=== PATIENT | female | born 1970 | race Caucasian/White ===

== ENCOUNTER 2019-12-06 14:46 | Emergency (ER) | payer OTHER ==
--- OUTSIDE RECORDS SUMMARY | 2019-12-06 14:49 | XMS REPORT | Continuity of Care Document ---
:1970 Author Organization [employer] [facility] Care Team Providers Name Role Phone [employer] [facility] Unavailable Un available Problems Problem Status Onset Classification Date Comments Sourc e Date Reported Asthma 07/06/19 Problem 10/07/2014 1states Surgical (disorder) 09 allergy Specialty induced [facility] [place] Sleep apnea 07/06/19 Problem 10/07/2014 Surgica l (finding) 09 [facility]ty [facility] [place] Hypertensive 07/06/18 Problem 10/07/2014 3presently Surgi abiel disorder, 95 not taking Specialty systemic any meds [facility] arterial [place] (disorder) Anxiety Problem 10/07/2014 Surgical (finding) [facility] [place] Backache Problem 10/07/2014 2off and on Surgica l (finding) [facility] [place] Depressive Problem 10/07/2014 Surgical disorder Specialty (disorder) [facility] [place] Cannabis sativa Problem 10/07/2014 4states uses Surgical (organism) it for Specialty buddhism [facility] reasons [place] Medications Medication Details Route Status Patient Ordering Order Source Instructions Provider Date Tylenol with See Active 10/05/ Surgical Codeine #3 Instructions, 2015 Special ty oral tablet PRN for pain, 1 Hosp ital tabs Oral [place] q4-6hours as [place] needed for pain, 0 Refill(s)1 tabs Oral q4-6hours as needed for pain Tylenol with 2 tabs, Tab, Inactive [place] 10/05/ Surg ical Codeine #3 Oral, q4hr PRN 2014 Specia lty oral tablet for pain severe Hosp ital (7-10), first of [place] dose 10/05/14 Land 7:39:00 CDTMax 4gm acetaminophen in 24 hours ceFAZolin 2 gm, Soln-IV, No Longer [place] 10/04/ Surg ical IV Piggyback, Active 2015 Specialty q8hr, infuse Hospital over 30 minutes, of [place] order duration: [place] 3 doses, first dose 10/04/14 16:30:00 CDT, stop date 10/05/14 16:29:00 CDT acetaminophen- 10 mL, Soln, No Longer [place] 10/04/ S urgical HYDROcodone Oral, q4hr PRN Active 2014 Speci alty 325 mg-7.5 for Pain Hospital mg/15 mL oral Moderate (4-6), of [place] solution first dose [place] 10/04/14 12:00:00 CDTMax 4gm acetaminophen in 24 hours Saline Lock 10 mL, Soln, IV No Longer [place] 10/04/ S urgical Flush Push, q8hr, Active 2015 Specialty first dose Hospital 10/04/14 of [place] 12:00:00 CDT [place] Benadryl 25 mg = 1 caps, No Longer [place] 10/04/ Surg ical Cap, Oral, q6hr Active 2015 Specialt y PRN for itching, Hospita l first dose of [place] 10/04/14 Land 11:35:00 CDT ondansetron 4 mg = 2 mL, No Longer [place] 10/04/ Surg ical Injection, IV Active 2015 Specialty Push, q4hr PRN Hospital for of [place] nausea/vomiting, [place] first dose 10/04/14 11:35:00 CDT promethazine 25 mg = 1 mL, No Longer [place] 10/04/ Berry rgical Injection, IM, Active 2015 Specialty q4hr PRN for Hospital severe nausea, of [place] first dose [place] 10/04/14 11:35:00 CDT Demerol HCl 50 mg = 1 mL, No Longer [place] 10/04/ Lesley gical Injection, IM, Active 2015 Specialty q4hr PRN for Hospital breakthrough of [place] pain, first dose [place] 10/04/14 11:35:00 CDT acetaminophen 650 mg = 2 tabs, No Longer [place] 10/04/ Surgical Tab, Oral, q4hr Active 2015 Specialt y PRN for Hospital headache, first of [place] dose 10/04/14 Land 11:35:00 CDTMax 4gm acetaminophen in 24 hours Saline Lock 10 mL, Soln, IV No Longer [place] 10/04/ S urgical Flush Push, As Active 2015 Specialty Indicated PRN Hospital for flush, first of [place] dose 10/04/14 Land 11:35:00 CDT D5W - 0.45NaCl 1,000 mL, IV, 80 No Longer [place] 10/04 / Surgical with 20 mEq mL/hr, start Active 2014 Special ty KCl 1,000 mL date 10/04/14 Hospi brianna 11:35:00 CDT of [place] acetaminophen- 15 mL, Soln, No Longer [place] urgical HYDROcodone Oral, q4hr PRN Active 2014 Speci alty 325 mg-7.5 for pain severe Hospi brianna mg/15 mL oral (7-10), first of [place] solution dose 10/04/14 Land 11:35:00 CDTMax 4gm acetaminophen in 24 hours Xopenex 0.63 0.63 mg = 3 mL, [facility] mg/3 mL Soln, NEB, Once 2015 Specialt y inhalation PRN for Hospital solution shortness of of [place] breath or [place] wheezing, first dose 10/04/14 9:53:00 CDT ondansetron 4 mg = 2 mL, Inactive [facility] Lesley gical Injection, IV 2014 Specialty Push, q15min PRN Hospita l for of [place] nausea/vomiting, [place] order duration: 2 doses, first dose 10/04/14 9:53:00 CDT, stop date Limited # of times promethazine 12.5 mg = 0.5 Inactive [facility]/ S urgical mL, Injection, 2015 Specialty IM, Once PRN for Hospita l severe nausea, of [place] first dose [place] 10/04/14 9:53:00 CDT Saline Lock 10 mL, Soln, IV Inactive [facility] Surgical Flush Push, As 2015 Specialty Indicated PRN Hospital for flush, first of [place] dose 10/04/14 Land 9:53:00 CDT morphine 2 mg = 0.2 mL, Inactive [facility] 10/04/ Surg ical Injection, IV 2014 Specialty Push, q5min PRN Hospital for Pain of [place] Moderate (4-6), [place] first dose 10/04/14 9:53:00 CDT Dilaudid 0.5 mg = 0.25 Inactive [facility] 10/04/ Surgi abiel mL, Injection, 2014 Specialty IV Push, q10min Hospital PRN for pain of [place] severe (7-10), [place] first dose 10/04/14 9:53:00 CDT Misc 950 mL, Soln-IV, Inactive Hari 10/04/ Surgic al Medication IV, Once, first 2014 Speci alty dose 10/04/14 Hospital 9:50:00 CDT, of [place] 10/04/14 9:50:00 CDT HYDROmorphone 0.5 mg = 0.[address] [facility] 10/04/ Surgical mL, Injection, 2014 Specialty IV, Once, first Hospital dose 10/04/14 of [place] 9:47:00 CDT, 10/04/14 9:47:00 CDT ondansetron 4 mg = 2 mL, Inactive [facility]/ Lesley gical Injection, IV, 2014 Specialty Once, first dose Hospita l 10/04/14 9:31:00 of [place] CDT, stop 10/04/14 9:31:00 CDT HYDROmorphone 0.5 mg = 0.[address] [facility] 10/04/ Surgical mL, Injection, 2014 Specialty IV, Once, first Hospital dose 10/04/14 of [place] 9:27:00 CDT, 10/04/14 9:27:00 CDT acetaminophen 1,000 mg, Inactive [facility] 10/04/ Surg ical Soln-IV, IV 2015 Specialty Piggyback, Once, Hospita l first dose of [place] 10/04/14 9:14:00 [place] CDT, stop 10/04/14 9:14:00 CDT HYDROmorphone 0.5 mg = 0.[address] [facility] 10/04/ Surgical mL, Injection, 2015 Specialty IV, Once, first Hospital dose 10/04/14 of [place] 9:13:00 CDT, 10/04/14 9:13:00 CDT fentaNYL 100 mcg = 2 mL, Inactive [facility] 10/04/ Lesley gical Injection, IV, 2014 Specialty Once, first dose Hospita l 10/04/14 8:56:00 of [place] CDT, stop 10/04/14 8:56:00 CDT ceFAZolin 2 gm, Soln-IV, Inactive [facility] 10/04/ Lesley gical IV Piggyback, 2015 Specialty Once, first dose Hospita l 10/04/14 8:54:00 of [place] CDT, 10/04/14 8:54:00 CDT ceFAZolin 1 gm, Inactive [facility] 10/04/ Surgical Powder-Inj, IV, 2014 [facility] 10/04/14 8:53:00 of [place] CDT, 10/04/14 8:53:00 CDT dexamethasone 12 mg = 3 mL, Inactive [facility] 10/04/ Surgical Injection, IV, 2014 [facility]ty Once, [facility] 10/04/14 8:53:00 of [place] CDT, 10/04/14 8:53:00 CDT rocuronium 5 mg = 0.5 mL, Inactive [facility] 10/04/ Berry rgical Injection, IV, 2014 [facility]ty Once, [facility] 10/04/14 8:43:00 of [place] CDT, 10/04/14 8:43:00 CDT lidocaine 2 mL, Injection, Inactive [facility] 10/04/ S urgical IV, Once, first 2015 Specialt y dose 10/04/14 Hospital 8:43:00 CDT, of [place] 10/04/14 8:43:00 CDT propofol 140 mg = 14 mL, Inactive [facility] 10/04/ Lesley gical Emulsion, IV, 2014 Specialty Once, first dose [facility] 10/04/14 8:43:00 of [place] CDT, 10/04/14 8:43:00 CDT fentaNYL 50 mcg = 1 mL, Inactive [facility] 10/04/ Surg ical Injection, IV, 2014 Specialty Once, first dose [facility] 10/04/14 8:43:00 of [place] CDT, 10/04/14 8:43:00 CDT fentaNYL 100 mcg = 2 mL, Inactive [facility] 10/04/ Lesley gical Injection, IV, 2014 [facility]ty [facility] 10/04/14 8:40:00 of [place] CDT, 10/04/14 8:40:00 CDT midazolam 2 mg = 2 mL, Inactive [facility] 10/04/ Surgi abiel Injection, IV, 2014 [facility]ty [facility], [facility] 10/04/14 8:26:00 of [place] CDT, stop date [place] 10/04/14 8:26:00 CDT ceFAZolin 2 gm, Soln-IV, Inactive [place] 10/04/ Surgi abiel IV Piggyback, 2015 Specialty Once, [facility] over 30 minutes, of [place] first dose [place] 10/04/14 8:00:00 CDT, stop date 10/04/14 8:00:00 CDT Lidocaine 2% 0.2 mL, Inactive Robert 10/04/ Surgical 0.2 mL IV Injection, 2015 Specialty Start Subcutaneous, Hospital [[facility] Once PRN for of [place] other (see [place] comment), first dose 10/04/14 7:29:00 CDT LR 1,000 mL 1,000 mL, IV, 30 Inactive Robert 10/04/ Berry rgical mL/hr, start 2014 Specialty date 10/04/14 Hospital 7:29:00 CDT of [place] clonazePAM 1 1 mg = 1 tabs, Active 10/03/ Surg ical mg oral tablet Oral, TID, [facility] take morning of of [place] surgery, 0 [place] Refill(s), anxietyinstructe d may take morning of surgery Allergies, Adverse Reactions, Alerts Substance Category Reaction Severity Reaction Status Date Comments S ource type Reported doxycycline drug throat Allergy Surg ical allergy closes [facility] Immunizations No Data Provided for This Section Results No Data Provided for This Section Pathology Reports No Data Provided for This Section Diagnostic Reports No Data Provided for This Section Consultation Notes No Data Provided for This Section Discharge Summaries No Data Provided for This Section History and Physicals No Data Provided for This Section Vital Signs Vital Sign Value Date Comments Source Systolic (mm Hg) 122 [facility]05[facility] 10/05[facility]2014 [facility] Temperature Oral (F) [facility].5 [facility]6 [facility] Diastolic (mm Hg) 56 10/05/2014 Surgical S [facility] [place] Systolic (mm Hg) 130 10/05/2014 Surgical [facility] ar [place] Respitory Rate 16 10/05/2014 Surgical Spec [facility] [place] Heart Rate 59 10/05/2014 Surgical [facility] [place] Temperature Oral (F) 36.6 Joanne [facility] [place] Systolic (mm Hg) 113 10/05/2014 Surgical [facility] [place] Diastolic (mm Hg) 63 10/05/2014 Surgical S [facility] ar [place] Respitory Rate 16 10/05/2014 Surgical Spec [facility] [place] Heart Rate 65 10/05/2014 Surgical [facility] ar [facility] Peripheral Pulse [facility] 98 [facility] (F[facility] 37.2 [facility] Weight 40 10/04/2014 [facility] [place] Weight 121.4 10/04/2014 Surgical [facility] Height 174 cm 10/04/2014 Surgical [facility] Peripheral Pulse Rate 88 [facility]/04[facility] [place] Weight 38.39 09/26/2014 Surgical [facility] Height 175.26 cm 09/26/2014 Surgical [facility] Weight 117.93 09/26/2014 Surgical [facility] Encounters Location Location Encounter Encounter Reason Attending ADM CA Stat us Source Details Type Number For Provider Date Date Visit [facility] OBS [id number] Sravan 10/04 10/05 Discharged Surgic al [place] /2014 [facility] [place] Procedures Procedure Code Date Perfomer Comments Source PALATOPHARYNGOPLASTY 10/05/19 [place] 1auto-populate Surgical 78149 (Other)<sup>1</sup> 15 d from Specialty documented Hospital of surgical case [place] TONSILLECTOMY AND 10/05/19 [place] 2auto-populate Lesley gical ADENOIDECTOMY AGE 12 O 15 d from ecialty (Other, documented [facility])<sup>2</sup> surgical case [place] Colonoscopy [id number] 07/06/19 Surgical 14 [facility] egd 07/06/19 Surgical 14 [facility] breast lump 07/06/19 Surgical removed-benign 12 [facility] breast reduction 07/06/19 Surgical 12 [facility] Hysterectomy [id number] 07/06/19 Surgical 10 [facility] Ectopic 633.90 07/06/19 Surgica l 00 [facility] Assessment and Plan No Data Provided for This Section Plan of Care No Data Provided for This Section Social History No Data Provided for This Section Family History No Data Provided for This Section Advance Directives No Data Provided for This Section Functional Status No Data Provided for This Section
--- OUTSIDE RECORDS SUMMARY | 2019-12-06 14:49 | XMS REPORT | Clinical Summary ---
:1970 Author Organization [facility] Address [address] [place] [address] Care Team Providers Name Role Phone Delgado Pierce MD Primary Care Provider Allergies Active Allergy Reactions Severity Noted Date Comments Clindamycin Other (See Comments) 11/25/2019 Trouble swallowing Doxycycline Anaphylaxis High 04/16/2017 Latex Other (See Comments) High 04/16/2017 Blister s and swelling Medications Medication Sig Dispensed Refills Start Date End Date Status orphenadrine Take 1 tablet 30 tablet 0 07/20/2018 Ac tive (NORFLEX) 100 mg 12 (100 mg hr tablet total) by mouth 2 (two) times a day as needed for muscle spasms for up to 30 doses. metoprolol tartrate Take 1 tablet 60 tablet 11 02/02/201901/27 Active (LOPRESSOR) 25 mg (25 mg total) 20 tablet by mouth 2 (two) times a day for 360 days. atorvastatin Take 20 mg by 0 Act gray (LIPITOR) 20 MG mouth daily. tablet Default OP ins predniSONE TK 2 TS PO 0 06/01/2019 Active (DELTASONE) 10 mg FOR 5 tablet DAYSTHEN TK 1 T PO QD FOR 5 DAYS. atorvastatin TK 1 T PO 2 09/03/2017 02/01/20 Discon tinued (LIPITOR) 20 MG NIGHTLY. 19 (Reo rder) tablet METOPROLOL TARTRATE Daily, 0 0 10/20/2017 02/01/20 Discontinued ORAL Refill(s) 19 (Reorder) nitrofurantoin Take 100 mg 0 04/25/20 Dis continued (MACRODANTIN) 100 by mouth 4 19 ( Med List MG capsule (four) times Cleanu p) a day. metoprolol tartrate Take 1 tablet 60 tablet 1 01/31/201901/31 Discontinued (LOPRESSOR) 25 mg (25 mg total) 19 (Reorder) tablet by mouth 2 (two) times a day. atorvastatin TK 1 T PO 30 tablet 2 01/31/2019 02/03/20 Discon tinued (LIPITOR) 20 MG NIGHTLY. 19 (Reo rder) tablet metoprolol tartrate TAKE 1 180 tablet 1 02/01/2019 02/03/20 Discontinued (LOPRESSOR) 25 mg TABLET(25 MG) 19 (Reorder) tablet BY MOUTH TWICE DAILY flecainide Take 1 tablet 60 tablet 11 02/02/2019 04/25/20 Disc ontinued (TAMBOCOR) 50 MG (50 mg total) 19 (Med List tablet by mouth 2 Cleanup) (two) times a day. atorvastatin TK 1 T PO 30 tablet 11 02/02/2019 04/25/20 Discon tinued (LIPITOR) 20 MG NIGHTLY. 19 (Med List tablet Cleanup) cefdinir (OMNICEF) Take 1 20 capsule 0 11/25/2019 12/05/19 300 MG capsule capsule (300 20 mg total) by mouth 2 (two) times a day for 10 days. traMADoL (ULTRAM) Take 1 tablet 10 tablet 0 11/25/2019 0 50 mg (50 mg total) 20 tabletIndications: by mouth acute pain every 6 (six) hours as needed for moderate pain for up to 3 days .acute pain. ibuprofen (ADVIL) Take 1 tablet 14 tablet 0 11/25/2019 0 600 MG tablet (600 mg 20 total) by mouth every 6 (six) hours as needed for mild pain or moderate pain for up to 5 days. 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 Palpitations 05/20/2017 Last Assessment & Plan: Due to symptomatic PVCs; will icnrease wilfrido mobley and refer to EP Chest pain 05/12/2017 Precordial chest pain 04/16/2017 Last Assessment & Plan: Will proceed with stress testing; she ca nnot ambulate far (on disability) Shortness of breath 04/16/2017 Last Assessment & Plan: Will obtain echo Essential hypertension, benign 04/16/2017 Last Assessment & Plan: BPs good; on therapy Encounters Date Type Specialty Care Team Description 11/25/2019 Emergency Emergency Ellis, Acute cystitis with hematuria (Primary Dx); Kemar lCemons MD Right flank marian n 11/25/2019 Travel 09/13/2019 Telephone Cardiology Waleska Valle, Kristel RN 09/12/2019 Travel 09/07/2019 Office Visit Cardiology Kenneth Choudhary (Primary Dx); MD Jayy Preop cardiova scular exam; Essential hyper tension, benign; Pure hyperchole sterolemia 05/18/2019 [facility] [place], Breast mass Encounter Delgado Roman MD 05/18/2019 [facility] [place], Breast mass Encounter Delgado Roman MD 05/09/2019 [facility] [place], Abnormal mammog stefania Encounter Delgado Roman MD 05/09/2019 [facility] [place], Abnormal mammog stefania Encounter Delgado Roman MD 04/25/2019 Surgery Procedural Florence Hopkins, EP TILT TABLE [[id number] Cardiology Rosa Maria (CPT)] MD Starr 04/25/2019 [facility] Procedural Naman Hopkins, Tachycardia, unspecified Encounter Cardiology Rosa Maria Clements MD 04/18/2019 Transcribe Orders Access [place], Abnormal m ammogram (Primary Dx); Delgado Roman MD Breast mass 03/14/2019 Hospital [facility]iology Marco Locke Mediastinal mas s Encounter Beverly TOM MD 03/14/2019 Hospital Radiology Marco Locke Cervicalgia Encounter Beverly TOM MD 03/14/2019 Orders Only Cardiology ProviderEvelyn MD 03/11/2019 Transcribe Orders Access Marco Locke Cervicalgi a (Primary Dx); Beverly TOM MD Mediastinal mas s 02/02/2019 Office Visit Cardiology Kenrick Right ventricul ar outflow tract premature ventricular contractions (PVCs) (Primary Dx); MD Jayy Palpitations; Pure hyperchole sterolemia; Essential hyper tension, benign 01/31/2019 Refill Cardiology Ben Choudhary Refill MD Jayy 01/31/2019 Refill Cardiology Sunita Albert MA Med Refill after 12/05/2018 Social History Tobacco Use Types Packs/Day Years Used Date Former Smoker Cigarettes Smokeless Tobacco: Never Used Comments: QUIT YEARS AGO AT AGE 16 Alcohol Use Drinks/Week oz/Week Comments Yes occasional Sex Assigned at Date Recorded Not on file Job Start Date Occupation Industry Not on file Not on file Not on file Travel History Travel Start Travel End No recent travel history available. COVID-19 Exposure Response Date Recorded In the last month, have you been in contact with No / Unsure 11/25/2019 6:50 PM CDT someone who was confirmed or suspected to have Coronavirus / COVID-19? Last Filed Vital Signs Vital Sign Reading Time Taken Comments Blood Pressure 122/63 11/25/2019 8:30 PM CDT Pulse 98 11/25/2019 8:30 PM CDT Temperature 36.6 C (97.8 F) 11/25/2019 6:34 PM CDT Respiratory Rate 18 11/25/2019 8:30 PM CDT Oxygen Saturation 96% 11/25/2019 8:30 PM CDT Inhaled Oxygen Concentration - - Weight 131 kg (289 lb) 11/25/2019 6:34 PM CDT Height 170.2 cm (5' 7") 11/25/2019 6:34 PM CDT Body Mass Index 45.26 11/25/2019 6:34 PM CDT Plan of Treatment Date Type Specialty Care Team Description 03/09/2020 Office Visit Cardiology Jayy Choudhary MD [address] [place], [place] [address] Health Maintenance Due Date Last Done Comments CERVICAL CANCER SCREENING 1991 INFLUENZA VACCINE 02/04/2020 Procedures Procedure Name Priority Date/Time Associated Diagnosis Comme nts ECG 12-LEAD STAT 11/25/2019 7:48 Results for this PM CDT procedure are i n the results section. CT RENAL STONE STAT 11/25/2019 7:47 Results f or this PROTOCOL PM CDT procedure are i n the results section. ECG ED PRELIMINARY Routine 11/25/2019 7:31 Resul ts for this INTERPRETATION PM CDT procedure are in the results section. COMPREHENSIVE STAT 11/25/2019 6:51 Results fo r this METABOLIC PANEL PM CDT procedure ar e in the results section. HC COMPLETE BLD COUNT STAT 11/25/2019 6:51 Re sults for this W/AUTO DIFF PM CDT procedure are i n the results section. URINALYSIS STAT 11/25/2019 6:48 Results for this PM CDT procedure are i n the results section. TTE COMPLETE, WO Routine 09/12/2019 2:07 Shortness of breath Results for this CONTRAST, W DOPPLER PM CDT procedur e are in ([id number]) the results section. ECG 12-LEAD Routine 09/07/2019 3:59 Preop cardiovascular Res ults for this PM [employer] exam procedure are i n the results section. SURGICAL PATHOLOGY Routine 05/18/2019 11:19 Resul ts for this REQUEST AM [employer] procedure are i n the results section. MAMMO DIAGNOSTIC W CAD Routine 05/18/2019 11:02 Breast mass R esults for this LEFT AM [employer] procedure are i n the results section. US BREAST BIOPSY LEFT Routine 05/18/2019 10:34 Breast mass Re sults for this AM [employer] procedure are i n the results section. US BREAST COMPLETE Routine 05/09/2019 12:57 Abnormal mammogram Results for this LEFT PM [employer] procedure are i n the results section. MAMMO BREAST Routine 05/09/2019 11:54 Abnormal mammogram Resul ts for this DIAGNOSTIC AM [employer] procedure are i n TOMOSYNTHESIS the results BILATERAL section. EP TILT TABLE Routine 04/25/2019 1:27 Tachycardia, Results fo r this PM CDT unspecified procedure are i n the results section. PARTIAL THROMBOPLASTIN STAT 04/25/2019 11:58 R esults for this TIME (PTT) AM CDT procedure are i n the results section. PROTHROMBIN TIME WITH STAT 04/25/2019 11:58 Re sults for this INR AM CDT procedure are i n the results section. CBC HEMOGRAM STAT 04/25/2019 11:58 Results for this AM CDT procedure are i n the results section. ECG PRE/POST OP Routine 04/25/2019 11:10 Results for this AM CDT procedure are i n the results section. CT CHEST W CONTRAST Routine 03/14/2019 5:48 Mediastinal mass Results for this PM CDT procedure are i n the results section. CT SOFT TISSUE NECK W Routine 03/14/2019 5:40 Cervicalgia Re sults for this CONTRAST PM CDT procedure are i n the results section. ESTIMATED GFR Routine 03/14/2019 5:11 Results fo r this PM CDT procedure are i n the results section. POC CREATININE Routine 03/14/2019 5:11 Results f or this PM CDT procedure are i n the results section. NOTIFY PHYSICIAN Routine 02/24/2019 (SPECIFY) ECG 12-LEAD Routine 02/02/2019 2:03 Palpitations Results for this PM CDT procedure are i n the results section. after 12/05/2018 Results ECG 12 lead (11/25/2019 7:48 PM CDT)Only the most recent of3 resultswithin the time period is included. Pathologist Sig nature Ventricular rate 88 [facility] Atrial rate 88 [facility] LA interval 152 [facility] QRSD interval 132 [facility] QT interval 390 [facility] QTC interval 471 [facility] P axis 1 53 [facility] QRS axis 1 -55 [facility] T wave axis 50 [facility] EKG impression Normal sinus rhythm-Right bu ndle branch block-Left anterior fascicular block-^^^ Bifascicular block ^^^-Abnormal ECG-In automated comparison with ECG of 07-SEP-2019 15:59,-Right bundle branch block has replaced Incomplete right bundle branch [facility] MUSE block-Minimal criteria for I nferior infarct are no longer present- Specimen Narrative Performed At This result has an attachment that is no t available. Performing Organization Address City/State/Zipcode Phone Number [facility] MUSE [address] [place] [address] CT Renal Stone Protocol (11/25/2019 7:47 PM CDT) Specimen Narrative Performed At EXAMINATION: CT RENAL STONE PROTOCOL [facility] CLINICAL HISTORY: rt flank pain TECHNIQUE: Multiple axial images of the abdomen and pe lvis were obtained without intravenous administration of iodinated contra st. Sagittal and coronal computerized reformatted images were also obta ined. The lack of intravenous contrast reduces the sensitivity of detecting solid organ disease.Automatic exposure control or iterative reconstruction techniques u sed to reduce dose. COMPARISON: 07/20/2018 Impression: 1.Without IV contrast evaluation of solid organs of up per abdomen is limited. Fatty infiltration of the liver and cholecyst ectomy again noted. Liver measures 22 cm in length. No nephrolithia sis or hydronephrosis. No evidence for ureteral dilatation and no stones in the bladder. 2.Appendix is unremarkable. Sigmoid diverticulosis, wi thout acute diverticulitis. No small bowel obstructi on noted. 3.Status post hysterectomy. Left ovarian cystic lesion measuring 3.3 cm. No significant free fluid in the pelvis. Osseous structures are intact. Summary: 1.No acute intra-abdominal abnormalities. Fatty liver with enlargement again noted. 2.Left ovarian cystic 3.3 cm lesion, not fully assesse d by CT and could be followed with outpatient pelvic ultra sound. [facility] Procedure Note Interface, Radiology Results Incoming - 11/25/2019 7:55 PM CDT EXAMINATION: CT RENAL STONE PROTOCOL CLINICAL HISTORY: rt flank pain TECHNIQUE: Multiple axial images of the abdomen and pelvis were obtained without intravenous administration of iodinated contrast. Sagittal and coronal computerized reformatted images were also obtained. The lack of intravenous contrast reduces the sensitivity of detecting solid organ dis ease.Automatic exposure control or iterative reconstruction techniques used to reduce dose. COMPARISON: 07/20/2018 Impression: 1.Without IV contrast evaluation of deana d organs of upper abdomen is limited. Fatty infiltration of the liver and cholecystectomy again noted. Liver measures 22 cm in length. No nephrolithiasis or hydronephrosis. No evidence for ureteral dilatation and no stones in the bladder. 2.Appendix is unremarkable. Sigmoid dive rticulosis, without acute diverticulitis. No small bowel obstruction noted. 3.Status post hysterectomy. Left ovarian cystic lesion measuring 3.3 cm. No significant free fluid in the pelvis. Osseous structures are intact. Summary: 1.No acute intra-abdominal abnormalities . Fatty liver with enlargement again noted. 2.Left ovarian cystic 3.3 cm lesion, not fully assessed by CT and could be followed with outpatient pelvic ultrasound. [facility] Performing Organization Address City/State/Zipcode Phone Number [facility] [address] [place] [address] ECG ED Preliminary Interpretation - Not an Order (11/25/2019 7:31 PM CDT) Narrative Performed At Deonte Ellis MD 11/25/2019 8:40 PM ECG ED Preliminary Interpretation - Not an Order Performed by: Deonte Ellis MD Authorized by: Deonte Ellis MD ECG reviewed by ED Physician in the abse nce of a supervisor operations: yes Previous ECG: Previous ECG: Unavailable Interpretation: Interpretation: abnormal Rate: ECG rate: 88 ECG rate assessment: normal Rhythm: Rhythm: sinus rhythm Ectopy: Ectopy: none QRS: QRS axis: Left QRS intervals: Normal Conduction: Conduction: abnormal Abnormal conduction: complete RBBB ST segments: ST segments: Non-specific T waves: T waves: inverted Inverted: V2 Comments: Normal sinus rhythm, left axis deviation, nonspeci fic ST changes T wave inversion lead III CBC with platelet and differential (11/25/2019 6:51 PM CDT) [facility] WBC 7.66 4.50 - 11.00 k/uL [facility] RBC 4.97 4.20 - 5.50 m/uL [facility] HGB 14.5 12.0 - 16.0 g/dL [facility] HCT 44.8 37.0 - 47.0 % [facility] MCV 90.1 82.0 - 100.0 fL [facility] MCH 29.2 27.0 - 34.0 pg [facility] MCHC 32.4 31.0 - 37.0 g/dL [facility] RDW - SD 46.3 37.0 - 55.0 fL [facility] MPV 8.8 8.8 - 13.2 fL [facility] Platelet count 246 150 - 400 k/uL [facility] Neutrophils 67.5 39.0 - 69.0 % [facility] Lymphocytes 25.6 25.0 - 45.0 % [facility] Monocytes 4.6 0.0 - 10.0 % [facility] Eosinophils 2.0 0.0 - 5.0 % [facility] Basophils 0.3 0.0 - 1.0 % [facility] Specimen Blood Performing Organization Address City/State/Zipcode Phone Number DEPARTMENT OF PATHOLOGY AND [address] [place] [address] [facility] [address] Comprehensive metabolic panel (11/25/2019 6:51 PM CDT) Sodium 137 128 - [address] [facility] mEq/L [facility] Potassium 3.9 3.6 - 5.[address] [facility] mEq/L [facility] CO2 30 18 - 33 mEq/L [facility] Chloride 102 98 - 108 mEq/L [facility] Glucose 108 73 - 118 mg/dL [facility] Calcium 9.2 8.0 - 10.[address] [facility] mg/dL [facility] BUN 14 7 - 22 mg/dL [facility] Creatinine 0.8 0.5 - 0.[address] [facility] mg/dL [facility] Alkaline phosphatase 66 42 - 141 U/L [facility] ALT 34 10 - 47 U/L [facility] AST 32 11 - 38 U/L [facility] Total bilirubin 0.7 0.2 - 1.[address] [facility] mg/dL [facility] Albumin 3.8 3.3 - 5.5 g/dL [facility] Protein 7.8 6.4 - 8.1 g/dL [facility] Anion gap 5@ANIO (L) 7 - 15 mEq/L [facility] A/G ratio 1.0 0.7 - 3.8 [facility] Specimen Blood Performing Organization Address City/State/Zipcode Phone Number DEPARTMENT OF PATHOLOGY AND [address] [place] [address] [facility] [address] Urinalysis (11/25/2019 6:48 PM CDT) Glucose, UA Trace (A) Negative [facility] Bilirubin, UA Negative Negative [facility] Ketones, UA Negative Negative [facility] Specific gravity, 1.020 1.001 - 1.[address] [facility] Blood, UA Trace (A) Negative [facility] pH, UA 6.5 5.0 - 8.5 [facility] Protein, UA Negative Negative [facility] Urobilinogen, UA <2.0 <2.0 [facility] Nitrite, UA Positive (A) Negative [facility] Leukocyte esterase, Negative Negative [facility] Color, UA Yellow [facility] Appearance, UA Clear [facility] Specimen Urine Performing Organization Address City/State/Zipcode Phone Number DEPARTMENT OF PATHOLOGY AND [address] [place] [address] GENOMIC MEDICINE, [facility] [address] Transthoracic Echocardiogram Complete, (w Contrast, Strain and 3D if needed) (09/12/2019 2:07 PM CDT) Pathologist Sig nature AoV Area, Vmax 3.49 cm2 [facility] AoV Area, VTI 3.60 cm2 [facility] AoV Mean PG 3.00 mmHg [facility] AoV Peak PG 4.93 mmHg [facility] AoV Vmax 1.11 m/s [facility] AoV VTI 0.23 m [facility] BSA [place] 2.58 m2 [facility] BSA 2.36 m2 [facility] IVS,d 0.94 cm [facility] IVS/LVPW,2D 1.03 HM [facility] Left Atrium Dimension Anterior 4.00 cm [facility] LV,d 4.61 cm HM [facility] LV EF,2D 69.30 % HM [facility] LV,s 3.11 cm HM [facility] LVOT area 3.46 cm2 HM [facility] LVOT Diam,S 2.10 cm HM [facility] LVOT Vmax 1.12 m/s HM [facility] LVOT VTI 0.24 m HM [facility] LVPWD,d 0.91 cm HM [facility] RVSP (TR) 22.82 mmHg HM [facility] TR Vpeak 1.79 mm/s HM [facility] MV E A ratio 0.76 HM [facility] RA pressure 10.00 mmHg HM [facility] TR pk grad 12.82 mmHg HM [facility] AoV area i VTI BSA [place] 1.52 cm2/m2 HM [facility] MR Vmax 2.38 m/s HM [facility] MR peak grad 22.66 mmHg HM [facility] BMI 45.26 kg/m2 [facility] E wave decelartion time 292.00 msec HM [facility] MV Peak A Lazaro 0.74 m/s HM [facility] MV valve area p 1/2 method 2.60 cm2 HM [facility] MV Peak E Lazaro 0.56 m/s [facility] MV stenosis pressure 1/2 time 84.68 ms [facility] AV LVOT peak gradient 5.02 mmHg HM [facility] RVSP 22.82 mmHg [facility] Ao Root,d,2D 3.20 cm [facility] LV SYS VOL 38.21 ml HM [facility] LV PAVON VOL 97.83 ml HM [facility] LV SI Teich 2D 25.21 ml/m2 [facility] LV SV Teich 2D 59.62 ml HM [facility] LV Vol s Teich PSAX 38.21 ml [facility] LVOT SI 34.86 ml/m2 [facility] BSA Haycock 2.56 m2 [facility] AoV Cusp sep 2.10 [facility] Aortic Root 3.50 cm HM [facility] AoV Vmn 0.73 [facility] LV FS Teich 2D 32.54 [facility] MV AE ratio 1.31 [facility] LA Ao Ratio Mmode 1.17 HM [facility] LV FS Cube 2D 32.54 [facility] LVOT Vmn 0.68 [facility] Pt Size 170.18 [facility] Pt Wt 131.09 [facility] Aov area Vmn 3.21 cm2 HM [facility] LVOT mean grad 2.00 mmHg HM [facility] Ao d LA s ratio 0.80 [facility] AoV area I VMN bsa 1.36 cm2/m2 [facility] LV press s 123.93 mmHg HM [facility] LV SI Cube 2D 28.71 ml/m2 HM [facility] LV SV Cube 2D 67.89 ml HM [facility] LV vol d cube 2D 97.97 ml HM [facility] LV vol s cube 2D 30.08 ml HM [facility] LA Vol MOD A4C 47.70 ml HM [facility] Velocity Ratio (V1/V2) 1.01 m/s HM [facility] EF 60.94 % [facility] E/A ratio 0.76 [facility] LA diam s 4.10 cm HM [facility] Specimen Narrative Performed At This result has an attachment that is no t available. HM [facility] Left ventricular systolic function is normal. Left Ventricular ejection fraction is 60 - 65%. Normal left ventricular size with preserved systolic a nd diastolic function and no regionality. Trace mitral regurgitatio n. Normal right sided chambers. Performing Organization Address City/[facility]/Zipcode Phone Number [facility] [address] [place] [address] Surgical pathology request (05/18/2019 11:19 AM [employer]) [facility] DEPARTMENT OF PATHOLOGY AND GENOMIC MEDICINE Surgical pathology See link below [facility] DEPARTMENT OF report for PDF Lab PATHOLOGY AND Report GENOMIC MEDICINE Result status This is Final [facility] DEPARTMENT OF Report for PATHOLOGY AND [id number] GENOMIC MEDICINE Specimen Performing Organization Address City/State/Zipcode Phone Number [facility] DEPARTMENT OF PATHOLOGY [address] [place] [address] AND GENOMIC MEDICINE Mammo Diagnostic w Cad Left (05/18/2019 11:02 AM [employer]) Specimen Addenda Addendum by Kylie Dudley MD on 05/20 3:14 PM ADDENDUM #1 ADDENDUM: The final result of the left breast 12 o 'clock subareolar needle biopsy is usual ductal hyperplasia, dilated ducts with periductal stromal sclerosis and chronic inflammation and stromal fib rosis. No atypia or malignancy. Please see Dr. Lauren Barrios's full pathology report for further details. This benign result is concordant with im aging findings. Recommend 6 month follow-up left breast mammogram and ultrasound to establish a postbiopsy baseline and conf irm stability. The patient was notified of the final re sult and recommendations via telephone by RN Ebony Hubbard on 2018 at 2:15 PM. Narrative Performed At Examination: US BREAST BIOPSY LEFT, MAMMO DIAGNOSTIC W CAD LEFT [facility] 05/18/2019 10:02 AM Procedures: 1. Ultrasound-Guided Breast Biopsy and Breast Clip Fabien cement - left breast 12 o'clock subareolar Primary Proceduralist: Kylie Dudley MD Pre Procedure Diagnosis: Breast mass. Post Procedure Diagnosis: Breast mass. Clinical History: 48 year old female presenting for ul trasound-guided biopsy of a suspicious left breast mass, possibly repr esenting fat necrosis. Comparison: Mammogram and ultrasound adair ed 05/09/2019 Consent: The procedure(s), risks, indications, and alt ernatives were explained. All questions were answered and informed co nsent was obtained. Procedure(s) in Detail: A time-out was performed prior to the start of the procedure and the correct patient, procedure, pres ence of consent, site, and side were confirmed with all m embers of the team. Site 1: The skin was prepped with chlorhexidine and dr aped in sterile fashion. Lidocaine with and without epinephrine was administered for local anesthesia. The lesion of interest in the left b reast 11 o'clock subareolar position was identified by ultrasound. Under direct sonographic guidance, 4 sampl es were obtained with a 14 gauge needle through an introducer. A wing s haped marker clip was deployed in the biopsy bed using ultrasound guidan ce. Hemostasis was achieved. The skin was approximated and bandaged with Steri-Strips. Post-procedure Mammography: Post-procedure mammography was performed and shows the marker clip in expected positi on.. Estimated Blood Loss: Minimal. Specimen(s) Removed: Yes. Immediate Complications: None. Disposition: The patient tolerated the procedure well and was discharged home in good condition. Impression: Technically successful ultrasound guided b iopsy of the left breast(s). Final pathology results will be reported in an addendum. [id number] Procedure Note Interface, Radiology Results Incoming - 05/18/2019 3:06 PM [employer] Examination: US BREAST BIOPSY LEFT, MAMMO DIAGNOSTIC W CAD LEFT 05/18/2019 10:02 AM Procedures: 1. Ultrasound-Guided Breast Biopsy and B reast Clip Placement - left breast 12 o'clock subareolar Primary Proceduralist: Kylie Dudley MD Pre Procedure Diagnosis: Breast mass. Post Procedure Diagnosis: Breast mass. Clinical History: 48 year old female pre senting for ultrasound-guided biopsy of a suspicious left breast mass, possibly representing fat necrosis. Comparison: Mammogram and ultrasound adair ed 05/09/2019 Consent: The procedure(s), risks, indica tions, and alternatives were explained. All questions were answered and informed consent was obtained. Procedure(s) in Detail: A time-out was p erformed prior to the start of the procedure and the correct patient, procedure, presence of consent, site, and side were confirmed with all members of the team. Site 1: The skin was prepped with chlorh exidine and draped in sterile fashion. Lidocaine with and without epinephrine was administered for local anesthesia. The lesion of interest in the left breast 11 o'clock subareolar position was identified by ultrasound. Under direct sonographic rena dance, 4 samples were obtained with a 14 gauge needle through an introducer. A wing shaped marker clip was deployed in the biopsy bed using ultrasound guidance. Hemostasis was achieved. The skin was approximated and bandaged with Steri-Strips. Post-procedure Mammography: Post-procedu re mammography was performed and shows the marker clip in expected position.. Estimated Blood Loss: Minimal. Specimen(s) Removed: Yes. Immediate Complications: None. Disposition: The patient tolerated the p rocedure well and was discharged home in good condition. Impression: Technically successful ultra sound guided biopsy of the left breast(s). Final pathology results will be reported in an addendum. [email or web address] Performing Organization Address City/State/Zipcode Phone Number [facility] [address] [place] [address] Breast Biopsy Left (05/18/2019 10:34 AM ULTRASONIC HAND SOLDERER) Specimen Addenda Addendum by Kylie Dudley MD on 05/20 3:14 PM ADDENDUM #1 ADDENDUM: The final result of the left breast 12 o 'clock subareolar needle biopsy is usual ductal hyperplasia, dilated ducts with periductal stromal sclerosis and chronic inflammation and stromal fib rosis. No atypia or malignancy. Please see Dr. Lauren Barrios's full pathology report for further details. This benign result is concordant with im aging findings. Recommend 6 month follow-up left breast mammogram and ultrasound to establish a postbiopsy baseline and conf irm stability. The patient was notified of the final re sult and recommendations via telephone by RN Ebony Hubbard on 2018 at 2:15 PM. Narrative Performed At Examination: US BREAST BIOPSY LEFT, MAMMO DIAGNOSTIC W CAD LEFT [facility] 05/18/2019 10:02 AM Procedures: 1. Ultrasound-Guided Breast Biopsy and Breast Clip Fabien cement - left breast 12 o'clock subareolar Primary Proceduralist: Kylie Dudley MD Pre Procedure Diagnosis: Breast mass. Post Procedure Diagnosis: Breast mass. Clinical History: 48 year old female presenting for ul trasound-guided biopsy of a suspicious left breast mass, possibly repr esenting fat necrosis. Comparison: Mammogram and ultrasound adair ed 05/09/2019 Consent: The procedure(s), risks, indications, and alt ernatives were explained. All questions were answered and informed co nsent was obtained. Procedure(s) in Detail: A time-out was performed prior to the start of the procedure and the correct patient, procedure, pres ence of consent, site, and side were confirmed with all m embers of the team. Site 1: The skin was prepped with chlorhexidine and dr aped in sterile fashion. Lidocaine with and without epinephrine was administered for local anesthesia. The lesion of interest in the left b reast 11 o'clock subareolar position was identified by ultrasound. Under direct sonographic guidance, 4 sampl es were obtained with a 14 gauge needle through an introducer. A wing s haped marker clip was deployed in the biopsy bed using ultrasound guidan ce. Hemostasis was achieved. The skin was approximated and bandaged with Steri-Strips. Post-procedure Mammography: Post-procedure mammography was performed and shows the marker clip in expected positi on.. Estimated Blood Loss: Minimal. Specimen(s) Removed: Yes. Immediate Complications: None. Disposition: The patient tolerated the procedure well and was discharged home in good condition. Impression: Technically successful ultrasound guided b iopsy of the left breast(s). Final pathology results will be reported in an addendum. [email or web address] Performing Organization Address City/State/Zipcode Phone Number [facility] [address] [place] [address] US Breast Complete Left (05/09/2019 12:57 PM ULTRAS[employer]IC HAND SOLDERER) Specimen Narrative Performed At PROCEDURE: MAMMO BREAST DIAGNOSTIC TOMOSYNTHESIS BILAT ERAL, US BREAST [facility] COMPLETE LEFT Left real-time whole breast sonography included all fo ur quadrants and the retroareolar region under close supe rvision by the radiologist. Computer aided detection with tomosynthesis was utiliz ed for the interpretation. HISTORY: 48-year-old female presenting for short ter m follow-up for the left breast and annual screening of the right breast. COMPARISON: 11/19/2018-03/26/2015. DENSITY: The breast are almost entirely fatty. MAMMOGRAM: Bilateral benign-appearing calcifications a re noted in both breasts. There is a 1.8 x 1.6 x 1.4 cm mass with lobul ar and indistinct margins in the left breast at 12 o'clock 8 cm from the nipple which may represent an area of fat necrosis, however given the indistinct borders on the tomosynthe sis slices, malignancy cannot be entirely excluded. ULTRASOUND: There is a 1.4 x 0.9 x 0.5 cm heterogeneou sly hypoechoic mass/masses at 12 o'clock subareolar region which repr esents a sonographic correlate to the mass seen on mammography. No other significant mammographic finding is iden tified. IMPRESSION: 1. Suspicious 1.4 cm mass in the left subareolar regio n. Ultrasound-guided core biopsy is recomme nded for definitive diagnosis. 2. No mammographic evidence of malignanc y in the right breast. Findings and recommendations were discussed with the p atient and the biopsy will be scheduled by the breast c enter. BI-RADS 4: SUSPICIOUS This facility is accredited by [employer] for Mammography. A negative x-ray report should not delay biopsy if a d ominant or clinically suspicious mass is present. Not all cance rs are identified by x-ray. [email or web address] Performing Organization Address City/State/Zipcode Phone Number [facility] [address] [place] [address] Mammo Breast Diagnostic Tomosynthesis Bilateral (05/09/2019 11:54 AM ULTRASONIC HAND SOLDERER) Specimen Narrative Performed At PROCEDURE: MAMMO BREAST DIAGNOSTIC TOMOSYNTHESIS BILAT ERAL, US BREAST [facility] COMPLETE LEFT Left real-time whole breast sonography included all fo ur quadrants and the retroareolar region under close supe rvision by the radiologist. Computer aided detection with tomosynthesis was utiliz ed for the interpretation. HISTORY: 48-year-old female presenting for short ter m follow-up for the left breast and annual screening of the right breast. COMPARISON: 11/19/2018-03/26/2015. DENSITY: The breast are almost entirely fatty. MAMMOGRAM: Bilateral benign-appearing calcifications a re noted in both breasts. There is a 1.8 x 1.6 x 1.4 cm mass with lobul ar and indistinct margins in the left breast at 12 o'clock 8 cm from the nipple which may represent an area of fat necrosis, however given the indistinct borders on the tomosynthe sis slices, malignancy cannot be entirely excluded. ULTRASOUND: There is a 1.4 x 0.9 x 0.5 cm heterogeneou sly hypoechoic mass/masses at 12 o'clock subareolar region which repr esents a sonographic correlate to the mass seen on mammography. No other significant mammographic finding is iden tified. IMPRESSION: 1. Suspicious 1.4 cm mass in the left subareolar regio n. Ultrasound-guided core biopsy is recomme nded for definitive diagnosis. 2. No mammographic evidence of malignanc y in the right breast. Findings and recommendations were discussed with the p akhil and the biopsy will be scheduled by the breast c enter. BI-RADS 4: SUSPICIOUS This facility is accredited by [employer] for Mammography. A negative x-ray report should not delay biopsy if a d ominant or clinically suspicious mass is present. Not all cance rs are identified by x-ray. [email or web address] Performing Organization Address City/State/Zipcode Phone Number [facility] [address] [place] [address] Electrophysiology procedure (04/25/2019 1:27 PM CDT) Specimen Narrative Performed At This result has an attachment that is no t available. Description [facility] SYNGO The risks, benefits and alternatives were discussed wi th the patient and informed consent was obtained prior to procedure. Yogesh musa was brought to the Electrophysiology laboratory in the fasting state. The blood pressure, heart rate oxygen saturation and surface electrocardio gram were monitored throughout the procedure. Patient was initially monitored in the supine position with the following VS: BP 114 HR 66. She was then positioned in a h ead-up tilt position at a 70 degrees angle. BP and HR remained stable during the passive phase for 20 minutes. ECG showed NSR with no PVCs. Patient received SL NTG 0.4 mg, BP after NTG remained stable 119/90 with HR up to 100 bpm, she reported nausea and dizziness. She was returned to t he supine position with resolution of symptoms and was transferred to the recovery area in stable condition. Conclusion Negative tilt table test Plan - Continue metoprolol - D/C today Performing Organization Address [facility] Phone Number [facility] [address] [place] [address], Partial thromboplastin time, activated (04/25/2019 11:58 AM CDT) Pathologist [facility] PTT 32.1 23.0 - 36.[address] [facility] Comment: [facility] PTT therapeutic range for unfractionated heparin is HOSPITAL 61.0-112.0 seconds which corresponds to Anti-Xa 0.3-0.7 U/ml. Specimen Blood Performing Organization Address [facility] Phone Number [facility] DEPARTMENT OF PATHOLOGY [address] [place] [address] Prothrombin time with INR (04/25/2019 11:58 AM CDT) [facility] Prothrombin time 13.0 11.5 - 14.5 [facility] INR 1.0 [facility] Comment: KHURRAM DURBIN [facility] International Normalized Ratio (INR) is a therapeu [facility] monitoring tool for patients who are stable on oral anticoagulant therapy. An INR of 2.0-3.0 is suggested for deep vein thrombosis/pulmonary embolism. Specimen Blood Performing Organization Address [facility] Phone Number [facility] DEPARTMENT OF PATHOLOGY [address] [place] [address] CBC hemogram (04/25/2019 11:58 AM CDT) Pathologist [facility] nature WBC 6.6 4.5 - 11.0 k/uL [facility] RBC 4.75 4.20 - 5.50 m/uL [facility] HGB 13.7 12.0 - 16.0 g/dL [facility] HCT 42.2 37.0 - 47.0 % [facility] MCV 88.8 82.0 - 100.0 fL [facility] MCH 28.8 27.0 - 34.0 pg [facility] MCHC 32.5 31.0 - 37.0 g/dL [facility] RDW - SD 44.0 37.0 - 55.0 fL [facility] MPV 8.9 6.9 - 11.0 fL [facility] Platelet count 242 150 - 400 K/uL [facility] Nucleated RBC 0.00 /100 WBC [facility] Specimen Blood Performing Organization Address [facility]/Zipcode Phone Number [facility] DEPARTMENT OF PATHOLOGY [address] [facility] [address] AND GENOMIC MEDICINE [facility] [address] [facility] [place] [address] HOSPITAL ECG Pre/Post Op (04/25/2019 11:10 AM CDT) Pathologist Sig nature Ventricular rate 77 [facility] Atrial rate 77 [facility] LA interval 158 [facility] QRSD interval 138 [facility] QT interval 414 [facility] QTC interval 468 [facility] P axis 1 52 [facility] QRS axis 1 -23 [facility] T wave axis 45 [facility] EKG impression Normal sinus rhythm-Right bu ndle branch block-Possible Lateral infarct , age undetermined-Abnormal ECG-In automated comparison with ECG of 02-FEB-2019 14:03,-Left posterior fascicular block is no longer [facility] present-Borderline criteria for Lateral infarct are now present- Specimen Narrative Performed At This result has an attachment that is no t available. Performing Organization Address City/[facility]/Zipcode Phone Number [facility] [address] [place] [address] CT Chest W Contrast (03/14/2019 5:48 PM CDT) Specimen Narrative Performed At EXAMINATION: [facility] CT CHEST W CONTRAST CLINICAL HISTORY: J98.59 Other diseases of mediastinum not elsewhere c lassified, M54.2 J98.5 TECHNIQUE: Multiple axial images of the chest were obtained follo wing intravenous administration of iodinated contrast. Sagittal and cor onal computerized reformatted images were also obtained. CT imaging was performed with iterative reconstruction techniques and/ or automated exposure control to reduce ra diation dose. COMPARISON: To previous study from 05/31/2018 IMPRESSION: 1.There is no evidence of hilar or mediastinal lymphad enopathy. Moderate fatty infiltration is noted involving th e partially visualized liver. 2.No parenchymal abnormality is noted in the lungs. 3.No bony abnormality is appreciated. [id number] Procedure Note Interface, Radiology Results Incoming - 03/14/2019 7:20 PM CDT EXAMINATION: CT CHEST W CONTRAST CLINICAL HISTORY: J98.59 Other diseases of mediastinum no t elsewhere classified, M54.2 J98.5 TECHNIQUE: Multiple axial images of the chest were obtained following intravenous administration of iodinated contrast. Sagittal and coronal computerized reformatted images were also obtained. CT imaging was performed with iterative reconstruction techniques and/ or automated exposure control to reduce ra diation dose. COMPARISON: To previous study from 05/31/2018 IMPRESSION: 1.There is no evidence of hilar or media stinal lymphadenopathy. Moderate fatty infiltration is noted involving the partially visualized liver. 2.No parenchymal abnormality is noted in the lungs. 3.No bony abnormality is appreciated. [id number] Performing Organization Address City/State/Zipcode Phone Number [facility] [address] [place] [address] CT Soft Tissue Neck W Contrast (03/14/2019 5:40 PM CDT) Specimen Narrative Performed At EXAMINATION: CT SOFT TISSUE NECK W CONTR AST [facility] CLINICAL HISTORY: M54.2 Cervicalgia, M54 .2 J98.5 COMPARISON: None TECHNIQUE: Postcontrast enhanced imaging through the n dimas was performed from the upper chest through the skull base with coron al and sagittal reconstructed images. CT imaging was performed with iterative reconstruction technique and/or automate d exposure control to reduce radiation dos e. FINDINGS: The base of tongue appears unremarkable. The pharyngea l mucosa is symmetric in appearance and enhancement. The laryngeal structures are symmetric and unremarkable. No prevertebral soft tissu e swelling identified. The parotid and submandibula r glands appear normal bilaterally. Mildly prominent lymph nodes are noted throughout the level 1B and to a dianne stations bilaterally, likely reactive. No pathol ogically enlarged cervical, supraclavicular, or mediastinal lymph nodes identified. The thyroid gland is grossly unremarkable. Normal three-vessel branching of the aortic arch is no prieto. The carotid and vertebral arteries are patent withou t gross luminal irregularity. No significant periodontal disease identified. Small m ucus of atelectasis is noted within the right maxilla sinus. T he remaining paranasal sinuses and mastoid air cells are clear. The orbital structures are symmetric and grossly unr emarkable. Limited evaluation of the intracranial structures reveals no s uspicious abnormality. No midline shift or ventric ulomegaly identified. No suspicious osseous lesions are identified. There is moderate intervertebral disc height loss C5-C6 which results in moderate central canal and right neural foraminal stenosis when combine d with marginal endplate osteophytes, image 120 of serie s 7. The lung apices are clear. IMPRESSION: 1.Apparent moderate central canal and right neural for aminal stenosis at C5-C6 secondary to bulging disc material and endplate osteophytes. If further catheterization is clinically desired, MRI C-s pine could provide additional diagnostic detail. 2.Otherwise unremarkable CT of the neck soft tissues. [id number] Procedure Note Hm Interface, Radiology Results Incoming - 03/14/2019 5:57 PM CDT EXAMINATION: CT SOFT TISSUE NECK W CONTRAST CLINICAL HISTORY: M54.2 Cervicalgia, M54 .2 J98.5 COMPARISON: None TECHNIQUE: Postcontrast enhanced imaging through the neck was performed from the upper chest through the skull base with coronal and sagittal reconstructed images. CT imaging was performed with iterative reconstruction technique and/or automated exposure control to reduce radiation dos e. FINDINGS: The base of tongue appears unremarkable. The pharyngeal mucosa is symmetric in appearance and enhancement. The laryngeal structures are symmetric and unremarkable. No prevertebral soft tissue swelling identified. The parotid and submandibular glands appear normal bilaterally. Mildly prominent lymph nodes are noted t hroughout the level 1B and to a dianne stations bilaterally, likely reactive. No pathologically enlarged cervical, supraclavicular, or mediastinal lymph nodes identified. The thyroid gland is grossly unremarkable. Normal three-vessel branching of the aor tic arch is noted. The carotid and vertebral arteries are patent without gross luminal irregularity. No significant periodontal disease ident ified. Small mucus of atelectasis is noted within the right maxilla sinus. The remaining paranasal sinuses and mastoid air cells are clear. The orbital structures are symmetric and grossly unremarkable. Limited evaluation of the intracranial structure s reveals no suspicious abnormality. No midline shift or ventriculomegaly identified. No suspicious osseous lesions are identi fied. There is moderate intervertebral disc height loss C5-C6 which results in moderate central canal and right neural foraminal stenosis when combined with marginal endplate osteophytes, image 120 of serie s 7. The lung apices are clear. IMPRESSION: 1.Apparent moderate central canal and ri ght neural foraminal stenosis at C5-C6 secondary to bulging disc material and endplate osteophytes. If further catheterization is clinically desired, MRI C-spine could provide additional diagnostic detail. 2.Otherwise unremarkable CT of the neck soft tissues. [id number] Performing Organization Address City/State/Zipcode Phone Number [facility] [address] [place] [address] Estimated GFR (03/14/2019 5:11 PM CDT) Estimated GFR >=90 mL/min/1.73 [facility] Comment: m2 [facility] Catergory Units Interpretation [facility] G1 >=90 Normal or high CENTER G2 60-89 Mildly decreased G3a 45-59 Mildly to moderately decreas ed G3b 30-44 Moderately to severely decre ased G4 15-29 Severely decreased G5 <15 Kidney failure The eGFR was calculated using the Chronic Kidney Disea se Epidemiology Collaboration (CKD-EPI) equation. Interpretation is based on recommendations of the National Kidney Foundation-Kidney Disease Outcomes Júnior lity Initiative (NKF-KDOQI) published in 2014. Specimen Blood Performing Organization Address City/State/Zipcode Phone Number DEPARTMENT OF PATHOLOGY AND [address] [place] [address] [facility] RON PAUL[facility] [address] [place], [place] [id number] [place] [address] POC creatinine (03/14/2019 5:11 PM CDT) POC creatinine 0.7 0.5 - 0.9 [facility] Comment: mg/dl [facility] Meter ID: [id number] EMERGENCY CARE Infant And Toddler Teacher: Cecil Vargas [place] Specimen Blood Performing Organization Address City/State/Zipcode Phone Number DEPARTMENT OF PATHOLOGY AND [address] [place] [address] [employer] [facility] [address] [facility] [address] [place] [address] [facility] EMERGENCY CARE [place] NOTIFY PHYSICIAN (SPECIFY) (02/24/2019) Narrative Performed At This result has an attachment that is no t available. after 12/05/2018 Insurance Payer Benefit Plan / Subscriber ID Effective Dates Phone Addre ss Type Group MEDICARE MEDICARE PART A xxxxxxxxxxx 2009-Present [facility] [place] [facility] [place] B Advance Directives For more information, please contact: [phone] Type Date Recorded Patient Customer Records Division Supervisor Explanati on Advance Directives, Living Will 05/12/2017 12:46 AM and Medical Power of Community Life Director
--- OUTSIDE RECORDS SUMMARY | 2019-12-06 14:51 | XMS REPORT | Continuity of Care Document ---
:[address] [facility] t Address [address] [place] [place] [address] Care Team Providers Name Role Phone Jessie Pierce MD Primary Care Physician Caleb JOHNSON Attending Clinician Leonard ELIZABETH Attending Clinician Unavailable KENRICK Attending Clinician Unavailable Jessie Pierce MD Attending Clinician Damaris Silver Attending Clinician Unavailable Starr Walters MD Attending Clinician [phone] Beverly Dougherty MD Attending Clinician Paula JOHNSON Attending Clinician Roosevelt OCHOA Attending Clinician Unavailable LIZETH LR Admitting Clinician Unavailable Payers Payer Name Policy Policy Number Effective Expiration Source Type Date Date MEDICAREMEDICARE PART xxxxxxxxxxx 2009 Kai Ocampo AND 00:00:00 [place] Bxxxxxxxxxxx/07/2008[place] [facility] Condition Condition Condition Status Onset Resolution Last Treating Co mments Source Name Details Category Date Date Treatment Clinician Date Preop Preop Disease Active [facility] cardiovasc cardiovasc 3-04 Assessmen Methodi ular exam ular exam 00:00: t & Plan: s t 00 Will obtain echo and ecg to risk stratify Right Right Disease Active [facility] ventricula ventricula 7-16 Assessmen Methodi r outflow r outflow 00:00: t & Plan: s t tract tract 00 Will premature premature resume ventricula ventricula flecainid r r e at 50 contractio contractio mg bid; ns (PVCs) ns (PVCs) she will see Dr Stanley February 10 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 Morton hyperchole hyperchole 6- Assessmen Methodi sterolemia sterolemia 00:00: t & Plan: st 00 On statin. Palpitatio Palpitatio Disease Active 2016-07 Last [facility] ns ns 1-15 Assessmen Methodi 00:00: t & Plan: st 00 Due to symptomat ic PVCs; will icnrease flecainid e and refer to EP Chest pain Chest pain Disease Active 2016-07 [place] 1-07 Methodi 00:00: st 00 Precordial Precordial Disease Active 2016-07 Last [facility] chest pain chest pain 0-12 Assessmen Methodi 00:00: t & Plan: st 00 Will proceed with stress testing; she cannot ambulate far (on disabilit y) Shortness Shortness Disease Active 2016-07 Last Nikita ston of breath of breath 0-12 Assessmen M ethodi 00:00: t & Plan: st 00 Will obtain echo Essential Essential Disease Active 2016-07 Last Nikita ston hypertensi hypertensi 0-12 Assessmen Methodi on, benign on, benign 00:00: t & Plan: st 00 BPs good; on therapy Asthma Problem 2014-10-07 Surgi ca (disorder) 07-06 04:00:13 l Asthma 00:00: Special (disorder) 00 ty [facility] 07/06/2008 Problem 10/07/2014 1states allergy induced [facility] Sleep Problem 2014-10-07 Surgi ca apnea - 04:00:13 l (finding) Sleep 00:00: Specia l apnea 00 ty (finding) [facility] 07/06/2008 Problem 10/07/2014 [facility] Hypertensi Problem 2014-10-07 S urgica ve 07-06 04:00:13 l disorder, 00:00: Special systemic Hypertensi 00 ty arterial ve Hospita (disorder) disorder, l o f systemic [place] arterial [place] (disorder) 07/06/1994 Problem 10/07/2014 3presentl y not taking any meds [facility] Anxiety Problem 2014-10-07 Surg ica (finding) 04:00:13 l Anxiety Special (finding) ty [facility] Problem 10/07/2014 [facility] Backache Problem 2014-10-07 Lesley gica (finding) 04:00:13 l Backache Specia l (finding) ty [facility] Problem 10/07/2014 2off and on [facility] Depressive Problem 2014-10-07 S urgica disorder 04:00:13 l (disorder) Specia l Depressive ty disorder [facility] [place] Problem 10/07/2014 [facility] Cannabis Problem 2014-10-07 Lesley gica sativa 04:00:13 l (organism) Cannabis Sp ecial sativa ty (organism) [facility] Problem 10/07/2014 4states uses it for caodaism reasons [facility] Allergies, Adverse Reactions, Alerts Allergy Allergy Status Severity Reaction(s) Onset Inactive Treating Comm ents Source Name Type Date Date Clinician Clindamy Propensi Active Other (See Trouble [place] checo ty to Comments) 11-24 swallowin Meth jess adverse 00:00: g st reaction 00 s to drug Doxycycl Propensi Active Anaphylaxis 2016-07 [place] ine ty to 0-12 Methodi adverse 00:00: st reaction 00 s to drug Latex Propensi Active Other (See 2016-07 Blisters [facility] ty to Comments) 0-12 and Methodi adverse 00:00: swelling st reaction 00 s to drug doxycycl doxycycl Active [facility] Social History Social Habit Start Date Stop Date Quantity Comments Source History of Cigarette Smoker [facility] tobacco use Sex Assigned At [facility] ethodist Exposure to Not sure [place] Metho dist SARS-CoV-2 (event) Alcohol intake 2019-11-25 2019-11-25 [facility] Uatsdin 00:00:00 00:00:00 alcohol (finding) Tobacco Comment 2018-01-18 2018-01-18 QUIT YE[facility] AGO AT [facility] U[place]din 00:00:00 00:00:00 AGE 16 Alcohol Comment 2018-01-18 2018-01-18 occasional [facility] ethodist 00:00:00 00:00:00 Smoking Status Start Date Stop Date Source Former smoker 2019-11-25 00:00:00 2019-11-25 00:00:00 Corley Uatsdin Medications Ordered Filled Start Stop Current Ordering Indication Dosage Frequency Signature Comments Components Source Medication Medication Date Date Medication? Clinician (SIG) Name Name cefdinir 2019- No 300mg Q.5D Take 1 [place] (OMNICEF) 11-24 capsule Method i 300 MG 00:00: 23:59 ([address] capsule 00 :00 total) by mouth 2 (two) times a day for 10 days. ibuprofen 2019- No 600mg Q6H Take 1 [place] (ADVIL) 600 11-2427 tablet Metho di MG tablet 00:00: 23:59 ([address] 00 :00 total) by mouth every 6 (six) hours as needed for mild pain or moderate pain for up to 5 days. traMADoL No acute pain 50mg Q6H Take 1 Cor[place] (ULTRAM) 50 11-24 tablet (50 M ethodi mg tablet 00:00: 23:59 mg total) st 00 :00 by mouth every 6 (six) hours as needed for moderate pain for up to 3 days .acute pain. atorvastati Yes 20mg QD Take 20 mg Corley n (LIPITOR) 3-04 by mouth Meth jess 20 MG 14:35: daily. st tablet 45 Default OP ins predniSONE 2018-07 Yes TK 2 TS PO [place] (DELTASONE) 1-27 FOR 5 Methodi 10 mg 00:00: DAYSTHEN st tablet 00 TK 1 T PO QD FOR 5 DAYS. nitrofurant 2018-07- No 100mg Q.25D Take 100 Corley oin 0-21 10-21 mg by Methodi (MACRODANTI 11:56: 00:[address] N) 100 MG 11 :00 (four) capsule times a day. metoprolol No 25mg Q.5D Take 1 [place] tartrate 02-02 07-25 tablet (25 Meth jess (LOPRESSOR) 00:00: 23:59 mg total) st 25 mg 00 :00 by mouth 2 tablet (two) times a day for 360 days. flecainide No 50mg Q.5D Take 1 [place] (TAMBOCOR) 02-02 10-21 tablet (50 Me thodi 50 MG 00:00: 00:00 mg total) st tablet 00 :00 by mouth 2 (two) times a day. atorvastati 2018- No TK 1 T PO Corley n (LIPITOR) 02-02 NIGHTLY. Met hodi 20 MG 00:00: 00:00 st tablet 00 :00 metoprolol 2018- No TAKE 1 [place] tartrate 02-01 TABLET(25 Metho di (LOPRESSOR) 00:00: 00:00 MG) BY st 25 mg 00 :00 MOUTH tablet TWICE DAILY atorvastati 2018- No TK 1 T PO Corley n (LIPITOR) 01-31 NIGHTLY. Met hodi 20 MG 00:00: 00:00 st tablet 00 :00 metoprolol 2018- No 25mg Q.5D Take 1 [place] tartrate 01-31 tablet (25 Meth jess (LOPRESSOR) 00:00: 00:00 mg total) st 25 mg 00 :00 by mouth 2 tablet (two) times a day. orphenadrin Yes 100mg Q.5D Take 1 Nikita ston e (NORFLEX) 1-15 tablet Method i 100 mg 12 00:00: ([address] hr tablet 00 total) by mouth 2 (two) times a day as needed for muscle spasms for up to 30 doses. METOPROLOL 2018- No Daily, 0 [place] TARTRATE 10-20 Refill(s) Metho di ORAL 00:00: 00:00 st 00 :00 atorvastati 2018- No TK 1 T PO Corley n (LIPITOR) 09-03 NIGHTLY. Met hodi 20 MG 00:00: 00:00 st tablet 00 :00 Tylenol Yes See Surgica with 4- Instructio l Codeine #3 17:22: ns, PRN Spec ial oral tablet 00 for pain, ty 1 tabs Hospita Oral l of q4-6hours [place] as needed [place] for pain, 0 Refill(s)1 tabs Oral q4-6hours as needed for pain Tylenol No Sravan 2 tabs, Surgic a with 4- Devorkin Tab, Oral, l Codeine #3 12:39: q4hr PRN Spe cial oral tablet 00 for pain ty severe Hospita (7-10), l of first dose [place] 10/05/14 Land 7:39:00 CDTMax 4gm acetaminop hen in 24 hours ceFAZolin Karen Hinson 2 gm, Surgic a 10-04 [place] Soln-IV, l 21:30: IV Special 00 Piggyback, ty q8hr, Hospita infuse l of over 30 [place] minutes, [place] order duration: 3 doses, first dose 10/04/14 16:30:00 CDT, stop date 10/05/14 16:29:00 CDT acetaminoph No Sravan 10 mL, Lesley gica en-HYDROcod 10-04 Devorkin Soln, l one 325 17:00: Oral, q4hr Spec ial mg-7.5 00 PRN for ty mg/15 mL Pain Hospita oral Moderate l of solution (4-6), [place] first dose Land 10/04/14 12:00:00 CDTMax 4gm acetaminop hen in 24 hours Saline Lock No Sravan 10 mL, Lesley gica Flush 10-04 Devorkin Soln, IV l 17:00: Push, Special 00 q8hr, ty first dose Hospita 10/04/14 l of 12:00:00 [place] CDT Land Benadryl Karen Hinson 25 mg = 1 Lesley gica 10-04 [place] caps, Cap, l 16:35: Oral, q6hr Special 00 PRN for ty itching, Hospita first dose l of 10/04/14 [place] 11:35:00 [place] CDT ondansetron Karen Hinson 4 mg = 2 S urgica 10-04 [place] mL, l 16:35: Injection, Special 00 IV Push, ty q4hr PRN Hospita for l of nausea/vom [place] iting, [place] first dose 10/04/14 11:35:00 CDT promethazin Karen Hinson 25 mg = 1 Surgica e 10-04 [place]in mL, l 16:35: Injection, Special 00 IM, q4hr ty PRN for Hospita severe l of nausea, [place] first dose [place] 10/04/14 11:35:00 CDT Demerol HCl Karen Hinson 50 mg = 1 Surgica 10-04 [place] mL, l 16:35: Injection, Special 00 IM, q4hr ty PRN for Hospita breakthrou l of gh pain, [place] first dose [place] 10/04/14 11:35:00 CDT acetaminoph No Sravan 650 mg = 2 Surgica en 10-04 Devorkin tabs, Tab, l 16:35: Oral, q4hr Special 00 PRN for ty headache, Hospita first dose l of 10/04/14 [place] 11:35:00 [place] CDTMax 4gm acetaminop hen in 24 hours Saline Lock No Sravan 10 mL, Lesley gica Flush 10-04 Devorkin Soln, IV l 16:35: Push, As Special 00 Indicated ty PRN for Hospita flush, l of first dose [place] 10/04/14 Land 11:35:00 CDT D5W - No Sravan 1,000 mL, Surgic a 0.45NaCl 10-04 Devorkin IV, 80 l with 20 mEq 16:35: mL/hr, Spec ial KCl 1,000 00 start date ty mL 10/04/14 Hospita 11:35:00 l of CDT [place] acetaminoph No Sravan 15 mL, Lesley gica en-HYDROcod 10-04 [place]orkin Soln, l one 325 16:35: Oral, q4hr Spec ial mg-7.5 00 PRN for ty mg/15 mL pain Hospita oral severe l of solution (7-10), [place] first dose [place] 10/04/14 11:35:00 CDTMax 4gm acetaminop hen in 24 hours Xopenex No Lakshmi 0.63 mg = Surg ica 0.63 mg/3 10-04 Munsterman 3 mL, l mL 14:53: Soln, NEB, Special inhalation 00 Once PRN ty solution for Hospita shortness l of of breath [place] or [place] wheezing, first dose 10/04/14 9:53:00 CDT ondansetron No Lakshmi 4 mg = 2 S urgica 10-04 [place] mL, l 14:53: Injection, Special 00 IV Push, ty q15min PRN Hospita for l of nausea/vom [place] iting, [place] order duration: 2 doses, first dose 10/04/14 9:53:00 CDT, stop date Limited # of times promethazin No Lakshmi 12.5 mg = Surgica e 10-04 [place]erman 0.5 mL, l 14:53: Injection, Special 00 IM, Once ty PRN for Hospita severe l of nausea, [place] first dose [place] 10/04/14 9:53:00 CDT Saline Lock No Lakshmi 10 mL, Lesley gica Flush 10-04 [place]erman Soln, IV l 14:53: Push, As Special 00 Indicated ty PRN for Hospita flush, l of first dose [place] 10/04/14 Land 9:53:00 CDT morphine No Lakshmi 2 mg = 0.2 Berry rgica 10-04 Munsterman mL, l 14:53: Injection, Special 00 IV Push, ty q5min PRN Hospita for Pain l of Moderate [place] (4-6), [place] first dose 10/04/14 9:53:00 CDT Dilaudid No Lakshmi 0.5 mg = Surg ica 10-04 Munsterman 0.25 mL, l 14:53: Injection, Special 00 IV Push, ty q10min PRN Hospita for pain l of severe [place] (7-10), [place] first dose 10/04/14 9:53:00 CDT Misc No Cam 950 mL, Surgica Medication 10-04 Hari Soln-IV, l 14:50: IV, Once, Special 00 first dose ty 10/04/14 Hospita 9:50:00 l of CDT, stop [place] date 10/04/14 9:50:00 CDT HYDROmorpho No Lakshmi 0.5 mg = S urgica ne 10-04 Munsterman 0.25 mL, l 14:47: Injection, Special 00 IV, Once, ty first dose Hospita 10/04/14 l of 9:47:00 [place] CDT, stop date 10/04/14 9:47:00 CDT ondansetron No Lakshmi 4 mg = 2 S urgica 10-04 [place] mL, l 14:31: Injection, Special 00 IV, Once, ty first dose Hospita 10/04/14 l of 9:31:00 [place] CDT, stop date 10/04/14 9:31:00 CDT HYDROmorpho No Lakshmi 0.5 mg = S urgica ne 10-04 [place] 0.25 mL, l 14:27: Injection, Special 00 IV, Once, ty first dose Hospita 10/04/14 l of 9:27:00 [place] CDT, stop 10/04/14 9:27:00 CDT acetaminoph No Lakshmi 1,000 mg, Surgica en 10-04 [place] Soln-IV, l 14:14: IV Special 00 Piggyback, ty Once, Hospita first dose l of 10/04/14 [place] 9:14:00 Land CDT, stop 10/04/14 9:14:00 CDT HYDROmorpho No Lakshmi 0.5 mg = S urgica ne 10-04 [place]erman 0.25 mL, l 14:13: Injection, Special 00 IV, Once, ty first dose Hospita 10/04/14 l of 9:13:00 [place] CDT, 10/04/14 9:13:00 CDT fentaNYL No Lakshmi 100 mcg = Lesley gica 10-04 [place]erman 2 mL, l 13:56: Injection, Special 00 IV, Once, ty first dose Hospita 10/04/14 l of 8:56:00 [place] CDT, stop 10/04/14 8:56:00 CDT ceFAZolin No Lakshmi 2 gm, Surgic a 10-04 [place] Soln-IV, l 13:54: IV Special 00 Piggyback, ty Once, Hospita first dose l of 10/04/14 [place] 8:54:00 [place] CDT, stop 10/04/14 8:54:00 CDT ceFAZolin No Lakshmi 1 gm, Surgic a 10-04 [place] Powder-Inj l 13:53: , IV, Special 00 Once, ty first dose Hospita 10/04/14 l of 8:53:00 [place] CDT, stop 10/04/14 8:53:00 CDT dexamethaso No Lakshmi 12 mg = 3 Surgica ne 10-04 [place] mL, l 13:53: Injection, Special 00 IV, Once, ty first dose Hospita 10/04/14 l of 8:53:00 [place] CDT, 10/04/14 8:53:00 CDT rocuronium No Lakshmi 5 mg = 0.5 Surgica 10-04 [place] mL, l 13:43: Injection, Special 00 IV, Once, ty first dose Hospita 10/04/14 l of 8:43:00 [place] CDT, 10/04/14 8:43:00 CDT lidocaine No Lakshmi 2 mL, Surgic a 10-04 [place] Injection, l 13:43: IV, Once, Special 00 first dose ty 10/04/14 Hospita 8:43:00 l of CDT, stop 10/04/14 8:43:00 CDT propofol No Lakshmi 140 mg = Surg ica 10-04 [place]erman 14 mL, l 13:43: Emulsion, Special 00 IV, Once, ty first dose Hospita 10/04/14 l of 8:43:00 [place] CDT, 10/04/14 8:43:00 CDT fentaNYL No Lakshmi 50 mcg = 1 Berry rgica 10-04 [place] mL, l 13:43: Injection, Special 00 IV, Once, ty first dose Hospita 10/04/14 l of 8:43:00 [place] CDT, 10/04/14 8:43:00 CDT fentaNYL No Lakshmi 100 mcg = Lesley gica 10-04 [place]erman 2 mL, l 13:40: Injection, Special 00 IV, Once, ty first dose Hospita 10/04/14 l of 8:40:00 [place] CDT, 10/04/14 8:40:00 CDT midazolam No Lakshmi 2 mg = 2 Lesley gica - [place]sterman mL, l 13:26: Injection, Special 00 IV, Once, ty first dose Hospita 10/04/14 l of 8:26:00 [place] CDT, 10/04/14 8:26:00 CDT ceFAZolin No Sravan 2 gm, Surgic a 10-04 Devorkin Soln-IV, l 13:00: IV Special 00 Piggyback, ty Once, Hospita infuse l of over 30 [place] minutes, [place] first dose 10/04/14 8:00:00 CDT, stop date 10/04/14 8:00:00 CDT Lidocaine No Joel K 0.2 mL, Lesley gica 2% 0.2 mL 10-04 Jones Injection, l IV Start 12:29: Subcutaneo Spe cial [[place]] 00 us, Once ty PRN for Hospita other (see l of comment), [place] first dose Land 10/04/14 7:29:00 CDT LR 1,000 mL No Joel K 1,000 mL, Surgica 10-04 Jones IV, 30 l 12:29: mL/hr, Special 00 start date ty 10/04/14 Hospita 7:29:00 l of CDT [place] clonazePAM Yes 1 mg = 1 Lesley gica 1 mg oral 3-31 tabs, l tablet 16:00: Oral, TID, Speci al 00 instructed ty may take Hospita morning of l of surgery, 0 [place] Refill(s), [place] anxietyins tructed may take morning of surgery Vital Signs Vital Name Observation Time Observation Value Comments Source Systolic blood 2019-11-25 20:30:00 122 mm[Hg] Nitin n Uatsdin pressure Diastolic blood 2019-11-25 20:30:00 63 mm[Hg] Sue on Uatsdin pressure Heart rate 2019-11-25 20:30:00 98 /min Barney Hidalgo Respiratory rate 2019-11-25 20:30:00 18 /min Shashi lovell Uatsdin Oxygen saturation in 2019-11-25 20:30:00 96 /min Barney Hidalgo Arterial blood by Pulse oximetry Body temperature 2019-11-25 18:34:00 36.56 Joanne Shashi Hidalgo Body height 2019-11-25 18:34:00 170.2 cm Barney Hidalgo Body weight 2019-11-25 18:34:00 131.09 kg Barney Hidalgo BMI 2019-11-25 18:34:00 45.26 kg/m2 Barney Hidalgo Systolic (mm Hg) 2014-10-05 17:00:00 Surg [facility] [place] Diastolic (mm Hg) 2014-10-05 17:00:00 Lesley gical Specialty [facility] [place] Respitory Rate 2014-10-05 17:00:00 [facility] Heart Rate 2014-10-05 17:00:00 [facility] Temperature Oral (F) 2014-10-05 17:00:00 36.5 Joanne [facility] Temperature Oral (F) 2014-10-05 12:00:00 36.6 Joanne [facility] Diastolic (mm Hg) 2014-10-05 12:00:00 Lesley [facility]ical [facility] Systolic (mm Hg) 2014-10-05 12:00:00 [facility] Respitory Rate 2014-10-05 12:00:00 [facility] Heart Rate 2014-10-05 12:00:00 [facility] Temperature Oral (F) 2014-10-05 10:00:00 36.6 Joanne [facility] Systolic (mm Hg) 2014-10-05 10:00:00 [facility] Diastolic (mm Hg) 2014-10-05 10:00:00 [facility] Respitory Rate 2014-10-05 10:00:00 [facility]ic [facility] Heart Rate 2014-10-05 10:00:00 [facility] Temperature Oral (F) 2014-10-04 14:40:00 37.2 Joanne [facility] Weight 2014-10-04 12:22:00 [facility] Height 2014-10-04 12:22:00 174 cm [facility] Weight 2014-09-26 22:06:00 [facility] Height 2014-09-26 22:06:00 175.26 cm [facility] Procedures Procedure Date / Time Performing Source Performed Clinician ECG 12-LEAD 2019-11-25 Deonte Ellis Method ist 19:48:45 CT RENAL STONE PROTOCOL 2019-11-25 Deonte Ellisist 19:47:15 ECG ED PRELIMINARY 2019-11-25 Deonte Ellis Met hodist INTERPRETATION 19:31:32 HC COMPLETE BLD COUNT W/AUTO 2019-11-25 Deonte Ellis [place] DIFF 18:51:00 COMPREHENSIVE METABOLIC PANEL 2019-11-25 Deonte Ellis Barney Uatsdin 18:51:00 URINALYSIS 2019-11-25 Deonte Ellis Barney Method ist 18:48:00 TTE COMPLETE, WO CONTRAST, W 2019-09-12 KenrickJayy Kai avendano U[place] DOPPLER ([id number]) 14:07:51 ECG 12-LEAD 2019-09-[address] 15:59:55 SURGICAL PATHOLOGY REQUEST 2019-05-18 Magalys Pierce [place] 11:19:00 MAMMO DIAGNOSTIC W CAD LEFT 2019-05-18 Magalys Pierce [place] 11:02:10 US BREAST BIOPSY LEFT 2019-05-18 Magalys Pierce 10:34:39 US BREAST COMPLETE LEFT 2019-05-09 Magalys Pierce on Uatsdin 12:57:01 MAMMO BREAST DIAGNOSTIC 2019-05-09 Magalys Pierce on Uatsdin TOMOSYNTHESIS BILATERAL 11:54:28 EP TILT TABLE 2019-04-25 Barney Walters t 13:27:00 Rosa Maria Starr CBC HEMOGRAM 2019-04-25 Barney Waltersis t 11:58:00 Rosa Maria Starr PROTHROMBIN TIME WITH INR 2019-04-25 Nitin Waltersist 11:58:00 Rosa Maria Starr PARTIAL THROMBOPLASTIN TIME 2019-04-25 Shashi Walters (PTT) 11:58:00 Rosa Maria Starr ECG PRE/POST OP 2019-04-25 Barney Walters Methodis t 11:10:[address] CHEST W CONTRAST 2019-03-14 Marco Locke Meth odist 17:48:13 CT SOFT TISSUE NECK W CONTRAST 2019-03-14 Marco Locke 17:40:31 POC CREATININE 2019-03-14 Marco Lockeis t 17:11:00 ESTIMATED GFR 2019-03-14 Marco Lockeis t 17:11:00 NOTIFY PHYSICIAN (SPECIFY) 2019-02-24 Provider, [place] 00:00:00 Historical ECG 12-LEAD 2019-02-[address]y [address]oud[address] [place] [facility] [address] 14:03:19 PALATOPHARYNGOPLASTY [id number] 2014-10-04 Sravan Swain Surgi abiel Specialty (Other)<sup>1</sup> 13:55:00 [facility] AND 2014-10-04 Sravan Swain Surgical Speci alty ADENOIDECTOMY AGE 12 O (Other, 13:55:00 [facility] [place] Bilateral)<sup>2</sup> [place] Colonoscopy 2013-07-06 Surgical [facility] 00:00:00 [facility] egd 2013-07-06 Surgical [facility] ty 00:00:00 [facility] breast lump removed-benign 2011-07-06 Surgi abiel [facility] 00:00:00 [facility] breast reduction 2011-07-06 Surgical [facility] 00:00:00 [facility] [place] Hysterectomy 2009-07-06 Surgical Special ty 00:00:00 [facility] Ectopic 1999-07-06 Surgical Spec[facility] 00:00:00 [facility] Plan of Care Planned Activity Planned Date Details Comments Source Future Scheduled 2020-02-04 INFLUENZA VACCINE [place] Test 00:00:00 [code = INFLUENZA VACCINE] Future Scheduled 1991 Screening for [place] Me thodist Test 00:00:00 malignant neoplasm of cervix (procedure) [code = 322946779] Encounters Start End Encounter Admission Attending Care Care Encounter Source Date/Time Date/Time Type Type Clinicians Facility Department ID 2019-09-16 Outpatient FB FB [id number] [facility] 08:13:50 2019-11-25 2019-11-25 Emergency [facility] [id number] [place] 00:00:00 00:00:00 DEONTE [address] 2019-09-12 2019-09-12 [facility] [id number] [place] 00:00:00 00:00:00 JAYY [address] 2019-09-07 2019-09-07 [facility] [id number] [place] 00:00:00 00:00:00 AJYY [address] 2019-05-18 2019-05-18 Outpatient JASON, [facility] [id number] [place] 00:00:00 00:00:00 MAGALYS [address] 2019-05-18 2019-05-18 Outpatient JASON [facility] [id number] [place] 00:00:00 00:00:00 MAGALYS [address] 2019-05-13 2019-05-13 Outpatient Francesca Silver MARIUMGYHeena [id number] [facility] 08:38:00 08:38:00 st OBGYN 2019-05-09 2019-05-09 Outpatient JASON [facility] [id number] [place] 00:00:00 00:00:00 MAGALYS [address] 2019-05-09 2019-05-09 Outpatient JASON [facility] [id number] [place] 00:00:00 00:00:00 MAGALYS [address] 2019-04-25 2019-04-25 Outpatient [facility] [id number] [place] 00:00:00 00:00:[address] 2019-03-14 2019-03-14 Outpatient MAHNAZ [facility] [id number] [place] 00:00:00 00:00:00 MARCO 489 Method i 2019-03-14 2019-03-14 Outpatient MAHNAZ [facility] [id number] [place] 00:00:00 00:00:00 MARCO [address] [facility] 2014-10-04 2014-10-05 [facility] [id number] Berry rgica 06:53:07 13:15:00 l Special [facility] 2014-10-04 2014-10-05 [facility] [id number] Memoria 06:53:07 13:15:00 l Baron [facility] Results Test Description Test Time Test Comments Results Result Comments Source ECG 12 lead 2019-11-26 20:56:48 Test Item Value Reference Range Interpretation Comme nts Ventricular rate (test code = 253) 88 Atrial rate (test code = 255) 88 WI interval (test code = 266) 152 QRSD interval (test code = 260) 132 QT interval (test code = 264) 390 QTC interval (test code = 265) 471 P axis 1 (test code = 267) 53 QRS axis 1 (test code = 268) -55 T wave axis (test code = 270) 50 EKG impression (test code = 273) Normal sinus rhythm-Right bundle b ranch block-Left anterior fascicular block-^^^ Bifascicular block ^^^-Abnormal ECG-In automated comparison with ECG of 07-SEP-2019 15:59,-Right bundle branch block has replaced Incomplete right bundle branch block-Minimal criteria for Inferior infarct are no longer present- [place] [id number] 06:24:00 Test Item Value Reference Range Interpretation Comments Glucose, UA (test code = 19732-2) Trace Negative A Bilirubin, UA (test code = 5770-3) Negative Negative Ketones, UA (test code = 2514-8) Negative Negative Specific gravity, UA (test code = 1.020 1.001-1.035 5811-5) Blood, UA (test code = 5794-3) Trace Negative A pH, UA (test code = 5803-2) 6.5 5.0-8.5 Protein, UA (test code = 48987-4) Negative Negative Urobilinogen, UA (test code = <2.0 <2.0 55456-6) Nitrite, UA (test code = 5802-4) Positive Negative A Leukocyte esterase, UA (test code = Negative Negative 5799-2) Color, UA (test code = 5778-6) Yellow Appearance, UA (test code = 5767-9) Clear Lab Interpretation (test code = Abnormal 20533-3) [facility] [id number] 06:23:32 Test Item Value Reference Range Interpretation Comments Sodium (test code = 2951-2) 137 128- 145 mEq/L Potassium (test code = 2823-3) 3.9 3.6- 5.1 mEq/L CO2 (test code = 2027-9) 30 18- 33 mEq/L Chloride (test code = 2075-0) 102 98- 108 mEq/L Glucose (test code = 2345-7) 108 mg/dL 73-118 Calcium (test code = 88306-4) 9.2 mg/dL 8-10.3 BUN (test code = 3094-0) 14 mg/dL 7-22 Creatinine (test code = 2160-0) 0.8 mg/dL 0.5-0.9 Alkaline phosphatase (test code = 66 U/L 42-141 6768-6) ALT (test code = 1742-6) 34 U/L 10-47 AST (test code = 1920-8) 32 U/L 11-38 Total bilirubin (test code = 0.7 mg/dL 0.2-1.6 1974-08) Albumin (test code = 1751-7) 3.8 g/dL 3.3-5.5 Protein (test code = 2885-2) 7.8 g/dL 6.4-8.1 Anion gap (test code = 91677-3) 5@ANIO 7- 15 mEq/L L A/G ratio (test code = 1759-0) 1.0 0.7-3.8 Lab Interpretation (test code = Abnormal 51796-2) [facility] with platelet and dktzdsuqxvfd6512-65-57 06:23:32 Test Item Value Reference Range Interpretation Comments WBC (test code = 75414-5) 7.66 4.50- 11.00 k/uL RBC (test code = 87091-3) 4.97 m/uL 4.2-5.5 HGB (test code = 718-7) 14.5 g/dL 12-16 HCT (test code = 4544-3) 44.8 % 37-47 MCV (test code = 787-2) 90.1 fL 82-100 MCH (test code = 785-6) 29.2 pg 27-34 MCHC (test code = 786-4) 32.4 g/dL 31-37 RDW - SD (test code = 14740-4) 46.3 fL 37-55 MPV (test code = 72187-3) 8.8 fL 8.8-13.2 Platelet count (test code = 246 150- 400 k/uL 13152-3) Neutrophils (test code = 60069-2) 67.5 % 39-69 Lymphocytes (test code = 73094-0) 25.6 % 25-45 Monocytes (test code = 27515-2) 4.6 % 0-10 Eosinophils (test code = 18185-3) 2.0 % 0-5 Basophils (test code = 67428-8) 0.3 % 0-1 [facility] Renal Stone [id number] 19:52:02Hm Interface, Radiology Results 11/25/2019 7:55 PM CDTEXAMINATION: CT RENAL STONE PROTOCOLCLINICAL HISTORY: rt flank painTECHNIQUE: Multiple axial images of the abdomen and pelvis were obtained without intravenous administration of iodinated contrast. Sagittal and coronal computerized reformatted images were also obtained. The lack of intravenous contrast reduces the sensitivity of detecting solid organ disease.Automatic exposure control or iterative reconstruction techniques used to reduce dose.COMPARISON: 07/20/2018Impression:1.Without IV contrast evaluation of solid organs of upperabdomen is limited. Fatty infiltration of the liver and cholecystectomy again noted. Liver measures 22 cm in length. No nephrolithiasis or hydronephrosis. No evidence for ureteral dilatation and no stones in the bladder.2.Appendix is unremarkable. Sigmoid diverticulosis, without acute diverticulitis. No small bowel obstruction noted.3.Status post hysterectomy. Left ovarian cystic lesion measuring 3.3cm. No significant free fluid in the pelvis. Osseous structures are intact.Summary:1.No acute intra-abdominal abnormalities. Fatty liver with enlargement again noted.2.Left ovarian cystic 3.3 cm lesion, not fully assessed by CT and could be followed with outpatient pelvic ultrasound.[facility] Preliminary Interpretation - Not an [id number] 19:31:32 Test Item Value Reference Range Interpretation Comments ALLISON (test code = ALLISON) Deonte Ellis MD 11/25/2019 8:40 [facility] [place] Interpretation - Not an OrderPerformed by: Deonte Ellis MDAuthorized by: Deonte Ellis MD ECG reviewed by ED Physician in the absence of a railroad car truck 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: yes Previous ECG: Previous ECG: UnavailableInterpretat ion: Interpretation: abnormal Rate: ECG rate: 88 ECG rate assessment: normal Rhythm: Rhythm: sinus rhythm Ectopy: Ectopy: none QRS: QRS axis: Left QRS intervals: NormalConduction: Conduction: abnormal Abnormal conduction: complete RBBB ST segments: ST segments: Non-specificT waves: T waves: inverted Inverted: W9Sewgfoou: Normal sinus rhythm, left axis deviation, nonspecific ST changes T wave inversion lead III Lab Interpretation Abnormal (test code = 57596-0) [facility] [id number] 10:59:10 Test Item Value Reference Range Interpretation Comments Case number (test code = [id number]) Surgical pathology See link below for report (test code = PDF Lab Report [id number]) Result status (test code This is Final Report = [id number]) for [id number] Barney HidalgoUS Breast Biopsy [id number] 15:03:51Addendum by Kylie Dudley MD on 05/20/2019 3:14 PM ADDENDUM #1 ADDENDUM: The final result of the left breast 12 o'clock subareolar needle biopsy is usual ductal hyperplasia,dilated ducts with periductal stromal sclerosis and chronic inflammation and stromal fibrosis. No atypia or malignancy. Please see Dr. Lauren Barrios's full pathology report for further details. This benign result is concordant with imaging findings. Recommend 6 month follow-up left breast mammogram and ultrasound to establish a postbiopsy baseline and confirm stability. The patient was notified of the final result and recommendations via telephone by GLENN Hubbard on 05/20/2019 at 2:15 PM. Examination: US BREAST BIOPSY LEFT, MAMMO DIAGNOSTIC W CAD LEFT 05/18/2019 10:02 AM Procedures: 1. Ultrasound-Guided Breast Biopsy and Breast Clip Placement - left breast 12 o'clock subareolar Primary Proceduralist: Kylie Dudley MD Pre Procedure Diagnosis: Breast mass.Post Procedure Diagnosis: Breast mass. Clinical History: 48 year old female presenting for ultrasound-guided biopsy of a suspicious left breast mass, possibly representing fat necrosis. Comparison: Mammogram and ultrasound dated 05/09/2019 Consent: The procedure(s), risks, indications, and alternatives were explained. All questions were answered and informed consent was obtained. Procedure(s) in Detail: A time-out was performed prior to the start of the procedure and the correct patient, procedure, presence of consent, site, and side were confirmed with all members of the team. Site 1: The skin was prepped with chlorhexidine and drapedin sterile fashion. Lidocaine with and without epinephrine was administered for local anesthesia. The lesion of interest in the left breast 11 o'clock subareolar position was identified by ultrasound.Under direct sonographic guidance, 4 samples were obtained with a 14 gauge needle through an introducer. A wing shaped marker clip was deployed in the biopsy bed using ultrasound guidance. Hemostasis was achieved. The skin was approximated and bandaged with Steri-Strips. Post-procedure Mammography: Post- procedure mammography was performed and shows the marker clip in expected position..Estimated Blood Loss: Minimal.Specimen(s) Removed: Yes.Immediate Complications: None.Disposition: The patient tolerated the procedure well and was discharged home in good condition. Impression: Technically successful ultrasound guided biopsy of the left breast(s). Final pathology results will be reported in an addendum. [id number] [facility] w Cad Left 2019-05-18 15:03:51Addendum by Kylie Dudley MD on 05/20/2019 3:14 PM ADDENDUM #1 ADDENDUM:The final result of the left breast 12 o'clock subareolar needle biopsy is usual ductal hyperplasia,dilated ducts with periductal stromal sclerosis and chronic inflammation and stromal fibrosis. No atypia or malignancy. Please see Dr. Lauren Barrios's full pathology report for further details. This benign result is concordant with imaging findings. Recommend 6 month follow-up left breast mammogram and ultrasound to establish a postbiopsy baseline and confirm stability. The patient was notified of the final result and recommendations via telephone by GLENN Hubbard on 05/20/2019 at 2:15 PM. Interface, Radiology Results Incoming - 05/18/2019 3:06 PM CSTExamination: US BREAST BIOPSY LEFT, MAMMO DIAGNOSTIC W CAD LEFT 05/18/2019 10:02 AMProcedures: 1. Ultrasound-Guided Breast Biopsy and Breast Clip Placement - left breast 12 o'clock subareolarPrimary Proceduralist: Yeny Bardales Procedure Diagnosis: Breast mass.Post Procedure Diagnosis: Breast mass.Clinical History: 48 year old female presenting for ultrasound-guided biopsy of a suspicious left breast mass, possibly representing fat necrosis.Comparison: Mammogram and ultrasound dated 05/09/2019Consent: The procedure(s), risks, indications, and alternatives were explained. All questions were answered and informed consent was obtained.Procedure(s) in Detail: A time-out was performed prior to the start of the procedure and the correct patient, procedure, presence of consent, site, and side were confirmed with all members of the team. Site 1: The skin was prepped with chlorhexidine and draped in sterile fashion. Lidocaine with and without epinephrine was administered for local anesthesia. The lesion of interest in the left breast 11o'clock subareolar position was identified by ultrasound. Under direct sonographic guidance, 4 samples were obtained with a 14 gauge needle through an introducer. A wing shaped marker clip was deployedin the biopsy bed using ultrasound guidance. Hemostasis was achieved. The skin was approximated and bandaged with Steri-Strips.Post-procedure Mammography: Post-procedure mammography was performed and shows the marker clip in expected position..Estimated Blood Loss: Minimal.Specimen(s) Removed: Yes.Immediate Complications: None.Disposition: The patient tolerated the procedure well and was discharged home in good condition.Impression: Technically successful ultrasound guided biopsy of the left breast(s). Final pathology results will be reported in an addendum.DWS01 Barney Sanders Breast Complete [id number] 12:59:14 Test Item Value Reference Range Interpretation Comments ALLISON (test code = ALLISON) PROCEDURE: MAMMO BREAST DIAGNOSTIC TOMOSYNTHESIS BILATERAL, US BREAST COMPLETE LEFTLeft real-time whole breast sonography included all four quadrants and the retroareolar region under close supervision by the radiologist. Computer aided detection with tomosynthesis was utilized for the interpretation. HISTORY: 48-year-old female presenting for short term follow-up for the left breast and annual screening of the right breast. COMPARISON: 11/19/2018-03/26/2015. DENSITY: The breast are almost entirely fatty. MAMMOGRAM: Bilateral benign-appearing calcifications are noted in both breasts. There is a 1.8 x 1.6 x 1.4 cm mass with lobular and indistinct margins in the left breast at 12 o'clock 8 cm from the nipple which may represent an area of fat necrosis, however given the indistinct borders on the tomosynthesis slices, malignancy cannot be entirely excluded. ULTRASOUND: There is a 1.4 x 0.9 x 0.5 cm heterogeneously hypoechoic mass/masses at 12 o'clock subareolar region which represents a sonographic correlate to the mass seen on mammography. No other significant mammographic finding is identified. IMPRESSION: 1. Suspicious 1.4 cm mass in the left subareolar region. Ultrasound-guided core biopsy is recommended for definitive diagnosis. 2. No mammographic evidence of malignancy in the right breast. Findings and recommendations were discussed with the patient and the biopsy will be scheduled by the breast center. BI-RADS 4: SUSPICIOUS This facility is accredited by [employer] for Mammography.A negative x-ray report should not delay biopsy if a dominant or clinically suspicious mass is present. Not all cancers are identified by x-ray. DWS01 Lab Interpretation Abnormal (test code = 19261-6) [facility] Tomosynthesis [id number] 12:59:14PROCEDURE: MAMMO BREAST DIAGNOSTIC TOMOSYNTHESIS BILATERAL, US BREAST COMPLETE LEFTLeft real-time whole breast sonography included all four quadrants and the retroareolar region under close supervisionby the radiologist. Computer aided detection with tomosynthesis was utilized for the interpretation. HISTORY: 48-year-old female presenting for short term follow-up for the left breast and annual screening of the right breast. COMPARISON: 11/19/2018- 03/26/2015. DENSITY: The breast are almost entirelyfatty. MAMMOGRAM: Bilateral benign-appearing calcifications are noted in both breasts. There is a 1.8 x 1.6 x 1.4 cm mass with lobular and indistinct margins in the left breast at 12 o'clock 8 cm from the nipple which may represent an area of fat necrosis, however given the indistinct borders on the tomosynthesis slices, malignancy cannot be entirely excluded. ULTRASOUND: There is a 1.4 x 0.9 x 0.5 cm heterogeneously hypoechoic mass/masses at 12 o'clock subareolar region which represents a sonographic correlate to the mass seen on mammography. No other significant mammographic finding is identified. IMPRESSION: 1. Suspicious 1.4 cm mass in the left subareolar region. Ultrasound-guided core biopsyis recommended for definitive diagnosis. 2. No mammographic evidence of malignancy in the right breast. Findings and recommendations were discussed with the patient and the biopsy will be scheduled by the breast center. BI-RADS 4: SUSPICIOUS This facility is accredited by [employer] for Mammography.A negative x-ray report should not delay biopsy if a dominant or clinically suspicious mass is present. Not all cancers are identified by x-ray. [id number] MethodistECG Pre/Post [id number] 19:48:05 Test Item Value Reference Range Interpretation Comments Ventricular rate (test 77 code = 253) Atrial rate (test code 77 = 255) WI interval (test code 158 = 266) QRSD interval (test 138 code = 260) QT interval (test code 414 = 264) QTC interval (test code 468 = 265) P axis 1 (test code = 52 267) QRS axis 1 (test code = -23 268) T wave axis (test code 45 = 270) EKG impression (test Normal sinus code = 273) rhythm-Right bundle branch block-Possible Lateral infarct , age undetermined-Abnormal ECG-In automated comparison with ECG of 02-FEB-2019 14:03,-Left posterior fascicular block is no longer present-Borderline criteria for Lateral infarct are now present- Barney OlivieristElectrophysiology [id number] 13:48:22DescriptionThe risks, benefits and alternatives were discussed with the patient and informed consentwas obtained prior to procedure. Patient was brought to the Electrophysiology laboratory in the fasting state. The blood pressure, heart rate oxygen saturation and surface electrocardiogram were monitored throughout the procedure. Patient was initially monitored in the supine position with the following VS: BP 114 HR 66. She was then positioned in a head-up tilt position at a 70 degrees angle.BP and HR remained stable during the passive phase for 20 minutes. ECG showed NSR with no PVCs. Patient received SL NTG 0.4 mg, BP after NTG remained stable 119/90 with HR up to 100 bpm, she reported n ausea and dizziness. She was returned to the supine position with resolution of symptoms and was transferred to the recovery area in stable condition. Conclusion Negative tilt table test Plan- Continue metoprolol- D/C todayMorton UatsdinPartial thromboplastin time, [id number] 12:32:35 Test Item Value Reference Range Interpretation Comments PTT (test code = 32.1 23.0- 36.0 sec PTT thera peutic range for 3173-2) unfractionated heparin is61.0-112.0 se conds which corresponds to Anti-Xa0.3-0.7 U/ml. [facility] with [id number] 12:31:45 Test Item Value Reference Range Interpretation Comments Prothrombin time (test 13.0 11.5- 14.5 sec code = 5902-2) INR (test code = 1.0 The Interna tional 97595-6) Normalized Rati o (INR) is a therapeutic m onitoring tool for patien ts who are stable on oral anticoagulant t herapy. An INR of 2.0-3.0 is suggested for d eep vein thrombosis/pulm onary embolism. [facility] [id number] 12:23:07 Test Item Value Reference Range Interpretation Comments WBC (test code = 62981-1) 6.6 4.5- 11.0 k/uL RBC (test code = 83863-2) 4.75 m/uL 4.2-5.5 HGB (test code = 718-7) 13.7 g/dL 12-16 HCT (test code = 4544-3) 42.2 % 37-47 MCV (test code = 787-2) 88.8 fL 82-100 MCH (test code = 785-6) 28.8 pg 27-34 MCHC (test code = 786-4) 32.5 g/dL 31-37 RDW - SD (test code = 47183-0) 44.0 fL 37-55 MPV (test code = 06499-7) 8.9 fL 6.9-11 Platelet count (test code = 242 K/uL 150-400 21892-9) Nucleated RBC (test code = 70317-1) 0.00 /100 WBC [facility]CT [facility] W [id number] 19:17:42Hm Interface, Radiology Results - 03/14/2019 7:20 PM CDTEXAMINATION:CT CHEST W CONTRASTCLIN ICAL HISTORY:J98.59 Other diseases of mediastinum not elsewhere classified, M54.2 J98.5TECHNIQUE:Multiple axial images of the chest were obtained following intravenous administration of iodinated contrast. Sagittal and coronal computerized reformatted images were also obtained. CT imaging was performed with iterative reconstruction techniques and/or automated exposure control to reduce radiation dose. COMPARISON:To previous study from 05/31/2018IMPRESSION:1.There is no evidence of hilar or mediastinal lymphadenopathy. Moderate fatty infiltration is noted involving the partially visualized liver.2.No parenchymal abnormality is noted in the lungs.3.No bony abnormality is appreciated.[facility]-[id number] MethodistCT Soft Tissue Neck W [id number] 17:54:33Hm Interface, Radiology Results 03/14/2019 5:57 PM CDTEXAMINATION: CT SOFT TISSUE NECK WCONTRASTCLINICAL HISTORY: M54.2 Cervicalgia, M54.2 J98.5COMPARISON: NoneTECHNIQUE: Postcontrast enhanced imaging through the neck was performed from the upper chest through the skull base with coronal and sagittal reconstructed images. CT imaging was performed with iterative reconstruction technique and/or automated exposure control to reduce radiation dose.FINDINGS:The base of tongue appears unremarkable. The pharyngeal mucosa is symmetric in appearance and enhancement. The laryngeal structures are symmetric and unremarkable. No prevertebral soft tissue swelling identified. The parotid and submandibular glands appear normal bilaterally.Mildly prominent lymph nodes are noted throughout the level 1B and to a dianne stations bilaterally, likely reactive. No pathologically enlarged cervical, supraclavicular, or mediastinal lymph nodes identified. The thyroid gland is grossly unremarkable. Normal three-vessel branching of the aortic arch is noted. The carotid and vertebral arteries are patent without gross luminal irregularity.No significant periodontal disease identified. Small mucus of atelectasis is noted within the right maxilla sinus. The remaining paranasal sinuses and mastoid air cells are clear. The orbital structures are symmetric and grossly unremarkable. Limited evaluation of the intracranial structures reveals no suspicious abnormality. No midline shift or ventriculomegaly identifi ed. No suspicious osseous lesions are identified. There is moderate intervertebral disc height loss C5-C6 which results in moderate central canal and right neural foraminal stenosis when combined with marginal endplate osteophytes, image 120 of series 7. The lung apices are clear.IMPRESSION:1.Apparentmoderate central canal and right neural foraminal stenosis at C5-C6 secondary to bulging disc material and endplate osteophytes. If further catheterization is clinically desired, MRI C-spine could provide additional diagnostic detail.2.Otherwise unremarkable CT of the neck soft tissues.[id number] MethodistC [id number] 17:22:21 Test Item Value Reference Range Interpretation Comments POC creatinine (test 0.7 mg/dl 0.5-0.9 Meter I D: code = 12156-4) 325576Edlyce or: Cecil Dominguez on Barney UatsdinEstimated [id number] 17:22:21 Test Item Value Reference Range Interpretation Comments Estimated GFR (test >=90 mL/min/1.73 m2 Caterg sangitay Units code = 35667-1) Interpretati onG1 >=90 Normal or highG2 60-89 Mildly yloffvdqiM8c 45-59 Mildly to mode rately stdcsslesE4i 30-44 Moderately to severely decreasedG4 15-29 Severely decre asedG5 <15 Kidn ey failureThe eGFR was calculated josé miguel sr the Chronic Kidney Disease Epidemiology Co llaboration (CKD-EPI) equat ion. Interpretation is based on recommendations of the National Kidney Foundation-Kidn ey Disease Outcomes Qualit y Initiative (NKF-KDOQI) pub lished in 2014. Barney Hidalgo
--- NOTE | 2019-12-06 15:28 | ER ---
Nurse's Notes [facility] [place] Name: Digna Foy Age: 49 yrs Sex: Female : 1970 Arrival Date: 12/06/2019 Time: 14:48 Bed 26 Private MD: Diagnosis: Folliculitis Presentation: 12/05 14:57 Chief complaint: Patient states: " Lump" to L upper thigh, states, " It has been there ph for a while but now it is bigger and has a red ring around it. It looks almost like a blood blister or something." Denies drainage or fever. Coronavirus screen: Patient denies a cough. Patient denies shortness of breath or difficulty breathing. Patient denies measured and/or subjective temperature greater than 100.4F prior to today's visit. Patient denies travel on a cruise ship or to a country the [facility] currently lists as an affected area. Patient denies contact with known and/or suspected case of COVID-19. Ebola Screen: No symptoms or risks identified at this time. Initial Sepsis Screen: Does the patient meet any 2 criteria? No. Patient's initial sepsis screen is negative. Does the patient have a suspected source of infection? No. Patient's initial sepsis screen is negative. Risk Assessment: Do you want to hurt yourself or someone else? Patient reports no desire to harm self or others. Onset of symptoms was December 06, 2019. 14:57 Method Of Arrival: Ambulatory ph 14:57 Acuity: JAIDEN 4 ph Triage Assessment: 15:49 General: Appears in no apparent distress. Behavior is calm, cooperative, appropriate ll1 for age, Smells of. 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 - Social history:: Smoking status: Patient denies any tobacco usage or history of. Screenin:47 Abuse screen: Denies threats or abuse. Nutritional screening: No deficits noted. ll1 Tuberculosis screening: No symptoms or risk factors identified. Fall Risk None identified. Total Milton Fall Scale indicates No Risk (0-24 pts). Assessment: 15:30 General: Appears in no apparent distress. Behavior is calm, cooperative, appropriate ll1 for age. Pain: Complains of pain in left groin Quality of pain is described as aching, Pain began 2-3 days ago. Neuro: No deficits noted. Cardiovascular: No deficits noted. Respiratory: No deficits noted. Derm: Abscess located on left groin is dime sized, has no drainage, is red. Vital Signs: 14:57 BP 127 / 65; Pulse 101; Resp 18; Temp 97.2; Pulse Ox 98% on R/A; Weight 131.09 kg; ph Height 5 ft. 2 in. (157.48 cm); 14:57 Body Mass Index 52.86 (131.09 kg, 157.48 cm) ph ED Course: 14:48 Patient arrived in ED. ag5 15:00 Triage completed. ph 15:02 Arm band placed on. ph 15:03 Odette Boyle FNP-C is PHCP. snw 15:03 Kris Chu MD is Attending Physician. snw 15:06 Ankita Carrera RN is Primary Nurse. ll1 15:30 Patient has correct armband on for positive identification. Bed in low position. Call ll1 light in reach. Side rails up X 1. 15:48 Patient did not have IV access during this emergency room visit. Dressings: 4X4s X 2; ll1 left groin Bactroban applied. 15:49 No provider procedures requiring assistance completed. ll1 Administered Medications: 15:27 Drug: Bactroban Ointment 2 % 1 application Route: Topical; Site: affected area; ll1 15:50 Follow up: Response: No adverse reaction; RASS: Alert and Calm (0) ll1 Outcome: 15:27 Discharge ordered by . snw 15:35 Discharged to home ambulatory. ll1 15:35 Condition: stable 15:35 Discharge instructions given to patient, Instructed on discharge instructions, follow up and referral plans. medication usage, wound care, Demonstrated understanding of instructions, follow-up care, medications, wound care, Prescriptions given X 1. 15:36 Patient left the ED. ll1 Signatures: Odette Boyle FNP-C FNP-Csnw Emily Arriola, RN RN ph Pita, Yo ag5 Ankita Carrera RN RN ll1
--- NOTE | 2019-12-06 15:28 | EDPHYS ---
Physician Documentation [facility] [place] Name: October Danii Age: 49 yrs Sex: Female : 1970 Arrival Date: 12/06/2019 Time: 14:48 Bed 26 Private MD: ED Physician Kris Chu HPI: 12/05 15:48 This 49 yrs old Female presents to ER via Ambulatory with complaints of Lump snw On Leg. 15:48 Onset: The symptoms/episode began/occurred 1 week(s) ago, and became persistent. snw Associated signs and symptoms: Pertinent positives: color inside area turned more red per report, pt stuck sterilized needle in area and did not get anything to come out. The patient has not experienced similar symptoms in the past. The patient has been recently seen by a physician: with different complaint(s), pt had a colonoscopy last week, taking Augmentin 875mg, will finish soon but has an rx being filled for Cipro and Flagyl, will give Hibiclens and Bactroban. 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 - Social history:: Smoking status: Patient denies any tobacco usage or history of. ROS: 15:48 Constitutional: Negative for fever, chills, and weight loss, Eyes: Negative for injury, snw pain, redness, and discharge, ENT: Negative for injury, pain, and discharge, Neck: Negative for injury, pain, and swelling, Cardiovascular: Negative for chest pain, palpitations, and edema, Respiratory: Negative for shortness of breath, cough, wheezing, and pleuritic chest pain, Abdomen/GI: Negative for abdominal pain, nausea, vomiting, diarrhea, and constipation, Back: Negative for injury and pain, : Negative for injury, bleeding, discharge, and swelling, MS/Extremity: Negative for injury and deformity, Neuro: Negative for headache, weakness, numbness, tingling, and seizure, Psych: Negative for depression, anxiety, suicide ideation, homicidal ideation, and hallucinations. 15:48 Skin: Positive for "lump on leg". Exam: 15:46 Constitutional: This is a well developed, well nourished patient who is awake, alert, snw and in no acute distress. Head/Face: Normocephalic, atraumatic. Eyes: Pupils equal round and reactive to light, extra-ocular motions intact. Lids and lashes normal. Conjunctiva and sclera are non-icteric and not injected. Cornea within normal limits. Periorbital areas with no swelling, redness, or edema. ENT: Nares patent. No nasal discharge, no septal abnormalities noted. Tympanic membranes are normal and external auditory canals are clear. Oropharynx with no redness, swelling, or masses, exudates, or evidence of obstruction, uvula midline. Mucous membranes moist. Neck: Trachea midline, no thyromegaly or masses palpated, and no cervical lymphadenopathy. Supple, full range of motion without nuchal rigidity, or vertebral point tenderness. No Meningismus. Chest/axilla: Normal chest wall appearance and motion. Nontender with no deformity. No lesions are appreciated. Cardiovascular: Regular rate and rhythm with a normal S1 and S2. No gallops, murmurs, or rubs. Normal PMI, no JVD. No pulse deficits. Respiratory: Lungs have equal breath sounds bilaterally, clear to auscultation and percussion. No rales, rhonchi or wheezes noted. No increased work of breathing, no retractions or nasal flaring. Abdomen/GI: Soft, non-tender, with normal bowel sounds. No distension or tympany. No guarding or rebound. No evidence of tenderness throughout. Back: No spinal tenderness. No costovertebral tenderness. Full range of motion. MS/ Extremity: Pulses equal, no cyanosis. Neurovascular intact. Full, normal range of motion. Neuro: Awake and alert, GCS 15, oriented to person, place, time, and situation. Cranial nerves II-XII grossly intact. Motor strength 5/5 in all extremities. Sensory grossly intact. Cerebellar exam normal. Normal gait. Psych: Awake, alert, with orientation to person, place and time. Behavior, mood, and affect are within normal limits. 15:46 Skin: Appearance: normal except for affected area, lesion(s), noted, and can be described as nontender, pustular, fluctuant pamella sized follicular pustule to left medial groin, no surrounding erythema. Vital Signs: 14:57 BP 127 / 65; Pulse 101; Resp 18; Temp 97.2; Pulse Ox 98% on R/A; Weight 131.09 kg; ph Height 5 ft. 2 in. (157.48 cm); 14:57 Body Mass Index 52.86 (131.09 kg, 157.48 cm) ph Procedures: 15:45 Performed Needle aspiration or left groin folliculitis, pt tolerated well. snw MDM: 15:03 Patient medically screened. snw 15:46 Data reviewed: vital signs, nurses notes. Data interpreted: Pulse oximetry: on room air snw is 98 %. Interpretation: normal. Counseling: I had a detailed discussion with the patient and/or guardian regarding: the historical points, exam findings, and any diagnostic results supporting the discharge/admit diagnosis, the need for outpatient follow up, to return to the emergency department if symptoms worsen or persist or if there are any questions or concerns that arise at home. Special discussion: I discussed in detail with the patient the higher chance of wound infection based on his presenting history. Based on the history and exam findings, there is no indication for further emergent testing or inpatient evaluation. I discussed with the patient/guardian the need to see the primary care provider for further evaluation of the symptoms. Administered Medications: 15:27 Drug: Bactroban Ointment 2 % 1 application Route: Topical; Site: affected area; ll1 15:50 Follow up: Response: No adverse reaction; RASS: Alert and Calm (0) ll1 Disposition: 19:40 Co-signature as Attending Physician, Kris Chu MD. [email or web address] Disposition: 12/06/19 15:27 Discharged to Home. Impression: Folliculitis. - Condition is Stable. - Discharge Instructions: MRSA Infection, Adult, Folliculitis, Hand Washing. - Prescriptions for Bactroban 2 % Topical Ointment - Apply to affected area 1 application by TOPICAL route every 12 hours; 30 gram. - Medication Reconciliation Form, Thank You Letter, Antibiotic Education, Prescription Opioid Use form. - Follow up: Emergency Department; When: As needed; Reason: Worsening of condition. Follow up: Private Physician; When: 2 - 3 days; Reason: Recheck today's complaints, Continuance of care, Re-evaluation by your physician. Signatures: Odette Boyle, [employer] DIRECTOR OF VIDEO [employer]NALYTICS-Emily Colby, RN RN Ankita Gonzales RN RN ll1 Kris Chu MD MD [email or web address] Corrections: (The following items were deleted from the chart) 15:36 15:27 12/06/2019 15:27 Discharged to Home. Impression: Folliculitis. Condition is ll1 Stable. Forms are Medication Reconciliation Form, Thank You Letter, Antibiotic Education, Prescription Opioid Use. Follow up: Emergency Department; When: As needed; Reason: Worsening of condition. Follow up: Private Physician; When: 2 - 3 days; Reason: Recheck today's complaints, Continuance of care, Re-evaluation by your physician. snw
[2019-12-06] MEDS ORDERED: MUPIROCIN 2% OINT 22GM TUBE TOP ONE (15:33)
[2019-12-06 15:41] VITALS: BP 127/65; TEMP 97.2; O2SAT 98
== END 2019-12-06 15:36 | disposition home or self-care (01) ==
LOC: ER 14:46
DX: L73.9 Follicular disorder, unspecified (principal); Z88.3 Allergy status to other anti-infective agents
CPT/HCPCS: 99283

== ENCOUNTER 2020-02-28 12:14 | Emergency (ER) | payer OTHER, SELFPAY ==
--- OUTSIDE RECORDS SUMMARY | 2020-02-28 12:35 | XMS REPORT | Clinical Summary ---
:1970 Author Organization [facility] Address [address] [place] [address] Care Team Providers Name Role Phone Delgado Pierce MD Primary Care Provider Allergies Active Allergy Reactions Severity Noted Date Comments Clindamycin Other (See Comments) 11/25/2019 Trouble swallowing Doxycycline Anaphylaxis High 04/16/2017 Latex Other (See Comments) High 04/16/2017 Blister s and swelling Medications Medication Sig Dispensed Refills Start Date End Date Status metoprolol tartrate Take 1 tablet 60 tablet 11 02/21/202002/20 Active (LOPRESSOR) 25 mg (25 mg total) 21 tablet by mouth 2 (two) times a day. nitrofurantoin Take 100 mg 0 04/25/20 Dis continued (MACRODANTIN) 100 by mouth 4 19 ( Med List MG capsule (four) times Cleanu p) a day. orphenadrine Take 1 tablet 30 tablet 0 07/20/2018 02/21/20 Di scontinued (NORFLEX) 100 mg 12 (100 mg 20 (Patient hr tablet total) by Reported) mouth 2 (two) times a day as needed for muscle spasms for up to 30 doses. flecainide Take 1 tablet 60 tablet 11 02/02/2019 04/25/20 Disc ontinued (TAMBOCOR) 50 MG (50 mg total) 19 (Med List tablet by mouth 2 Cleanup) (two) times a day. atorvastatin TK 1 T PO 30 tablet 11 02/02/2019 04/25/20 Discon tinued (LIPITOR) 20 MG NIGHTLY. 19 (Med List tablet Cleanup) metoprolol tartrate Take 1 tablet 60 tablet 11 02/02/201901/27 (LOPRESSOR) 25 mg (25 mg total) 20 tablet by mouth 2 (two) times a day for 360 days. atorvastatin Take 20 mg by 0 02/21/20 Dis continued (LIPITOR) 20 MG mouth daily. 20 ( Patient tablet Default OP Reported) ins predniSONE TK 2 TS PO 0 06/01/2019 02/21/20 Discont inued (DELTASONE) 10 mg FOR 5 20 (P atient tablet DAYSTHEN TK Reporte d) 1 T PO QD FOR 5 DAYS. cefdinir (OMNICEF) Take 1 20 capsule 0 [...] moderate pain for up to 5 days. 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) 01/18/2018 Last Assessment & Plan: Will resume flecainide at 50 mg bid; she will see Dr Florence February 10 Pure hypercholesterolemia 12/04/2017 Last Assessment & Plan: Off atorvastatin; she is to see her PCP tomorrow Palpitations 05/20/2017 Last Assessment & Plan: Adriel resume metoprolol Chest pain 05/12/2017 Precordial chest pain 04/16/2017 Last Assessment & Plan: Will proceed with stress testing; she ca nnot ambulate far (on disability) Shortness of breath 04/16/2017 Last Assessment & Plan: Will obtain echo Essential hypertension, benign 04/16/2017 Last Assessment & Plan: Will resume metoprolol Encounters Date Type Specialty Care Team Description 02/21/2020 Office Visit Sulaiman Choudhary Irregular heart rate (Primary Dx); MD Jayy Essential hype rtension, benign; Pure hyperchole sterolemia; Palpitations 02/21/2020 Travel 02/10/2020 Refill Sulaiman Choudhary, Med Refill MD Jayy 12/16/2019 [facility] Radiology Francesca Silver Intra-abdominal and pelvic Encounter MD Nan swelling, mass and lump, unspecified sit e 12/16/2019 Travel 12/14/2019 Travel 12/12/2019 Travel 12/12/2019 Transcribe Orders Access Francesca Silver Intra-abdo prashant and pelvic MD Nan swelling, mass and lump, unspecified sit e (Primary Dx) 11/25/2019 Emergency Emergency Ellis, Acute cystitis with hematuria (Primary Dx); Kemar Clemons MD Right flank marian n 11/25/2019 Travel 09/13/2019 Telephone Cardiology Waleska Valle, Kristel RN 09/12/2019 Travel 09/07/2019 Office Visit Sulaiman Choudhary, Shortness of br eath (Primary Dx); MD Jayy Preop cardiova scular exam; Essential hyper tension, benign; Pure hyperchole sterolemia 05/18/2019 [facility] Radiology [place], Breast mass Encounter Delgado Roman MD 05/18/2019 [facility] Radiology [place], Breast mass Encounter Delgado Roman MD 05/09/2019 [facility] Radiology [place], Abnormal mammog stefania Encounter Delgado Roman MD 05/09/2019 [facility] Radiology [place], Abnormal mammog stefania Encounter Delgado Roman MD 04/25/2019 Surgery Procedural Naman Hopkins, EP TILT TABLE [[id number] Cardiology Rosa Maria (CPT)] MD Starr 04/25/2019 Hospital Procedural Naman [place], Tachycardia, unspecified Encounter Cardiology Rosa Maria Clements MD 04/18/2019 Transcribe Orders Access [place], Abnormal m ammogram (Primary Dx); Delgado Roman MD Breast mass 03/14/2019 Hospital Radiology Marco Locke Mediastinal mas s Encounter Beverly TOM MD 03/14/2019 Hospital Radiology Marco Locke Cervicalgia Encounter Beverly TOM MD 03/14/2019 Orders Only Cardiology Provider, MD Evelyn 03/11/2019 Transcribe Orders Access Marco Locke (Primary Dx); Beverly TOM MD Mediastinal mas s after 02/27/2019 Social History Tobacco Use Types Packs/Day Years Used Date Former Smoker Cigarettes 0 0 Smokeless Tobacco: Never Used Comments: QUIT YEARS AGO AT AGE 16 Alcohol Use Drinks/Week oz/Week Comments Yes 0 Glasses of wine 0.0 occasional 0 Cans of beer 0 Shots of liquor 0 Standard drinks or equivalent Sex Assigned at Date Recorded Not on file Job Start Date Occupation Industry Not on file Not on file Not on file Travel History Travel Start Travel End No recent travel history available. COVID-19 Exposure Response Date Recorded In the last month, have you been in contact with No / Unsure 02/21/2020 12:20 PM CDT someone who was confirmed or suspected to have Coronavirus / COVID-19? Last Filed Vital Signs Vital Sign Reading Time Taken Comments Blood Pressure 139/87 02/21/2020 11:35 AM CDT Pulse 101 02/21/2020 11:35 AM CDT Temperature 36.6 C (97.8 F) 11/25/2019 6:34 PM CDT Respiratory Rate 18 11/25/2019 8:30 PM CDT Oxygen Saturation 96% 11/25/2019 8:30 PM CDT Inhaled Oxygen Concentration - - Weight 130 kg (286 lb 9.6 oz) 02/21/2020 11:35 AM CDT Height 170.2 cm (5' 7") 02/21/2020 11:35 AM CDT Body Mass Index 44.89 02/21/2020 11:35 AM CDT Plan of Treatment Date Type Specialty Care Team Description 04/24/2020 Office Visit Cardiology Jayy Choudhary MD [address] [place], [place] [address] Health Maintenance Due Date Last Done Comments CERVICAL CANCER SCREENING 1991 INFLUENZA VACCINE 04/05/2020 Procedures Procedure Name Priority Date/Time Associated Diagnosis Comme nts ECG 12-LEAD Routine 02/21/2020 11:37 Irregular heart rate Res ults for this AM CDT procedure are i n the results section. US PELVIC TRANSVAGINAL Routine 12/16/2019 4:46 Intra-abdomina l and Results for this PM CDT pelvic swelling, mass proced ure are in and lump, unspecified the re sults site section. US PELVIC Routine 12/16/2019 4:46 Intra-abdominal and Resu lts for this TRANSABDOMINAL PM CDT pelvic swelling, mass proc edure are in and lump, unspecified the re sults site section. ECG 12-LEAD STAT 11/25/2019 7:48 Results for [...] DOPPLER PM CDT procedur e are in ([id number]) the results section. ECG 12-LEAD Routine 09/07/2019 3:59 Preop cardiovascular Res ults for this PM [employer] REPAIR TEACHER exam procedure are i n the results section. SURGICAL PATHOLOGY Routine 05/18/2019 11:19 Resul ts for this REQUEST AM [employer] REPAIR TEACHER procedure are i n the results section. MAMMO DIAGNOSTIC W CAD Routine 05/18/2019 11:02 Breast mass R esults for this LEFT AM [employer] REPAIR TEACHER procedure are i n the results section. US BREAST BIOPSY LEFT Routine 05/18/2019 10:34 Breast mass Re sults for this AM [employer]IO REPAIR TEACHER procedure are i n the results section. US BREAST COMPLETE Routine 05/09/2019 12:57 Abnormal mammogram Results for this LEFT PM [employer]IO REPAIR TEACHER procedure are i n the results section. MAMMO BREAST Routine 05/09/2019 11:54 Abnormal mammogram Resul ts for this DIAGNOSTIC AM [employer]IO REPAIR TEACHER procedure are i n TOMOSYNTHESIS the results [...] are i n the results section. after 02/27/2019 Results ECG 12 lead (02/21/2020 11:37 AM CDT)Only the most recent of3 resultswithin the time period is included. Pathologist Sig nature Ventricular rate 85 [facility] Atrial rate 85 [facility] IL interval 144 [facility] QRSD interval 140 [facility] QT interval 392 [facility] QTC interval 466 [facility] P axis 1 65 [facility] QRS axis 1 259 [facility] T wave axis 56 [facility] EKG impression Normal sinus [facility] rhythm-Right bundle branch block-Cannot rule out Inferior infarct , age undetermined-Abnormal ECG-No change c/w November 2019- Specimen Narrative Performed At This result has an attachment that is no t available. Performing Organization Address City/State/Zipcode Phone Number [facility] [address] [place] [address] Pelvic Transabdominal (12/16/2019 4:46 PM CDT) Specimen Addenda Addendum by Sravan Platt IV, MD o n 12/19/2019 10:41 AM ADDENDUM #1 Addendum: The patient is reportedly status post le ft oophorectomy. It is unclear whether the right ovary has been removed . Therefore, the 3.3 x 3.0 x 3.2 cm simple cystic structure within the le ft adnexa directly above the left margin of the vaginal cuff is unlikely to represent a paraovarian cyst , and the adjacent 1.2 x 0.9 x 0.9 cm hypoechoic but not anechoic structure which appears contiguous most likely represents a septated component w ith slight internal debris. This does not demonstrate the typical appearance of an endometrioma. In such c linical setting, findings are nonspecific, though at this time do not demonstrate aggressive characteristics. If desired, MRI could b e performed. Otherwise, continued sonographic follow-up is an option as we ll. This structure is grossly stable in size to the November 25, 2019 CT scan. Results Tracker Narrative Performed At EXAMINATION: US PELVIC TRANSABDOMINAL, US PELVIC TRANSVAGINAL [facility] CLINICAL HISTORY: R19.00 Intra-abdominal and pelvic swelling mass and lump unspecified site, r19 COMPARISON: None. TECHNIQUE:Transverse and longitudinal transvaginal and transabdominal sonographic images of the pelvis were obtained. Graysc jillian, color Doppler, and spectral waveform analysis of the ovarian vessels was performed. FINDINGS: Hysterectomy. The right ovary is not visualized. The left ovary kenna ures 4.4 x 3.5 X 3.4 cm. Blood flow is document within the left ovary . A 3.3 x 3.0 cm simple appearing cyst or follicle is pre sent within the left ovary. No suspicious fluid is identified. Impression: Please see above. ENDOMETRIAL THICKNESS GUIDELINES Pre-menopausal *Menstrual phase : 1 - 4 mm *Proliferative phase (days 6-14) : 5 - 7 mm *Late proliferative phase (trilaminar ap pearance) : up to 11 mm *Secretory Phase : 7 - 16 mm Post-menopausal without bleeding (acceptable ranges ar e less well-established) * Up to 8 -11 mm *Greater than 11 mm should prompt biopsy Post-menopausal with bleeding *Atrophy : 5 mm or less *Abnormal : greater than 5mm should prom pt biopsy Post-menopausal on Tamoxifen *Normal : 5 mm or less *Abnormal : greater than 5 mm (high-rate of false of p ositive. consider hysteroscopy and biopsy on all patients with bleeding on Tamoxifen) [facility]-[id number] Procedure Note Hm Interface, Radiology Results Incoming - 12/16/2019 4:58 PM CDT EXAMINATION: US PELVIC TRANSABDOMINAL, US PELVIC TRANSVAGINAL CLINICAL HISTORY: R19.00 Intra-abdomina l and pelvic swelling mass and lump unspecified site, r19 COMPARISON: None. TECHNIQUE:Transverse and longitudinal tr ansvaginal and transabdominal sonographic images of the pelvis were obtained. Grayscale, color Doppler, and spectral waveform analysis of the ovarian vessels was performed. FINDINGS: Hysterectomy. The right ovary is not visualized. The l eft ovary measures 4.4 x 3.5 X 3.4 cm. Blood flow is document within the left ovary. A 3.3 x 3.0 cm simple appearing cyst or follicle is present within the left ovary. No suspicious fluid is identified. Impression: Please see above. ENDOMETRIAL THICKNESS GUIDELINES Pre-menopausal *Menstrual phase : 1 - 4 mm *Proliferative phase (days 6-14) : 5 - 7 mm *Late proliferative phase (trilaminar ap pearance) : up to 11 mm *Secretory Phase : 7 - 16 mm Post-menopausal without bleeding (accept able ranges are less well-established) * Up to 8 -11 mm *Greater than 11 mm should prompt biopsy Post-menopausal with bleeding *Atrophy : 5 mm or less *Abnormal : greater than 5mm should prom pt biopsy Post-menopausal on Tamoxifen *Normal : 5 mm or less *Abnormal : greater than 5 mm (high-rate of false of positive. consider hysteroscopy and biopsy on all patients with bleeding on Tamoxifen) [facility]-[id number] Performing Organization Address City/State/Zipcode Phone Number [facility] [address] [place] [address] [place] Pelvic Transvaginal (12/16/2019 4:46 PM CDT) Specimen Addenda Addendum by Sravan Platt IV, MD o n 12/19/2019 10:41 AM ADDENDUM #1 Addendum: The patient is reportedly status post le ft oophorectomy. It is unclear whether the right ovary has been removed . Therefore, the 3.3 x 3.0 x 3.2 cm simple cystic structure within the le ft adnexa directly above the left margin of the vaginal cuff is unlikely to represent a paraovarian cyst , and the adjacent 1.2 x 0.9 x 0.9 cm hypoechoic but not anechoic structure which appears contiguous most likely represents a septated component w ith slight internal debris. This does not demonstrate the typical appearance of an endometrioma. In such c linical setting, findings are nonspecific, though at this time do not demonstrate aggressive characteristics. If desired, MRI could b e performed. Otherwise, continued sonographic follow-up is an option as we ll. This structure is grossly stable in size to the November 25, 2019 CT scan. Results Tracker Narrative Performed At EXAMINATION: US PELVIC TRANSABDOMINAL, US PELVIC TRANSVAGINAL [facility] CLINICAL HISTORY: R19.00 Intra-abdominal and pelvic swelling mass and lump unspecified site, r19 COMPARISON: None. TECHNIQUE:Transverse and longitudinal transvaginal and transabdominal sonographic images of the pelvis were obtained. Graysc jillian, color Doppler, and spectral waveform analysis of the ovarian vessels was performed. FINDINGS: Hysterectomy. The right ovary is not visualized. The left ovary kenna ures 4.4 x 3.5 X 3.4 cm. Blood flow is document within the left ovary . A 3.3 x 3.0 cm simple appearing cyst or follicle is pre sent within the left ovary. No suspicious fluid is identified. Impression: Please see above. ENDOMETRIAL THICKNESS GUIDELINES Pre-menopausal *Menstrual phase : 1 - 4 mm *Proliferative phase (days 6-14) : 5 - 7 mm *Late proliferative phase (trilaminar ap pearance) : up to 11 mm *Secretory Phase : 7 - 16 mm Post-menopausal without bleeding (acceptable ranges ar e less well-established) * Up to 8 -11 mm *Greater than 11 mm should prompt biopsy Post-menopausal with bleeding *Atrophy : 5 mm or less *Abnormal : greater than 5mm should prom pt biopsy Post-menopausal on Tamoxifen *Normal : 5 mm or less *Abnormal : greater than 5 mm (high-rate of false of p ositive. consider hysteroscopy and biopsy on all patients with bleeding on Tamoxifen) [facility]-[id number] Procedure Note Interface, Radiology Results 12/16/2019 4:58 PM CDT EXAMINATION: US PELVIC TRANSABDOMINAL, US PELVIC TRANSVAGINAL CLINICAL HISTORY: R19.00 Intra-abdomina l and pelvic swelling mass and lump unspecified site, r19 COMPARISON: None. TECHNIQUE:Transverse and longitudinal tr ansvaginal and transabdominal sonographic images of the pelvis were obtained. Grayscale, color Doppler, and spectral waveform analysis of the ovarian vessels was performed. FINDINGS: Hysterectomy. The right ovary is not visualized. The l eft ovary measures 4.4 x 3.5 X 3.4 cm. Blood flow is document within the left ovary. A 3.3 x 3.0 cm simple appearing cyst or follicle is present within the left ovary. No suspicious fluid is identified. Impression: Please see above. ENDOMETRIAL THICKNESS GUIDELINES Pre-menopausal *Menstrual phase : 1 - 4 mm *Proliferative phase (days 6-14) : 5 - 7 mm *Late proliferative phase (trilaminar ap pearance) : up to 11 mm *Secretory Phase : 7 - 16 mm Post-menopausal without bleeding (accept able ranges are less well-established) * Up to 8 -11 mm *Greater than 11 mm should prompt biopsy Post-menopausal with bleeding *Atrophy : 5 mm or less *Abnormal : greater than 5mm should prom pt biopsy Post-menopausal on Tamoxifen *Normal : 5 mm or less *Abnormal : greater than 5 mm (high-rate of false of positive. consider hysteroscopy and biopsy on all patients with bleeding on Tamoxifen) [facility]-[id number] Performing Organization Address City/State/Zipcode Phone Number [facility] [address] [place] [address] CT Renal Stone Protocol (11/25/2019 7:47 PM CDT) Specimen Narrative Performed At EXAMINATION: [facility] CLINICAL HISTORY: rt flank pain TECHNIQUE: Multiple [...] be followed with outpatient pelvic ultra sound. [facility] Procedure Note Interface, Radiology Results Incoming [...] could be followed with outpatient pelvic ultrasound. [facility] Performing Organization Address City/State/Zipcode Phone Number [facility] [address] [place] [address] ECG ED Preliminary Interpretation - Not an Order (11/25/2019 7:31 PM CDT) Narrative Performed At Deonte Ellis MD 11/25/2019 8:40 PM ECG ED Preliminary Interpretation - Not an Order Performed by: Deonte Ellis MD Authorized by: Deonte Ellis MD ECG reviewed by ED Physician in the abse nce of a nurse transitional: yes Previous ECG: Previous ECG: Unavailable Interpretation: [...] platelet and differential (11/25/2019 6:51 PM CDT) [facility] WBC 7.66 4.50 - 11.00 k/uL [facility] [place] RBC 4.97 4.20 - 5.50 m/uL [facility] [place] HGB 14.5 12.0 - 16.0 g/dL [facility] EMERGENCY [facility] HCT 44.8 37.0 - 47.0 % [facility] MCV 90.1 82.0 - 100.[address] [facility] EMERGENCY [facility] MCH 29.2 27.0 - 34.0 pg [facility] MCHC 32.4 31.0 - 37.0 g/dL [facility] EMERGENCY [facility] RDW - SD 46.3 37.0 - 55.0 fL [facility] MPV 8.8 8.8 - 13.2 fL [facility] Platelet count 246 150 - 400 k/uL [facility] Neutrophils 67.5 39.0 - 69.0 % [facility] Lymphocytes 25.6 25.0 - 45.0 % [facility] EMERGENCY [facility] Monocytes 4.6 0.0 - 10.0 % [facility] EMERGENCY [facility] Eosinophils 2.0 0.0 - 5.0 % [facility] Basophils 0.3 0.0 - 1.0 % [facility] Specimen Blood Performing Organization Address City/State/Zipcode Phone Number DEPARTMENT OF PATHOLOGY AND [address] [place] [address] GENOMIC MEDICINE, [facility] [address] [place] [address] [facility] Comprehensive metabolic panel (11/25/2019 6:51 PM CDT) Sodium 137 128 - 145 [facility] mEq/L [facility] Potassium 3.9 3.6 - 5.1 [facility] mEq/L [facility] CO2 30 18 - 33 mEq/L [facility] Chloride 102 98 - 108 mEq/L [facility] Glucose 108 73 - 118 mg/dL [facility] Calcium 9.2 8.0 - 10.3 [facility] mg/dL [facility] BUN 14 7 - 22 mg/dL [facility] Creatinine 0.8 0.5 - 0.9 [facility] mg/dL [facility] Alkaline phosphatase 66 42 - 141 U/L [facility] ALT 34 10 - 47 U/L [facility] AST 32 11 - 38 U/L [facility] Total bilirubin 0.7 0.2 - 1.6 [facility] mg/dL [facility] Albumin 3.8 3.3 - 5.5 g/dL [facility] Protein 7.8 6.4 - 8.1 g/dL [facility] Anion gap 5@ANIO (L) 7 - 15 mEq/L [facility] A/G ratio 1.0 0.7 - 3.8 [facility] Specimen Blood Performing Organization Address City/State/Zipcode Phone Number [facility] DEPARTMENT OF PATHOLOGY AND [address] [facility] [place] [address] GENOMIC MEDICINE, [facility] [address] Urinalysis (11/25/2019 6:48 PM CDT) Glucose, UA Trace (A) Negative [facility] Bilirubin, UA Negative Negative [facility] Ketones, UA Negative Negative [facility] Specific gravity, 1.020 1.001 - 1.035 [facility] UA [facility] Blood, UA Trace (A) Negative [facility] pH, UA 6.5 5.0 - 8.5 [facility] Protein, UA Negative Negative [facility] Urobilinogen, UA <2.0 <2.0 [facility] Nitrite, UA Positive (A) Negative [facility] Leukocyte esterase, Negative Negative [facility] Color, UA Yellow [facility] Appearance, UA Clear [facility] Specimen Urine Performing Organization Address City/State/Zipcoal Phone Number DEPARTMENT OF PATHOLOGY AND [address] [facility]. [address] [place] [address] GENOMIC MEDICINE, [facility] [address] Transthoracic Echocardiogram Complete, (w Contrast, Strain and 3D if needed) (09/12/2019 2:07 PM CDT) Pathologist Sig nature AoV Area, Vmax 3.49 cm2 [facility] AoV Area, VTI 3.60 cm2 [facility] AoV Mean PG 3.00 mmHg [facility] AoV Peak PG 4.93 mmHg [facility] AoV Vmax 1.11 m/s [facility] AoV VTI 0.23 m [facility] BSA [place] 2.58 m2 [facility] BSA 2.36 m2 [facility] IVS,d 0.94 cm [facility] IVS/LVPW,2D 1.03 [facility] Left Atrium Dimension Anterior 4.00 cm [facility] LV,d 4.61 cm [facility] LV EF,2D 69.30 % [facility] LV,s 3.11 cm [facility] LVOT area 3.46 cm2 [facility] LVOT Diam,S 2.10 cm [facility] LVOT Vmax 1.12 m/s [facility] LVOT VTI 0.24 m [facility] LVPWD,d 0.91 cm [facility] RVSP (TR) 22.82 mmHg [facility] TR Vpeak 1.79 mm/s [facility] MV E A ratio 0.76 [facility] RA pressure 10.00 mmHg [facility] TR pk grad 12.82 mmHg [facility] AoV area i VTI BSA Canadian 1.52 cm2/m2 [facility] MR Vmax 2.38 [...] Normal right sided chambers. Performing Organization Address City/State/Zipcode Phone Number [facility] [address] [place] [address] Surgical pathology request (05/18/2019 11:19 AM [employer] REPAIR TEACHER) [facility] DEPARTMENT OF PATHOLOGY AND GENOMIC MEDICINE Surgical pathology See link below [facility] DEPARTMENT OF report for PDF Lab PATHOLOGY AND Report GENOMIC MEDICINE Result status This is Final [facility] DEPARTMENT OF Report for PATHOLOGY AND [id number] GENOMIC MEDICINE Specimen Performing Organization Address City/[facility]/Zipcode Phone Number [facility] DEPARTMENT OF PATHOLOGY [address] [facility] [place] [address] AND GENOMIC MEDICINE Mammo Diagnostic w Cad Left (05/18/2019 11:02 AM RADIO REPAIR TEACHER) Specimen Addenda Addendum by Kylie Dudley MD [...] re sult and recommendations via telephone by GLENN Hubbard on 2018 at 2:15 PM. Narrative [...] skin was prepped with chlorhexidine and dr apperfecto in sterile fashion. Lidocaine with and without [...] reported in an addendum. [id number] Procedure Note Hm Interface, Radiology Results Incoming - 05/18/2019 3:06 PM RADIO REPAIR TEACHER Examination: US BREAST BIOPSY LEFT, MAMMO DIAGNOSTIC [...] Performing Organization Address City/State/Zipcode Phone Number [facility] [address] [place] [address] US Breast Biopsy Left (05/18/2019 10:34 AM RADIO REPAIR TEACHER) Specimen Addenda Addendum by Kylie Dudley MD [...] re sult and recommendations via telephone by GLENN Hubbard on 2018 at 2:15 PM. Narrative Performed At Examination: US BREAST BIOPSY LEFT, MAMMO DIAGNOSTIC W CAD LEFT [facility] 05/18/2019 10:02 AM Procedures: 1. Ultrasound-Guided [...] Performing Organization Address City/State/Zipcode Phone Number [facility] [address] [place] [address] [place] Breast Complete Left (05/09/2019 12:57 PM RADIO REPAIR TEACHER) Specimen Narrative Performed At PROCEDURE: MAMMO BREAST DIAGNOSTIC TOMOSYNTHESIS BILAT KELVIN, US BREAST HM [facility] COMPLETE LEFT Left [...] SUSPICIOUS This facility is accredited by [employer] for Mammography. A negative x-ray report should not delay biopsy if a d ominant or clinically suspicious mass is present. Not all cance rs are identified by x-ray. [id number] Performing Organization Address City/State/Zipcode Phone Number [facility] [address] [place] [address] Mammo Breast Diagnostic Tomosynthesis Bilateral (05/09/2019 11:54 AM RADIO REPAIR TEACHER) Specimen Narrative Performed At PROCEDURE: MAMMO BREAST DIAGNOSTIC TOMOSYNTHESIS BILAT ERAL, US BREAST [facility] COMPLETE LEFT Left real-time whole breast [...] SUSPICIOUS This facility is accredited by [employer] for Mammography. A negative x-ray report should not delay biopsy if a d ominant or clinically suspicious mass is present. Not all cance rs are identified by x-ray. [email or web address] Performing Organization Address [facility]/Zipcode Phone Number [facility] [address] [place] [address] Electrophysiology procedure (04/25/2019 1:27 PM CDT) Specimen Narrative Performed At This result has an attachment that is no t available. Description [facility] [employer] The risks, benefits and alternatives were discussed [...] metoprolol - D/C today Performing Organization Address [facility]/Zipcode Phone Number SYN[facility] [address] [place] [address], Partial thromboplastin time, activated (04/25/2019 11:58 AM CDT) PTT 32.1 23.0 - 36.0 [facility] Comment: [facility] PTT therapeutic range for unfractionated heparin is HOSPITAL 61.0-112.0 seconds which corresponds to Anti-Xa 0.3-0.7 U/ml. Specimen Blood Performing Organization Address City/[facility]/Zipcode Phone Number [facility] DEPARTMENT OF PATHOLOGY [id number] [place] [address] [address] Prothrombin time with INR (04/25/2019 11:58 AM CDT) Pathologist [facility] Prothrombin time 13.0 11.5 - 14.5 [facility] INR 1.0 [place] Comment: [facility] International Normalized Ratio (INR) is a therapeu [facility] monitoring tool for patients who are stable on oral anticoagulant therapy. An INR of 2.0-3.0 is suggested for deep vein thrombosis/pulmonary embolism. Specimen Blood Performing Organization Address [facility]/Rustcode Phone Number [facility] DEPARTMENT OF PATHOLOGY [address] [place] [address] CBC hemogram (04/25/2019 11:58 AM CDT) Pathologist Sig nature WBC 6.6 4.5 - 11.0 k/uL [facility] RBC 4.75 4.20 - 5.50 m/uL [facility] HGB 13.7 12.0 - 16.0 g/dL [facility] HCT 42.2 37.0 - 47.0 % [facility] MCV 88.8 82.0 - 100.0 fL [facility] MCH 28.8 27.0 - 34.0 pg [facility] MCHC 32.5 31.0 - 37.0 g/dL [facility] RDW - SD 44.0 37.0 - 55.0 fL [facility] MPV 8.9 6.9 - 11.0 fL [facility] Platelet count 242 150 - 400 K/uL [facility] Nucleated RBC 0.00 /100 WBC [facility] Specimen Blood Performing Organization Address City/State/Zipcode Phone Number [facility] DEPARTMENT OF PATHOLOGY [address] [facility] [address] AND GENOMIC MEDICINE [facility] [address] [facility] [address] HOSPITAL ECG Pre/Post Op (04/25/2019 11:10 AM CDT) Pathologist Sig nature Ventricular rate 77 [facility] MUSE Atrial rate 77 [facility] MUSE [place] interval 158 [facility] MUSE QRSD interval 138 [...] available. Performing Organization Address City/State/Zipcode Phone Number [facility] [address] [place] [address] CT Chest W Contrast (03/14/2019 5:48 PM [...] the lungs. 3.No bony abnormality is appreciated. [facility]-[id number] Procedure Note Hm Interface, Radiology Results Incoming - 03/14/2019 7:20 [...] the lungs. 3.No bony abnormality is appreciated. [facility]-[id number] Performing Organization Address City/State/Zipcode Phone Number [facility] [address] [place] [address] CT Soft Tissue Neck W Contrast (03/14/2019 [...] unremarkable CT of the neck soft tissues. [id number] Procedure Note Hm Interface, Radiology Results Incoming [...] unremarkable CT of the neck soft tissues. [id number] Performing Organization Address City/State/Zipcode Phone Number [facility] [address] [place] [address] Estimated GFR (03/14/2019 5:11 PM CDT) Estimated GFR >=90 mL/min/1.73 RON HINDUISM Comment: m2 [facility] Catergory Units Interpretation [facility] [...] DEPARTMENT OF PATHOLOGY AND [address] [place], [place] [id number] [place] [address] [facility] [address] POC creatinine (03/14/2019 5:11 PM CDT) Pathologist [facility] POC creatinine 0.7 0.5 - 0.9 RON PAULSON Comment: mg/dl [facility] Meter ID: [id number] EMERG[facility] CARE Tractor Distributor: Cecil Dominguezon [place] Specimen Blood Performing Organization Address City/State/Zipcode Phone Number DEPARTMENT OF PATHOLOGY AND [address] [place] [address] [facility] RON PAULSON [facility] [address] after 02/27/2019 Insurance Payer Benefit Plan / Subscriber ID Effective Dates Phone Addre ss Type Group MEDICARE MEDICARE PART A xxxxxxxxxxx 2009-Present [facility] [place] B Advance Directives For more information, please contact: [phone] Type Date Recorded Patient Security Tester Explanati on Advance Directives, Living Will 05/12/2017 12:46 AM and Medical Power of Employee Counselor
--- OUTSIDE RECORDS SUMMARY | 2020-02-28 12:35 | XMS REPORT | Continuity of Care Document ---
:1970 Author Organization [employer] Care Team Providers Name Role Phone [employer] Unavailable Un available Problems Problem Status Onset Classification Date Comments Sourc e Date Reported Asthma 07/06/19 Problem 10/07/2014 1states Surgical (disorder) 09 allergy Specialty induced [facility] [place] Sleep apnea 07/06/19 Problem 10/07/2014 Surgica l (finding) 09 [facility]ty [facility] [place] Hypertensive 07/06/18 Problem 10/07/2014 3presently Surgi abiel disorder, 95 not taking Specialty systemic any meds [facility] arterial [place] (disorder) Anxiety Problem 10/07/2014 Surgical (finding) [facility] [place] Backache Problem 10/07/2014 2off and on Surgica l (finding) [facility] [place] Depressive Problem 10/07/2014 Surgical disorder Specialty (disorder) [facility] [place] Cannabis sativa Problem 10/07/2014 4states uses Surgical (organism) 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 [facility]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 [place] Medications Medication Details Route Status Patient Ordering [...] date 10/04/14 Hospi brianna 11:35:00 CDT of [place] acetaminophen- 15 mL, Soln, No Longer [place] urgical HYDROcodone Oral, q4hr PRN Active 2014 Speci alty 325 mg-7.5 for pain severe Hospi brianna mg/15 mL oral (7-10), first of S ugar solution dose 10/04/14 Land 11:35:00 CDTMax 4gm acetaminophen in 24 hours Xopenex 0.63 0.63 mg = 3 mL, [facility] Surgical mg/3 mL Soln, NEB, Once 2015 Specialt y inhalation PRN for Hospital solution shortness of of [place] breath or [place] wheezing, first dose 10/04/14 9:53:00 CDT ondansetron 4 mg = 2 mL, Inactive [facility] 10[facility]/ Lesley gical Injection, IV 2014 Specialty Push, q15min PRN Hospita l for of [place] nausea/vomiting, [place] order duration: 2 doses, first dose 10/04/14 9:53:00 CDT, stop date Limited # of times promethazine 12.5 mg = 0.5 Inactive [facility] 10[facility]/ S urgical mL, Injection, 2015 Specialty IM, Once PRN for Hospita l severe nausea, of [place] first dose Land 10/04/14 9:53:00 CDT Saline Lock 10 mL, Soln, IV Inactive [facility] 10[facility]/ Surgical Flush Push, As 2015 Specialty [...] mg = 0.25 Inactive [facility] 10/04/ Surgical mL, Injection, 2014 Specialty IV, Once, first Hospital dose 10/04/14 of [place] 9:47:00 CDT, 10/04/14 9:47:00 CDT ondansetron 4 mg = 2 mL, Inactive [facility] 10/04/ Lesley gical Injection, IV, 2014 Specialty Once, first dose Hospita l 10/04/14 9:31:00 of [place] CDT, stop 10/04/14 9:31:00 CDT HYDROmorphone 0.5 mg = 0.25 Inactive [facility] 10/04/ Surgical mL, Injection, 2014 Specialty IV, Once, first Hospital dose 10/04/14 of [place] 9:27:00 CDT, 10/04/14 9:27:00 CDT acetaminophen 1,000 mg, Inactive [facility] 10/04/ Surg ical Soln-IV, IV 2015 Specialty Piggyback, Once, Hospita l first dose of [place] 10/04/14 9:14:00 Land CDT, stop 10/04/14 9:14:00 CDT HYDROmorphone 0.5 mg = 0.25 Inactive [facility] 10/04/ Surgical mL, Injection, 2015 Specialty IV, Once, first Hospital dose 10/04/14 of [place] 9:13:00 CDT, 10/04/14 9:13:00 CDT fentaNYL 100 mcg = 2 mL, Inactive [facility] 10/04/ Lesley gical Injection, IV, 2014 Specialty Once, first dose Hospita l 10/04/14 8:56:00 of [place] CDT, stop 10/04/14 8:56:00 CDT ceFAZolin 2 gm, Soln-IV, Inactive [facility] 10/04/ Lesley gical IV Piggyback, 2015 Specialty Once, first dose Hospita l 10/04/14 8:54:00 of [place] CDT, 10/04/14 8:54:00 CDT ceFAZolin 1 gm, Inactive [facility] 10/04/ Surgical Powder-Inj, IV, 2014 Specialt y [facility], [facility] 10/04/14 8:53:00 of [place] CDT, 10/04/14 8:53:00 CDT dexamethasone 12 mg = 3 mL, Inactive [facility] 10/04/ Surgical Injection, IV, 2014 Specialty Once, [facility] 10/04/14 8:53:00 of [place] CDT, 10/04/14 8:53:00 CDT rocuronium 5 mg = 0.5 mL, Inactive [facility] 10/04/ Berry rgical Injection, IV, 2014 Specialty Once, [facility] 10/04/14 8:43:00 of [place] CDT, 10/04/14 8:43:00 CDT lidocaine 2 mL, Injection, Inactive [facility] 10/04/ S urgical IV, Once, first 2015 Specialt y dose 10/04/14 Hospital 8:43:00 CDT, of [place] 10/04/14 8:43:00 CDT propofol 140 mg = 14 mL, Inactive [facility] 10/04/ Lesley gical Emulsion, IV, 2014 Specialty Once, first dose [facility] 10/04/14 8:43:00 of [place] CDT, 10/04/14 8:43:00 CDT fentaNYL 50 mcg = 1 mL, Inactive [facility] 10/04/ Surg ical Injection, IV, 2014 Specialty Once, first dose [facility] 10/04/14 8:43:00 of [place] CDT, 10/04/14 8:43:00 CDT fentaNYL 100 mcg = 2 mL, Inactive [facility] 10/04/ Lesley gical Injection, IV, 2014 Specialty Once, [facility]] 10/04/14 8:40:00 of [place] CDT, 10/04/14 8:40:00 CDT midazolam 2 mg = 2 mL, Inactive [facility] 10/04/ Surgi abiel Injection, IV, 2014 Specialty Once, [facility] 10/04/14 8:26:00 of [place] CDT, stop date Land 10/04/14 8:26:00 CDT ceFAZolin 2 gm, Soln-IV, Inactive [place] 10/04/ Surgi abiel IV Piggyback, 2015 Specialty Once, [facility] over 30 minutes, of [place] first dose [place] 10/04/14 8:00:00 CDT, stop date 10/04/14 8:00:00 CDT Lidocaine 2% 0.2 mL, Inactive Robert 10/04/ Surgical 0.2 mL IV Injection, 2015 Specialty Start Subcutaneous, Hospital [[facility]] Once PRN for of [place] other (see [place] comment), first dose 10/04/14 7:29:00 CDT LR 1,000 mL 1,000 mL, IV, 30 Inactive Robert 10/04/ Berry rgical mL/hr, start 2014 Specialty date 10/04/14 Hospital 7:29:00 CDT of [place] clonazePAM 1 1 mg = 1 tabs, Active 10/03/ Surg ical mg oral tablet Oral, [facility] take morning of of [place] surgery, 0 [place] Refill(s), anxietyinstructe d may take morning of surgery Allergies, Adverse Reactions, Alerts Substance Category Reaction Severity Reaction Status Date Comments S ource type Reported doxycycline drug throat Allergy Surg ical allergy closes [facility] Immunizations No Data Provided for This Section [...] Systolic (mm Hg) 122 [facility]05[facility]2014 [facility] ([facility]) 71 10/05[facility]2014 [facility] Resp[facility] Rate 16 10/05/2014 [facility] Heart Rate 74 10/05/2014 Surgical [facility] Temperature Oral (F) 36.5 [facility] (F) 36.6 [facility] Diastolic (mm Hg) 56 10/05/2014 Surgical S [facility] [place] Systolic (mm Hg) 130 10/05/2014 Surgical [facility] [place] Respitory Rate 16 10/05/2014 Surgical Spec [facility] [place] Heart Rate 59 10/05/2014 Surgical [facility] [place] Temperature Oral (F) 36.6 [facility] [place] Systolic (mm Hg) 113 10/05/2014 Surgical [facility] [place] Diastolic (mm Hg) 63 10/05/2014 Surgical S [facility] [place] Respitory Rate 16 10/05/2014 Surgical Spec [facility] [place] Heart Rate 65 10/05/2014 Surgical [facility] Peripheral Pulse Rate 98 [facility]04[facility] Oral (F) 37.2 [facility] Weight 40 10/04/2014 Surgical [facility] [place] Weight 121.4 10/04/2014 Surgical [facility] Height 174 cm 10/04/2014 Surgical [facility] Peripheral Pulse Rate 88 10/04/[facility] [place] Weight 38.39 09/26/2014 Surgical [facility] Height 175.26 cm 09/26/2014 Surgical [facility] Weight 117.93 09/26/2014 Surgical [facility] Encounters Location Location Encounter Encounter Reason Attending ADM [place] Stat us Source Details Type Number For Provider Date Date Visit [facility] OBS [id number] Sravan 10/04 10/05 Discharged Surgic al [place] /2014 [facility] [place] Procedures Procedure Code Date Perfomer Comments Source PALATOPHARYNGOPLASTY 10/05/19 [place] 1auto-populate Surgical 64473 (Other)<sup>1</sup> 15 d from Specialty documented Hospital of surgical case [place] TONSILLECTOMY AND 10/05/19 [place] 2auto-populate Lesley gical ADENOIDECTOMY AGE 12 O 15 d from ecialty (Other, documented [facility])<sup>2</sup> surgical case [place] Colonoscopy [id number] 07/06/19 Surgical 14 [facility] egd 07/06/19 Surgical 14 [facility] breast lump 07/06/19 Surgical removed-benign 12 [facility] breast reduction 07/06/19 Surgical 12 [facility] Hysterectomy [id number] 07/06/19 Surgical 10 [facility] Ectopic 633.90 07/06/19 Surgica l 00 [facility] Assessment and Plan No Data Provided for This Section Plan of Care No Data Provided for This Section Social History No Data Provided for This Section Family History No Data Provided for This Section Advance Directives No Data Provided for This Section Functional Status No Data Provided for This Section
--- OUTSIDE RECORDS SUMMARY | 2020-02-28 12:36 | XMS REPORT | Continuity of Care Document ---
:1970 Author Organization [facility] t Address [address] [place] [address] Care Team Providers Name Role Phone Ken Pierce MD. Primary Care Physician Kenrick JOHNSON Attending Clinician Nan Silver MD Attending Clinician Damaris Silver Attending Clinician Unavailable Caleb JOHNSON Attending Clinician Leonard ELIZABETH Attending Clinician Unavailable Jessie Pierce MD Attending Clinician Starr Walters MD Attending Clinician [phone] Beverly Dougherty MD Attending Clinician Provider Attending Clinician LIZETH LR Admitting Clinician Unavailable Payers Payer Name Policy Policy Number Effective Expiration Source Type Date Date MEDICAREMEDICARE PART xxxxxxxxxxx 2009 Kai Etienne AND 00:00:00 [employer] Bxxxxxxxxxxx/07/2008[place] [facility] Condition Condition Condition Status Onset Resolution Last Treating Co mments Source Name Details Category Date Date Treatment Clinician Date Preop Preop Disease Active [facility] cardiovasc cardiovasc 3-04 Assessmen Methodi ular exam ular exam 00:00: t & Plan: s t 00 Will obtain echo and ecg to risk stratify Right Right Disease Active 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 [place] hyperchole hyperchole 6 Assessmen Methodi sterolemia sterolemia 00:00: t & Plan: st 00 Off atorvasta tin; she is to see her PCP tomorrow Palpitatio Palpitatio Disease Active 2016-07 Last H jennifer ns ns 1-15 Assessmen Methodi 00:00: t & Plan: st 00 Adriel resume metoprolo l Chest pain Chest pain Disease Active 2016-07 H [place] 1-07 Methodi 00:00: st 00 Precordial Precordial Disease Active 2016-07 Last H jennifer chest pain chest pain 0-12 Assessmen Methodi [...] benign 00:00: t & Plan: st 00 Will resume metoprolo l Asthma Problem 2014-10-07 Memor ia (disorder) 07-06 04:00:13 l Asthma 00:00: Baron (disorder) 00 07/06/2008 Problem 10/07/2014 1states allergy induced [facility] Sleep Problem 2014-10-07 Memor ia apnea 07-06 04:00:13 l (finding) Sleep 00:00: Lowell garcia apnea 00 (finding) 07/06/2008 Problem 10/07/2014 [facility] Hypertensi Problem 2014-10-07 M emoria ve 07-06 04:00:13 l disorder, 00:00: Baron systemic Hypertensi 00 arterial ve (disorder) disorder, systemic arterial (disorder) 07/06/1994 Problem 10/07/2014 3presentl y not taking any meds [facility] Anxiety Problem 2014-10-07 Fabián jasmyne (finding) 04:00:13 l Anxiety Wendel (finding) Problem 10/07/2014 [facility] Backache Problem 2014-10-07 Mem oria (finding) 04:00:13 l Backache Lowell n (finding) Problem 10/07/2014 2off and on [facility] Depressive Problem 2014-10-07 M emoria disorder 04:00:13 l (disorder) Lowell n Depressive disorder (disorder) Problem 10/07/2014 [facility] Cannabis Problem 2014-10-07 Mem oria sativa 04:00:13 l (organism) Cannabis He rmann sativa (organism) Problem 10/07/2014 4states uses it for druze reasons [facility] Allergies, Adverse Reactions, Alerts Allergy Allergy Status Severity Reaction(s) Onset Inactive Treating Comm ents Source Name Type Date Date Clinician Clindamy Propensi Active Other (See Trouble [place] to Comments) 5-22 swallowin Meth jess adverse 00:00: g st reaction 00 s to drug Doxycycl Propensi Active Anaphylaxis 2016-07 [place] in[place] ty to 0-12 Methodi adverse 00:00: st reaction 00 s to drug Latex Propensi Active Other (See 2016-[address] [facility] ty to Comments) 0-12 and Methodi adverse 00:00: swelling st reaction 00 s to drug doxycycl doxycycl Active Memori a ine ine l Baron Social History Social Habit Start Date Stop Date Quantity Comments Source History of Cigarette Smoker [place] [employer] tobacco use Sex Assigned At [facility] ethodi Exposure to Not sure [place] Metho dist SARS-CoV-2 (event) Alcohol intake 2020-02-21 2020-02-21 Current drinker of [facility] [employer] 00:00:00 00:00:00 alcohol (finding) Tobacco Comment 2018-01-18 2018-01-18 QUIT YEARS AGO AT [facility] [employer] Witness 00:00:00 00:00:00 AGE 16 Alcohol Comment 2018-01-18 2018-01-18 occasional [facility] ethodist 00:00:00 00:00:00 Smoking Status Start Date Stop Date Source Former smoker 2020-02-21 00:00:00 2020-02-21 00:00:00 [place] [employer] Medications Ordered Filled Start Stop Current Ordering Indication Dosage Frequency Signature Comments Components Source Medication Medication Date Date Medication? Clinician (SIG) Name Name atorvastati 2019- No 20mg QD Take 20 mg Corley n (LIPITOR) 02-20 by mouth Met hodi 20 MG 11:34: 00:[address] tablet 47 :00 Default OP ins metoprolol 2020- Yes 25mg Q.5D Take 1 [place] tartrate 02-20 tablet (25 Meth jess (LOPRESSOR) 00:00: 23:59 mg total) st 25 mg 00 :00 by mouth 2 tablet (two) times a day. flecainide 2019- No TAKE 1 [place] (TAMBOCOR) 02-09 TABLET(50 Met hodi 50 MG 00:00: 00:00 MG) BY st tablet 00 :00 MOUTH TWICE DAILY cefdinir 2019- No 300mg Q.5D Take 1 [place] (OMNICEF) 11-24 capsule Method i 300 MG 00:00: 23:59 ([address] capsule 00 :00 total) by mouth 2 (two) times a day for 10 days. ibuprofen 2019- No 600mg Q6H Take 1 [place] (ADVIL) 600 11-24- tablet Metho di MG tablet 00:00: 23:59 ([address] 00 :00 total) by mouth every 6 (six) hours as needed for mild pain or moderate pain for up to 5 days. traMADoL 2019- No acute pain 50mg Q6H Take 1 Corley (ULTRAM) 50 11-24-25 tablet (50 M ethodi mg tablet 00:00: 23:59 mg total) st 00 :00 by mouth every 6 (six) hours as needed for moderate pain for up to 3 days .acute pain. predniSONE 2018-07- No TK 2 TS PO Corley (DELTASONE) 08-01 FOR 5 Method i 10 mg 00:00: 00:[address] tablet 00 :00 TK 1 T PO QD FOR 5 DAYS. nitrofurant 2018-07- No 100mg Q.25D Take 100 Corley oin 0-21 10-21 mg by Methodi (MACRODANTI 11:56: 00:[address] N) 100 MG 11 :00 (four) capsule times a day. metoprolol 2019- No 25mg Q.5D Take 1 [place] tartrate 02-02 07-25 tablet (25 Meth jess (LOPRESSOR) 00:00: 23:59 mg total) st 25 mg 00 :00 by mouth 2 tablet (two) times a day for 360 days. flecainide No 50mg Q.5D Take 1 [place] (TAMBOCOR) 02-02 tablet (50 Me thodi 50 MG 00:00: 00:00 mg total) st tablet 00 :00 by mouth 2 (two) times a day. atorvastati 2018- No TK 1 T PO Corley n (LIPITOR) 02-02 NIGHTLY. Met hodi 20 MG 00:00: 00:00 st tablet 00 :00 orphenadrin 2019- No 100mg Q.5D Take 1 [place] (NORFLEX) 07-2018 tablet Metho di 100 mg 12 00:00: 00:00 ([address] hr tablet 00 :00 total) by mouth 2 (two) times a day as needed for muscle spasms for up to 30 doses. Tylenol Yes See Carlos Eduardo with 10-05 Instructio l Codeine #3 17:22: ns, PRN Herm lisandro oral tablet 00 for pain, 1 tabs Oral q4-6hours as needed for pain, 0 Refill(s)1 tabs Oral q4-6hours as needed for pain Tylenol Karen Hinson 2 tabs, Ijeoma a with 10-05 Devorkin Tab, Oral, l Codeine #3 12:39: q4hr PRN Her isaac oral tablet 00 for pain severe (7-10), first dose 10/05/14 7:39:00 CDTMax 4gm acetaminop hen in 24 hours ceFAZolin Karen Hinson 2 gm, Ijeoma etienne 10-04 [place]in Soln-IV, l 21:30: IV Wendel 00 Piggyback, q8hr, infuse over 30 minutes, order duration: 3 doses, first dose 10/04/14 16:30:00 CDT, stop date 10/05/14 16:29:00 CDT acetaminoph Karen Hinson 10 mL, Mem oria en-HYDROcod 4-01 Devorkin Soln, l one 325 17:00: Oral, q4hr Herm lisandro mg-7.5 00 PRN for mg/15 mL Pain oral Moderate solution (4-6), first dose 10/04/14 12:00:00 CDTMax 4gm acetaminop hen in 24 hours Saline Lock No Sravan 10 mL, Mem oria Flush 4-01 Devorkin Soln, IV l 17:00: Push, Wendel 00 q8hr, first dose 10/04/14 12:00:00 CDT Benadryl No Sravan 25 mg = 1 Mem oria 4-01 [place] caps, Cap, l 16:35: Oral, q6hr Baron 00 PRN for itching, first dose 10/04/14 11:35:00 CDT ondansetron No Sravan 4 mg = 2 M emoria 4- Devorkin mL, l 16:35: Injection, Baron 00 IV Push, q4hr PRN for nausea/vom iting, first dose 10/04/14 11:35:00 CDT promethazin No Sravan 25 mg = 1 Memoria e 4-01 Devorkin mL, l 16:35: Injection, Wendel 00 IM, q4hr PRN for severe nausea, first dose 10/04/14 11:35:00 CDT Demerol HCl No Sravan 50 mg = 1 Memoria 4-01 [place]orkin mL, l 16:35: Injection, Wendel 00 IM, q4hr PRN for breakthrou gh pain, first dose 10/04/14 11:35:00 CDT acetaminoph No Sravan 650 mg = 2 Memoria en 4-01 Devorkin tabs, Tab, l 16:35: Oral, q4hr Wendel 00 PRN for headache, first dose 10/04/14 11:35:00 CDTMax 4gm acetaminop hen in 24 hours Saline Lock No Sravan 10 mL, Mem oria Flush 4-01 Devorkin Soln, IV l 16:35: Push, As Wendel 00 Indicated PRN for flush, first dose 10/04/14 11:35:00 CDT D5W - No Sravan 1,000 mL, Memori a 0.45NaCl 10-04 Devorkin IV, 80 l with 20 mEq 16:35: mL/hr, Herm lisandro KCl 1,000 00 start date mL 10/04/14 11:35:00 CDT acetaminoph No Sravan 15 mL, Mem oria en-HYDROcod 10-04 Devorkin Soln, l one 325 16:35: Oral, q4hr Herm lisandro mg-7.5 00 PRN for mg/15 mL pain oral severe solution (7-10), first dose 10/04/14 11:35:00 CDTMax 4gm acetaminop hen in 24 hours Xopenex No Lakshmi 0.63 mg = Fabián jasmyne 0.63 mg/3 10-04 Munsterman 3 mL, l mL 14:53: Soln, NEB, Baron inhalation 00 Once PRN solution for shortness of breath or wheezing, first dose 10/04/14 9:53:00 CDT ondansetron No Lakshmi 4 mg = 2 M emoria 10-04 [place] mL, l 14:53: Injection, Baron 00 IV Push, q15min PRN for nausea/vom iting, order duration: 2 doses, first dose 10/04/14 9:53:00 CDT, stop date Limited # of times promethazin No Lakshmi 12.5 mg = Memoria e 10-04 [place] 0.5 mL, l 14:53: Injection, Baron 00 IM, Once PRN for severe nausea, first dose 10/04/14 9:53:00 CDT Saline Lock No Lakshmi 10 mL, Mem oria Flush 10-04 [place] Soln, IV l 14:53: Push, As Wendel 00 Indicated PRN for flush, first dose 10/04/14 9:53:00 CDT morphine No Lakshmi 2 mg = 0.2 Me moria -01 Munsterman mL, l 14:53: Injection, Baron 00 IV Push, q5min PRN for Pain Moderate (4-6), first dose 10/04/14 9:53:00 CDT Dilaudid No Lakshmi 0.5 mg = Fabián jasmyne 10-04 [place] 0.25 mL, l 14:53: Injection, Wendel 00 IV Push, q10min PRN for pain severe (7-10), first dose 10/04/14 9:53:00 CDT Misc No Cam 950 mL, Memoria Medication 10-04 Hari Soln-IV, l 14:50: IV, Once, first dose 10/04/14 9:50:00 CDT, stop date 10/04/14 9:50:00 CDT HYDROmorpho No Lakshmi 0.5 mg = Morgan emoria ne 10-04 Mun[place]erman 0.25 mL, l 14:47: Injection, Wendel 00 IV, Once, first dose 10/04/14 9:47:00 CDT, stop date 10/04/14 9:47:00 CDT ondansetron No Lakshmi 4 mg = 2 M emoria 10-04 [place] mL, l 14:31: Injection, Wendel 00 IV, Once, first dose 10/04/14 9:31:00 CDT, stop date 10/04/14 9:31:00 CDT HYDROmorpho No Lakshmi 0.5 mg = Morgan emoria ne 10-04 [place] 0.25 mL, l 14:27: Injection, IV, Once, first dose 10/04/14 9:27:00 CDT, stop date 10/04/14 9:27:00 CDT acetaminoph No Lakshmi 1,000 mg, Memoria en 10-04 [place] Soln-IV, l 14:14: IV Baron 00 Piggyback, Once, first dose 10/04/14 9:14:00 CDT, stop date 10/04/14 9:14:00 CDT HYDROmorpho No Lakshmi 0.5 mg = M emoria ne 10-04 [place] 0.25 mL, l 14:13: Injection, Wendel 00 IV, Once, first dose 10/04/14 9:13:00 CDT, stop date 10/04/14 9:13:00 CDT fentaNYL No Lakshmi 100 mcg = Mem oria 10-04 [place] 2 mL, l 13:56: Injection, Wendel 00 IV, Once, first dose 10/04/14 8:56:00 CDT, stop date 10/04/14 8:56:00 CDT ceFAZolin No Lakshmi 2 gm, Memori a 10-04 [place] Soln-IV, l 13:54: IV Baron 00 Piggyback, Once, first dose 10/04/14 8:54:00 CDT, stop date 10/04/14 8:54:00 CDT ceFAZolin No Lakshmi 1 gm, Memori a 10-04 [place] Powder-Inj l 13:53: , IV, Wendel 00 Once, first dose 10/04/14 8:53:00 CDT, stop date 10/04/14 8:53:00 CDT dexamethaso No Lakshmi 12 mg = 3 Memoria ne 10-04 [place] mL, l 13:53: Injection, Wendel 00 IV, Once, first dose 10/04/14 8:53:00 CDT, stop date 10/04/14 8:53:00 CDT rocuronium No Lakshmi 5 mg = 0.5 Memoria 10-04 [place] mL, l 13:43: Injection, Baron 00 IV, Once, first dose 10/04/14 8:43:00 CDT, stop date 10/04/14 8:43:00 CDT lidocaine No Lakshmi 2 mL, Memori a 10-04 [place] Injection, l 13:43: IV, Once, first dose 10/04/14 8:43:00 CDT, stop date 10/04/14 8:43:00 CDT propofol No Lakshmi 140 mg = Fabián jasmyne 10-04 Mun[place]erman 14 mL, l 13:43: Emulsion, Wendel 00 IV, Once, first dose 10/04/14 8:43:00 CDT, stop date 10/04/14 8:43:00 CDT fentaNYL No Lakshmi 50 mcg = 1 Me moria 10-04 [place] mL, l 13:43: Injection, Wendel 00 IV, Once, first dose 10/04/14 8:43:00 CDT, stop date 10/04/14 8:43:00 CDT fentaNYL No Lakshmi 100 mcg = Mem oria 10-04 [place] 2 mL, l 13:40: Injection, Wendel IV, Once, first dose 10/04/14 8:40:00 CDT, stop date 10/04/14 8:40:00 CDT midazolam No Lakshmi 2 mg = 2 Mem oria 10-04 [place] mL, l 13:26: Injection, Wendel 00 IV, Once, first dose 10/04/14 8:26:00 CDT, stop date 10/04/14 8:26:00 CDT ceFAZolin No Sravan 2 gm, Memori a 10-04 Devorkin Soln-IV, l 13:00: IV Wendel Piggyback, Once, infuse over 30 minutes, first dose 10/04/14 8:00:00 CDT, stop date 10/04/14 8:00:00 CDT Lidocaine No Joel K 0.2 mL, Mem oria 2% 0.2 mL 10-04 Jones Injection, l IV Start 12:29: Subcutaneo Her isaac [[facility]] 00 us, Once PRN for other (see comment), first dose 10/04/14 7:29:00 CDT LR 1,000 mL No Joel K 1,000 mL, Memoria 10-04 Jones IV, 30 l 12:29: mL/hr, Wendel 00 start date 10/04/14 7:29:00 CDT clonazePAM Yes 1 mg = 1 Mem oria 1 mg oral 3-31 tabs, l tablet 16:00: Oral, TID, [place] nn 00 instructed may take morning of surgery, 0 Refill(s), anxietyins tructed may take morning of surgery Vital Signs Vital Name Observation Time Observation Value Comments Source Systolic blood 2020-02-21 11:35:00 139 mm[Hg] Nitin garcia [employer] pressure Diastolic blood 2020-02-21 11:35:00 87 mm[Hg] Sue on [employer] pressure Heart rate 2020-02-21 11:35:00 101 /min Barney Hidalgo Body height 2020-02-21 11:35:00 170.2 cm Barney Hidalgo Body weight 2020-02-21 11:35:00 130.001 kg Barney Hidalgo BMI 2020-02-21 11:35:00 44.89 kg/m2 Barney Hidalgo Respiratory rate 2019-11-25 20:30:00 18 /min Shashi nas Olivierist Oxygen saturation in 2019-11-25 20:30:00 96 /min Barney Hidalgo Arterial blood by Pulse oximetry Body temperature 2019-11-25 18:34:00 36.56 Joanne Shashi ton [employer] Systolic (mm Hg) 2014-10-05 17:00:00 Fabián rial Wendel Diastolic (mm Hg) 2014-10-05 17:00:00 Mem orial Baron Respitory Rate 2014-10-05 17:00:00 Memori al Wendel Heart Rate 2014-10-05 17:00:00 Memorial Wendel Temperature Oral (F) 2014-10-05 17:00:00 36.5 Joanne Memorial Baron Temperature Oral (F) 2014-10-05 12:00:00 36.6 Joanne Memorial [place]el Diastolic (mm Hg) 2014-10-05 12:00:00 Mem orial Baron Systolic (mm Hg) 2014-10-05 12:00:00 Fabián rial Baron Respitory Rate 2014-10-05 12:00:00 Memori al Baron Heart Rate 2014-10-05 12:00:00 Memorial Baron Temperature Oral (F) 2014-10-05 10:00:00 36.6 Joanne Memorial [place] Systolic (mm Hg) 2014-10-05 10:00:00 Fabián rial Wendel Diastolic (mm Hg) 2014-10-05 10:00:00 Mem orial Wendel Respitory Rate 2014-10-05 10:00:00 Memori al Wendel Heart Rate 2014-10-05 10:00:00 Memorial Baron Temperature Oral (F) 2014-10-04 14:40:00 37.2 Joanne Memorial [place]el Weight 2014-10-04 12:22:00 Memorial Baron Height 2014-10-04 12:22:00 174 cm Memorial Baron Weight 2014-09-26 22:06:00 Memorial [place] Height 2014-09-26 22:06:00 175.26 cm Memorial Baron Procedures Procedure Date / Time Performing Source Performed Clinician ECG 12-LEAD 2020-02-[address] 11:37:47 US PELVIC TRANSABDOMINAL 2019-12-16 Silver, Francesca A. Corley [employer] 16:46:32 US PELVIC TRANSVAGINAL 2019-12-16 SilverFrancesca M ethodist 16:46:32 ECG 12-LEAD 2019-11-25 Deonte Frausto Method ist 19:48:45 CT RENAL STONE PROTOCOL 2019-11-25 Deonte Fraustoist 19:47:15 ECG ED PRELIMINARY 2019-11-25 Deonte Frausto Met hodist INTERPRETATION 19:31:32 HC COMPLETE BLD COUNT W/AUTO 2019-11-25 Deonte Fraustoist DIFF 18:51:00 COMPREHENSIVE METABOLIC PANEL 2019-11-25 Deonte Frausto [employer] 18:51:00 URINALYSIS 2019-11-25 Deonte Frausto Method ist 18:48:00 TTE COMPLETE, WO CONTRAST, W 2019-09-12 Jayy Choudhary DOPPLER ([id number]) 14:07:51 ECG 12-LEAD 2019-09-[address] 15:59:55 SURGICAL PATHOLOGY REQUEST 2019-05-18 Magalys Pierce 11:19:00 MAMMO DIAGNOSTIC W CAD LEFT 2019-05-18 Magalys Pierce 11:02:10 US BREAST BIOPSY LEFT 2019-05-18 Magalys Pierce 10:34:39 US BREAST COMPLETE LEFT 2019-05-09 Magalys Pierce on [employer] 12:57:01 MAMMO BREAST DIAGNOSTIC 2019-05-09 Magalys Pierce on [employer] TOMOSYNTHESIS BILATERAL 11:54:28 EP TILT TABLE 2019-04-25 Barney Walters t 13:27:00 Rosa Maria Starr CBC HEMOGRAM 2019-04-25 Barney Walters t 11:58:00 Rosa Maria Starr PROTHROMBIN TIME WITH INR 2019-04-25 Nitin Walters 11:58:00 Rosa Maria Starr PARTIAL THROMBOPLASTIN TIME 2019-04-25 Shashi Walters (PTT) 11:58:00 Rosa Maria Starr ECG PRE/POST OP 2019-04-25 Barney Walters Methodis t 11:10:[address] CHEST W CONTRAST 2019-03-14 Marco Locke odist 17:48:13 CT SOFT TISSUE NECK W CONTRAST 2019-03-14 Marco Locke [employer] 17:40:31 POC CREATININE 2019-03-14 Marco Locke Methodis t 17:11:00 ESTIMATED GFR 2019-03-14 Marco Locke Methodis t 17:11:00 PALATOPHARYNGOPLASTY [id number] 2014-10-04 Sravan Swain (Other)<sup>1</sup> 13:55:00 TONSILLECTOMY AND 2014-10-04 Sravan Swain ADENOIDECTOMY AGE 12 O (Other, 13:55:00 Bilateral)<sup>2</sup> Colonoscopy 2013-07-06 Sugey Draper 00:00:00 egd 2013-07-06 Sugey Draper 00:00:00 breast lump removed-benign 2011-07-06 Memor ial Wendel 00:00:00 breast reduction 2011-07-06 Sugey Etienne n 00:00:00 Hysterectomy 2009-07-06 Memorial Wendel 00:00:00 Ectopic 1999-07-06 Sugey Rhoades nn 00:00:00 Plan of Care Planned Activity Planned Date Details Comments Source Future Scheduled 2020-04-05 INFLUENZA VACCINE [place] [employer] [place] Test 00:00:00 [code = INFLUENZA VACCINE] Future Scheduled 1991 Screening for [facility] thodist Test 00:00:00 malignant neoplasm of cervix (procedure) [code = 730451788] Encounters Start End Encounter Admission Attending Care Care Encounter Source Date/Time Date/Time Type Type Clinicians Facility Department ID 2019-09-16 Outpatient [facility] [id number] FB 08:13:50 2020-02-21 2020-02-21 Outpatient KENRICK [facility] [id number] [place] 00:00:00 00:00:00 JAYY [address] 2019-12-16 2019-12-16 Outpatient FRANCESCA SILVER [facility] [id number] [place] 00:00:00 00:00:[address] 2019-12-09 2019-12-09 Outpatient SilverFrancesca blackRADHAFAYHeena GREEN [id number] [facility] 10:45:00 10:45:00 st OBGYN 2019-11-25 2019-11-25 Emergency FRAUSTO, [facility] [id number] [place] 00:00:00 00:00:00 DEONTE [address] 2019-09-12 2019-09-12 Outpatient KENRICK, [facility] [id number] [place] 00:00:00 00:00:00 JAYY [address] 2019-09-07 2019-09-07 Outpatient KENRICK, [facility] [id number] [place] 00:00:00 00:00:00 JAYY [address] 2019-05-18 2019-05-18 Outpatient JASON, [facility] [id number] [place] 00:00:00 00:00:00 MAGALYS 679 Method i 2019-05-18 2019-05-18 Outpatient JASON [facility] [id number] [place] 00:00:00 00:00:00 MAGALYS [address] 2019-05-13 2019-05-13 Outpatient SilverFrancesca PETER GREEN [id number] [facility] 08:38:00 08:38:00 st OBGYN 2019-05-09 2019-05-09 Outpatient JASON [facility] [id number] [place] 00:00:00 00:00:00 MAGALYS 835 Method i 2019-05-09 2019-05-09 Outpatient JASON [facility] [id number] [place] 00:00:00 00:00:00 MAGALYS 387 Method i 2019-04-25 2019-04-25 Outpatient STANLEY [facility] [id number] [place] 00:00:00 00:00:00 LR, [address] 2019-03-14 2019-03-14 Outpatient MAHNAZ [facility] [id number] [place] 00:00:00 00:00:00 MARCO Alvarado[address] 2019-03-14 2019-03-14 Outpatient MAHNAZ [facility] [id number] [place] 00:00:00 00:00:00 MARCO [address] [facility] i [facility] 2014-10-04 2014-10-05 Outpatient MHIE MHIE [id number] Memoria 06:53:07 13:15:00 l [facility] Results Test Description Test Time Test Comments Results Result Comments Source ECG 12 lead 2020-02-21 13:33:35 Test Item Value Reference Range Interpretation Comme nts Ventricular rate (test code = 253) 85 Atrial rate (test code = 255) 85 MI interval (test code = 266) 144 QRSD interval (test code = 260) 140 QT interval (test code = 264) 392 QTC interval (test code = 265) 466 P axis 1 (test code = 267) 65 QRS axis 1 (test code = 268) 259 T wave axis (test code = 270) 56 EKG impression (test code = 273) Normal sinus rhythm-Right bundle b ranch block-Cannot rule out Inferior infarct , age undetermined-Abnormal ECG-No change c/w [facility] [id number] 16:54:59Addendum by Sravan Platt IV, MD on 12/19/2019 10:41 AM ADDENDUM #1 Addendum: The patient is reportedly status post left oophorectomy. It is unclear whether the right ovary has been removed. Therefore, the 3.3 x 3.0 x 3.2 cm simple cystic structure within the left adnexa directly above the left margin of the vaginal cuff is unlikely to represent a paraovarian cyst, and the adjacent 1.2 x 0.9 x 0.9 cm hypoechoic but not anechoic structure which appears contiguous most likely represents a septated component with slight internal debris. This does not demonstrate the typical appearance of an endometrioma. In such clinical setting, findings are nonspecific, though at this time do not demonstrate aggressive characteristics. If desired, MRI could be performed. Otherwise, continued sonographic follow-up is an option as well. This structure is grossly stable in size to the November 25, 2019 CT scan. Results [facility] Interface, Radiology Results 12/16/2019 4:58 PM CDTEXAMINATION: US PELVIC TRANSABDOMINAL, US PELVIC TRANSVAGINALCLINICAL HISTORY: R19.00 Intra-abdominal and pelvic swelling mass and lump unspecified site, [id number]: None.TECHNIQUE:Transverse and longitudinal transvaginal and transabdominal sonographic images of the pelvis were obtained. Grayscale, color Doppler, and spectral waveform analysis of the ovarian vessels was performed.FINDINGS:Hysterectomy.The right ovary is not visualized. The left ovary measures 4.4 x 3.5 X 3.4 cm. Blood flow is document within the left ovary. A 3.3 x 3.0 cm simple appearing cyst or follicle is present withinthe left ovary.No suspicious fluid is identified.Impression:Please see above.ENDOMETRIAL THICKNESS GUIDELINESPre-menopausal*Menstrual phase : 1 - 4 mm*Proliferative phase (days 6-14) : 5 - 7 mm*Late proliferative phase (trilaminar appearance) : up to 11 mm*Secretory Phase : 7 - 16 mmPost-menopausal without bleeding (acceptable ranges are less well-established)* Up to 8 -11 mm*Greater than 11 mm should prompt biopsyPost-menopausal with bleeding*Atrophy : 5 mm or less*Abnormal : greater than 5mm should prompt biopsyPost-menopausal on Tamoxifen*Normal : 5 mm or less*Abnormal : greater than 5 mm (high-rate of false of positive. consider hysteroscopy and biopsy on all patients with bleeding on Tamoxifen)[facility]-[id number] [facility] Pelvic Transabdominal 2019-12-16 16:54:59Addendum by Sravan Platt IV, MD on 12/19/2019 10:41 AM ADDENDUM #1 Addendum: The patient is reportedly status post left oophorectomy. It is unclear whether the right ovary has been removed. Therefore, the 3.3 x 3.0 x 3.2 cm simple cystic structure within the left adnexa directly above the left margin of the vaginal cuff is unlikely to represent a paraovarian cyst, and the adjacent 1.2 x 0.9 x 0.9 cm hypoechoic but not anechoic structure which appears contiguous most likely represents a septated component with slight internal debris. This does not demonstrate the typical appearance of an endometrioma. In such clinical setting, findings are nonspecific, though at this time do not demonstrate aggressive characteristics. If desired, MRI could be performed. Otherwise, continued sonographic follow-up is an option as well. This structure is grossly stable in size to the November 25, 2019 CT scan. Results [facility] Interface, Radiology Results - 12/16/2019 4:58 PM CDTEXAMINATION: US PELVIC TRANSABDOMINAL, US PELVIC TRANSVAGINALCLINICAL HISTORY: R19.00 Intra-abdominal and pelvic swelling mass and lump unspecified site, [id number]: None.TECHNIQUE:Transverse and longitudinal transvaginal and transabdominal sonographic images of the pelvis were obtained. Grayscale, color Doppler, and spectral waveform analysis of the ovarian vessels was performed.FINDINGS:Hysterectomy.The right ovary is not visualized. The left ovary measures 4.4 x 3.5 X 3.4 cm. Blood flow is document within the left ovary. A 3.3 x 3.0 cm simple appearing cyst or follicle is present withinthe left ovary.No suspicious fluid is identified.Impression:Please see above.ENDOMETRIAL THICKNESS GUIDELINESPre-menopausal*Menstrual phase : 1 - 4 mm*Proliferative phase (days 6-14) : 5 - 7 mm*Late proliferative phase (trilaminar appearance) : up to 11 mm*Secretory Phase : 7 - 16 mmPost-menopausal without bleeding (acceptable ranges are less well-established)* Up to 8 -11 mm*Greater than 11 mm should prompt biopsyPost-menopausal with bleeding*Atrophy : 5 mm or less*Abnormal : greater than 5mm should prompt biopsyPost-menopausal on Tamoxifen*Normal : 5 mm or less*Abnormal : greater than 5 mm (high-rate of false of positive. consider hysteroscopy and biopsy on all patients with bleeding on Tamoxifen)[facility]-[id number] [id number] 06:24:00 Test Item Value Reference Range Interpretation Comments Glucose, UA (test code = 60332-5) Trace Negative A Bilirubin, UA (test code = 5770-3) Negative Negative Ketones, UA (test code = 2514-8) Negative Negative Specific gravity, UA (test code = 1.020 1.001-1.035 5811-5) Blood, UA (test code = 5794-3) Trace Negative A pH, UA (test code = 5803-2) 6.5 5.0-8.5 Protein, UA (test code = 99952-5) Negative Negative Urobilinogen, UA (test code = <2.0 <2.0 65524-9) Nitrite, UA (test code = 5802-4) Positive Negative A Leukocyte esterase, UA (test code = Negative Negative 5799-2) Color, UA (test code = 5778-6) Yellow Appearance, UA (test code = 5767-9) Clear Lab Interpretation (test code = Abnormal 83642-4) Barney HidalgoComprehensive metabolic [id number] 06:23:32 Test Item Value Reference Range Interpretation Comments Sodium (test code = 2951-2) 137 128- 145 mEq/L Potassium (test code = 2823-3) 3.9 3.6- 5.1 mEq/L CO2 (test code = 8-9) 30 18- 33 mEq/L Chloride (test code = 2075-0) 102 98- 108 mEq/L Glucose (test code = 2345-7) 108 mg/dL 73-118 Calcium (test code = 87496-5) 9.2 mg/dL 8-10.3 BUN (test code = 3094-0) 14 mg/dL 7-22 Creatinine (test code = 2160-0) 0.8 mg/dL 0.5-0.9 Alkaline phosphatase (test code = 66 U/L 42-141 6768-6) ALT (test code = 1742-6) 34 U/L 10-47 AST (test code = 1920-8) 32 U/L 11-38 Total bilirubin (test code = 0.7 mg/dL 0.2-1.6 1974-2) Albumin (test code = 1751-7) 3.8 g/dL 3.3-5.5 Protein (test code = 2885-2) 7.8 g/dL 6.4-8.1 Anion gap (test code = 99843-3) 5@ANIO 7- 15 mEq/L L A/G ratio (test code = 1759-0) 1.0 0.7-3.8 Lab Interpretation (test code = Abnormal 43547-8) [facility]istSA[facility] with platelet and [id number] 06:23:32 Test Item Value Reference Range Interpretation Comments WBC (test code = 89166-8) 7.66 4.50- 11.00 k/uL RBC (test code = 63063-0) 4.97 m/uL 4.2-5.5 HGB (test code = 718-7) 14.5 g/dL 12-16 HCT (test code = 4544-3) 44.8 % 37-47 MCV (test code = 787-2) 90.1 fL 82-100 MCH (test code = 785-6) 29.2 pg 27-34 MCHC (test code = 786-4) 32.4 g/dL 31-37 RDW - SD (test code = 49890-9) 46.3 fL 37-55 MPV (test code = 50005-7) 8.8 fL 8.8-13.2 Platelet count (test code = 246 150- 400 k/uL 43453-2) Neutrophils (test code = 57370-3) 67.5 % 39-69 Lymphocytes (test code = 31040-9) 25.6 % 25-45 Monocytes (test code = 23972-6) 4.6 % 0-10 Eosinophils (test code = 42359-6) 2.0 % 0-5 Basophils (test code = 76477-9) 0.3 % 0-1 [facility] Renal Stone [id number] 19:52:02Hm Interface, Radiology Results - 11/25/2019 7:55 PM CDTEXAMINATION: CT RENAL STONE [...] and could be followed with outpatient pelvic ultrasound.[facility]ACWLHoucape [facility] Preliminary Interpretation - Not an [id number] 19:31:32 Test Item Value Reference Range Interpretation Comments ALLISON (test code = ALLISON) Deonte Frausto MD 11/25/2019 8:40 [facility] ED Preliminary Interpretation - Not an OrderPerformed by: Deonte Frausto MDAuthorized by: Deonte Frausto MD ECG reviewed by ED Physician in the 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 of a 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: yes Previous ECG: Previous ECG: UnavailableInterpretat ion: Interpretation: abnormal Rate: ECG rate: 88 ECG rate assessment: normal Rhythm: Rhythm: sinus rhythm Ectopy: Ectopy: none QRS: QRS axis: Left QRS intervals: NormalConduction: Conduction: abnormal Abnormal conduction: complete RBBB ST segments: ST segments: Non-specificT waves: T waves: inverted Inverted: Z5Rmymvzdx: Normal sinus rhythm, left axis deviation, nonspecific ST changes T wave inversion lead III Lab Interpretation Abnormal (test code = 21522-1) Corley MethodistSurgical pathology [id number] 10:59:10 Test Item Value Reference Range Interpretation Comments Case number (test code = [id number]) Surgical pathology See link below for report (test code = PDF Lab Report 2255) Result status (test code This is Final Report = [id number]) for [id number] Barney HidalgoUS Breast Biopsy [id number] 15:03:51Addendum by Kylie Dudley MD on 05/20/2019 [...] results will be reported in an addendum. [id number] MethodistMammo Diagnostic w Cad Left 2019-05-18 15:03:51Addendum [...] GLENN Hubbard on 05/20/2019 at 2:15 PM. Hm Interface, Radiology Results Incoming - 05/18/2019 [...] in an addendum.DWS01 Barney Sanders Breast Complete [id number] 12:59:14 Test Item Value Reference Range Interpretation [...] SUSPICIOUS This facility is accredited by [employer] for Mammography.A negative x-ray report should not delay biopsy if a dominant or clinically suspicious mass is present. Not all cancers are identified by x-ray. DWS01 Lab Interpretation Abnormal (test code = 29583-5) [facility] Breast Diagnostic Tomosynthesis [id number] 12:59:14PROCEDURE: MAMMO BREAST DIAGNOSTIC TOMOSYNTHESIS BILATERAL, US [...] SUSPICIOUS This facility is accredited by [employer] for Mammography.A negative x-ray report should not delay biopsy if a dominant or clinically suspicious mass is present. Not all cancers are identified by x-ray. [id number] MethodistECG Pre/Post [id number] 19:48:05 Test Item Value Reference Range Interpretation Comments Ventricular rate (test 77 code = 253) Atrial rate (test code 77 = 255) MI interval (test code 158 = 266) QRSD [...] criteria for Lateral infarct are now present- Corley MethodistElectrophysiology [id number] 13:48:22DescriptionThe risks, benefits and alternatives were discussed [...] tilt table test Plan- Continue metoprolol- D/C [facility] MethodistPartial thromboplastin time, enbwrmwrd3239-16-15 12:32:35 Test Item Value Reference Range Interpretation Comments PTT (test code = 32.1 23.0- 36.0 sec PTT thera peutic range for 3173-2) unfractionated heparin is61.0-112.0 se conds which corresponds to Anti-Xa0.3-0.7 U/ml. [place] MethodistProthrombin time with [id number] 12:31:45 Test Item Value Reference Range Interpretation Comments Prothrombin time (test 13.0 11.5- 14.5 sec code = 5902-2) INR (test code = 1.0 [facility] 68956-2) Normalized Rati o (INR) is a therapeutic m onitoring tool for patien ts who are stable on oral anticoagulant t herapy. An INR of 2.0-3.0 is suggested for d eep vein thrombosis/pulm onary embolism. [facility] ixdznuqw5812-05-18 12:23:07 Test Item Value Reference Range Interpretation Comments WBC (test code = 49873-4) 6.6 4.5- 11.0 k/uL RBC (test code = 87826-9) 4.75 m/uL 4.2-5.5 HGB (test code = 718-7) 13.7 g/dL 12-16 HCT (test code = 4544-3) 42.2 % 37-47 MCV (test code = 787-2) 88.8 fL 82-100 MCH (test code = 785-6) 28.8 pg 27-34 MCHC (test code = 786-4) 32.5 g/dL 31-37 RDW - SD (test code = 14788-4) 44.0 fL 37-55 MPV (test code = 46400-1) 8.9 fL 6.9-11 Platelet count (test code = 242 K/uL 150-400 09261-8) Nucleated RBC (test code = 51457-3) 0.00 /100 WBC [place] MethodistCT Chest W [id number] 19:17:42Hm Interface, Radiology Results - 03/14/2019 7:20 [...] noted in the lungs.3.No bony abnormality is appreciated.[facility]-[id number] MethodistCT Soft Tissue Neck W [id number] 17:54:33Hm Interface, Radiology Results 03/14/2019 5:57 PM [...] detail.2.Otherwise unremarkable CT of the neck soft tissues.[id number] MethodistPOC [id number] 17:22:21 Test Item Value Reference Range Interpretation Comments POC creatinine (test 0.7 mg/dl 0.5-0.9 Meter I D: code = 16001-9) [id number] or: Cecil Brand on [place] MethodistEstimated [id number] 17:22:21 Test Item Value Reference Range Interpretation Comments Estimated GFR (test >=90 mL/min/1.73 m2 [facility] Units code = 26942-6) Interpretati onG1 >=90 Normal or highG2 60-89 Mildly trstaucwsV8w 45-59 Mildly to mode rately llvwyhzicY5d 30-44 Moderately to severely decreasedG4 15-29 Severely decre asedG5 <15 Kidn ey failureThe eGFR was calculated josé miguel g the Chronic Kidney Disease Epidemiology Co llaboration (CKD-EPI) equat ion. Interpretation is based on recommendations of the National Kidney Foundation-Kidn ey Disease Outcomes Qualit y Initiative (NKF-KDOQI) pub lished in 2014. Barney Hidalgo
--- NOTE | 2020-02-28 13:29 | EDPHYS ---
Physician Documentation [facility] Name: Digna Danii Age: 49 yrs Sex: Female : 1970 Arrival Date: 02/28/2020 Time: 12:18 Bed 23 Private MD: Bharath Barney HPI: 02/27 13:55 This 49 yrs old Female presents to ER via Ambulatory with complaints of Neck snw Problem. 13:55 The patient or guardian complains of pain, that is chronic. The symptoms are located on snw the right posterior aspect of neck and left posterior aspect of neck. Onset: The symptoms/episode began/occurred gradually. Context: The neck injury/problem resulted from a known diagnosed history of degenerative joint disease. Associated signs and symptoms: Pertinent positives: paresthesias down arm. as noted. Severity of symptoms: At their worst the symptoms were mild, moderate. The patient has experienced similar episodes in the past. for RA, no recent steroid use. Historical: - Allergies: 12:25 Clindamycin; ll1 12:25 Doxycycline; ll1 12:25 TETRACYCLINES; ll1 - PMHx: 12:25 6 mm nodule in lung; Asthma; Bipolar disorder; Cirrhosis; Hypertension; PTSD; ll1 Rheumatoid Arthritis; - PSHx: 12:25 "borderline mastectomy"; Cholecystectomy; Hysterectomy; cardiac ablation; ll1 endoscopy/colonscopy; - Immunization history:: Flu vaccine is not up to date. - Social history:: Smoking status: Patient denies any tobacco usage or history of. Patient/guardian denies using alcohol, street drugs. ROS: 13:54 Constitutional: Negative for fever, chills, and weight loss, Eyes: Negative for injury, snw pain, redness, and discharge, ENT: Negative for injury, pain, and discharge, Neck: Negative for injury, + pain and swelling to external neck, with pinching down arm Cardiovascular: Negative for chest pain, palpitations, and edema, Respiratory: Negative for shortness of breath, cough, wheezing, and pleuritic chest pain, Abdomen/GI: Negative for abdominal pain, nausea, vomiting, diarrhea, and constipation, Back: Negative for injury and pain, : Negative for injury, bleeding, discharge, and swelling, MS/Extremity: Negative for injury and deformity, Skin: Negative for injury, rash, and discoloration, Neuro: Negative for headache, weakness, numbness, tingling, and seizure, Psych: Negative for depression, anxiety, suicide ideation, homicidal ideation, and hallucinations. Exam: 13:53 Eyes: Pupils equal round and reactive to light, extra-ocular motions intact. Lids and snw lashes normal. Conjunctiva and sclera are non-icteric and not injected. Cornea within normal limits. Periorbital areas with no swelling, redness, or edema. ENT: Nares patent. No nasal discharge, no septal abnormalities noted. Tympanic membranes are normal and external auditory canals are clear. Oropharynx with no redness, swelling, or masses, exudates, or evidence of obstruction, uvula midline. Mucous membranes moist. Chest/axilla: Normal chest wall appearance and motion. Nontender with no deformity. No lesions are appreciated. Cardiovascular: Regular rate and rhythm with a normal S1 and S2. No gallops, murmurs, or rubs. Normal PMI, no JVD. No pulse deficits. Respiratory: Lungs have equal breath sounds bilaterally, clear to auscultation and percussion. No rales, rhonchi or wheezes noted. No increased work of breathing, no retractions or nasal flaring. Abdomen/GI: Soft, non-tender, with normal bowel sounds. No distension or tympany. No guarding or rebound. No evidence of tenderness throughout. Back: No spinal tenderness. No costovertebral tenderness. Full range of motion. Skin: Warm, dry with normal turgor. Normal color with no rashes, no lesions, and no evidence of cellulitis. MS/ Extremity: Pulses equal, no cyanosis. Neurovascular intact. Full, normal range of motion. Neuro: Awake and alert, GCS 15, oriented to person, place, time, and situation. Cranial nerves II-XII grossly intact. Motor strength 5/5 in all extremities. Sensory grossly intact. Cerebellar exam normal. Normal gait. Psych: Awake, alert, with orientation to person, place and time. Behavior, mood, and affect are within normal limits. 13:53 Constitutional: The patient appears awake, anxious, obese. 13:53 Neck: External neck: is normal, C-spine: appears grossly normal, Trachea: is midline with no obvious abnormalities, ROM/movement: no acute changes. Vital Signs: 12:23 BP 132 / 85; Pulse 90; Resp 18; Temp 98.4; Pulse Ox 97% ; Pain 10/10; ll1 MDM: 12:59 Patient medically screened. [facility] 13:52 Data reviewed: vital signs, nurses notes. Data interpreted: Pulse oximetry: on room air snw is 97 %. Interpretation: normal. Counseling: I had a detailed discussion with the patient and/or guardian regarding: the historical points, exam findings, and any diagnostic results supporting the discharge/admit diagnosis, the presence of at least one elevated blood pressure reading (>120/80) during this emergency department visit, the need for outpatient follow up, to return to the emergency department if symptoms worsen or persist or if there are any questions or concerns that arise at home. Special discussion: Based on the history and exam findings, there is no indication for further emergent testing or inpatient evaluation. I discussed with the patient/guardian the need to see the primary care provider for further evaluation of the symptoms. I discussed with the patient/guardian the need to see the take out waitress for further evaluation of the symptoms. Administered Medications: 13:42 Drug: Decadron 10 mg Route: IM; Site: left deltoid; ls4 14:02 Follow up: Response: No adverse reaction [facility] 13:59 Not Given (Patient Refused): Valium 5 mg PO once ls4 Disposition: 19:45 Co-signature as Attending Physician, Bharath Olson MD I agree with the assessment and [facility] plan of care. Disposition: 02/28/20 13:29 Discharged to Home. Impression: Radiculopathy, cervical region. - Condition is Stable. - Discharge Instructions: Cervical Radiculopathy. - Prescriptions for Prednisone 20 mg Oral Tablet - take 2 tablet by ORAL route once daily for 5 days; 10 tablet. orphenadrine citrate 100 mg Oral Tablet Sustained Release - take 1 tablet by ORAL route 2 times per day As needed; 20 tablet. - Medication Reconciliation Form, Thank You Letter, Antibiotic Education, Prescription Opioid Use form. - Follow up: Private Physician; When: 2 - 3 days; Reason: Recheck today's complaints, Continuance of care, Re-evaluation by your physician. Follow up: Emergency Department; When: As needed; Reason: Worsening of condition. Signatures: Bharath Olson MD MD cha Waters, Shelly, NEEDLE PUNCH MACHINE OPERATOR-C NEEDLE PUNCH MACHINE OPERATOR-Csnw Lidia Berger RN RN ls4 Ankita Carrera RN RN ll1 Corrections: (The following items were deleted from the chart) 13:57 13:54 Constitutional: Negative for fever, chills, and weight loss, Eyes: Negative for snw injury, pain, redness, and discharge, ENT: Negative for injury, pain, and discharge, Neck: Negative for injury, + pain and swelling to external neck, with pinching down right arm Cardiovascular: Negative for chest pain, palpitations, and edema, Respiratory: Negative for shortness of breath, cough, wheezing, and pleuritic chest pain, Abdomen/GI: Negative for abdominal pain, nausea, vomiting, diarrhea, and constipation, Back: Negative for injury and pain, : Negative for injury, bleeding, discharge, and swelling, MS/Extremity: Negative for injury and deformity, Skin: Negative for injury, rash, and discoloration, Neuro: Negative for headache, weakness, numbness, tingling, and seizure, Psych: Negative for depression, anxiety, suicide ideation, homicidal ideation, and hallucinations, snw 14:02 13:29 02/28/2020 13:29 Discharged to Home. Impression: Radiculopathy, cervical region. ls4 Condition is Stable. Forms are Medication Reconciliation Form, Thank You Letter, Antibiotic Education, Prescription Opioid Use. Follow up: Private Physician; When: 2 - 3 days; Reason: Recheck today's complaints, Continuance of care, Re-evaluation by your physician. Follow up: Emergency Department; When: As needed; Reason: Worsening of condition. snw
--- NOTE | 2020-02-28 13:29 | ER ---
Nurse's Notes [facility] Name: Digna Foy Age: 49 yrs Sex: Female : 1970 Arrival Date: 02/28/2020 Time: 12:18 Bed 23 Private MD: Diagnosis: Radiculopathy, cervical region Presentation: 02/27 12:23 Chief complaint: Patient states: Has bulging disc in neck, has had neck pain for 2 ll1 days. No new trauma or falls. Sharp pain down left arm at times. Coronavirus screen: Client denies travel out of the [place] in the last 14 days. At this time, the client does not indicate any symptoms associated with coronavirus-19. Ebola Screen: Patient denies travel to an Ebola-affected area in the 21 days before illness onset. Initial Sepsis Screen: Does the patient meet any 2 criteria? No. Patient's initial sepsis screen is negative. Risk Assessment: Do you want to hurt yourself or someone else? Patient reports no desire to harm self or others. Onset of symptoms was February 27, 2020. 12:23 Method Of Arrival: Ambulatory ll1 12:23 Acuity: JAIDEN 4 ll1 12:23 Initial Sepsis Screen: Does the patient have a suspected source of infection? No. ls4 Patient's initial sepsis screen is negative. 12:23 Care prior to arrival: None. ls4 Triage Assessment: 12:23 General: Appears in no apparent distress. comfortable, Behavior is calm, cooperative, ls4 Denies fever, feeling ill, fatigue, chills. Pain: Complains of pain in neck Pain does not radiate. Pain currently is 10 out of 10 on a pain scale. Quality of pain is described as aching, crushing, Pain began years ago. Is continuous, episodic, Alleviated by medications, Aggravated by Noted to be Also complains of no other associated symptoms. Current management is with took a Tylenol 3 yesterday and states that it did not work. Neuro: Level of Consciousness is awake, alert, obeys commands, Oriented to person, place, time, situation, Valve Grinder are equal bilaterally Moves all extremities. Gait is steady, Speech is normal, Facial symmetry appears normal, Pupils are PERRLA, Intact Reports Denies. Respiratory: Airway is patent Respiratory effort is even, unlabored. Musculoskeletal: Circulation, motion, and sensation intact. Capillary refill < 3 seconds, Range of motion: intact in all extremities, Swelling absent Reports pain in neck since yesterday, but has had bulging disc for 'years' in neck . Historical: - Allergies: 12:25 Clindamycin; ll1 12:25 Doxycycline; ll1 12:25 TETRACYCLINES; ll1 - PMHx: 12:25 6 mm nodule in lung; Asthma; Bipolar disorder; Cirrhosis; Hypertension; PTSD; ll1 Rheumatoid Arthritis; - PSHx: 12:25 "borderline mastectomy"; Cholecystectomy; Hysterectomy; cardiac ablation; ll1 endoscopy/colonscopy; - Immunization history:: Flu vaccine is not up to date. - Social history:: Smoking status: Patient denies any tobacco usage or history of. Patient/guardian denies using alcohol, street drugs. Screenin:48 Abuse screen: Denies threats or abuse. Denies injuries from another. Nutritional ls4 screening: No deficits noted. Tuberculosis screening: No symptoms or risk factors identified. Fall Risk None identified. Assessment: 12:48 General: SEE TRIAGE ASSESSMENT . Neuro: Level of Consciousness is awake, alert, obeys ls4 commands, Oriented to person, place, time, situation. 13:48 Reassessment: Patient appears in no apparent distress at this time. No changes from ls4 previously documented assessment. Patient and/or family updated on plan of care and expected duration. Pain level reassessed. Vital Signs: 12:23 BP 132 / 85; Pulse 90; Resp 18; Temp 98.4; Pulse Ox 97% ; Pain 10/10; ll1 ED Course: 12:18 Patient arrived in ED. mr 12:24 Triage completed. ll1 12:25 Arm band placed on Patient placed in an exam room, on a stretcher. ll1 12:31 Lidia Berger, RN is Primary Nurse. ls4 12:48 Patient has correct armband on for positive identification. Bed in low position. Call ls4 light in reach. Side rails up X 1. Verbal reassurance given. 12:48 No provider procedures requiring assistance completed. ls4 12:52 Patient did not have IV access during this emergency room visit. Patient maintains SpO2 ls4 saturation greater than 95% on room air. 12:58 Odette Ferrari F[facility]-C [facility] snw 12:58 Bharath Olson MD is Attending Physician. snw Administered Medications: 13:42 Drug: Decadron 10 mg Route: IM; Site: left deltoid; ls4 14:02 Follow up: Response: No adverse reaction ls4 13:59 Not Given (Patient Refused): Valium 5 mg PO once ls4 Outcome: 13:29 Discharge ordered by . snw 14:00 Discharged to home ambulatory. ls4 14:00 Condition: good 14:00 Discharge instructions given to patient, family, Instructed on discharge instructions, follow up and referral plans. medication usage, safety practices, Demonstrated understanding of instructions, follow-up care, medications, Prescriptions given X 2. 14:02 Patient left the ED. ls4 Signatures: Odette Ferrari, NICANOR FACIALIST-Asiya Abbott mr Lidia Berger RN RN ls4 Ankita Carrera RN RN ll1
[2020-02-28] MEDS ORDERED: dexAMETHasone 10 MG/ML VIAL ONE (13:52)
[2020-02-28] MEDS ORDERED: DIAZEPAM 5 MG TABLET ONE (13:52)
[2020-03-03 13:46] VITALS: BP 132/85; TEMP 98.4; O2SAT 97
== END 2020-02-28 14:02 | disposition home or self-care (01) ==
LOC: ER 12:14
DX: M54.12 Radiculopathy, cervical region (principal); Z88.3 Allergy status to other anti-infective agents
CPT/HCPCS: 96372; 99284; J1100

== ENCOUNTER 2020-02-28 21:39 | Emergency (ER) | payer OTHER ==
[2012-01-16 05:37] VITALS: BP 102/52
--- OUTSIDE RECORDS SUMMARY | 2020-02-28 21:41 | XMS REPORT | Continuity of Care Document ---
:1970 Author Organization [employer] Information [employer] Care Team Providers Name Role Phone [employer] Unavailable Un available Problems Problem Status Onset Classification Date Comments Sourc e Date Reported Asthma 07/06/19 Problem 10/07/2014 1states Surgical (disorder) 09 allergy Specialty induced [facility] [place] Sleep apnea 07/06/19 Problem 10/07/2014 Surgica l (finding) 09 Specialty [facility] [place] Hypertensive 07/06/18 Problem 10/07/2014 3presently Surgi abiel disorder, 95 not taking Specialty systemic any meds Hospital [facility] arterial [place] (disorder) Anxiety Problem 10/07/2014 Surgical (finding) [facility] [place] Backache Problem 10/07/2014 2off and on Surgica l (finding) [facility] [place] Depressive Problem 10/07/2014 Surgical disorder Specialty (disorder) [facility] [place] Cannabis sativa Problem 10/07/2014 4states uses Surgical (organism) it for Specialty [facility] reasons [place] Medications Medication Details Route Status Patient Ordering [...] date 10/04/14 Hospi brianna 11:35:00 CDT of [place] acetaminophen- 15 mL, Soln, No Longer [place] urgical HYDROcodone Oral, q4hr PRN Active 2014 Speci alty 325 mg-7.5 for pain severe Hospi brianna mg/15 mL oral (7-10), first of S ugar solution dose 10/04/14 Land 11:35:00 CDTMax 4gm acetaminophen in 24 hours Xopenex 0.63 0.63 mg = 3 mL, Inactive [facility] 10[facility]/ Surgical mg/3 mL Soln, NEB, Once 2015 Specialt y inhalation PRN for Hospital solution shortness of of [place] breath or [place] wheezing, first dose 10/04/14 9:53:00 CDT ondansetron 4 mg = 2 mL, Inactive [facility] 10/04/ Lesley gical Injection, IV 2014 Specialty Push, q15min PRN Hospita l for [facility] [place] nausea/vomiting, [place] order duration: 2 doses, first dose 10/04/14 9:53:00 CDT, stop date Limited # of times promethazine 12.5 mg = 0.5 Inactive [facility] 10/04/ S urgical mL, Injection, 2015 Specialty IM, Once PRN for Hospita l severe nausea, of [place] first dose [place] 10/04/14 9:53:00 CDT Saline Lock 10 mL, Soln, IV Inactive [facility] 10/04/ Surgical Flush Push, As 2015 Specialty [...] CDT HYDROmorphone 0.5 mg = 0.25 Inactive [facility] 10/04/ Surgical mL, Injection, 2014 Specialty IV, Once, first Hospital dose 10/04/14 of [place] 9:47:00 CDT, 10/04/14 9:47:00 CDT ondansetron 4 mg = 2 mL, [facility] Lesley gical Injection, IV, 2014 Specialty Once, first dose Hospita l 10/04/14 9:31:00 of [place] CDT, stop 10/04/14 9:31:00 CDT HYDROmorphone 0.5 mg = 0.25 Inactive [facility] 10/04/ Surgical mL, Injection, 2014 Specialty IV, Once, first Hospital dose 10/04/14 of [place] 9:27:00 CDT, 10/04/14 9:27:00 CDT acetaminophen 1,000 mg, Inactive [facility] 10/04/ Surg ical Soln-IV, IV 2015 Specialty Piggyback, Once, Hospita l first dose of [place] 10/04/14 9:14:00 Land CDT, stop 10/04/14 9:14:00 CDT HYDROmorphone 0.5 mg = 0.25 Inactive [facility] 10/04/ Surgical mL, Injection, 2015 Specialty IV, Once, first Hospital dose 10/04/14 of [place] 9:13:00 CDT, 10/04/14 9:13:00 CDT fentaNYL 100 mcg = 2 mL, [facility] Lesley gical Injection, IV, 2014 Specialty Once, first dose Hospita l 10/04/14 8:56:00 of [place] CDT, stop 10/04/14 8:56:00 CDT ceFAZolin 2 gm, Soln-IV, [facility] Lesley gical IV Piggyback, 2015 Specialty Once, first dose Hospita l 10/04/14 8:54:00 of [place] CDT, 10/04/14 8:54:00 CDT ceFAZolin 1 gm, Inactive [facility] 10/04/ Surgical Powder-Inj, IV, 2014 [facility] 8[facility]53:00 of [place] CDT, 10/04/14 8:53:00 CDT dexamethasone 12 mg = 3 mL, Inactive [facility] 10/04/ Surgical Injection, IV, 2014 [facility] 8:53:00 of [place] CDT, 10/04/14 8:53:00 CDT rocuronium 5 mg = 0.5 mL, Inactive [facility] 10/04/ Berry rgical Injection, IV, 2014 [facility] 8:43:00 of [place] CDT, 10/04/14 8:43:00 CDT lidocaine 2 mL, Injection, Inactive [facility] 10/04/ S urgical IV, Once, first 2015 Specialt y dose 10/04/14 Hospital 8:43:00 CDT, of [place] 10/04/14 8:43:00 CDT propofol 140 mg = 14 mL, Inactive [facility] 10/04/ Lesley gical Emulsion, IV, 2014 Specialty Once, first dose [facility] 10/04/14 8:43:00 of [place] CDT, 10/04/14 8:43:00 CDT fentaNYL 50 mcg = 1 mL, Inactive [facility] 10/04/ Surg ical Injection, IV, 2014 Specialty Once, first dose [facility] 10/04/14 8:43:00 of [place] CDT, 10/04/14 8:43:00 CDT fentaNYL 100 mcg = 2 mL, Inactive [facility] 10/04/ Lesley gical Injection, IV, 2014 [facility] 8:40:00 of [place] CDT, 10/04/14 8:40:00 CDT midazolam 2 mg = 2 mL, Inactive [facility] 10/04/ Surgi abiel Injection, IV, 2014 [facility] 8:26:00 of [place] CDT, stop date [place] 10/04/14 8:26:00 CDT ceFAZolin 2 gm, Soln-IV, Inactive [place] 10/04/ Surgi abiel IV Piggyback, 2015 Specialty Once, [facility] over 30 minutes, of [place] first dose [place] 10/04/14 8:00:00 CDT, stop date 10/04/14 8:00:00 CDT Lidocaine 2% 0.2 mL, Inactive [facility] 10/04/ Surgical 0.2 mL IV Injection, 2015 Specialty Start Subcutaneous, Hospital [[facility]] Once PRN for of [place] other (see [place] comment), first dose 10/04/14 7:29:00 CDT LR 1,000 mL 1,000 mL, IV, 30 Inactive [facility] 10/04/ Berry rgical mL/hr, start 2014 Specialty date 10/04/14 Hospital 7:29:00 CDT of [place] clonazePAM 1 1 mg = 1 tabs, Active 10/03/ Surg ical mg oral tablet Oral, [facility]ID, [facility] take morning of of [place] surgery, 0 [place] Refill(s), anxietyinstructe d may take morning of surgery Allergies, Adverse Reactions, Alerts Substance Category Reaction Severity Reaction Status Date Comments S ource type Reported doxycycline drug throat Allergy Surg ical allergy closes [facility] Immunizations No Data Provided for This Section [...] Systolic (mm Hg) 122 [facility]05[facility]05[facility]2014 [facility] Temperature Oral (F) 36.5 [facility] (F) 36.6 [facility] Diastolic (mm Hg) 56 10/05/2014 Surgical S [facility] [place] Systolic (mm Hg) 130 10/05/2014 Surgical [facility] [place] Respitory Rate 16 10/05/2014 Surgical Spec [facility] [place] Heart Rate 59 10/05/2014 Surgical [facility] [place] Temperature Oral (F) 36.6 Jo[facility] [place] Systolic (mm Hg) 113 10/05/2014 Surgical [facility] [place] Diastolic (mm Hg) 63 10/05/2014 Surgical S [facility] ar [place] Respitory Rate 16 10/05/2014 Surgical Spec [facility] [place] Heart Rate 65 10/05/2014 Surgical [facility] Peripheral Pulse Rate 98 [facility] Oral (F) 37.2 [facility] [place] Weight 40 10/04/2014 Surgical [facility] [place] Weight 121.4 10/04/2014 Surgical [facility] Height 174 cm 10/04/2014 Surgical [facility] Peripheral Pulse Rate 88 10/04/[facility] [place] Weight 38.39 09/26/2014 Surgical [facility] Height 175.26 cm 09/26/2014 Surgical [facility] Weight 117.93 09/26/2014 Surgical [facility] Encounters Location Location Encounter Encounter Reason Attending ADM PA Stat us Source Details Type Number For Provider Date Date Visit [facility] OBS [id number] Sravan 10/04 10/05 Discharged Surgic al [place] /2014 [facility] [place] Procedures Procedure Code Date Perfomer Comments Source PALATOPHARYNGOPLASTY 10/05/19 [place] 1auto-populate Surgical 33716 (Other)<sup>1</sup> 15 d from Specialty documented Hospital of surgical case [place] TONSILLECTOMY AND 10/05/19 [place] 2auto-populate Lesley gical ADENOIDECTOMY AGE 12 O 15 d from ecialty (Other, documented [facility])<sup>2</sup> surgical case [place] Colonoscopy [id number] 07/06/19 Surgical 14 [facility] egd 07/06/19 Surgical 14 [facility] breast lump 07/06/19 Surgical removed-benign 12 [facility] breast reduction 07/06/19 Surgical 12 [facility] Hysterectomy [id number] 07/06/19 Surgical 10 [facility] Ectopic 633.90 07/06/19 Surgica l 00 [facility] Assessment and Plan No Data Provided for This Section Plan of Care No Data Provided for This Section Social History No Data Provided for This Section Family History No Data Provided for This Section Advance Directives No Data Provided for This Section Functional Status No Data Provided for This Section
--- OUTSIDE RECORDS SUMMARY | 2020-02-28 21:41 | XMS REPORT | Clinical Summary ---
:1970 Author Organization [facility] Address [address] [place] [address] Care Team Providers Name Role Phone Delgado [...] Sulaiman Choudhary, Med Refill MD Jayy 12/16/2019 [facility] Francesca Silver Intra-abdominal and pelvic Encounter [...] hyper tension, benign; Pure hyperchole sterolemia 05/18/2019 [facility] Kemp, Breast mass Encounter Delgado Roman MD 05/18/2019 [facility] Kemp, Breast mass Encounter Delgado Roman MD 05/09/2019 [facility] Kemp, Abnormal mammog stefania Encounter Delgado Roman MD 05/09/2019 [facility] Kemp, Abnormal mammog stefania Encounter Delgado Roman MD 04/25/2019 Surgery Procedural Naman Hopkins, EP TILT TABLE [[id number] Cardiology Rosa Maria (CPT)] MD Starr 04/25/2019 Hospital Procedural Naman Hopkins, Tachycardia, unspecified Encounter Cardiology Rosa Maria Clements MD 04/18/2019 Transcribe Orders Access Kemp, Abnormal m ammogram (Primary Dx); Delgado Roman [...] 04/24/2020 Office Visit Cardiology Jayy Choudhary MD [address] [place], [place] [address] Health Maintenance Due Date [...] DOPPLER PM CDT procedur e are in (47787) the results section. ECG 12-LEAD Routine 09/07/2019 3:59 Preop cardiovascular Res ults for this PM FUR VAULT ATTENDANT exam procedure are i n the results section. SURGICAL PATHOLOGY Routine 05/18/2019 11:19 Resul ts for this REQUEST AM FUR VAULT ATTENDANT procedure are i n the results section. MAMMO DIAGNOSTIC W CAD Routine 05/18/2019 11:02 Breast mass R esults for this LEFT AM FUR VAULT ATTENDANT procedure are i n the results section. US BREAST BIOPSY LEFT Routine 05/18/2019 10:34 Breast mass Re sults for this AM FUR VAULT ATTENDANT procedure are i n the results section. US BREAST COMPLETE Routine 05/09/2019 12:57 Abnormal mammogram Results for this LEFT PM FUR VAULT ATTENDANT procedure are i n the results section. MAMMO BREAST Routine 05/09/2019 11:54 Abnormal mammogram Resul ts for this DIAGNOSTIC AM FUR VAULT ATTENDANT procedure are i n TOMOSYNTHESIS the results [...] [facility] MUSE Atrial rate 85 [facility] MUSE TN interval 144 [facility] MUSE QRSD interval 140 [...] available. Performing Organization Address City/State/Zipcode Phone Number [facility] [address] [place] [address] Pelvic Transabdominal (12/16/2019 4:46 PM CDT) Specimen [...] on all patients with bleeding on Tamoxifen) [facility]-[id number] Procedure Note Hm Interface, Radiology Results Incoming [...] on all patients with bleeding on Tamoxifen) [id number] Performing Organization Address City/State/Zipcode Phone Number [facility] [address] [place] [address] [place] Pelvic Transvaginal (12/16/2019 4:46 PM CDT) [...] on all patients with bleeding on Tamoxifen) [facility]-[id number] Procedure Note Interface, Radiology Results 12/16/2019 4:58 [...] on all patients with bleeding on Tamoxifen) [facility]-[id number] Performing Organization Address City/State/Zipcode Phone Number [facility] [address] [place] [address] CT Renal Stone Protocol (11/25/2019 7:47 PM CDT) Specimen Narrative Performed At EXAMINATION: CT RENAL STONE [facility]OC[facility] CLINICAL HISTORY: rt flank pain TECHNIQUE: Multiple [...] be followed with outpatient pelvic ultra sound. [facility] Procedure Note Interface, Radiology Results Incoming [...] could be followed with outpatient pelvic ultrasound. [facility] Performing Organization Address City/State/Zipcode Phone Number [facility] [address] [place] [address] ECG ED Preliminary Interpretation - Not an Order (11/25/2019 7:31 PM CDT) Narrative Performed At Deonte Ellis MD 11/25/2019 8:40 PM ECG ED Preliminary Interpretation - Not an Order Performed by: Deonte Ellis MD Authorized by: Deonte Ellis MD ECG reviewed by ED Physician in the abse nce of a anesthesiologist attending: yes Previous ECG: Previous ECG: Unavailable Interpretation: [...] platelet and differential (11/25/2019 6:51 PM CDT) [facility] WBC 7.66 4.50 - 11.00 k/uL [facility] [place] RBC 4.97 4.20 - 5.50 m/uL [facility] [place] HGB 14.5 12.0 - 16.0 g/dL [facility] EM[facility] HCT 44.8 37.0 - 47.0 % [facility] MCV 90.1 82.0 - 100.0 fL [facility] MCH 29.2 27.0 - 34.0 pg [facility] MCHC 32.4 31.0 - 37.0 g/dL [facility] RDW - SD 46.3 37.0 - 55.0 fL [facility] MPV 8.8 8.8 - 13.2 fL [facility] Platelet count 246 150 - 400 k/uL [facility] Neutrophils 67.5 39.0 - 69.0 % [facility] Lymphocytes 25.6 25.0 - 45.0 % [facility] Monocytes 4.6 0.0 - 10.0 % [facility] Eosinophils 2.0 0.0 - 5.0 % [facility] Basophils 0.3 0.0 - 1.0 % [facility] Specimen Blood Performing Organization Address City/State/Zipcode Phone Number DEPARTMENT OF PATHOLOGY AND [address] [place] [address] GENOMIC MEDICINE, [facility] [address] [place] [address] [facility] Comprehensive metabolic panel (11/25/2019 6:51 PM CDT) Sodium 137 128 - 145 [facility] mEq/L [facility] Potassium 3.9 3.6 - 5.1 [facility] mEq/L [facility] CO2 30 18 - 33 mEq/L [facility] Chloride 102 98 - 108 mEq/L [facility] Glucose 108 73 - 118 mg/dL [facility] Calcium 9.2 8.0 - 10.3 [facility] mg/dL [facility] BUN 14 7 - 22 mg/dL [facility] Creatinine 0.8 0.5 - 0.9 [facility] mg/dL [facility] Alkaline phosphatase 66 42 - 141 U/L [facility] ALT 34 10 - 47 U/L [facility] AST 32 11 - 38 U/L [facility] Total bilirubin 0.7 0.2 - 1.6 [facility] mg/dL [facility] Albumin 3.8 3.3 - 5.5 g/dL [facility] Protein 7.8 6.4 - 8.1 g/dL [facility] Anion gap 5@ANIO (L) 7 - 15 mEq/L [facility] A/G ratio 1.0 0.7 - 3.8 [facility] Specimen Blood Performing Organization Address City/State/Zipcode Phone Number HM DEPARTMENT OF PATHOLOGY AND [address] [facility]. [address] [place] [address] GENOMIC MEDICINE, [facility] [address] Urinalysis (11/25/2019 6:48 PM CDT) Glucose, UA Trace (A) Negative [facility] Bilirubin, UA Negative Negative [facility] Ketones, UA Negative Negative [facility] Specific gravity, 1.020 1.001 - 1.035 [facility] UA [facility] Blood, UA Trace (A) Negative [facility] pH, UA 6.5 5.0 - 8.5 [facility] Protein, UA Negative Negative [facility] Urobilinogen, UA <2.0 <2.0 [facility] Nitrite, UA Positive (A) Negative [facility] Leukocyte esterase, Negative Negative [facility] Color, UA Yellow [facility] Appearance, UA Clear [facility] Specimen Urine Performing Organization Address City/State/Zipcoky Phone Number DEPARTMENT OF PATHOLOGY AND [address] [facility]. [address] [place] [address] GENOMIC MEDICINE, [facility] [address] Transthoracic Echocardiogram Complete, (w Contrast, Strain [...] [facility] AoV area i VTI BSA [place] 1.52 cm2/m2 [facility] MR Vmax 2.38 [...] Address City/State/Zipcode Phone Number [facility] [address] [place] [address] Surgical pathology request (05/18/2019 11:19 AM FUR VAULT ATTENDANT) [facility] DEPARTMENT OF PATHOLOGY AND GENOMIC MEDICINE Surgical pathology See link below [facility] DEPARTMENT OF report for PDF Lab PATHOLOGY AND Report GENOMIC MEDICINE Result status This is Final [facility] DEPARTMENT OF Report for PATHOLOGY AND [id number] GENOMIC MEDICINE Specimen Performing Organization Address City/[facility]/Zipcode Phone Number [facility] DEPARTMENT OF PATHOLOGY [address] [facility] [place] [address] AND GENOMIC MEDICINE Mammo Diagnostic w Cad Left (05/18/2019 11:02 AM FUR VAULT ATTENDANT) Specimen Addenda Addendum by Kylie Dudley MD [...] Radiology Results Incoming - 05/18/2019 3:06 PM FUR VAULT ATTENDANT Examination: US BREAST BIOPSY LEFT, MAMMO DIAGNOSTIC [...] Performing Organization Address City/State/Zipcode Phone Number [facility] [address] [place] [address] US Breast Biopsy Left (05/18/2019 10:34 AM FUR VAULT ATTENDANT) Specimen Addenda Addendum by Kylie Dudley MD [...] Performing Organization Address City/State/Zipcode Phone Number [facility] [address] [place] [address] US Breast Complete Left (05/09/2019 12:57 PM FUR VAULT ATTENDANT) Specimen Narrative Performed At PROCEDURE: MAMMO BREAST [...] SUSPICIOUS This facility is accredited by [employer] for Mammography. A negative x-ray report should not delay biopsy if a d ominant or clinically suspicious mass is present. Not all cance rs are identified by x-ray. [id number] Performing Organization Address City/State/Zipcode Phone Number [facility] [address] [place] [address] Mammo Breast Diagnostic Tomosynthesis Bilateral (05/09/2019 11:54 AM FUR VAULT ATTENDANT) Specimen Narrative Performed At PROCEDURE: MAMMO BREAST [...] SUSPICIOUS This facility is accredited by [employer] for Mammography. A negative x-ray report should not delay biopsy if a d ominant or clinically suspicious mass is present. Not all cance rs are identified by x-ray. [id number] Performing Organization Address [facility]/Zipcode Phone Number [facility] [address] [place] [address] Electrophysiology procedure (04/25/2019 1:27 PM CDT) Specimen Narrative Performed At This result has an attachment that is no t available. Description HM emids The risks, benefits and alternatives were discussed [...] metoprolol - D/C today Performing Organization Address [facility]/Zipcode Phone Number [facility] [address] [place] [address], Partial thromboplastin time, activated (04/25/2019 11:58 AM CDT) PTT 32.1 23.0 - 36.0 [facility] Comment: [facility] PTT therapeutic range for unfractionated heparin is HOSPITAL 61.0-112.0 seconds which corresponds to Anti-Xa 0.3-0.7 U/ml. Specimen Blood Performing Organization Address City/[facility]/Zipcode Phone Number [facility] DEPARTMENT OF PATHOLOGY [id number] [place] [address] [address] Prothrombin time with INR (04/25/2019 11:58 AM CDT) Pathologist [facility] Prothrombin time 13.0 11.5 - 14.5 [facility] INR 1.0 ALADDIN Comment: [facility] International Normalized Ratio (INR) is a therapeu [facility] monitoring tool for patients who are stable on oral anticoagulant therapy. An INR of 2.0-3.0 is suggested for deep vein thrombosis/pulmonary embolism. Specimen Blood Performing Organization Address [facility] Phone Number [facility] DEPARTMENT OF PATHOLOGY [address] [place] [address] CBC hemogram (04/25/2019 11:58 AM CDT) Pathologist Sig nature WBC 6.6 4.5 - 11.0 k/uL [facility] RBC 4.75 4.20 - 5.50 m/uL [facility] HGB 13.7 12.0 - 16.0 g/dL [facility] HCT 42.2 37.0 - 47.0 % [facility] MCV 88.8 82.0 - 100.0 fL [facility] MCH 28.8 27.0 - 34.0 pg [facility] MCHC 32.5 31.0 - 37.0 g/dL [facility] RDW - SD 44.0 37.0 - 55.0 fL [facility] MPV 8.9 6.9 - 11.0 fL [facility] Platelet count 242 150 - 400 K/uL [facility] Nucleated RBC 0.00 /100 WBC [facility] Specimen Blood Performing Organization Address City/State/Zipcode Phone Number [facility] DEPARTMENT OF PATHOLOGY [address] [facility] [address] AND GENOMIC MEDICINE [facility] [address] [facility] [address] HOSPITAL ECG Pre/Post Op (04/25/2019 11:10 AM CDT) Pathologist Sig nature Ventricular rate 77 [facility] MUSE Atrial rate 77 [facility] MUSE TN interval 158 [facility] MUSE QRSD interval 138 [...] available. Performing Organization Address City/State/Zipcode Phone Number [facility] [address] [place] [address] CT Chest W Contrast (03/14/2019 5:48 PM [...] the lungs. 3.No bony abnormality is appreciated. [facility]-[id number] Procedure Note Hm Interface, Radiology Results Incoming [...] the lungs. 3.No bony abnormality is appreciated. [facility]-[id number] Performing Organization Address City/State/Zipcode Phone Number [facility] [address] [place] [address] CT Soft Tissue Neck W Contrast (03/14/2019 [...] unremarkable CT of the neck soft tissues. [id number] Procedure Note Hm Interface, Radiology Results Incoming [...] unremarkable CT of the neck soft tissues. [id number] Performing Organization Address City/State/Zipcode Phone Number [facility] [address] [place] [address] Estimated GFR (03/14/2019 5:11 PM CDT) Estimated GFR >=90 mL/min/1.73 [facility] Comment: m2 [facility] Catergory Units Interpretation [facility] [...] DEPARTMENT OF PATHOLOGY AND [address] [place], [place] [id number] [place] [address] [facility] [address] POC creatinine (03/14/2019 5:11 PM CDT) Pathologist [facility] POC creatinine 0.7 0.5 - 0.9 [facility] PAULSON Comment: mg/dl [facility] Meter ID: [id number] EMERGENCY CARE Sand Tester: Cecil Dominguezon [place] Specimen Blood Performing Organization Address City/State/Zipcode Phone Number DEPARTMENT OF PATHOLOGY AND 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
--- OUTSIDE RECORDS SUMMARY | 2020-02-28 21:42 | XMS REPORT | Continuity of Care Document ---
:1970 Author Organization [facility] t Address [address] [place] [address] Care Team Providers Name Role Phone Ken Pierce MD. Primary Care Physician Kenrick JOHNSON Attending Clinician Nan Silver MD Attending Clinician Damaris Silver Attending Clinician Unavailable Caleb JOHNSON Attending Clinician Leonard ELIZABETH Attending Clinician Unavailable Jessie Pierce MD Attending Clinician Starr Walters MD Attending Clinician [phone] Beverly Dougherty MD Attending Clinician Provider Attending Clinician LIZETH LR Admitting Clinician Unavailable Payers Payer Name Policy Policy Number Effective Expiration Source Type Date Date MEDICAREMEDICARE PART xxxxxxxxxxx 2009 Kai Etienne AND 00:00:00 [facility] Bxxxxxxxxxxx/07/2008[place] [facility] [place] Condition Condition Condition Status Onset Resolution Last Treating Co mments Source Name Details Category Date Date Treatment Clinician Date Preop Preop Disease Active [facility] cardiovasc cardiovasc 3-04 Assessmen Methodi ular exam ular exam 00:00: t & Plan: s t 00 Will obtain echo and ecg to risk stratify Right Right Disease Active [facility] ventricula ventricula 7-16 Assessmen Methodi r outflow r outflow 00:00: t & Plan: s t tract tract 00 Will premature premature resume ventricula ventricula flecainid r r e at 50 contractio contractio mg bid; ns (PVCs) ns (PVCs) she will see Dr Stanley February 10 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 [place]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 hyperchole 6 Assessmen Methodi sterolemia sterolemia [...] 07/06/2008 Problem 10/07/2014 1states allergy induced [facility] Sleep Problem 2014-10-07 Memor ia apnea 07-06 04:00:13 l (finding) Sleep 00:00: Lowell garcia apnea 00 (finding) 07/06/2008 Problem 10/07/2014 [facility] Hypertensi Problem 2014-10-07 M emoria ve 07-06 04:00:13 l disorder, 00:00: Baron systemic Hypertensi 00 arterial ve (disorder) disorder, systemic arterial (disorder) 07/06/1994 Problem 10/07/2014 3presentl y not taking any meds [facility] Anxiety Problem 2014-10-07 Fabián jasmyne (finding) 04:00:13 l Anxiety [place] (finding) Problem 10/07/2014 [facility] Backache Problem 2014-10-07 Mem oria (finding) 04:00:13 l Backache Lowell n (finding) Problem 10/07/2014 2off and on [facility] Depressive Problem 2014-10-07 M emoria disorder 04:00:13 l (disorder) Lowell n Depressive disorder (disorder) Problem 10/07/2014 [facility] Cannabis Problem 2014-10-07 Mem oria sativa 04:00:13 l (organism) Cannabis He rmann sativa (organism) Problem 10/07/2014 4states uses it for yazidism reasons [facility] Allergies, Adverse Reactions, Alerts Allergy Allergy Status [...] Latex Propensi Active Other (See 2016-07 Blisters [facility] ty to Comments) 0-12 and Methodi adverse 00:00: swelling st reaction 00 s to drug doxycycl doxycycl Active Memori a ine ine l Baron Social History Social Habit Start Date Stop Date Quantity Comments Source History of Cigarette Smoker [place] [facility] tobacco use Sex Assigned At [facility] ethodi Exposure to Not sure [place] Metho dist SARS-CoV-2 (event) Alcohol intake 2020-02-21 2020-02-21 Current drinker of [facility] 00:00:00 00:00:00 alcohol (finding) Tobacco Comment 2018-01-18 2018-01-18 QUIT YEARS AGO AT [facility] 00:00:00 00:00:00 AGE 16 Alcohol Comment 2018-01-18 2018-01-18 occasional [facility] ethodist 00:00:00 00:00:00 Smoking Status Start Date Stop Date Source Former smoker 2020-02-21 00:00:00 2020-02-21 00:00:00 [place] [facility] Medications Ordered Filled Start Stop Current Ordering [...] etienne 10-04 Devorkin Soln-IV, l 21:30: IV [place] 00 Piggyback, q8hr, infuse over 30 minutes, [...] 4-01 Devorkin Soln, IV l 17:00: Push, [place] 00 q8hr, first dose 10/04/14 12:00:00 CDT [...] e 4-01 Devorkin mL, l 16:35: Injection, [place] 00 IM, q4hr PRN for severe nausea, first dose 10/04/14 11:35:00 CDT Demerol HCl No Sravan 50 mg = 1 Memoria 4-01 Devorkin mL, l 16:35: Injection, [place] 00 IM, q4hr PRN for breakthrou gh pain, first dose 10/04/14 11:35:00 CDT acetaminoph No Sravan 650 mg = 2 Memoria en 4-01 Devorkin tabs, Tab, l 16:35: Oral, q4hr [place] 00 PRN for headache, first dose 10/04/14 11:35:00 CDTMax 4gm acetaminop hen in 24 hours Saline Lock No Sravan 10 mL, Mem oria Flush 4-01 Devorkin Soln, IV l 16:35: Push, As [place] 00 Indicated PRN for flush, first dose [...] Munsterman Soln, IV l 14:53: Push, As [place] 00 Indicated PRN for flush, first dose 10/04/14 9:53:00 CDT morphine No Lakshmi 2 mg = 0.2 Me moria -01 Munsterman mL, l 14:53: Injection, [place] 00 IV Push, q5min PRN for Pain Moderate (4-6), first dose 10/04/14 9:53:00 CDT Dilaudid No Lakshmi 0.5 mg = Fabián jasmyne 10-04 Munsterman 0.25 mL, l 14:53: Injection, [place] 00 IV Push, q10min PRN for pain severe (7-10), first dose 10/04/14 9:53:00 CDT Misc No Cam 950 mL, Memoria Medication 10-04 Hari Soln-IV, l 14:50: IV, Once, first dose 10/04/14 9:50:00 CDT, stop date 10/04/14 9:50:00 CDT HYDROmorpho No Lakshmi 0.5 mg = Morgan emoria ne 10-04 Munsterman 0.25 mL, l 14:47: Injection, [place] 00 IV, Once, first dose 10/04/14 9:47:00 CDT, stop date 10/04/14 9:47:00 CDT ondansetron No Lakshmi 4 mg = 2 M emoria 10-04 Munsterman mL, l 14:31: Injection, [place] 00 IV, Once, first dose 10/04/14 9:31:00 [...] 10-04 Munsterman 0.25 mL, l 14:13: Injection, [place] 00 IV, Once, first dose 10/04/14 9:13:00 CDT, stop date 10/04/14 9:13:00 CDT fentaNYL No Lakshmi 100 mcg = Mem oria 10-04 [place] 2 mL, l 13:56: Injection, [place] 00 IV, Once, first dose 10/04/14 8:56:00 CDT, stop date 10/04/14 8:56:00 CDT ceFAZolin No Lakshmi 2 gm, Memori a 10-04 Mun[place]erman Soln-IV, l 13:54: IV [place] 00 Piggyback, Once, first dose 10/04/14 8:54:00 CDT, stop date 10/04/14 8:54:00 CDT ceFAZolin No Lakshmi 1 gm, Memori a 10-04 [place] Powder-Inj l 13:53: , IV, [place] 00 Once, first dose 10/04/14 8:53:00 CDT, stop date 10/04/14 8:53:00 CDT dexamethaso No Lakshmi 12 mg = 3 Memoria ne 10-04 Munsterman mL, l 13:53: Injection, [place] 00 IV, Once, first dose 10/04/14 8:53:00 [...] 10-04 Munsterman 14 mL, l 13:43: Emulsion, [place] 00 IV, Once, first dose 10/04/14 8:43:00 CDT, stop date 10/04/14 8:43:00 CDT fentaNYL No Lakshmi 50 mcg = 1 Me moria 10-04 Munsterman mL, l 13:43: Injection, [place] 00 IV, Once, first dose 10/04/14 8:43:00 CDT, stop date 10/04/14 8:43:00 CDT fentaNYL No Lakshmi 100 mcg = Mem oria 10-04 Munsterman 2 mL, l 13:40: Injection, [place] IV, Once, first dose 10/04/14 8:40:00 CDT, stop date 10/04/14 8:40:00 CDT midazolam No Lakshmi 2 mg = 2 Mem oria 10-04 Munsterman mL, l 13:26: Injection, [place] 00 IV, Once, first dose 10/04/14 8:26:00 CDT, stop date 10/04/14 8:26:00 CDT ceFAZolin No Sravan 2 gm, Memori a 10-04 Devorkin Soln-IV, l 13:00: IV [place] Piggyback, Once, infuse over 30 minutes, first dose 10/04/14 8:00:00 CDT, stop date 10/04/14 8:00:00 CDT Lidocaine No Joel K 0.2 mL, Mem oria 2% 0.2 mL 10-04 Jones Injection, l IV Start 12:29: Subcutaneo Her isaac [[facility]] 00 us, Once PRN for other (see comment), first dose 10/04/14 7:29:00 CDT LR 1,000 mL No Joel K 1,000 mL, Memoria 10-04 Jones IV, 30 l 12:29: mL/hr, [place] 00 start date 10/04/14 7:29:00 CDT clonazePAM Yes 1 mg = 1 Mem oria 1 mg oral 3-31 tabs, l tablet 16:00: Oral, TID, [place] nn 00 instructed may take morning of surgery, 0 Refill(s), anxietyins tructed may take morning of surgery Vital Signs Vital Name Observation Time Observation Value Comments Source Systolic blood 2020-02-21 11:35:00 139 mm[Hg] Nitin garcia [facility] pressure Diastolic blood 2020-02-21 11:35:00 87 mm[Hg] Sue on [facility] pressure Heart rate 2020-02-21 11:35:00 101 /min Barney Hidalgo Body height 2020-02-21 11:35:00 170.2 cm Barney Hidalgo Body weight 2020-02-21 11:35:00 130.001 kg Barney Hidalgo BMI 2020-02-21 11:35:00 44.89 kg/m2 Barney Hidalgo Respiratory rate 2019-11-25 20:30:00 18 /min Shashi nas Olivierist Oxygen saturation in 2019-11-25 20:30:00 96 /min Barney Hidalgo Arterial blood by Pulse oximetry Body temperature 2019-11-25 18:34:00 36.56 Joanne Shashi ton [facility] Systolic (mm Hg) 2014-10-05 17:00:00 Fabián rial [place] Diastolic (mm Hg) 2014-10-05 17:00:00 Mem orial [place] Respitory Rate 2014-10-05 17:00:00 Memori al [place] Heart Rate 2014-10-05 17:00:00 [facility] [place] Temperature Oral (F) 2014-10-05 17:00:00 36.5 Joanne [facility] [place] Temperature Oral (F) 2014-10-05 12:00:00 36.6 Joanne [facility] [place] Diastolic (mm Hg) 2014-10-05 12:00:00 Mem orial [place] Systolic (mm Hg) 2014-10-05 12:00:00 Fabián rial [place] Respitory Rate 2014-10-05 12:00:00 Memori al [place] Heart Rate 2014-10-05 12:00:00 [facility] [place] Temperature Oral (F) 2014-10-05 10:00:00 36.6 Joanne [facility] [place] Systolic (mm Hg) 2014-10-05 10:00:00 Fabián rial [place] Diastolic (mm Hg) 2014-10-05 10:00:00 Mem orial [place] Respitory Rate 2014-10-05 10:00:00 Memori al [place] Heart Rate 2014-10-05 10:00:00 [facility] [place] Temperature Oral (F) 2014-10-04 14:40:00 37.2 Joanne [facility] [place] Weight 2014-10-04 12:22:00 [facility] [place] Height 2014-10-04 12:22:00 174 cm [facility] [place] Weight 2014-09-26 22:06:00 [facility] [place] Height 2014-09-26 22:06:00 175.26 cm [facility] [place] Procedures Procedure Date / Time Performing Source Performed Clinician ECG 12-LEAD 2020-02-[address] 11:37:47 US PELVIC TRANSABDOMINAL 2019-12-16 Silver, Francesca A. Corley [facility] 16:46:32 US PELVIC TRANSVAGINAL 2019-12-16 SilverFrancesca M ethodist 16:46:32 ECG 12-LEAD 2019-11-25 Deonte Frausto Method ist 19:48:45 CT RENAL STONE PROTOCOL 2019-11-25 Deonte Fraustoist 19:47:15 ECG ED PRELIMINARY 2019-11-25 Deonte Frausto Met hodist INTERPRETATION 19:31:32 HC COMPLETE BLD COUNT W/AUTO 2019-11-25 Deonte Fraustoist DIFF 18:51:00 COMPREHENSIVE METABOLIC PANEL 2019-11-25 Deonte Frausto [facility] 18:51:00 URINALYSIS 2019-11-25 Deonte Frausto Method ist 18:48:00 TTE COMPLETE, WO CONTRAST, W 2019-09-12 Jayy Choudhary DOPPLER ([id number]) 14:07:51 ECG 12-LEAD 2019-09-[address] 15:59:55 SURGICAL PATHOLOGY REQUEST 2019-05-18 Magalys Pierce 11:19:00 MAMMO DIAGNOSTIC W CAD LEFT 2019-05-18 Magalys Pierce 11:02:10 US BREAST BIOPSY LEFT 2019-05-18 Magalys Pierce 10:34:39 US BREAST COMPLETE LEFT 2019-05-09 Magalys Pierce on [facility] 12:57:01 MAMMO BREAST DIAGNOSTIC 2019-05-09 Magalys Pierce on [facility] TOMOSYNTHESIS BILATERAL 11:54:28 EP TILT TABLE 2019-04-25 [...] TISSUE NECK W CONTRAST 2019-03-14 Marco Locke [facility] 17:40:31 POC CREATININE 2019-03-14 Marco Locke Methodis t 17:11:00 ESTIMATED GFR 2019-03-14 Marco Locke Methodis t 17:11:00 PALATOPHARYNGOPLASTY [id number] 2014-10-04 Sravan Swain (Other)<sup>1</sup> 13:55:00 TONSILLECTOMY AND 2014-10-04 Sravan Swain ADENOIDECTOMY AGE 12 O (Other, 13:55:00 Bilateral)<sup>2</sup> Colonoscopy 2013-07-06 Sugey Draper 00:00:00 egd 2013-07-06 Sugey Draper 00:00:00 breast lump removed-benign 2011-07-06 Memor ial [place] 00:00:00 breast reduction 2011-07-06 Sugey Etienne n 00:00:00 Hysterectomy 2009-07-06 [facility] [place] 00:00:00 Ectopic 1999-07-06 Sugey Rhoades nn 00:00:00 Plan of Care Planned Activity Planned Date Details Comments Source Future Scheduled 2020-04-05 INFLUENZA VACCINE [place] [facility] Test 00:00:00 [code = INFLUENZA VACCINE] Future Scheduled 1991 Screening for [facility] thodist Test 00:00:00 malignant neoplasm of cervix (procedure) [code = 583234462] Encounters Start End Encounter Admission Attending Care Care Encounter Source Date/Time Date/Time Type Type Clinicians Facility Department ID 2019-09-16 Outpatient MHFB MHFB [id number] FB 08:13:50 2020-02-21 2020-02-21 Outpatient KENRICK [facility] [id number] [place] 00:00:00 00:00:00 JAYY [address] 2019-12-16 2019-12-16 Outpatient FRANCESCA SILVER [facility] [id number] [place] 00:00:00 00:00:[address] 2019-12-09 2019-12-09 Outpatient SilverFrancesca blackRADHAFAYHeena GREEN [id number] [facility] 10:45:00 10:45:00 st OBGYN 2019-11-25 2019-11-25 Emergency FRAUSTO, [facility] [id number] [place] 00:00:00 00:00:00 DEONTE [address] 2019-09-12 2019-09-12 Outpatient KENRICK, [facility] [id number] [place] 00:00:00 00:00:00 JAYY [address] 2019-09-07 2019-09-07 Outpatient KENRICK, [facility] [id number] [place] 00:00:00 00:00:00 JAYY [address] 2019-05-18 2019-05-18 Outpatient JASON, [facility] [id number] [place] 00:00:00 00:00:00 MAGALYS 679 Method i 2019-05-18 2019-05-18 Outpatient JASON [facility] [id number] [place] 00:00:00 00:00:00 MAGALYS [address] 2019-05-13 2019-05-13 Outpatient SilverFrancesca PETER GREEN [id number] [facility] 08:38:00 08:38:00 st OBGYN 2019-05-09 2019-05-09 Outpatient JASON [facility] [id number] [place] 00:00:00 00:00:00 MAGALYS 835 Method i 2019-05-09 2019-05-09 Outpatient JASON [facility] [id number] [place] 00:00:00 00:00:00 MAGALYS 387 Method i 2019-04-25 2019-04-25 Outpatient STANLEY [facility] [id number] [place] 00:00:00 00:00:00 LR, [address] 2019-03-14 2019-03-14 Outpatient MAHNAZ [facility] [id number] [place] 00:00:00 00:00:00 MARCO Alvarado[address] 2019-03-14 2019-03-14 Outpatient MAHNAZ [facility] [id number] [place] 00:00:00 00:00:00 MARCO [address] 2014-10-04 2014-10-05 Outpatient MHIE MHIE [id number] Memoria 06:53:07 13:15:00 l [facility] Results Test Description Test Time Test Comments Results Result Comments Source ECG 12 lead 2020-02-21 13:33:35 Test Item Value Reference Range Interpretation Comme nts Ventricular rate (test code = 253) 85 Atrial rate (test code = 255) 85 [place] interval (test code = 266) 144 QRSD [...] age undetermined-Abnormal ECG-No change c/w November 2019[facility] [id number] 16:54:59Addendum by Sravan Platt IV, MD on [...] the November 25, 2019 CT scan. Results [facility] Interface, Radiology Results 12/16/2019 4:58 PM CDTEXAMINATION: US PELVIC TRANSABDOMINAL, US PELVIC TRANSVAGINALCLINICAL HISTORY: R19.00 Intra-abdominal and pelvic swelling mass and lump unspecified site, [id number]: None.TECHNIQUE:Transverse and longitudinal transvaginal and transabdominal sonographic [...] biopsy on all patients with bleeding on Tamoxifen)[facility]-[id number] [facility] Pelvic Transabdominal 2019-12-16 16:54:59Addendum by Sravan Platt [...] the November 25, 2019 CT scan. Results [facility] Interface, Radiology Results - 12/16/2019 4:58 PM CDTEXAMINATION: US PELVIC TRANSABDOMINAL, US PELVIC TRANSVAGINALCLINICAL HISTORY: R19.00 Intra-abdominal and pelvic swelling mass and lump unspecified site, [id number]: None.TECHNIQUE:Transverse and longitudinal transvaginal and transabdominal sonographic [...] biopsy on all patients with bleeding on Tamoxifen)[facility]-[id number] [id number] 06:24:00 Test Item Value Reference Range Interpretation Comments Glucose, UA (test code = 74533-4) Trace Negative A Bilirubin, UA (test code = 5770-3) Negative Negative Ketones, UA (test code = 2514-8) Negative Negative Specific gravity, UA (test code = 1.020 1.001-1.035 5811-5) Blood, UA (test code = 5794-3) Trace Negative A pH, UA (test code = 5803-2) 6.5 5.0-8.5 Protein, UA (test code = 58768-7) Negative Negative Urobilinogen, UA (test code = <2.0 <2.0 85173-5) Nitrite, UA (test code = 5802-4) Positive Negative A Leukocyte esterase, UA (test code = Negative Negative 5799-2) Color, UA (test code = 5778-6) Yellow Appearance, UA (test code = 5767-9) Clear Lab Interpretation (test code = Abnormal 74442-7) Barney HidalgoComprehensive metabolic [id number] 06:23:32 Test Item Value Reference Range Interpretation Comments Sodium (test code = 2951-2) 137 128- 145 mEq/L Potassium (test code = 2823-3) 3.9 3.6- 5.1 mEq/L CO2 (test code = 8-9) 30 18- 33 mEq/L Chloride (test code = 2075-0) 102 98- 108 mEq/L Glucose (test code = 2345-7) 108 mg/dL 73-118 Calcium (test code = 26003-4) 9.2 mg/dL 8-10.3 BUN (test code = [...] g/dL 6.4-8.1 Anion gap (test code = 53486-2) 5@ANIO 7- 15 mEq/L L A/G ratio (test code = 1759-0) 1.0 0.7-3.8 Lab Interpretation (test code = Abnormal 95437-2) [facility] with platelet and [id number] 06:23:32 Test Item Value Reference Range Interpretation Comments WBC (test code = 70788-1) 7.66 4.50- 11.00 k/uL RBC (test code = 32832-8) 4.97 m/uL 4.2-5.5 HGB (test code = 718-7) 14.5 g/dL 12-16 HCT (test code = 4544-3) 44.8 % 37-47 MCV (test code = 787-2) 90.1 fL 82-100 MCH (test code = 785-6) 29.2 pg 27-34 MCHC (test code = 786-4) 32.4 g/dL 31-37 RDW - SD (test code = 42041-3) 46.3 fL 37-55 MPV (test code = 67003-0) 8.8 fL 8.8-13.2 Platelet count (test code = 246 150- 400 k/uL 74608-3) Neutrophils (test code = 90357-2) 67.5 % 39-69 Lymphocytes (test code = 92191-6) 25.6 % 25-45 Monocytes (test code = 32584-6) 4.6 % 0-10 Eosinophils (test code = 46346-7) 2.0 % 0-5 Basophils (test code = 28802-7) 0.3 % 0-1 [facility] Renal Stone [id number] 19:52:02Hm Interface, Radiology Results - 11/25/2019 7:55 [...] and could be followed with outpatient pelvic ultrasound.[facility] Preliminary Interpretation - Not an [id number] 19:31:32 Test Item Value Reference Range Interpretation Comments ALLISON (test code = ALLISON) Deonte Frausto MD 11/25/2019 8:40 [facility] ED Preliminary Interpretation - Not an OrderPerformed by: Deonte Frausto MDAuthorized by: Deonte rFausto MD ECG reviewed by ED Physician in the absence of a chief engineer production: yes Previous ECG: Previous ECG: UnavailableInterpretat ion: Interpretation: abnormal Rate: ECG rate: 88 ECG rate assessment: normal Rhythm: Rhythm: sinus rhythm Ectopy: Ectopy: none QRS: QRS axis: Left QRS intervals: NormalConduction: Conduction: abnormal Abnormal conduction: complete RBBB ST segments: ST segments: Non-specificT waves: T waves: inverted Inverted: V2Vdzrmzdr: Normal sinus rhythm, left axis deviation, nonspecific ST changes T wave inversion lead III Lab Interpretation Abnormal (test code = 69585-1) Corley [facility] [id number] 10:59:10 Test Item Value Reference Range Interpretation Comments Case number (test code = [id number]) Surgical pathology See link below for report (test code = PDF Lab Report [id number]) Result status (test code This is Final Report = [id number]) for [id number] Barney HidalgoUS Breast Biopsy [id number] 15:03:51Addendum by Kylie Dudley MD on 05/20/2019 [...] results will be reported in an addendum. [id number] MethodistMammo Diagnostic w Cad Left 2019-05-18 15:03:51Addendum [...] in an addendum.DWS01 Barney Sanders Breast Complete [id number] 12:59:14 Test Item Value Reference Range Interpretation [...] SUSPICIOUS This facility is accredited by [employer] for Mammography.A negative x-ray report should not delay biopsy if a dominant or clinically suspicious mass is present. Not all cancers are identified by x-ray. DWS01 Lab Interpretation Abnormal (test code = 14212-4) [facility] Breast Diagnostic Tomosynthesis [id number] 12:59:14PROCEDURE: MAMMO BREAST DIAGNOSTIC TOMOSYNTHESIS BILATERAL, US [...] SUSPICIOUS This facility is accredited by [employer] for Mammography.A negative x-ray report should not delay biopsy if a dominant or clinically suspicious mass is present. Not all cancers are identified by x-ray. [id number] MethodistECG Pre/Post [id number] 19:48:05 Test Item Value Reference Range Interpretation Comments Ventricular rate (test 77 code = 253) Atrial rate (test code 77 = 255) [place] interval (test code 158 = 266) QRSD [...] Lateral infarct are now present- Corley MethodistElectrophysiology [id number] 13:48:22DescriptionThe risks, benefits and alternatives were discussed [...] tilt table test Plan- Continue metoprolol- D/C [facility] MethodistPartial thromboplastin time, [id number] 12:32:35 Test Item Value Reference Range Interpretation Comments PTT (test code = 32.1 23.0- 36.0 sec PTT thera peutic range for 3173-2) unfractionated heparin is61.0-112.0 se conds which corresponds to Anti-Xa0.3-0.7 U/ml. [place] MethodistProthrombin time with [id number] 12:31:45 Test Item Value Reference Range Interpretation Comments Prothrombin time (test 13.0 11.5- 14.5 sec code = 5902-2) INR (test code = 1.0 The Interna tiformerly [facility] 32576-4) Normalized Rati o (INR) is a therapeutic m onitoring tool for patien ts who are stable on oral anticoagulant t herapy. An INR of 2.0-3.0 is suggested for d eep vein thrombosis/pulm onary embolism. [facility] [id number] 12:23:07 Test Item Value Reference Range Interpretation Comments WBC (test code = 54948-4) 6.6 4.5- 11.0 k/uL RBC (test code = 94669-0) 4.75 m/uL 4.2-5.5 HGB (test code = 718-7) 13.7 g/dL 12-16 HCT (test code = 4544-3) 42.2 % 37-47 MCV (test code = 787-2) 88.8 fL 82-100 MCH (test code = 785-6) 28.8 pg 27-34 MCHC (test code = 786-4) 32.5 g/dL 31-37 RDW - SD (test code = 80694-7) 44.0 fL 37-55 MPV (test code = 28468-1) 8.9 fL 6.9-11 Platelet count (test code = 242 K/uL 150-400 47721-1) Nucleated RBC (test code = 08962-1) 0.00 /100 WBC [place] MethodistCT Chest W [id number] 19:17:42Hm Interface, Radiology Results - 03/14/2019 7:20 [...] noted in the lungs.3.No bony abnormality is appreciated.[facility]-[id number] MethodistCT Soft Tissue Neck W [id number] 17:54:33Hm Interface, Radiology Results 03/14/2019 5:57 PM [...] detail.2.Otherwise unremarkable CT of the neck soft tissues.[id number] MethodistPOC [id number] 17:22:21 Test Item Value Reference Range Interpretation Comments POC creatinine (test 0.7 mg/dl 0.5-0.9 Meter I D: code = 70557-8) [id number] or: Cecil Brand on [place] MethodistEstimated [id number] 17:22:21 Test Item Value Reference Range Interpretation Comments Estimated GFR (test >=90 mL/min/1.73 m2 [facility] Units code = 72237-6) Interpretati onG1 >=90 Normal or highG2 60-89 Mildly tjyxswzeoZ4m 45-59 Mildly to mode rately gyjnkaurvM8b 30-44 Moderately to severely decreasedG4 15-29 Severely decre asedG5 <15 Kidn ey failureThe eGFR was calculated josé miguel g the Chronic Kidney Disease Epidemiology Co llaboration (CKD-EPI) equat ion. Interpretation is based on recommendations of the National Kidney Foundation-Kidn ey Disease Outcomes Qualit y Initiative (NKF-KDOQI) pub lished in 2014. Barney Hidalgo
[2020-02-28] MEDS ORDERED: MORPHINE 4 MG/ML SYR ONE ×2 (22:31→22:36)
[2020-02-28] MEDS ORDERED: ONDANSETRON 4 MG/2 ML VIAL ONE ×2 (22:31→22:36)
[2020-02-28 22:35] LABS: Protime INR 1.02
[2020-02-28 22:36] LABS: Absolute Lymphocytes (CBC) 0.6 K/uL (0.7-4.9); Basophils % 0.1 % (0-1.3); Hematocrit 44.6 % (36.0-45.0); Lymphocytes % 7.2 % (15.3-44.8); MPV 7.5 fL (7.6-11.3); RBC Red Blood Cell Count 5.22 M/uL (3.86-4.86)
[2020-02-28 23:14] LABS: ALT/SGPT 42 U/L (12-78); AST/SGOT 18 U/L (15-37); Albumin 3.8 g/dL (3.4-5.0); Alkaline Phosphatase 91 U/L (45-117); BUN Blood Urea Nitrogen 21 mg/dL (7-18); Bicarbonate 25 mmol/L (21-32); Bilirubin Direct < 0.1 mg/dL (0-0.2); Bilirubin Total 0.3 mg/dL (0.2-1.0); Glucose Level 245 mg/dL (74-106); Magnesium 2.1 mg/dL (1.8-2.4); NT PRO-BNP 18 pg/mL (<125); Potassium 4.1 mmol/L (3.5-5.1); Protein, Total 8.5 g/dL (6.4-8.2); Sodium Level 140 mmol/L (136-145); Troponin (Emerg Dept Use Only) < 0.02 ng/mL (0.0-0.045)
[2020-02-28] MEDS ORDERED: NA CHLORIDE 0.9% 1,000 ML ONE (23:44)
[2020-02-29 00:28] LABS: Blood Morphology Comment NOT SEEN (NOT SEEN); Platelet Estimate ADEQ
[2020-02-29] MEDS ORDERED: METOPROLOL TAR 25 MG TAB ONE (00:29)
--- NOTE | 2020-02-29 01:21 | ER ---
Nurse's Notes [facility] Name: Digna Fyo Age: 49 yrs Sex: Female : 1970 Arrival Date: 02/28/2020 Time: 21:43 Bed 7 Private MD: Diagnosis: Cervical Radiculopathy;Chest Pain Presentation: 02/27 21:52 Chief complaint: Patient states: patient was here earlier today for the same symptoms. rv given a shot of pain medicice. discharged with muscle relaxant. did not take the medicine prescribed, and now is hurting bad. chest pain, left arm pain, back pain, nape pain. Coronavirus screen: Client denies travel out of the [place] in the last 14 days. At this time, the client does not indicate any symptoms associated with coronavirus-19. Ebola Screen: No symptoms or risks identified at this time. Initial Sepsis Screen: Does the patient meet any 2 criteria? HR > 90 bpm. Does the patient have a suspected source of infection?. Risk Assessment: Do you want to hurt yourself or someone else? Patient reports no desire to harm self or others. Onset of symptoms is unknown. 21:52 Method Of Arrival: Ambulatory rv 21:52 Acuity: JAIDEN 3 rv Triage Assessment: 21:56 General: Appears obese, Behavior is cooperative. Pain: Complains of pain in back of rv neck, posterior chest, chest and left arm Pain currently is 10 out of 10 on a pain scale. EENT: No signs and/or symptoms were reported regarding the EENT system. Neuro: Level of Consciousness is awake, alert, obeys commands, Oriented to person, place, time, situation. Cardiovascular: Patient's skin is warm and dry. Rhythm is sinus tachycardia. Respiratory: Airway is patent Respiratory effort is even, unlabored, Breath sounds are clear bilaterally. Derm: Skin is intact. 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 - Social history:: Smoking status: Patient denies any tobacco usage or history of. Screenin:58 Abuse screen: Denies threats or abuse. Denies injuries from another. Nutritional rv screening: No deficits noted. Tuberculosis screening: No symptoms or risk factors identified. Fall Risk None identified. Assessment: 23:43 Reassessment: UPDATED ON THE LENGTH OF WAIT. PAIN IS MORE TOLERABLE VERBALIZED BY rv THE PATIENT. AOX4. UPDATED DR CHU ON THE STATUS OF THE PATIENT. 02/28 01:09 Reassessment: awaiting result of CT angio. General: Appears comfortable, Behavior is rv calm, cooperative. Neuro: Level of Consciousness is awake, alert, obeys commands, Oriented to person, place, time, situation. Cardiovascular: Rhythm is sinus tachycardia. Respiratory: Airway is patent Respiratory effort is even, unlabored, Breath sounds are clear bilaterally. 01:28 Reassessment: Patient states feeling better. Patient states symptoms have improved. rv Vital Signs: 02/27 21:52 BP 175 / 97; Pulse 121; Resp 20; Temp 98; Pulse Ox 96% on R/A; Weight 127.01 kg; Height rv 5 ft. 7 in. (170.18 cm); Pain 10/10; 23:00 BP 131 / 93; Pulse 119; Resp 17; Pulse Ox 96% on R/A; rv 23:41 BP 102 / 91; Pulse 117; Resp 18; Pulse Ox 97% on R/A; rv 02/28 00:29 BP 123 / 82; Pulse 107; Resp 15; Pulse Ox 96% on R/A; rv 01:00 BP 130 / 79; Pulse 113 MON; Resp 17; Pulse Ox 96% ; rv 02/27 21:52 Body Mass Index 43.85 (127.01 kg, 170.18 cm) rv 01:00 Sinus tachycardia rv ED Course: 02/27 21:43 Patient arrived in ED. am2 21:48 Mauricio Key RN is Primary Nurse. rv 21:49 Kris Chu MD is Attending Physician. 7 21:55 Triage completed. rv 21:58 Arm band placed on Patient placed in the treatment room, on a stretcher, Patient rv notified of wait time. 21:59 Patient has correct armband on for positive identification. Placed in gown. Bed in low rv position. Call light in reach. 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 Pulse ox on. NIBP on. 22:28 Inserted saline lock: 20 gauge in right forearm, using aseptic technique. ,using rv aseptic technique. BY TECH. MARY 22:29 Initial lab(s) drawn, by ED staff, sent to lab. EKG done, by ED staff, reviewed by pamela Chu MD. 22:33 XRAY Chest (1 view) In Process Unspecified. EDMS 23:17 CT C Spine In Process Unspecified. EDMS 02/28 00:28 CT Chest For PE Angio In Process Unspecified. EDMS 00:30 Patient moved back from CT. rv 01:28 No provider procedures requiring assistance completed. IV discontinued, intact, rv bleeding controlled, No redness/swelling at site. Pressure dressing applied. Administered Medications: 02/27 22:24 Drug: Zofran (Ondansetron) 4 mg Route: IVP; Site: right forearm; rv 23:41 Follow up: Response: No adverse reaction rv 22:28 Drug: morphine 4 mg Route: IVP; Site: right forearm; rv 23:41 Follow up: Response: No adverse reaction; Marked relief of symptoms; Pain is decreased; rv RASS: Alert and Calm (0) 23:41 Drug: NS 0.9% 1000 ml Route: IV; Rate: 1 bolus; Site: right antecubital; rv 02/28 01:07 Follow up: IV Status: Completed infusion; IV Intake: 1000ml rv 00: Drug: Lopressor 25 mg Route: PO; rv 01:07 Follow up: Response: Cardiac rhythm is unchanged rv Intake: 01:07 IV: 1000ml; Total: 1000ml. rv Outcome: 01:20 Discharge ordered by mh7 01:28 Discharged to home ambulatory. rv 01:28 Condition: good 01:28 Discharge instructions given to patient, Instructed on discharge instructions, follow up and referral plans. Demonstrated understanding of instructions, follow-up care. 01:28 Patient left the ED. rv Signatures: Dispatcher [employer] Rosemary Camarillo am2 Mauricio Key RN RN Kris Barfield MD MD mh7
--- NOTE | 2020-02-29 01:21 | EDPHYS ---
Physician Documentation [facility] Name: Digna Foy Age: 49 yrs Sex: Female : 1970 Arrival Date: 02/28/2020 Time: 21:43 Bed 7 Private MD: ED Physician Kris Chu HPI: 02/27 22:22 This 49 yrs old Female presents to ER via Ambulatory with complaints of pain. mh7 22:22 The patient or guardian complains of pain, that is acute, history of neck pain that mh7 started to worsen yesterday. The symptoms are located at the cervical spine. Onset: The symptoms/episode began/occurred yesterday. Context: The problem was sustained at home, The neck injury/problem resulted from sleeping funny. Associated signs and symptoms: Pertinent positives:. Associated signs and symptoms:. The pain radiates to the left arm. Modifying factors: The symptoms are alleviated by remaining still, the symptoms are aggravated by movement. Severity of symptoms: At their worst the symptoms were moderate, earlier today, in the emergency department the symptoms are unchanged. The patient has experienced similar episodes in the past, several times. The patient has been recently seen at the [facility] Emergency Department, today. Patient states that she started having pain to her neck yesterday when she woke up. She has had similar issue in the past and was told it was due to bone problem. She states pain worse with movement and moves to left arm. She was seen here earlier today and given a pain shot and prescription for muscle relaxer which she has not taken. She also complains of intermittent sharp chest pain. Denies any injuries, fever, cough, SOB, nausea, vomiting, abdominal pain, recent travel, or sick contacts.. 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 - Social history:: Smoking status: Patient denies any tobacco usage or history of. ROS: 22:22 Constitutional: Negative for fever, chills, and weight loss, Eyes: Negative for injury, mh7 pain, redness, and discharge, ENT: Negative for injury, pain, and discharge, Respiratory: Negative for shortness of breath, cough, wheezing, and pleuritic chest pain, Abdomen/GI: Negative for abdominal pain, nausea, vomiting, diarrhea, and constipation, Back: Negative for injury and pain, : Negative for injury, bleeding, discharge, and swelling, Skin: Negative for injury, rash, and discoloration, Neuro: Negative for headache, weakness, numbness, tingling, and seizure, Psych: Negative for depression, anxiety, suicide ideation, homicidal ideation, and hallucinations, Allergy/Immunology: Negative for hives, rash, and allergies, Endocrine: Negative for neck swelling, polydipsia, polyuria, polyphagia, and marked weight changes, Hematologic/Lymphatic: Negative for swollen nodes, abnormal bleeding, and unusual bruising. Exam: 22:22 Head/Face: Normocephalic, atraumatic. Eyes: Pupils equal round and reactive to light, mh7 extra-ocular motions intact. Lids and lashes normal. Conjunctiva and sclera are non-icteric and not injected. Cornea within normal limits. Periorbital areas with no swelling, redness, or edema. 22:22 Chest/axilla: Normal chest wall appearance and motion. Nontender with no deformity. No lesions are appreciated. 22:22 Respiratory: Lungs have equal breath sounds bilaterally, clear to auscultation and percussion. No rales, rhonchi or wheezes noted. No increased work of breathing, no retractions or nasal flaring. Abdomen/GI: Soft, non-tender, with normal bowel sounds. No distension or tympany. No guarding or rebound. No evidence of tenderness throughout. Back: No spinal tenderness. No costovertebral tenderness. Full range of motion. Skin: Warm, dry with normal turgor. Normal color with no rashes, no lesions, and no evidence of cellulitis. MS/ Extremity: Pulses equal, no cyanosis. Neurovascular intact. Full, normal range of motion. Neuro: Awake and alert, GCS 15, oriented to person, place, time, and situation. Cranial nerves II-XII grossly intact. Motor strength 5/5 in all extremities. Sensory grossly intact. Cerebellar exam normal. Normal gait. Psych: Awake, alert, with orientation to person, place and time. Behavior, mood, and affect are within normal limits. 22:22 Constitutional: The patient appears in no acute distress, alert, awake, uncomfortable. 22:22 Neck: External neck: is normal, C-spine: vertebral tenderness, that is moderate, appreciated at cervical spine, Thyroid: appears normal, Trachea: is midline with no obvious abnormalities, ROM/movement: pain, that is mild, with any movement, Meningeal signs: are not present, nuchal rigidity, is not appreciated, Lymph nodes: no appreciated lymphadenopathy. 22:22 Cardiovascular: Rate: tachycardic, Rhythm: regular, Pulses: no pulse deficits are appreciated, Heart sounds: normal, normal S1and S2, Edema: is not appreciated, JVD: is not appreciated. 02/28 02:01 ECG was reviewed by the Attending Physician. [facility] Vital Signs: 02/27 21:52 BP 175 / 97; Pulse 121; Resp 20; Temp 98; Pulse Ox 96% on R/A; Weight 127.01 kg; Height rv 5 ft. 7 in. (170.18 cm); Pain 10/10; 23:00 BP 131 / 93; Pulse 119; Resp 17; Pulse Ox 96% on R/A; rv 23:41 BP 102 / 91; Pulse 117; Resp 18; Pulse Ox 97% on R/A; rv 02/28 00:29 BP 123 / 82; Pulse 107; Resp 15; Pulse Ox 96% on R/A; rv 01:00 BP 130 / 79; Pulse 113 MON; Resp 17; Pulse Ox 96% ; rv 02/27 21:52 Body Mass Index 43.85 (127.01 kg, 170.18 cm) rv 01:00 Sinus tachycardia rv MDM: 02/27 22:12 Patient medically screened. [facility] 02/28 01:17 Differential diagnosis: arthritis, C-Spine Fracture Cervical Disc Herniation Cervical [facility] Discogenic Pain Cervical Facet Syndrome Cervical Raiculopathy Cervical Spondylosis cervical strain, Degenerative Disc Disease fracture, Osteoarthritis Spondylolisthesis Spondylosis subluxation, torticollis. Data reviewed: vital signs, nurses notes, old medical records, lab test result(s), cardiac enzymes, CBC, electrolytes, urinalysis, EKG, radiologic studies, CT scan, plain films. Data interpreted: Pulse oximetry: on room air is 96 %. Interpretation: normal. Counseling: I had a detailed discussion with the patient and/or guardian regarding: the historical points, exam findings, and any diagnostic results supporting the discharge/admit diagnosis, lab results, radiology results, the need for outpatient follow up, to return to the emergency department if symptoms worsen or persist or if there are any questions or concerns that arise at home. Response to treatment: the patient's symptoms have markedly improved after treatment. 01:52 ED course: Feels better, NAD, VSS, no focal neurological deficits. No chest pain, SOB, mh7 nausea, vomiting. Very mild neck pain. Discussed all test results and findings with the patient and answered all of her questions. She requested to be discharged from the ED. She will follow up with her doctor but agreed to return to the ED if worsening of symptoms.. 02/27 22:15 Order name: Basic Metabolic Panel; Complete Time: 23:15 [facility] 02/27 22:15 Order name: CBC with Diff; Complete Time: 00:41 [facility] 02/27 22:15 Order name: LFT's; Complete Time: 23:15 [facility] 02/27 22:15 Order name: Magnesium; Complete Time: 23:16 [facility] 02/27 22:15 Order name: NT PRO-BNP; Complete Time: 23:16 [facility] 02/27 22:15 Order name: PT-INR; Complete Time: 23:48 [facility] 02/27 22:15 Order name: Troponin (emerg Dept Use Only); Complete Time: 23:16 [facility] 02/27 22:15 Order name: XRAY Chest (1 view) [facility] 02/27 22:20 Order name: CT C Spine [facility] 02/27 22:37 Order name: D-Dimer; Complete Time: 23:48 [facility] 02/27 22:59 Order name: Manual Differential; Complete Time: 00:41 [facility] 02/27 23:49 Order name: CT Chest For PE Angio [facility] 02/27 22:15 Order name: EKG; Complete Time: 22:16 [facility] 02/27 22:15 Order name: Cardiac monitoring; Complete Time: 22:24 [facility] 02/27 22:15 Order name: EKG - Nurse/Tech; Complete Time: 22:24 [facility] 02/27 22:15 Order name: IV Saline Lock; Complete Time: 22:24 [facility] 02/27 22:15 Order name: Labs collected and sent; Complete Time: 22:24 [facility] 02/27 22:15 Order name: O2 Per Protocol; Complete Time: :24 [facility] 02/27 22:15 Order name: O2 Sat Monitoring; Complete Time: :24 [facility] 02/28 01:11 Order name: Urine Dipstick-Ancillary (obtain specimen); Complete Time: 01:11 ar5 EC:01 Rate is 121 beats/min. Rhythm is regular, Sinus tachycardia with Left bundle branch mh7 block, Right bundle branch block. QRS [place] is Normal. [place] interval is normal. QRS interval is normal. QT interval is normal. No Q waves. T waves are Inverted in lead aVL. No ST changes noted. Clinical impression: Abnormal EKG without significant change and Sinus tachycardia. Administered Medications: 02/27 22:24 Drug: Zofran (Ondansetron) 4 mg Route: IVP; Site: right forearm; rv 23:41 Follow up: Response: No adverse reaction rv 22:28 Drug: morphine 4 mg Route: IVP; Site: right forearm; rv 23:41 Follow up: Response: No adverse reaction; Marked relief of symptoms; Pain is decreased; rv RASS: Alert and Calm (0) 23:41 Drug: NS 0.9% 1000 ml Route: IV; Rate: 1 bolus; Site: right antecubital; rv 02/28 01:07 Follow up: IV Status: Completed infusion; IV Intake: 1000ml rv : Drug: Lopressor 25 mg Route: PO; rv 01:07 Follow up: Response: Cardiac rhythm is unchanged rv Disposition: 01:52 Co-signature as Attending Physician, Kris Chu MD. [facility] Disposition: 02/29/20 01:20 Discharged to Home. Impression: Cervical Radiculopathy, Chest Pain. - Condition is Stable. - Discharge Instructions: Nonspecific Chest Pain, [id number], Cervical Radiculopathy, [id number]. - Medication Reconciliation Form, Thank You Letter, Antibiotic Education, Prescription Opioid Use form. - Follow up: Private Physician; When: 1 - 2 days; Reason: Worsening of condition, Recheck today's complaints, Continuance of care, Re-evaluation by your physician. - Problem is an acute exacerbation. - Symptoms have improved. Signatures: Dispatcher [employer] EDMauricio Man RN RN rv Arcelia Riley ar5 Kris Chu MD MD 7 Corrections: (The following items were deleted from the chart) 02/27 22:37 22:34 D-DIMER+COAG.LAB.BRZ ordered. [facility] 02/28 01:28 01:20 02/29/2020 01:20 Discharged to Home. Impression: Cervical Radiculopathy; Chest rv Pain. Condition is Stable. Forms are Medication Reconciliation Form, Thank You Letter, Antibiotic Education, Prescription Opioid Use. Follow up: Private Physician; When: 1 - 2 days; Reason: Worsening of condition, Recheck today's complaints, Continuance of care, Re-evaluation by your physician. Problem is an acute exacerbation. Symptoms have improved. mh7
--- NOTE | 2020-02-29 06:43 | RAD REPORT ---
EXAM DESCRIPTION: RAD - Chest Single View - 02/28/2020 10:33 pm CLINICAL HISTORY: CHEST PAIN COMPARISON: July 2017 TECHNIQUE: AP portable chest image was obtained 02/28/2020 10:33 pm . FINDINGS: Lungs are clear. Lung markings match comparison. Heart and vasculature are normal. No kenna urable pleural effusion and no pneumothorax. No acute bony abnormality seen. No acute aortic findings suspected. IMPRESSION: No acute cardiopulmonary process.
--- NOTE | 2020-02-29 07:33 | EKG ---
Test Date: 2020-02-28 Test Time: 21:54:58 Public Health Educator: RUSS MEASUREMENT RESULTS: Intervals: Rate: 121 VA: 148 QRSD: 126 QT: 330 QTc: 468 Paulina: P: 66 VA: 148 QRS: -84 T: 69 INTERPRETIVE STATEMENTS: Sinus tachycardia Right bundle branch block Left anterior fascicular block Bifascicular block Possible Lateral infarct, age undetermined Abnormal ECG Compared to ECG 07/29/2017 18:29:53 Right bundle-branch block now present Left anterior fascicular block now present Bifascicular block now present Sinus rhythm no longer present Left-axis deviation no longer present Incomplete right bundle-branch block no longer present Myocardial infarct finding still present Electronically Signed On 02-29-20 07:32:26 CDT by Paulo Saldaña
--- NOTE | 2020-02-29 10:54 | RAD REPORT ---
EXAM DESCRIPTION: CT - C Spine Wo Con - 02/29/2020 6:48 am CLINICAL HISTORY: RADICULOPATHY TECHNIQUE: Contiguous axial CT images obtained through the cervical spine without IV contrast. Coron al and sagittal reformatted images also provided. This exam was performed according to our departmental dose-optimization program, which includes autom ated exposure control, adjustment of the mA and/or kV according to patient size and/or use of iterati ve reconstruction technique. COMPARISON: None available for comparison FINDINGS: Vertebra: No acute or remote fracture deformity. No subluxation. Loss of normal cervical l ordosis with mild gentle kyphosis centered at C5. Disc spaces: Multilevel degenerative changes most pronounced, moderate at C4-C5 and C5-C6 manifested by mild to moderate disc degeneration, endplate changes, prominent concentric disc osteophytes. Moder ate multilevel facet arthropathy. The central thecal sac is mildly narrowed at C4-C5 and C5-C6. Caitlin inal narrowing most pronounced, mild to moderate on the right at C5-C6. Prevertebral soft tissues: Unremarkable Lung apices: Clear IMPRESSION: Degenerative changes most pronounced at C4-C5 and C5-C6. The central thecal sac is mildl y narrowed at these levels. Mild to moderate right foraminal narrowing at C5-C6. Electronically signed by: Alec Velez MD 02/28/2020 11:30 PM CDT Due to temporary technical issues with the PACS/Fluency reporting system, reports are being signed by the in house radiologist without review as a courtesy to ensure prompt reporting. The interpreting r adiologist is fully responsible for the content of the report.
--- NOTE | 2020-02-29 10:56 | RAD REPORT ---
EXAM DESCRIPTION: CT - Chest For Pe Angio - 02/29/2020 6:47 am CLINICAL HISTORY: 37 years Female CHEST PAIN COMPARISON: None TECHNIQUE: Images were obtained in axial, sagittal, and coronal planes. Intravenous contrast was adm inistered. 3-D MIP imaging was performed. Image degradation related to patient body size. This exam was performed according to our departmental dose-optimization program which includes use of Automated Exposure Control, adjustment of the mA and/or kV according to patient size and/or use o f iterative reconstruction technique. FINDINGS: No filling defects pulmonary arteries bilaterally. No aortic dissection or dilatation. No pericardial or pleural effusions bilaterally. No lung parenchymal infiltrates or nodules seen. No acute osseous abnormality. IMPRESSION: No evidence for pulmonary embolus. No aortic dissection or dilatation. No infiltrates seen. Electronically signed by: Juliana Hodgson MD 02/28/2020 11:22 PM CDT Due to temporary technical issues with the PACS/Fluency reporting system, reports are being signed by the in house radiologist without review as a courtesy to ensure prompt reporting. The interpreting r adiologist is fully responsible for the content of the report.
== END 2020-02-29 01:28 | disposition home or self-care (01) ==
LOC: ER 21:39
DX: M54.12 Radiculopathy, cervical region (principal); R07.9 Chest pain, unspecified; I10 Essential (primary) hypertension; Z88.1 Allergy status to other antibiotic agents; Z88.3 Allergy status to other anti-infective agents
CPT/HCPCS: 96361; 93005; 85025; 80048; 36415; 83735; 85610; 85379; 80076; 84484; 83880; 72125; 71275; 71045; 96375; 96374; 99285; Q9967; J7030; J2405

== ENCOUNTER 2020-10-23 22:21 | Emergency (ER) | payer OTHER ==
--- OUTSIDE RECORDS SUMMARY | 2020-10-23 22:27 | XMS REPORT | Continuity of Care Document ---
:1970 Author Organization [facility] t Address [address] [place] [address] Care Team Providers Name Role Phone DADU Primary Care Physician Unavailable SYSTEM, NOT IN Attending Clinician Unavailable Brandyn Ruiz RN Attending Clinician Unavailable Michelle Stark RN Attending Clinician Tomeka PRICE Attending Clinician TOMEKA Attending Clinician Unavailable Jessie Pierce MD Attending Clinician Ashok COYLE Attending Clinician Nestor ELIZABETH MSN, J Attending Clinician Unavailable Kenrick JOHNSON Attending Clinician Eboni JOHNSON Attending Clinician EBONI Attending Clinician Unavailable Boy RN Attending Clinician Unavailable Faiza JOHNSON Attending Clinician Nolvia ELIZABETH, Juliano Attending Clinician Unavailable Pastor ELIZABETH G Attending Clinician Unavailable Wei ELIZABETH Attending Clinician Unavailable Duane Viera RN Attending Clinician Unavailable Juliana JOHNSON Attending Clinician JULIANA Attending Clinician Unavailable Christian ROSENBERG Attending Clinician Fly JOHNSON Attending Clinician Nan Mancini MD Attending Clinician Nan MANCINI Attending Clinician Unavailable Brandyn Vincent RN Attending Clinician Unavailable Ady ELIZABETH Attending Clinician Unavailable Paula JOHNSON Attending Clinician Mallory ELIZABETH, L Attending Clinician Unavailable Ari PRICE Attending Clinician Elizabeth Escobedo MD Attending Clinician Jose Austin MD Attending Clinician Angelo ELIZABETH MSN Attending Clinician Unavailable David BARRETO Attending Clinician Erika JOHNSON Attending Clinician Celia JOHNSON Attending Clinician Susan Elise MD Attending Clinician SUSAN ELISE Attending Clinician Unavailable Fanny ELIZABETH Attending Clinician Unavailable Gemini Montelongo MD. Attending Clinician Elizabeth ESCOBEDO Attending Clinician Unavailable Elizabeth Morgan MD Attending Clinician [phone] MADY Attending Clinician Unavailable Elizabeth Junior Attending Clinician Steve JOHNSON Attending Clinician Sahil GAMINO K Attending Clinician Simon ELIZABETH G Attending Clinician Unavailable Sarah JOHNSON Attending Clinician Unavailable SARAH Attending Clinician Unavailable ARI Attending Clinician Unavailable Ari ELIZABETH Attending Clinician Unavailable Damaris SHAIKH Attending Clinician Unavailable Diann PIG CASTER, A Attending Clinician Jonathan JOHNSON Attending Clinician Ed DRAPER Attending Clinician ED Attending Clinician Unavailable KENRICK Attending Clinician Unavailable Kenrick OCHOA Attending Clinician Unavailable Brandyn Chacon MD Attending Clinician Jacqueline Attending Clinician Nan Rocha MD Attending Clinician Damaris Rocha Attending Clinician Unavailable Caleb JOHNSON Attending Clinician LIZETH LR Attending Clinician Unavailable MAHNAZ Attending Clinician Unavailable Nan MANCINI Admitting Clinician Unavailable CELIA Admitting Clinician Unavailable Elizabeth ESCOBEDO Admitting Clinician Unavailable LIZETH LR Admitting Clinician Unavailable Payers Payer Name Policy Type Policy Effective Date Expiration Date Sour ce Number MEDICAREMEDICARE PART [id number] 2009 MD Wesley Ocampo AND 00:00:00 [id number] 2008- [phone] [id number] 2009 Kai juan alberto Damaris AND 00:00:00 [employer] [id number] 2008- [place] Condition Condition Condition Status Onset Resolution Last Treating Co mments Source Name Details Category Date Date Treatment Clinician Date Abdominal Abdominal Disease Active 2020-0 MD pain pain 2-11 Anderso 00:00: n 00 Vomiting Vomiting Disease Active 2020-0 MD 2-11 Anderso 00:00: n 00 Diarrhea Diarrhea Disease Active 2020-0 MD 2-11 Anderso 00:00: n 00 Epigastric Epigastric Disease Active 2020-0 M D pain pain 2-11 Anderso 00:00: n 00 Low back Low back Disease Active 2020-0 MD pain pain 2-11 Anderso 00:00: n 00 Hypertensi Hypertensi Disease Active 2020-0 M D on on 2-11 Anderso 00:00: n 00 Hyperlipid Hyperlipid Disease Active 2020-0 M D emia emia 2-11 Anderso 00:00: n 00 Blurring Blurring Disease Active 2020-0 MD of visual of visual 1-12 Juan M rso image image 00:00: n 00 Dizziness Dizziness Disease Active 2020-0 MD 1-12 Anderso 00:00: n 00 Hypocalcem Hypocalcem Disease Active 2020-0 M D ia ia 1-12 Anderso 00:00: n 00 Postproced Postproced Disease Active 2020-0 M D ural ural 1-01 Anderso hypoparath hypoparath 00:00: n yroidism yroidism 00 Postoperat Postoperat Disease Active 2020-0 M D gray gray 1-01 Anderso hypothyroi hypothyroi 00:00: n dism dism 00 Other Other Disease Active 2019- specified specified 2-17 Juan M rso counseling counseling 00:00: n 00 Preop Preop Disease Active [facility] cardiovasc cardiovasc 3-04 Assessmen Methodi ular exam ular exam 00:00: t & Plan: s t 00 Formattin g of this note might be different from the original. Will obtain echo and ecg to risk stratify Right Right Disease Active [facility] ventricula ventricula 7-16 Assessmen Methodi r outflow r outflow 00:00: t & Plan: s t tract tract 00 Formattin premature premature g of this ventricula ventricula note r r might be contractio contractio different ns (PVCs) ns (PVCs) from the original. Will resume flecainid e at 50 mg bid; she will see Dr Florence February 10 Pure Pure Disease Active [facility] hyperchole hyperchole 6- Assessmen Methodi sterolemia sterolemia 00:00: t & Plan: st 00 Formattin g of this note might be different from the original. On statin Palpitatio Palpitatio Disease [facility] Assessmen Methodi 00:00: t & Plan: st 00 Formattin g of this note might be different from the original. Dizziness noted; will change metoprolo l XL to 50 mg bid Chest pain Chest pain Disease Active 2016-07 [place] 1-07 Methodi 00:00: st 00 Precordial Precordial Disease Active 2016-07 Last [place] chest pain chest pain 0-12 Assessmen Methodi 00:00: t & Plan: st 00 Formattin g of this note might be different from the original. Will proceed with stress testing; she cannot ambulate far (on disabilit y) Shortness Shortness Disease Active 2016-07 Last Andres ston of breath of breath 0-12 Assessmen M ethodi 00:00: t & Plan: st 00 Formattin g of this note might be different from the original. Will obtain echo Essential Essential Disease Active 2016-07 Last Andres ston hypertensi hypertensi 0-12 Assessmen Methodi on, benign on, benign 00:00: t & Plan: st 00 Formattin g of this note might be different from the original. BPs good; on therapy Papillary Papillary Disease Active MD thyroid thyroid Anderso carcinoma carcinoma n Rheumatoid Rheumatoid Disease Active M D arthritis arthritis Juan M rso n Allergies, Adverse Reactions, Alerts Allergy Allergy Status Severity Reaction(s) Onset Inactive Treating Comm ents Source Name Type Date Date Clinician Clindamy Propensi Active Other (See Trouble H jennifer checo ty to Comments) 11-24 swallowin Meth jess adverse 00:00: g st reaction 00 s to drug Doxycycl Propensi Active Anaphylaxis 2016-07 [place] ine ty to 0-12 Methodi adverse 00:00: st reaction 00 s to drug Latex Propensi Active Other (See 2016-07 Blisters juan alberto ty to Comments) 0-12 and Methodi adverse 00:00: swelling st reaction 00 s to drug Social History Social Habit Start Date Stop Date Quantity Comments Source Sex Assigned At MD Acevedo on History of Cigarette Smoker Barney Hidalgo tobacco use Exposure to Not sure Egan Metho dist SARS-CoV-2 (event) Tobacco use and 2020-08-17 2020-08-17 Never used MD Acevedo on exposure 00:00:00 00:00:00 Alcohol intake 2020-08-17 2020-08-17 Ex-drinker MD Kavita garcia 00:00:00 00:00:00 (finding) Tobacco Comment 2018-01-18 2018-01-18 QUIT YEARS AGO AT juan alberto Hidalgo 00:00:00 00:00:00 AGE 16 Alcohol Comment 2018-01-18 2018-01-18 occasional Corley M ethodist 00:00:00 00:00:00 Smoking Status Start Date Stop Date Source Former smoker 2020-09-29 00:00:00 2020-09-29 00:00:00 Barney Hidalgo Never smoker MD Olson Medications Ordered Filled Start Stop Current Ordering Indication Dosage Frequency Signature Comments Components Source Medication Medication Date Date Medication? Clinician (SIG) Name Name levothyroxi 2021- Yes Postoperati 200ug Take 1 ne 10-15-13 ve tablet Anderso (Synthroid) 00:00: 04:59 hypothyroid (200 mcg) n 200 mcg 00 :00 ism by mouth tablet daily. calcium Yes Postprocedu 1200mg Take 2 MD carbonate 4-09 ral tablets Anderso (OS-HIRAM) 00:00: hypoparathy (1,200 mg) n 600 mg 00 roidism by mouth 3 calcium (three) (1,500 mg) times a tablet day. magnesium Yes Hypomagnese 1{tbl} Take 1 MD oxide-prote 4-01 zulema tablet by And erso in complex 00:00: mouth n (Mg-Plus-Pr 00 daily. otein Complex) 133 mg tablet cholecalcif 0 Yes 2000U QD Take 2,000 Corley ximena, 3-24 Units by Methodi vitamin D3, 10:29: mouth st (VITAMIN 50 daily. D3) 2,000 unit tablet metoprolol Yes 50mg Q.5D Take 1 [place] succinate 3-24 tablet (50 Meth jess XL 00:00: mg total) st (TOPROL-XL) 00 by mouth 2 50 mg 24 hr (two) tablet times a day. atorvastati Yes 20mg QD Take 1 [place] (LIPITOR) 3-24 tablet (20 Me thodi 20 mg 00:00: mg total) st tablet 00 by mouth daily. calcitrioL 0 Yes Q.5D 2 (two) [place] (ROCALTROL) 3-23 times a Metho di 0.5 MCG 00:00: day. st capsule 00 omeprazole Yes 20mg Take 20 mg M D (PriLOSEC) 3-04 by mouth Price so 20 mg 16:03: as needed. n capsule 03 cholecalcif Yes 2000U Take 2,000 MD ximena, 3-04 Units by Anderso vitamin D3, 15:59: mouth n (VITAMIN 00 daily. D3) 2,000 units tab tablet albuterol 0 Yes 2{puff} Inhale 2 M D (VENTOLIN 3-04 puffs by Curtis o HFA,PROAIR 15:59: mouth n HFA) 90 00 every 6 mcg/puff (six) inhaler hours as needed for wheezing or shortness of breath. calcium 2020-0 Yes 2.5 tablet [place] carbonate 2-22 in am , 3 Metho di oyster 00:00: tablet in st shell 00 noon, 2.5 (OS-HIRAM) tablet in 500 mg pm calcium (1,250 mg) tablet magnesium Yes 1{tbl} QD Take 1 [place] oxide-Mg AA 2-22 tablet by Met hodi chelate 00:00: mouth st (magnesium, 00 daily. amino acid chelate,) 133 mg tablet calcitriol Yes Papillary .5ug Take 1 MD (ROCALTROL) 08-27 thyroid capsule An derso 0.5 mcg 00:00: carcinoma (0.5 mcg) n capsule 00 by mouth twice daily. calcium 2020- No Papillary Takes 3 M D carbonate 08-27 thyroid tablets 3 A nderso (OS-HIRAM) 00:00: 00:00 carcinoma times n 500 mg 00 :00 daily. (1,250 mg calcium carbonate per tablet) tablet magnesium 2020- No Hypomagnese 1{tbl} Take 1 MD oxide-prote 08-27 zulema tablet by An derso in complex 00:00: 00:00 mouth n (Mg-Plus-Pr 00 :00 daily. otein Complex) 133 mg tablet acetaminoph Yes Papillary 500mg Take 1 MD en 08-24 thyroid tablet Anderso (TYLENOL) 00:00: carcinoma (500 mg) n 500 mg 00 by mouth tablet every 6 (six) hours as needed for mild pain or moderate pain. gabapentin 2020- No Lumbosacral 300mg Take 1 MD (Neurontin) 08-24- spondylosis capsule Anderso 300 mg 00:00: 00:00 without (300 mg) n capsule 00 :00 myelopathy by mouth 3 (three) times a day. lidocaine 2020- No Lumbosacral 1{patch Place 1 MD (Lidoderm) 08-24- spondylosis } patch on Anderso 5% (700 00:00: 00:00 without the skin n mg/patch) 00 :00 myelopathy daily. transdermal Remove & patch Discard patch within 12 hours or as directed by MD. Remove old patch(es) before replacing new patch(es). metoprolol Yes 100mg Take 100 MD succinate 2-12 mg by Anderso (TOPROL XL) 00:00: mouth n 100 mg 24 00 daily. hr tablet Take at 3PM. Hold for SBP <120 or HR <60 metoprolol 2020- No 100mg QD Take 100 [place] succinate 2-12 03-24 mg by Methodi XL 00:00: 00:[address] (TOPROL-XL) 00 :00 daily. 100 mg 24 hr tablet HYDROcodone 2020- No Low back 1{tbl} Take 1 MD -acetaminop 08-17- pain tablet by An derso hen (NORCO) 00:00: 00:00 mouth n 10 mg-325 00 :00 every 4 mg per (four) tablet hours as needed for severe pain. methylPREDN 2020- No Low back Take as MD ISolone 08-17- pain directed Anderso (Medrol, 00:00: 00:00 (Direction n Guilherme,) 4 mg 00 :00 s on tablet blister pack) magnesium 2020- No Hypomagnese 1{tbl} Take 1 MD oxide-prote 08-17 zulema tablet by An derso in complex 00:00: 00:00 mouth n (Mg-Plus-Pr 00 :00 daily. otein Complex) 133 mg tablet ondansetron Yes 4mg Take 4 mg [place] (ZOFRAN) 4 1-25 by mouth Metho di MG tablet 00:00: as needed. st 00 ondansetron Yes Nausea 4mg Take 1 MD (Zofran) 4 1-25 tablet (4 Juan M rso mg tablet 00:00: mg) by n 00 mouth 2 (two) times a day as needed for nausea. levothyroxi 2020- No Postoperati 200ug Take 1 MD ne 07-21 04-04 ve tablet Anderso (Synthroid) 00:00: 04:59 hypothyroid (200 mcg) n 200 mcg 00 :00 ism by mouth tablet daily for 77 doses. levothyroxi 2020- No 200ug QD Take 200 Corley ne 07-21 04-03 mcg by Methodi (SYNTHROID) 00:00: 23:[address] 200 mcg 00 :00 daily. tablet levothyroxi 2020- No Papillary 200ug Take 1 MD ne 07-21 02-11 thyroid tablet Anderso (SYNTHROID, 00:00: 00:00 carcinoma (200 mcg) n LEVOTHROID) 00 :00 by mouth 200 mcg daily for tablet 77 doses. calcitriol 2020- No Papillary .5ug Take 1 MD (ROCALTROL) 07-20 thyroid capsule A nderso 0.5 mcg 00:00: 00:00 carcinoma (0.5 mcg) n capsule 00 :00 by mouth 3 (three) times a day. calcium No Papillary 2500mg Take 5 MD carbonate 07-20 thyroid tablets And erso (OS-HIRAM) 00:00: 00:00 carcinoma (2,500 mg) n 500 mg 00 :00 by mouth 3 (1,250 mg (three) calcium times a carbonate day for per tablet) 247 doses. tablet magnesium Papillary 500mg Take 1 MD oxide 500 07-20 thyroid tablet Juan M rso mg tablet 00:00: 00:00 carcinoma (500 mg) n 00 :00 by mouth twice daily. guaiFENesin 2020- No Other 600mg Take 1 M D (MUCINEX) 07-20 specified tablet An derso 600 mg 12 00:00: 05:59 counseling (600 mg) n hr tablet 00 :00 by mouth every 12 (twelve) hours for 6 days. calcium 2020- No Postprocedu 2000mg Take 4 MD carbonate 07-12 ral tablets Curtis o (OS-HIRAM) 00:00: 00:00 hypoparathy (2,000 mg) n 500 mg 00 :00 roidism by mouth 3 (1,250 mg (three) calcium times a carbonate day for 90 per tablet) days. tablet amoxicillin Papillary 875mg Take 1 MD -clavulanat 07-12 thyroid tablet An derso e 00:00: 00:00 carcinoma (875 mg) n (AUGMENTIN) 00 :00 by mouth 875 mg-125 twice mg per daily for tablet 10 doses. amoxicillin 2020- No Hypocalcemi 500mg Take 10 mL MD -clavulanat 07-12 a (500 mg) And erso e 00:00: 00:00 by mouth n (Augmentin) 00 :00 twice 250 mg-62.5 daily for mg/5 mL 5 days. suspension levothyroxi 2020- No Postoperati 200ug Take 1 MD ne 07-07 ve tablet Anderso (SYNTHROID, 00:00: 00:00 hypothyroid (200 mcg) n LEVOTHROID) 00 :00 ism by mouth 200 mcg daily for tablet 90 days. acetaminoph 2020- No Papillary 1000mg Take 2 MD en 07-06 thyroid tablets Anderso (TYLENOL) 00:00: 00:00 carcinoma (1,000 mg) n 500 mg 00 :00 by mouth tablet every 6 (six) hours as needed for mild pain or moderate pain. acetaminoph 2020- No Postprocedu 1{tbl} Take 1 MD en-codeine 07-06 ral tablet by And erso (Tylenol-Co 00:00: 00:00 hypoparathy mouth n deine #3) 00 :00 roidism every 4 300 mg-30 (four) mg tablet hours as needed for mild pain or moderate pain. docusate No Papillary 100mg Take 1 MD sodium 07-06 thyroid capsule Curtis o (COLACE) 00:00: 00:00 carcinoma (100 mg) n 100 mg 00 :00 by mouth capsule twice daily. magnesium 2020- No Postprocedu 1000mg Take 2 MD oxide 500 07-06 ral tablets Curtis o mg tablet 00:00: 00:00 hypoparathy (1,000 mg) n 00 :00 roidism by mouth daily for 30 days. calcitriol 2020- No Postprocedu .5ug Take 2 MD (ROCALTROL) 07-06 ral capsules And erso 0.25 mcg 00:00: 00:00 hypoparathy (0.5 mcg) n capsule 00 :00 roidism by mouth daily for 60 days. calcium 2020- No Postprocedu 1000mg Take 2 MD carbonate 07-06 ral tablets Curtis o (OS-HIRAM) 00:00: 00:00 hypoparathy (1,000 mg) n 500 mg 00 :00 roidism by mouth 3 (1,250 mg (three) calcium times a carbonate day for 90 per tablet) days. tablet metFORMIN 2019-07 Yes Prediabetes 500mg Take 1 MD (Glucophage 2-22 tablet Curtis o ) 500 mg 00:00: (500 mg) n tablet 00 by mouth daily with breakfast. atorvastati 2019- No 20mg QD Take 20 mg Corley n (LIPITOR) 02-20 by mouth Met hodi 20 MG 11:34: 00:[address] tablet 47 :00 Default OP ins metoprolol No 25mg Q.5D Take 1 [place] tartrate 02-20 tablet (25 Meth jess (LOPRESSOR) 00:00: 00:00 mg total) st 25 mg 00 :00 by mouth 2 tablet (two) times a day. metoprolol No 25mg Take 25 mg MD tartrate 02-20 by mouth Curtis o (LOPRESSOR) 00:00: 00:00 every 8 n 25 mg 00 :00 (eight) tablet hours. Due to irregular heart rate. flecainide No TAKE 1 [place] (TAMBOCOR) 02-09 TABLET(50 Met hodi 50 MG 00:00: 00:00 MG) BY st tablet 00 :00 MOUTH TWICE DAILY atorvastati Yes 20mg Take 20 mg MD n (LIPITOR) 12-04 by mouth Juan M rso 20 mg 00:00: at n tablet 00 bedtime. atorvastati No 20mg QD Take 20 mg Corley n (LIPITOR) 12-04 by mouth Met hodi 20 mg 00:00: 00:[address] tablet 00 :00 cefdinir No 300mg Q.5D Take 1 [place] (OMNICEF) 11-24 capsule Method i 300 MG 00:00: 23:59 ([address] capsule 00 :00 total) by mouth 2 (two) times a day for 10 days. ibuprofen 2019- No 600mg Q6H Take 1 [place] (ADVIL) 600 11-24-27 tablet Metho di MG tablet 00:00: 23:59 ([address] 00 :00 total) by mouth every 6 (six) hours as needed for mild pain or moderate pain for up to 5 days. traMADoL No acute pain 50mg Q6H Take 1 [place] (ULTRAM) 50 5-22 05-25 tablet (50 M ethodi mg tablet 00:00: 23:59 mg total) st 00 :00 by mouth every 6 (six) hours as needed for moderate pain for up to 3 days .acute pain. predniSONE 2018-07- No TK 2 TS PO Corley (DELTASONE) 08-01 FOR 5 Method i 10 mg 00:00: 00:[address] tablet 00 :00 TK 1 T PO QD FOR 5 DAYS. metoprolol No 25mg Q.5D Take 1 [place] tartrate 02-02-25 tablet (25 Meth jess (LOPRESSOR) 00:00: 23:59 mg total) st 25 mg 00 :00 by mouth 2 tablet (two) times a day for 360 days. orphenadrin No 100mg Q.5D Take 1 [place] (NORFLEX) 07-20 tablet Metho di 100 mg 12 00:00: 00:00 ([address] hr tablet 00 :00 total) by mouth 2 (two) times a day as needed for muscle spasms for up to 30 doses. Immunizations Ordered Immunization Filled Immunization Date Status Commen ts Source Name Name [employer] COVID-19 MRNA 2020-09-12 Completed [place] VACCINATION 00:00:00 [employer] SARS-CoV-2 2020-09-11 Completed MD Juan M salazar Vaccination 00:00:00 Vital Signs Vital Name Observation Time Observation Value Comments Source WEIGHT 2020-09-06 09:37:45 130.2 kg WEIGHT 2020-09-06 09:37:45 130.2 kg WEIGHT 2020-09-05 07:11:03 131.4 kg WEIGHT 2020-09-05 07:11:03 131.4 kg WEIGHT 2020-09-04 07:50:16 130.9 kg WEIGHT 2020-09-04 07:50:16 130.9 kg HEIGHT 2020-08-16 19:44:00 170 cm WEIGHT 2020-08-16 19:44:00 132.7 kg HEIGHT 2020-08-16 19:44:00 170 cm WEIGHT 2020-08-16 19:44:00 132.7 kg WEIGHT 2020-07-20 05:14:58 131.4 kg HEIGHT 2020-07-17 23:08:55 170 cm WEIGHT 2020-07-20 05:14:58 131.4 kg HEIGHT 2020-07-17 23:08:55 170 cm WEIGHT 2020-07-12 03:35:00 131.6 kg HEIGHT 2020-07-07 20:23:00 168 cm WEIGHT 2020-07-12 03:35:00 131.6 kg HEIGHT 2020-07-07 20:23:00 168 cm HEIGHT 2020-07-05 12:08:00 168 cm WEIGHT 2020-07-05 12:08:00 132.4 kg HEIGHT 2020-07-05 12:08:00 168 cm WEIGHT 2020-07-05 12:08:00 132.4 kg WEIGHT 2020-06-26 08:05:00 129.7 kg WEIGHT 2020-06-26 08:05:00 129.7 kg WEIGHT 2020-06-22 09:32:10 129.9 kg WEIGHT 2020-06-22 09:32:10 129.9 kg HEIGHT 2020-06-21 10:37:46 168 cm WEIGHT 2020-06-21 10:37:46 129.6 kg HEIGHT 2020-06-21 10:37:46 168 cm WEIGHT 2020-06-21 10:37:46 129.6 kg Systolic blood 2020-09-30 01:01:00 144 mm[Hg] Nitin n Buddhism pressure Diastolic blood 2020-09-30 01:01:00 80 mm[Hg] Sue on Buddhism pressure Heart rate 2020-09-29 23:06:54 98 /min Corley [facility] Body temperature 2020-09-29 23:06:54 36.89 Joanne [place] [facility] Respiratory rate 2020-09-29 23:06:54 19 /min Shashi ton [facility] Oxygen saturation in 2020-09-29 23:06:54 94 /min Corley [facility] Arterial blood by Pulse oximetry Body height 2020-09-29 23:05:00 170.2 cm Corley Buddhism Body weight 2020-09-29 23:05:00 129.729 kg Corley Buddhism BMI 2020-09-29 23:05:00 44.79 kg/m2 Corley Buddhism Systolic blood 2020-09-06 15:37:45 105 mm[Hg] And erson pressure Diastolic blood 2020-09-06 15:37:45 64 mm[Hg] MD Hannah zamudio pressure Heart rate 2020-09-06 15:37:45 75 /min MD Price casey Body temperature 2020-09-06 15:37:45 36.5 Joanne MD Damaris winters Respiratory rate 2020-09-06 15:37:45 16 /min MD Damaris winters Body weight 2020-09-06 15:37:45 130.2 kg MD Price casey BMI 2020-09-06 15:37:45 45.05 kg/m2 MD Price casey Oxygen saturation in 2020-09-06 15:37:45 96 /min MD Olson Arterial blood by Pulse oximetry Body height 2020-08-17 01:44:00 170 cm MD Price casey Procedures Procedure Date / Time Performing Clinician Source Performed CALCIUM LEVEL TOTAL 2020-10-11 15:21:00 Stefan Eckert MD MAGNESIUM LEVEL 2020-10-11 15:21:00 Stefan Eckert MD PHOSPHORUS LEVEL 2020-10-11 15:21:00 Stefan Eckert MD ALBUMIN LEVEL 2020-10-11 15:21:00 Stefan Eckert MD US THYROID 2020-10-09 12:53:[address] SOFT TISSUE NECK W 2020-09-29 23:53:47 [place] CONTRAST HC COMPLETE BLD COUNT 2020-09-29 23:21:00 [place] W/AUTO DIFF COMPREHENSIVE METABOLIC 2020-09-29 23:21:00 [place] PANEL ESTIMATED GFR 2020-09-29 23:21:00 [place] odist CALCIUM LEVEL TOTAL 2020-09-12 15:41:20 Stefan Eckert MD MAGNESIUM LEVEL 2020-09-12 15:41:20 Stefan Eckert MD PHOSPHORUS LEVEL 2020-09-12 15:41:20 Stefan Eckert MD ALBUMIN LEVEL 2020-09-12 15:41:20 Stefan Eckert MD PTH INTACT 2020-09-12 15:41:20 Stefan Eckert MD NM THYROID WB DIAGNOSTIC 2020-09-06 14:35:53 TomekaStefan goddard MD THYROID STIMULATING HORMONE 2020-09-06 12:39:00 Stefan Eckert MD THYROGLOBULIN ANTIBODY 2020-09-06 12:39:00 Stefan Eckert MDson CALCIUM LEVEL TOTAL 2020-09-06 12:39:00 Stefan Eckert MD Price son MAGNESIUM LEVEL 2020-09-06 12:39:00 TomekaStefan goddard MD PHOSPHORUS LEVEL 2020-09-06 12:39:00 TomekaStefan goddard MD ALBUMIN LEVEL 2020-09-06 12:39:00 Stefan Eckert MD BHCG 2020-09-04 12:12:00 OtmekaStefan goddard MD THYROID STIMULATING HORMONE 2020-09-04 12:12:00 Stefan Eckert MD FREE THYROXINE 2020-09-04 12:12:00 TomekaStefan goddard MD THYROGLOBULIN ANTIBODY 2020-09-04 12:12:00 TomekaStefan goddard MDson CALCIUM LEVEL TOTAL 2020-08-31 16:59:00 Stefan Eckert MD son MAGNESIUM LEVEL 2020-08-31 16:59:00 Stefan Eckert MD PHOSPHORUS LEVEL 2020-08-31 16:59:00 Stefan Eckert MD PTH INTACT 2020-08-31 16:59:00 Stefan Eckert MD ALBUMIN LEVEL 2020-08-31 16:59:00 Stefan Eckert MD LACTIC ACID, VENOUS 2020-08-17 13:03:00 Maria Eugenia Duran MD Price son MAGNESIUM LEVEL 2020-08-17 09:50:00 Odell Higuera MD PHOSPHORUS LEVEL 2020-08-17 09:50:00 Odell Higuera MD COMPLETE BLOOD COUNT W/ 2020-08-17 09:50:00 Odell Higuera MD DIFFERENTIAL [place] BASIC METABOLIC PANEL, 2020-08-17 09:50:00 Odell Higuera MD CALCIUM TOTAL [place] GLUCOSE LEVEL 2020-08-17 09:50:00 Odell Higuera MD BLOOD UREA NITROGEN 2020-08-17 09:50:00 Odell Higuera MD And oscar Funes ELECTROLYTE PANEL 2020-08-17 09:50:00 Odell Higuera MD Pricemilana Funes SERUM CREATININE 2020-08-17 09:50:00 Odell Higuera MD Curtis on [place] .GLOMERULAR FILTRATION RATE 2020-08-17 09:50:00 Reyes Higuera MD CALCIUM LEVEL TOTAL 2020-08-17 09:50:00 Odell Higuera MD And oscar Funes Results CBC 2020-08-17 09:50:00 Odell Higuera MD MANUAL DIFFERENTIAL 2020-08-17 09:50:00 Odell Higuera MD And oscar Funes MRI CERVICAL THORACIC 2020-08-17 09:26:27 Drew Mancini LUMBAR SPINE W WO CONTRAST STOOL CULTURE 2020-08-17 00:05:00 Sharmin Moura MD C DIFFICILE DNA ASSAY 2020-08-17 00:05:00 Sharmin Moura MD C DIFFICILE DNA ASSAY PATH 2020-08-17 00:05:00 Vahid Bill REVIEW BLOODCULTURE 2020-08-16 23:01:[address] ABDOMEN PELVIS WO 2020-08-16 22:22:08 Sharmin Moura MD And oscar DELGADO POC VENOUS BLOOD GAS + 2020-08-16 22:18:00 Vahid Bill MD LACTATE URINE CULTURE 2020-08-16 22:17:00 Sharmin Moura MD URINALYSIS WITH MICROSCOPIC 2020-08-16 22:17:00 Sharmin Moura MD IF INDICATED URINALYSIS MICROSCOPIC 2020-08-16 22:17:00 Vahid Bill MD COMPLETE BLOOD COUNT W/ 2020-08-16 22:13:00 Sharmin Moura MD DIFFERENTIAL COMPREHENSIVE METABOLIC 2020-08-16 22:13:00 Sharmin Moura MD PANEL MAGNESIUM LEVEL 2020-08-16 22:13:00 Sharmin Moura MD PHOSPHORUS LEVEL 2020-08-16 22:13:00 Sharmin Moura MD LACTATE DEHYDROGENASE 2020-08-16 22:13:00 Sharmin Moura MD AMYLASE LEVEL 2020-08-16 22:13:00 Sharmin Moura MD LIPASE LEVEL 2020-08-16 22:13:00 Sharmin Moura MD LACTIC ACID, VENOUS 2020-08-16 22:13:00 Sharmin Moura MD rscedrick Results CBC 2020-08-16 22:13:00 Vahid Bill MD MANUAL DIFFERENTIAL 2020-08-16 22:13:00 Vahid Bill MD GLUCOSE LEVEL 2020-08-16 22:13:00 Vahid Bill MD BLOOD UREA NITROGEN 2020-08-16 22:13:00 Vahid Bill MD ELECTROLYTE PANEL 2020-08-16 22:13:00 Vahid Bill MD SERUM CREATININE 2020-08-16 22:13:00 Vahid Bill MD .GLOMERULAR FILTRATION RATE 2020-08-16 22:13:00 Vahid Bill MD CALCIUM LEVEL TOTAL 2020-08-16 22:13:00 Vahid Bill MD ALBUMIN LEVEL 2020-08-16 22:13:00 Vahid Bill MD ALKALINE PHOSPHATASE 2020-08-16 22:13:00 Vahid Bill MD rson ALANINE AMINOTRANSFERASE 2020-08-16 22:13:00 Vahid Bill MD ASPARTATE AMINOTRANSFERASE 2020-08-16 22:13:00 Vahid Bill TOTAL PROTEIN 2020-08-16 22:13:00 Vahid Bill MD FRACTIONATED BILIRUBIN 2020-08-16 22:13:00 Vahid Bill MD INFLUENZA A/B + COVID-19 2020-08-16 21:37:00 Vahid Bill MD ASYMPTOMATIC-L CALCIUM LEVEL TOTAL 2020-08-09 15:53:00 Stefan Eckert MD Price son MAGNESIUM LEVEL 2020-08-09 15:53:00 Stefan Eckert MD PHOSPHORUS LEVEL 2020-08-09 15:53:00 Stefan Eckert MD ALBUMIN LEVEL 2020-08-09 15:53:00 Stefan Eckert MD PTH INTACT 2020-08-09 15:53:00 Stefan Eckert MD CALCIUM LEVEL TOTAL 2020-08-02 17:13:00 Stefan Eckert MD Price son MAGNESIUM LEVEL 2020-08-02 17:13:00 Stefan Eckert MD PHOSPHORUS LEVEL 2020-08-02 17:13:00 Stefan Eckert MD ALBUMIN LEVEL 2020-08-02 17:13:00 Stefan Eckert MD PTH INTACT 2020-08-02 17:13:00 Stefan Eckert MD NOTIFY PHYSICIAN (SPECIFY) 2020-08-02 00:00:00 Provider, Sudha Hidalgo CALCIUM LEVEL TOTAL 2020-07-26 16:13:00 Chloé Austin MD And erson MAGNESIUM LEVEL 2020-07-26 16:13:00 Chloé Austin MD Anderso n PHOSPHORUS LEVEL 2020-07-26 16:13:00 Chloé Austin MD Curtis on PTH INTACT 2020-07-26 16:13:00 Chloé Austin MD Anderso n ALBUMIN LEVEL 2020-07-26 16:13:00 Chloé Austin MD Anderso n PTH INTACT 2020-07-22 16:56:00 Chloé Austin MD Anderso n CALCIUM LEVEL TOTAL 2020-07-22 16:56:00 Chloé Austin MD And erson ALBUMIN LEVEL 2020-07-22 16:56:00 Chloé Austin MD Anderso n MAGNESIUM LEVEL 2020-07-22 16:56:00 Chloé Austin MD PHOSPHORUS LEVEL 2020-07-22 16:56:00 Chloé Austin MD on ALBUMIN LEVEL 2020-07-20 08:33:00 Chris Peña MD MAGNESIUM LEVEL 2020-07-20 08:33:00 Marisa Higuera MD PHOSPHORUS LEVEL 2020-07-20 08:33:00 Marisa Higuera MD CALCIUM LEVEL TOTAL 2020-07-20 08:33:00 Chloé Austin MD And erson CALCIUM LEVEL TOTAL 2020-07-19 23:50:00 Chloé Austin MD And erson CALCIUM LEVEL TOTAL 2020-07-19 17:28:00 Chloé Austin MD And erson MAGNESIUM LEVEL 2020-07-19 17:28:00 Chloé Austin MD And[place] n PHOSPHORUS LEVEL 2020-07-19 17:28:00 Chloé Austin MD on GENERAL LABORATORY ADD ON 2020-07-19 12:36:00 Chloé Austin MD TEST COMPLETE BLOOD COUNT W/ 2020-07-19 08:47:00 Chris Peña MD nderson DIFFERENTIAL BASIC METABOLIC PANEL, 2020-07-19 08:47:00 Chris Peña MD derson CALCIUM IONIZED ALBUMIN LEVEL 2020-07-19 08:47:00 Chris Peña MD MAGNESIUM LEVEL 2020-07-19 08:47:00 Marisa Higuera MD PHOSPHORUS LEVEL 2020-07-19 08:47:00 Marisa Higuera MD PTH INTACT 2020-07-19 08:47:00 Chloé Austin MD Andzach n Results CBC 2020-07-19 08:47:00 Yuli Bradshaw MD MANUAL DIFFERENTIAL 2020-07-19 08:47:00 Yuli Bradshaw MD son GLUCOSE LEVEL 2020-07-19 08:47:00 Yuli Bradshaw MD BLOOD UREA NITROGEN 2020-07-19 08:47:00 Yuli Bradshaw MD son ELECTROLYTE PANEL 2020-07-19 08:47:00 Yuli Bradshaw MD SERUM CREATININE 2020-07-19 08:47:00 Yuli Bradshaw MD .GLOMERULAR FILTRATION RATE 2020-07-19 08:47:00 Yuli Bradshaw MD CALCIUM IONIZED, VENOUS 2020-07-19 08:47:00 Yuli Bradshaw MDrson CALCIUM LEVEL TOTAL 2020-07-19 08:47:00 Yuli Bradshaw MD Price son MRI BRAIN W WO CONTRAST 2020-07-19 05:13:00 Gordon Faye MDrson POC GLUCOSE SCREEN 2020-07-19 00:04:00 Gordon Faye MD Curtis on CALCIUM LEVEL TOTAL 2020-07-18 22:29:00 Chloé Austin MD And erson MAGNESIUM LEVEL 2020-07-18 22:29:00 Chloé Austin MD [place] n PHOSPHORUS LEVEL 2020-07-18 22:29:00 Chloé Austin MD Curtis on CALCIUM LEVEL TOTAL 2020-07-18 13:55:00 Marisa Higuera MD Price son CALCIUM IONIZED, VENOUS 2020-07-18 13:55:00 Marisa Higuera MD HEPATIC FUNCTION PANEL 2020-07-18 13:55:00 Marisa Higuera MD MAGNESIUM LEVEL 2020-07-18 13:55:00 Marisa Higuera MD PHOSPHORUS LEVEL 2020-07-18 13:55:00 Marisa Higuera MD ALBUMIN LEVEL 2020-07-18 13:55:00 Marisa Higuera MD ALKALINE PHOSPHATASE 2020-07-18 13:55:00 Marisa Higuera MD Juan M rson ALANINE AMINOTRANSFERASE 2020-07-18 13:55:00 Marisa Higuera MD ASPARTATE AMINOTRANSFERASE 2020-07-18 13:55:00 Marisa Higuera TOTAL PROTEIN 2020-07-18 13:55:00 Marisa Higuera MD FRACTIONATED BILIRUBIN 2020-07-18 13:55:00 Marisa Higuera MDson POC GLUCOSE SCREEN 2020-07-18 13:53:00 Gordon Faye MD on COMPLETE BLOOD COUNT W/ 2020-07-18 10:12:00 Chris Peña MD DIFFERENTIAL BASIC METABOLIC PANEL, 2020-07-18 10:12:00 Chris Peña MD derson CALCIUM IONIZED ALBUMIN LEVEL 2020-07-18 10:12:00 Chris Peña MD Results CBC 2020-07-18 10:12:00 Yuli Bradshaw MD MANUAL DIFFERENTIAL 2020-07-18 10:12:00 Yuli Bradshaw MD GLUCOSE LEVEL 2020-07-18 10:12:00 Yuli Bradshaw MD BLOOD UREA NITROGEN 2020-07-18 10:12:00 Yuli Bradshaw MD ELECTROLYTE PANEL 2020-07-18 10:12:00 Yuli Bradshaw MD SERUM CREATININE 2020-07-18 10:12:00 Yuli Bradshaw MD .GLOMERULAR FILTRATION RATE 2020-07-18 10:12:00 Yuli Bradshaw MD CALCIUM IONIZED, VENOUS 2020-07-18 10:12:00 Yuli Bradshaw MD URINE CULTURE 2020-07-17 22:11:00 Sharmin Moura MD URINALYSIS WITH MICROSCOPIC 2020-07-17 22:11:00 Sharmin Moura MD IF INDICATED URINALYSIS MICROSCOPIC 2020-07-17 22:11:00 Salas James MD INFLUENZA A/B + COVID-19 2020-07-17 21:52:00 Salas James ASYMPTOMATIC-L COMPLETE BLOOD COUNT W/ 2020-07-17 21:42:00 Sharmin Moura MD DIFFERENTIAL COMPREHENSIVE METABOLIC 2020-07-17 21:42:00 Sharmin Moura MD PANEL MAGNESIUM LEVEL 2020-07-17 21:42:00 Sharmin Moura MD PHOSPHORUS LEVEL 2020-07-17 21:42:00 Sharmin Moura MD PROTHROMBIN TIME 2020-07-17 21:42:00 Sharmin Moura MD PARTIAL THROMBOPLASTIN TIME 2020-07-17 21:42:00 Sharmin Moura MD CARDIAC PANEL 2020-07-17 21:42:00 Sharmin Moura MD Results CBC 2020-07-17 21:42:00 Salas James MD MANUAL DIFFERENTIAL 2020-07-17 21:42:00 Salas James MD And erson GLUCOSE LEVEL 2020-07-17 21:42:00 Salas James MD Andzach garcia BLOOD UREA NITROGEN 2020-07-17 21:42:00 Salas James MD And erson ELECTROLYTE PANEL 2020-07-17 21:42:00 Salas James MD Pricemilana casey SERUM CREATININE 2020-07-17 21:42:00 Salas James MD Curtis on .GLOMERULAR FILTRATION RATE 2020-07-17 21:42:00 Georges James MD CALCIUM LEVEL TOTAL 2020-07-17 21:42:00 Salas James MD And erson ALBUMIN LEVEL 2020-07-17 21:42:00 Salas James MD ALKALINE PHOSPHATASE 2020-07-17 21:42:00 Salas James MD ALANINE AMINOTRANSFERASE 2020-07-17 21:42:00 Salas James ASPARTATE AMINOTRANSFERASE 2020-07-17 21:42:00 Salas James MD TOTAL PROTEIN 2020-07-17 21:42:00 Salas James MD FRACTIONATED BILIRUBIN 2020-07-17 21:42:[address] HEAD WO CONTRAST 2020-07-17 21:27:21 Sharmin Moura MD Juan M rson EKG, 12-LEAD (PORTABLE) 2020-07-17 00:00:00 Sharmin Moura MD CALCIUM LEVEL TOTAL 2020-07-16 15:45:00 MD Damaris Morganrscedrick Joyce E MAGNESIUM LEVEL 2020-07-16 15:45:00 Howie Salgado MD Price son Joyce E PHOSPHORUS LEVEL 2020-07-16 15:45:00 MD Juan M Morganon Joyce E ALBUMIN LEVEL 2020-07-16 15:45:00 Howie Salgado MD Price son Joyce E PTH INTACT 2020-07-16 15:45:00 Howie Salgado MD Price son Joyce E CALCIUM LEVEL TOTAL 2020-07-13 16:53:49 MD Damaris Morgan Joyce E MAGNESIUM LEVEL 2020-07-13 16:53:49 Howie Salgado MD Price jacinto Joyce E PHOSPHORUS LEVEL 2020-07-13 16:53:49 MD Juan M Morgan Joyce E ALBUMIN LEVEL 2020-07-13 16:53:49 Howie Salgado MD Price jacinto Joyce E ALBUMIN LEVEL 2020-07-12 09:10:00 Galdino Nixon MD MAGNESIUM LEVEL 2020-07-12 09:10:00 Filiberto Olson MD PHOSPHORUS LEVEL 2020-07-12 09:10:00 Filiberto Olson MD PTH INTACT 2020-07-12 09:10:00 Filiberto Olson MD CALCIUM LEVEL TOTAL 2020-07-12 09:10:00 [facility] 2020-07-11 21:29:00 Galdino Nixon MD Price son CALCIUM LEVEL TOTAL 2020-07-11 13:58:00 [facility] 2020-07-11 10:52:00 Galdino Nixon MD MAGNESIUM LEVEL 2020-07-11 10:52:00 Filiberto Olson MD PHOSPHORUS LEVEL 2020-07-11 10:52:00 Filiberto Olson MD PTH INTACT 2020-07-11 10:52:00 Filiberto Olson MD CALCIUM LEVEL TOTAL 2020-07-11 10:52:00 Souleymane Escobedo MD Price son CALCIUM LEVEL TOTAL 2020-07-10 19:58:00 Edward Stephens MD Price [facility] COMPLETE BLOOD COUNT W/ 2020-07-10 11:07:00 Galdino Nixon MD DIFFERENTIAL PTH INTACT 2020-07-10 11:07:00 Filiberto Olson MD Results CBC 2020-07-10 11:07:00 Souleymane Escobedo MD MANUAL DIFFERENTIAL 2020-07-10 11:07:00 [facility] 2020-07-10 10:38:00 Galdino Nixon MD BASIC METABOLIC PANEL, 2020-07-10 10:38:00 Galdino Nixon MDson CALCIUM TOTAL MAGNESIUM LEVEL 2020-07-10 10:38:00 Filiberto Olson MD PHOSPHORUS LEVEL 2020-07-10 10:38:00 Filiberto Olson MD GLUCOSE LEVEL 2020-07-10 10:38:00 Souleymane Escobedo MD BLOOD UREA NITROGEN 2020-07-10 10:38:00 Souleymane Escobedo MD [facility] ELECTROLYTE PANEL 2020-07-10 10:38:00 Souleymane Escobedo MD SERUM CREATININE 2020-07-10 10:38:00 Souleymane Escobedo MD .GLOMERULAR FILTRATION RATE 2020-07-10 10:38:00 Souleymane Escobedo MD CALCIUM LEVEL TOTAL 2020-07-10 10:38:00 [facility] 2020-07-09 21:33:00 MD Damaris Morgan COMPLETE BLOOD COUNT W/ 2020-07-09 10:19:00 Galdino Nixon MD DIFFERENTIAL ALBUMIN LEVEL 2020-07-09 10:19:00 Galdino Nixon MD BASIC METABOLIC PANEL, 2020-07-09 10:19:00 Galdino Nixon MD CALCIUM TOTAL MAGNESIUM LEVEL 2020-07-09 10:19:00 Filiberto Olson MD PHOSPHORUS LEVEL 2020-07-09 10:19:00 Filiberto Olson MD PTH INTACT 2020-07-09 10:19:00 Filiberto Olson MD Results CBC 2020-07-09 10:19:00 Souleymane Escobedo MD MANUAL DIFFERENTIAL 2020-07-09 10:19:00 [facility] 2020-07-09 10:19:00 Souleymane Escobedo MD BLOOD UREA NITROGEN 2020-07-09 10:19:00 Souleymane Escobedo MD [facility] ELECTROLYTE PANEL 2020-07-09 10:19:00 Souleymane Ecsobedo MD SERUM CREATININE 2020-07-09 10:19:00 Souleymane Escobedo MD .GLOMERULAR FILTRATION RATE 2020-07-09 10:19:00 Souleymane Escobedo MD CALCIUM LEVEL TOTAL 2020-07-09 10:19:00 Souleymane Escobedo MD [facility] CALCIUM LEVEL TOTAL 2020-07-09 02:07:00 Filiberto Olson MD [facility] CALCIUM LEVEL TOTAL 2020-07-08 19:00:00 Filiberto Olson MD [facility] COMPLETE BLOOD COUNT W/ 2020-07-08 09:35:00 Galdino Nixon MD nderson DIFFERENTIAL ALBUMIN LEVEL 2020-07-08 09:35:00 Galdino Nixon MD BASIC METABOLIC PANEL, 2020-07-08 09:35:00 Galdino Nixon MD derson CALCIUM TOTAL MAGNESIUM LEVEL 2020-07-08 09:35:00 Filiberto Olson MD PHOSPHORUS LEVEL 2020-07-08 09:35:00 Filiberto Olson MD PTH INTACT 2020-07-08 09:35:00 Filiberto Olson MD Results CBC 2020-07-08 09:35:00 Flores Kulkarni MD MANUAL DIFFERENTIAL 2020-07-08 09:35:00 Flores Kulkarni MD [facility] GLUCOSE LEVEL 2020-07-08 09:35:00 Flores Kulkarni MD BLOOD UREA NITROGEN 2020-07-08 09:35:00 Flores Kulkarni MD [facility] ELECTROLYTE PANEL 2020-07-08 09:35:00 Flores Kulkarni MD SERUM CREATININE 2020-07-08 09:35:00 Flores Kulkarni MD .GLOMERULAR FILTRATION RATE 2020-07-08 09:35:00 Flores Kulkarni MD CALCIUM LEVEL TOTAL 2020-07-08 09:35:00 Flores Kulkarni MD [facility] CALCIUM LEVEL TOTAL 2020-07-08 02:28:00 Filiberto Olson MD PHOSPHORUS LEVEL 2020-07-07 23:29:00 Galdino Nixon MD MAGNESIUM LEVEL 2020-07-07 23:29:00 Galdino Nixon MD PTH INTACT 2020-07-07 19:04:00 Salas James MD CALCIUM LEVEL TOTAL 2020-07-07 19:04:00 Filiberto Olson MD Price son INFLUENZA A/B + COVID-19 2020-07-07 17:08:00 Dane Montelongo MD ASYMPTOMATIC-L COMPLETE BLOOD COUNT W/ 2020-07-07 14:26:00 Salas James MD DIFFERENTIAL COMPREHENSIVE METABOLIC 2020-07-07 14:26:00 Salas James MD PANEL PHOSPHORUS LEVEL 2020-07-07 14:26:00 Salas James MD on MAGNESIUM LEVEL 2020-07-07 14:26:00 Salas James MD PROTHROMBIN TIME 2020-07-07 14:26:00 Salas James MD on PARTIAL THROMBOPLASTIN TIME 2020-07-07 14:26:00 Georges James MD CALCIUM IONIZED, VENOUS 2020-07-07 14:26:00 Salas James MD Results CBC 2020-07-07 14:26:00 Salas James MD MANUAL DIFFERENTIAL 2020-07-07 14:26:00 Salas James MD And kylahon GLUCOSE LEVEL 2020-07-07 14:26:00 Salas James MD BLOOD UREA NITROGEN 2020-07-07 14:26:00 Salas James MD And kylahon ELECTROLYTE PANEL 2020-07-07 14:26:00 Salas James MD SERUM CREATININE 2020-07-07 14:26:00 Salas James MD on .GLOMERULAR FILTRATION RATE 2020-07-07 14:26:00 Georges James MD CALCIUM LEVEL TOTAL 2020-07-07 14:26:00 Salas James MD And erson ALBUMIN LEVEL 2020-07-07 14:26:00 Salas James MD ALKALINE PHOSPHATASE 2020-07-07 14:26:00 Salas James MD ALANINE AMINOTRANSFERASE 2020-07-07 14:26:00 Salas James ASPARTATE AMINOTRANSFERASE 2020-07-07 14:26:00 Salas James MD TOTAL PROTEIN 2020-07-07 14:26:00 Salas James MD FRACTIONATED BILIRUBIN 2020-07-07 14:26:00 Salas James MD EKG, 12-LEAD (PORTABLE) 2020-07-07 00:00:00 Salas James MD MAGNESIUM LEVEL 2020-07-06 08:41:00 DiersingChelsea MD CALCIUM LEVEL TOTAL 2020-07-06 08:41:00 DiersingChelsea MD son PHOSPHORUS LEVEL 2020-07-06 08:41:00 DiersingChelsea MD PTH INTACT 2020-07-06 08:41:00 DiersingChelsea MD ALBUMIN LEVEL 2020-07-06 08:41:00 Diersing, Chelsea Olson CALCIUM LEVEL TOTAL 2020-07-05 23:23:00 Filiberto Olson MD son CALCIUM LEVEL TOTAL 2020-07-05 18:37:00 Filiberto Olson MD Price son MAGNESIUM LEVEL 2020-07-05 08:26:00 DiersingChelsea MD CALCIUM LEVEL TOTAL 2020-07-05 08:26:00 Diersing, Chelsea Thrasher son PHOSPHORUS LEVEL 2020-07-05 08:26:00 DiersingChelsea MD PTH INTACT 2020-07-05 08:26:00 DiersingChelsea MD ALBUMIN LEVEL 2020-07-05 08:26:00 DiersingChelsea MD POC GLUCOSE SCREEN 2020-07-05 02:01:00 Souleymane Escobedo MD on ALBUMIN LEVEL 2020-07-05 01:14:00 DiersingChelsea MD PTH INTACT 2020-07-05 01:14:00 DiersingChelsea MD CALCIUM LEVEL TOTAL 2020-07-05 01:14:00 Diersing, Chelsea JOHNSON Price son MAGNESIUM LEVEL 2020-07-05 01:14:00 Chelsea Pedraza MD PHOSPHORUS LEVEL 2020-07-05 01:14:00 Chelsea Pedraza MD PATHOLOGY SURGICAL 2020-07-04 21:46:19 Souleymane Escobedo MD on INTERPRETATION TOTAL OR COMPLETE 2020-07-04 19:57:00 Souleymane Escobedo MD Andzach n THYROIDECTOMY POC GLUCOSE SCREEN 2020-07-04 19:21:00 Souleymane Escobedo MD on COVID-19 (SARS-COV-2) 2020-07-02 13:05:00 Marnie Knox MD And oscar PCR-ASYMPTOMATIC MC XR SPINE CERVICAL COMPLETE 2020-06-26 17:21:02 Arabella Smith 4 OR 5 VW SERUM CREATININE 2020-06-26 13:05:00 Arabella Smith MD ELECTROLYTE PANEL 2020-06-26 13:05:00 Arabella Smith MD GLUCOSE, RANDOM 2020-06-26 13:05:00 Arabella Smith MD TYPE AND SCREEN 2020-06-26 13:05:00 Arabella Smith MD BLOOD UREA NITROGEN 2020-06-26 13:05:00 Arabella Smith MD son SERUM CREATININE 2020-06-26 13:05:00 Arabella Smith MD .GLOMERULAR FILTRATION RATE 2020-06-26 13:05:00 Arabella Smith MD ABORH 2020-06-26 13:05:00 Arabella Smith MD ANTIBODY SCREEN 2020-06-26 13:05:00 Arabella Smith MD CLOT EXPIRATION DATE 2020-06-26 13:05:00 Arabella Smith MD rson TMP INTERPRETATION 2020-06-26 13:05:00 Arabella Smith MD on EXCEPTION PREOP EXPIRATION CONFIRM ABORH TYPE 2020-06-26 13:04:00 Arabella Smith MD on EKG, 12-LEAD (SCHEDULED) 2020-06-26 00:00:00 Arabella Smith MD IP CONSULT TO CARDIOLOGY 2020-06-26 00:00:00 Provider, Damaris SYKES HEAD NECK SOFT TISSUE 2020-06-22 15:17:00 Rosanna Ward MD HEMOGLOBIN A1C 2020-06-21 19:25:00 Rosanna Ward MD ALBUMIN LEVEL 2020-06-21 19:25:00 Rosanna Ward MD CALCIUM LEVEL TOTAL 2020-06-21 19:25:00 Rosanna Ward MD Price son COMPLETE BLOOD COUNT W/ 2020-06-21 19:25:00 Rosanna Ward MD nderson DIFFERENTIAL FREE THYROXINE 2020-06-21 19:25:00 Rosanna Ward MD THYROGLOBULIN ANTIBODY 2020-06-21 19:25:00 Rosanna Ward MD derson THYROID STIMULATING HORMONE 2020-06-21 19:25:00 Rosanna Ward MD VITAMIN D 25 HYDROXY LEVEL 2020-06-21 19:25:00 Rosanna Ward HEPATITIS C VIRUS ANTIBODY 2020-06-21 19:25:00 Rosanna Ward Results CBC 2020-06-21 19:25:00 Rosanna Ward MD MANUAL DIFFERENTIAL 2020-06-21 19:25:00 Rosanna Ward MD Price son HEPATITIS C VIRUS AB SCREEN 2020-06-21 19:25:00 Rosanna Ward MD W/REFLEX HCV PCR US BREAST COMPLETE LEFT 2020-06-20 12:28:51 Magalys Pierce MAMMO BREAST DIAGNOSTIC 2020-06-20 12:02:02 Magalys Pierce Buddhism TOMOSYNTHESIS BILATERAL HC 2019-NCOV COVID-19 2020-06-19 15:56:00 Mery Lyn MD And erson US PELVIC TRANSABDOMINAL 2020-06-14 09:02:11 Francesca Rocha Buddhism US PELVIC TRANSVAGINAL 2020-06-14 09:02:11 Francesca Rocha on Buddhism MRI LUMBAR SPINE WO 2020-06-14 07:46:21 Magalys Pierce on Buddhism CONTRAST US THYROID BIOPSY FNA 2020-06-04 16:56:07 Magalys Pierce Buddhism CYTOLOGY 2020-06-04 15:11:00 Magalys Pierce ethodist (NON-GYNECOLOGICAL) REQUEST OSI US THYROID BIOPSY 2020-06-04 11:15:47 Arabella Smith MD And erson PATHOLOGY OUTSIDE 2020-06-04 00:00:00 Sharon Phillips MD INTERPRETATION US SOFT TISSUE HEAD NECK 2020-05-11 15:33:03 Jason Magalys RogersKolby Corley Buddhism OSI US THYROID 2020-05-11 11:15:29 Arabella Smith MD ECG 12-LEAD 2020-02-21 11:37:47 Jayy Choudhary Met hodist US PELVIC TRANSABDOMINAL 2019-12-16 16:46:32 Francesca Rocha Buddhism US PELVIC TRANSVAGINAL 2019-12-16 16:46:32 Francesca Rocha on Buddhism OSI US PELVIC 2019-12-16 10:15:14 Arabella Smith MD ECG 12-LEAD 2019-11-25 19:48:[address] De[address] CT RENAL STONE PROTOCOL 2019-11-25 19:47:15 Deonte Ellis ECG ED PRELIMINARY 2019-11-25 19:31:32 Deonte Ellis INTERPRETATION HC COMPLETE BLD COUNT 2019-11-25 18:51:00 Deonte Ellis W/AUTO DIFF COMPREHENSIVE METABOLIC 2019-11-25 18:51:00 Deonte Ellis PANEL URINALYSIS 2019-11-25 18:48:00 Deonte Ellis Me thodist OSI CT ABDOMEN AND PELVIS 2019-11-25 10:14:58 Arabella Smith MD Plan of Care Planned Activity Planned Date Details Comments Source Future Scheduled 2023-06-04 Screening for [facility] thodist Test 00:00:00 malignant neoplasm of cervix (procedure) [code = 204472027] Future Scheduled 2022-06-20 BREAST CANCER [facility] thodist Test 00:00:00 SCREENING [code = BREAST CANCER SCREENING] Future Scheduled 2021-02-03 INFLUENZA VACCINE Nitin [facility] Test 00:00:00 [code = INFLUENZA VACCINE] Future Scheduled 2020-10-03 COVID-19 VACCINE (2 - [place] [facility] Test 00:00:00 Pfizer 2-dose series) [code = COVID-19 VACCINE (2 - Pfizer 2-dose series)] Future Scheduled 2020-10-02 COVID-19 Vaccination MD Olson Test 00:00:00 (2 - Pfizer 2-dose series) [code = COVID-19 Vaccination (2 - Pfizer 2-dose series)] Future Scheduled 2020 COLONOSCOPY SCREENING [place] [facility] Test 00:00:00 [code = COLONOSCOPY SCREENING] Future Scheduled 2020 SHINGLES VACCINES [place] [facility] Test 00:00:00 (#1) [code = SHINGLES VACCINES (#1)] Future Scheduled 1988 Hepatitis C screening [place] [facility] Test 00:00:00 (procedure) [code = 944008016] Encounters Start End Encounter Admission Attending Care Care Encounter Source Date/Time Date/Time Type Type Clinicians Facility Department ID 2020-09-11 Outpatient SYSTEM, [facility] [id number] 07:31:48 PROVIDER Curtis garcia 2020-06-11 Outpatient SYSTEM, [facility] [id number] 14:41:35 PROVIDER Curtis garcia 2019-09-16 Outpatient FB [id number] [facility] 08:13:50 2020-10-11 2020-10-11 Outpatient TYLER ECKERT MDA MDA [id number] 10:10:25 10:23:17 STEFAN garcia 2020-10-09 2020-10-09 Outpatient JASON, [facility] [id number] 00:00:00 00:00:00 MAGALYS [address] 2020-09-29 2020-09-30 Emergency BOEER, [facility] [id number] [place] 00:00:00 00:00:00 LOS [address] 2020-09-26 2020-09-26 Outpatient KENRICK [facility] [id number] 00:00:00 00:00:00 JAYY [address] 2020-09-12 2020-09-12 Outpatient TYLER ECKERT MDA MDA [id number] 09:31:25 09:35:48 STEFAN garcia 2020-09-12 2020-09-12 Outpatient [facility] [id number] 00:00:00 00:00:[address] 2020-09-06 2020-09-06 Outpatient EL TOMEKA, MDA MDA [id number] MD 06:23:03 23:59:00 STEFAN garcia 2020-09-06 2020-09-06 Outpatient EL HALEIGHU, MDA MDA [id number] MD 09:31:59 11:22:01 MERY garcia 2020-09-06 2020-09-06 Outpatient EL TOMEKA, MDA MDA [id number] MD 07:00:27 07:00:27 STEFAN garcia 2020-09-05 2020-09-05 Outpatient EL TOMEKA, MDA MDA [id number] 08:03:08 08:03:08 STEFAN garcia 2020-09-05 2020-09-05 Outpatient EL TOMEKA, MDA MDA [id number] MD 06:52:16 07:52:25 STEFAN garcia 2020-09-04 2020-09-04 Outpatient EL TOMEKA, MDA MDA [id number] 06:03:34 23:59:00 STEFAN garcia 2020-09-04 2020-09-04 Outpatient EL TOMEKA, MDA MDA [id number] MD 06:51:12 11:15:54 STEFAN garcia 2020-08-31 2020-08-31 Outpatient TYLER ECKERT, MDA MDA [id number] MD 10:43:49 10:55:33 STEFAN garcia 2020-08-24 2020-08-24 Outpatient TYLER ANDREWS, JESÚS MDA MDA [id number] 13:08:47 23:59:00 Curtis garcia 2020-08-16 2020-08-17 Outpatient UR MANCINI, MDA Emergency [id number] MD 15:24:00 13:56:00 DREW garcia 2020-08-09 2020-08-09 Outpatient EL TOMEKA, MDA MDA [id number] MD 09:45:27 09:50:41 STEFAN garcia 2020-08-02 2020-08-02 Outpatient EL TOMEKA, MDA MDA [id number] 11:05:10 11:14:06 STEFAN rodriguez jose 2020-07-26 2020-07-26 Outpatient EL DADU, MDA MDA [id number] MD 09:30:00 23:59:00 MERY Acevedo o n 2020-07-22 2020-07-22 Outpatient EL DADU, MDA MDA [id number] MD 10:50:59 23:59:00 MERY Wattsers o n 2020-07-17 2020-07-20 Inpatient ER AL AMERI, MDA GIM [id number] MD 15:05:00 12:50:00 [facility] so n 2020-07-16 2020-07-16 Outpatient EL DADU, MDA MDA [id number] MD 09:32:29 09:39:06 MERY Wattsers o n 2020-07-13 2020-07-13 Outpatient EL DADU, MDA MDA [id number] MD 10:39:59 10:53:58 MERYKIM Wattsers o jose 2020-07-07 2020-07-12 Inpatient UR MADDIEO, MDA HN Surgery [id number] 07:40:00 11:24:00 SOULEYMANE Acevedo o jose 2020-07-09 2020-07-09 Inpatient ZAFEREO, MDA MDA [id number] MD 08:11:22 08:11:27 SOULEYMANE Acevedo o jose 2020-07-07 2020-07-07 Inpatient MADY, MDA MDA [id number] MD 18:38:40 18:59:11 FLORES Acevedo o jose 2020-07-04 2020-07-06 Inpatient EL YOUSIFFEREO, MDA HN Surgery [id number] 11:43:00 14:36:00 SOULEYMANE garcia 2020-07-03 2020-07-03 Outpatient ANDRABI, MDA MDA [id number] MD 04:45:29 04:45:29 ARABELLA Wattsers o n 2020-07-03 2020-07-03 Outpatient ANDRABI, MDA MDA [id number] MD 04:45:28 04:45:28 ARABELLA Curtis o n 2020-07-03 2020-07-03 Outpatient ANDRABI, MDA MDA [id number] 04:45:25 04:45:25 ARABELLA Wattsers o n 2020-07-03 2020-07-03 Outpatient ANDRABI, MDA MDA [id number] MD 04:45:24 04:45:24 [facility] Curtis o n 2020-07-03 2020-07-03 Outpatient ANDRABI, MDA MDA [id number] MD 04:45:22 04:45:22 [facility] Curtis o n 2020-07-03 2020-07-03 Outpatient ANDRABI, MDA MDA [id number] MD 04:45:20 04:45:20 [facility] Curtis o n 2020-07-03 2020-07-03 Outpatient ANDRABI, MDA MDA [id number] MD 04:45:19 04:45:19 [facility] Curtis o n 2020-07-03 2020-07-03 Outpatient ANDRABI, MDA MDA [id number] MD 04:45:18 04:45:18 [facility] Curtis o n 2020-07-02 2020-07-02 Outpatient ANDRABI, MDA MDA [id number] MD 23:11:07 23:11:07 [facility] Curtis o n 2020-07-02 2020-07-02 Outpatient ANDRABI, MDA MDA [id number] MD 23:11:05 23:11:05 [facility] Curtis o n 2020-07-02 2020-07-02 Outpatient ANDRABI, MDA MDA [id number] MD 23:11:03 23:11:03 [facility] Curtis o n 2020-07-02 2020-07-02 Outpatient ANDRABI, MDA MDA [id number] MD 23:11:02 23:11:02 [facility] Curtis o n 2020-07-02 2020-07-02 Outpatient ANDRABI, MDA MDA [id number] MD 23:11:01 23:11:01 [facility] Curtis o n 2020-07-02 2020-07-02 Outpatient ANDRABI, MDA MDA [id number] MD 23:11:00 23:11:00 [facility] Curtis o n 2020-07-02 2020-07-02 Outpatient ANDRABI, MDA MDA [id number] MD 23:10:59 23:10:59 [facility] Curtis o n 2020-07-02 2020-07-02 Outpatient ANDRABI, MDA MDA [id number] MD 23:10:57 23:10:57 [facility] Curtis o n 2020-07-02 2020-07-02 Outpatient ANDRABI, MDA MDA [id number] 23:10:56 23:10:56 ARABELLA garcia 2020-07-02 2020-07-02 Outpatient ANDRABI, MDA MDA [id number] 23:10:54 23:10:54 ARABELLA garcia 2020-07-02 2020-07-02 Outpatient ANDRABI, MDA MDA [id number] 23:10:52 23:10:52 ARABELLA garcia 2020-07-02 2020-07-02 Outpatient ANDRABI, MDA MDA [id number] 23:10:51 23:10:51 ARABELLA garcia 2020-07-02 2020-07-02 Outpatient EL ARI, MDA MDA [id number] MD 06:48:44 07:16:09 MERCEDES garcia 2020-06-26 2020-06-26 Outpatient EL ANDRABI, MDA MDA [id number] 10:38:08 23:59:00 ARABELLA garcia 2020-06-26 2020-06-26 Outpatient EL DIANN, MDA MDA [id number] MD 09:53:35 11:49:46 BRIA garcia 2020-06-26 2020-06-26 Outpatient EL ARI, MDA MDA [id number] MD 07:33:15 11:47:27 MERCEDES Acevedo o jose 2020-06-26 2020-06-26 Outpatient EL ANDRABI, MDA MDA [id number] 06:55:56 10:37:00 ARABELLA garcia 2020-06-26 2020-06-26 Outpatient EL ANDRABI, MDA MDA [id number] MD 06:55:00 06:55:00 ARABELLA garcia 2020-06-22 2020-06-22 Outpatient EL ZAFEREO, MDA MDA [id number] MD 09:22:26 11:28:31 SOULEYMANE garcia 2020-06-22 2020-06-22 Outpatient EL WARD, MDA MDA [id number] MD 07:05:02 07:05:02 ROSANNA garcia 2020-06-21 2020-06-21 Outpatient EL WARD, MDA MDA [id number] MD 13:15:00 23:59:00 ROSANNA rodriguez n 2020-06-21 2020-06-21 Outpatient TYLER LYN, MDA MDA [id number] 10:26:55 13:08:52 MERY Curtis o n 2020-06-21 2020-06-21 Outpatient EL MDA MDA [id number] 10:24:41 10:24:54 Curtis o jose 2020-06-20 2020-06-20 Outpatient JASON [facility] [id number] [place] 00:00:00 00:00:00 MAGALYS [address] 2020-06-20 2020-06-20 Outpatient JASON AVERA [facility] [id number] [place] 00:00:00 00:00:00 MAGALYS [address] 2020-06-19 2020-06-19 Outpatient GLENNA ESPINOZA MDA MDA [id number] 09:43:29 09:57:22 Curtiskylah garcia 2020-06-14 2020-06-14 Outpatient JASON [facility]ERA [facility] [id number] [place] 00:00:00 00:00:00 MAGALYS [address] 2020-06-14 2020-06-14 Outpatient FRANCESCA ROCHA [facility] [id number] [place] 00:00:00 00:00:[address] 2020-06-04 2020-06-04 Outpatient JASON [facility]ERA [facility] [id number] [place] 00:00:00 00:00:00 MAGALYS [address] 2020-05-11 2020-05-11 Outpatient JASON AVERA [facility] [id number] [place]gan 00:00:00 00:00:00 MAGALYS [address] 2020-02-21 2020-02-21 Outpatient KENRICK [facility] [id number] [place] 00:00:00 00:00:00 JAYY [address] 2019-12-16 2019-12-16 Outpatient FRANCESCA ROCHA [facility] [id number] [place] 00:00:00 00:00:[address] 2019-12-09 2019-12-09 Outpatient Francesca Rocha [id number] [facility] 10:45:00 10:45:00 st OBGYN 2019-11-25 2019-11-25 Emergency ELLIS, [facility] [id number] E[place] 00:00:00 00:00:00 DEONTE 081 Method i 2019-09-12 2019-09-12 Outpatient KENRICK AVERA [facility] [id number] [place]gan 00:00:00 00:00:00 JAYY 335 Meth jess 2019-09-07 2019-09-07 Outpatient KENRICK [facility]ER[facility] [id number] [place]gan 00:00:00 00:00:00 JAYY 449 Meth jess 2019-05-18 2019-05-18 Outpatient JASON [facility]ERA [facility] [id number] Egan 00:00:00 00:00:00 MAGALYS 679 Method i 2019-05-18 2019-05-18 Outpatient JASON [facility]ER[facility] [id number] Egan 00:00:00 00:00:00 MAGALYS 678 Method i 2019-05-13 2019-05-13 Outpatient Adrianne Francescaelizabeth GREEN [id number] [facility] 08:38:00 08:38:00 OBGYJose 2019-05-09 2019-05-09 Outpatient JASON [facility]ERA [facility] [id number] [place]gan 00:00:00 00:00:00 MAGALYS 835 Method i 2019-05-09 2019-05-09 Outpatient JASON [facility]ERA [facility] [id number] Egan 00:00:00 00:00:00 MAGALYS 387 Method i 2019-04-25 2019-04-25 Outpatient FLORENCE [facility] [id number] Egan 00:00:00 00:00:00 Radha LRo di MARIUSZ 2019-03-14 2019-03-14 Outpatient MAHNAZ [facility] [id number] [place]gan 00:00:00 00:00:00 LEVI 489 Method i 2019-03-14 2019-03-14 Outpatient MAHNAZ [facility] [id number] [place] 00:00:00 00:00:00 LEVI 488 Method i 2014-10-04 2014-10-05 Outpatient [facility] [id number] [facility] 06:53:07 13:15:00 [facility] [place] [facility] [place] Results Test Description Test Time Test Results Result Source Comments Comments [facility] Results Incoming - Method ist 14:12:39 10/09/2020 2:15 PM CDT PROCEDURE: US THYROIDHISTORY: C73 Malignant neoplasm of thyroid gland, L04.0 Acute lymphadenitis of face head and neck, C73 L04.0 R68.84 R19.7 R14.0TECHNIQUE: Transverse and longitudinal sonographic images of the thyroid gland were obtained. Grayscale and color Doppler images were also obtained.COMPARISON: CT neck dated 09/29/2020.FINDINGS:Thyr oid is absent.No suspicious tissue in the thyroidectomy bed.Overall, there is no suspicious cervical lymphadenopathy. A few visualized lymph nodes have a normal morphology and are within normal limits of size measurement. These are listed below:*Right neck, a palpable right submandibular lymph node measuring 1.8 x 0.6 x 1.0 cm. This likely corresponds to the finding on CT.*Left neck, a 1.1 x 0.5 x 0.7 cm lymph node.IMPRESSION: 1.No suspicious finding in the thyroidectomy bed.2.No suspicious cervical lymphadenopathy.[facility] [id number] CT Soft Tissue 2020-09-04 Interface, Radiology [place] Neck W Contrast 8 Results Incoming - M ethodist 00:35:37 09/30/2020 12:38 AM CDT EXAMINATION: CT SOFT TISSUE NECK W CONTRASTCLINICAL HISTORY: neck pain hx of thyroid cancer with resectionCOMPARISON: Thyroid ultrasound May 11, 2020 and June 04, 2020 FNATECHNIQUE: Postcontrast enhanced imaging through the neck was performed from the upper chest through the skull base with coronal and sagittal reconstructed images. CT imaging was performed with iterative reconstruction technique and/or automated exposure control to reduce radiation dose.FINDINGS:Please note that the bilateral axillary regions and distal subclavian and axillary vessels are not well evaluated.Ill-defined soft tissue stranding about the right base and neck predominantly around the right internal jugular vein just above the takeoff of the right subclavian vein as demonstrated on series 2 image 139. This also involves the right sternocleidomastoid muscle as demonstrated on image 118 of series 2. I suspect this to be secondary to motion however correlation with point tenderness is recommended. The left subclavian vein demonstrates a bulbous appearance measuring up to 1.4 cm (image 29 series 301).Scattered left greater than right level 1B/submandibular lymph nodes that are mildly suspicious given the patient's history.Major salivary glands are without suspicious findings. Limited intracranial evaluation is without acute findings. Paranasal sinuses and mastoid air cells are clear.No retropharyngeal fluid collections. No suspicious findings are enhancement about the nasopharynx, oropharynx, hypopharynx, or larynx.Status post thyroidectomy only scant amount of density left within the the left tracheoesophageal groove as demonstrated on series 2 image 139.Lung apices are clear. Visualized airway is clear.IMPRESSION:1. Scattered left greater than right cervical lymph nodes at the level 1B predominance just about the left submandibular gland the largest measuring roughly 1 cm in short axis (series 2 image 93). These are nonspecific at this time and are possibly related to infectious versus inflammatory process however given the patient's history of thyroid cancer these should be followed up with ultrasound until resolution is metastatic disease recurrence is not entirely excluded. There is however no definite evidence for recurrence within the thyroidectomy bed.2. Soft tissue stranding at the right base of neck surrounding the right internal jugular vein, suspected secondary to motion artifact however correlation with point tenderness recommended.[id number] Thyroglobulin 2020-09-06 15:48:40 Test Item Value Reference Range Interpretation Comme nts Thyroglobulin (test code = 0.15 ng/mL 1.59-50.03 L R eference range in 7622) athyrotic patie nts is <0.1 ng/mL. Due to varying antigen specificity, af finity and avidity of capt ure and conjugate antib odies in their epitope r eactions, some thyroglobu alcides samples may not dilute linearly when r esults exceed 450 ng/m L. Thyroglob Ab (test code = <0.9 See_Comment L Du e to varying antigen 7621) specificity, af finity and avidity of capt ure and conjugate antib odies in their epitope r eactions, some thyroglobu alcides antibody sample s may not dilute linearly when results exceed 1650 IU/mL. [Automat ed message] The sy stem which generated this result transmitted ref erence range: 0.9 - 3. 9 IU/ml. The reference r manju was not used to int erpret this result as normal/abnormal . ALLISON (test code = ALLISON) MORALES Testing Day 3 LabsDraw prior to NM Thyroid Cancer Study.Schedule in (preferred) or Main Lab. Lab Interpretation (test Abnormal code = 91956-6) MD OlsonNM Thyroid Wb [id number] 14:54:36No definite residual iodine-avid tissue at the thyroidectomy bed or evidence of iodine-avid metastase s. I personally reviewed these image(s) along with the resident's/fellow's interpretations, certifythat if a procedure was performed I was physically present, and agree with the final report.Interface, Radiology Results In - 09/06/2020 8:56 AM CSTFULL RESULT:Examination: NM THYROID WB DIAGNOSTIC, 8:35 AMClinical History: 50-year-old female with papillary thyroid cancer, status post totalthyroidectomy on 07/04/2020Indication: Assess for iodine-avid tissue, treatment planningComparison: Outside institution neck CT from 03/14/2019Technique: Anterior and posterior whole-body planar images were obtained one day following the ingestion of 1.99 mCi of I-123 sodium iodide. Spot views of the neck were obtained. The percent uptake in the neck was calculated at 20:20 hours.Findings: There is physiologic distribution of radiotracer with activity seen in the salivary glands, stomach, bowel, and bl adder. No definite focal uptake is seen in the region of the thyroidectomy bed.Uptake in the neck at20:20 hours is calculated to be 0.05%.IMPRESSION:No definite residual iodine-avid tissue at the thyroidectomy bed or evidence of iodine-avid metastases.I personally reviewed these image(s) along with the resident's/fellow's interpretations, certify that if a procedure was performed I was physically present, and agree with the final report.MD OlsonOjkiqrscEGP5581-03-15 13:59:56 Test Item Value Reference Range Interpretation Comments TSH (test code = 110.10 See_Comment H Note: New 7578) Methodology and Reference Range change effectiv e 10/22/2017 at 14 00 Testing Perform ed at [facility], [address], [address], [place] [address] [Automated message] The system which generated this result transmit prieto reference range : 0.27 - 4.20 mcunit/mL. The reference range was not used to interpret this result as normal/abnormal . ALLISON (test code = ALLISON) MORALES Testing Day 3 LabsDraw prior to NM Thyroid Cancer Study.Schedule in Kee (preferred) or Main Lab. Lab Interpretation Abnormal (test code = 44628-1) MD OlsonNEMOURS FOUNDATIONG [id number] 14:07:21 Test Item Value Reference Range Interpretation Comments Beta HCG, 2.0 See_Comment Pregnanc y BHCG Reference (test code = 5080) Values:Ne gative: <5 mIU/mLIndetermi sunita: 5-25 mIU/mLPositive: >25 mIU/mL Values between 5 and 25 mIU/mL are inde terminate for . Consider confirming with repeat test in 72 hour s. Values in sh ould double every 3 days fo r the first 6 weeks. Testin g Performed at [facility], [address], [place] [address] [Automat ed message] The system [employer]Pin generated this result tra nsmitted reference range : <=4.9 mIU/mL. The ref erence range was not u sed to interpret this result as normal/abnormal . MD OlsonT4, [id number] 13:07:10 Test Item Value Reference Range Interpretation Comments T4 Free (test code = 1.79 ng/dL 0.93-1.7 H Testing 7502) Performed at [facility] Hotel [facility], [place] [address] ALLISON (test code = ALLISON) MORALES Testing Day 1 LabsMust be drawn prior to 8am Thyrotropin Mario injection.Schedule in same location as Thyrogen injection. Lab Interpretation Abnormal (test code = 62166-4) MD Brink [id number] 00:51:02 Test Item Value Reference Range Interpretation Comments Final Report (test No growth code = 8488) Path Review - Immunity and antibiotic Bottle/Isolator use may render culture (test code = 8499) negative. Ongoing infection requires repeat culture.The results have been reviewed and electronically signed by Pathologist:MEGA CRAIG MD #[id number] MD Bateman [id number] 23:54:43 Test Item Value Reference Range Interpretation Comments Final Report (test No growth code = 8488) Path Review - Urine The results have been (test code = 8483) reviewed and electronically signed by Pathologist:MEGA CRAIG MD #[id number] [facility] Ltsthnm1374-01-21 23:53:51Final ReportNo Salmonella or Shigella isolated.No Aeromonas/Plesiomonas/Edwardsiella isolatedNo Vibrio species isolatedNo Campylobacter isolated.No Yersinia enterocolitica isolated [facility]Path Review - StoolThe results have been reviewed and electronically signed by Pathologist:MEGA CRAIG MD #[id number] BannerClostridium Difficile DNA Path [id number] 13:41:44 C diff DNA PRC. difficile DNA detection was negative making C. difficile infection highly unlikely in this patient. EIA not performed....Reviewed and Electronically signed by Pathologist:Casimiro Ferrera MD, PhD #[id number] Comment: C. difficile Toxin DNA (Primary Method) is a nucleic acid amplification test (NAAT) intended for the qualitative detection of bacterial DNA from toxigenic strains of Clostridium difficile.Reference Range: DNA NegativeRapid immunoassay method is performed on positive PCR samples.Clostridium Difficile Toxin Assay (Reflex Method) performed by rapid immunoassay for the detection of Clostridium difficile toxins A and B in stool specimens.Reference Range: NegativeWhen invalid results are obtained by either the primary or reflex method, a new specimen should be collected for repeat testing. 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 No evidence of cord compression.2. Multilevel posterior disc bulge resulting in effacement of the thecal sac3. Acute inflammatory changes on a background of chronic degeneration in the bilateral L 4-5 facet joints. This could be a source of pain. I personally reviewed these image(s) along with the resident's/fellow's interpretations, certify that if a procedure was performed I was physically present, and agree with the final report.Interface, Radiology Results In - 08/17/2020 7:56 AM CSTFULL RESULT: Examination: MRI CERVICAL THORACIC LUMBAR SPINE W WO CONTRAST, 08/17/2020 3:26 AM.Clinical History: 50-year-old woman with history of papillary thyroid carcinoma, presenting with abdominal and lower back painIndication: low back pain, thyroid cancerComparison: CT abdomen pelvis dated 08/16/2020Technique: Multiplanar, multisequence magnetic resonance imaging of the cervical, thoracic and lumbosacral spine was performed without and with intravenous contrast. Findings: Cervical spine: Vertebral body alignment is within normal limits. Marrow signal is homogenous. Posterior disc bulge at C4-C5, C5-C6 results in effacement of the thecal sac without cord compression. There is no cord signal abnormality. Thoracic spine: Vertebral body alignment is within normal limits. Marrow signal is homogenous. Posterior disc bulge at T6-T7 causing effacement of the thecal sac and abuts the spinal cord without compression. There is no cord signal abnormality. Lumbosacral spine: Vertebral body alignment is within normal limits. Marrow signal is homogenous. The conus terminates at the level of L1. Posterior disc bulge at T12-L1 causes mild effacement of the thecal sac. The bilateral facet joints between L4 and L5 appear inflamed with both acute and chronic changes visible. This can be seen on axial image #22 of series 16 and on sagittal image 15 and 5 of series 17.There is no cord signal abnormality or cord compression. No neural foraminal stenosis is identified.IMPRESSION:1. No evidence of cord compression.2. Multilevel posterior disc bulge resulting in effacement of the thecal sac3. Acute inflammatory changes on a background of chronic degeneration in the bilateral L4-5 facet joints. This could nisha source of pain.I personally reviewed these image(s) along with the resident's/fellow's interpretations, certify that if a procedure was performed I was physically present, and agree with the final report.MD OlsonLactic Acid, Venous 2020-08-17 13:08:36 Test Item Value Reference Range Interpretation Comments V Lactate (test code = 2519-7) 1.3 mmol/L 0.5-1.6 MD OlsonGlomerular Filtration [id number] 10:50:50 Test Item Value Reference Range Interpretation Comments eGFR-AA (test code 83 See_Comment Normal eG FR: >= 60 = 8062) mL/min/1.73 m2N ote: The eGFR is calculated u sing the CKD-EPI equatio n. The eGFR declines with a ge. eGFR <60 mL/min/1.73 m2 is considered as "decreased". This equation should only be used for patients 18 and older. According to th e National Kidney Foundati on's Kidney Disease Outcome Quality Initiative (KDO QI) classification and 2012 Kidney Disease Improving Global Outcomes (KDIGO) Clinical Practi ce Guideline, the stage of CK D should be categorized bas ed on estimated GFR. Stage Description GFR mL/min/1.73 m21 Normal or high GFR >=902 Mildly decrease d GFR 60-893a M ildly to moderately decr eased GFR 45-593b Moderat radha to severely decrea sed GFR 30-444 Severely decreased GFR 15-295 Kid pj failure <15 [Automa prieto message] The system NewsPin generated this result tra nsmitted reference range : >=60 mL/min/1.73 sq. m. The reference range was not used to interpret th is result as normal/abnormal . eGFR-YANA (test code 72 See_Comment Normal e GFR: >= 60 = 8063) mL/min/1.73 m2N ote: The eGFR is calculated u sing the CKD-EPI equatio n. The eGFR declines with a ge. eGFR <60 mL/min/1.73 m2 is considered as "decreased". This equation should only be used for patients 18 and older. According to th e National Kidney Found[employer] on's Kidney Disease Outcome Quality Initiative (KDO QI) classification and 2012 Kidney Disease Improving Global Outcomes (KDIGO) Clinical Practi ce Guideline, the stage of CK D should be categorized bas ed on estimated GFR. Stage Description GFR mL/min/1.73 m21 Normal or high GFR >=902 Mildly decrease d GFR 60-893a M ildly to moderately decr eased GFR 45-593b Moderat radha to severely decrea sed GFR 30-444 Severely decreased GFR 15-295 Kid pj failure <15 [Automa prieto message] The system whic h generated this result tra nsmitted reference range : >=60 mL/min/1.73 sq. m. The reference range was not used to interpret th is result as normal/abnormal . MD Olson.Serum [id number] 10:50:48 Test Item Value Reference Range Interpretation Comments Creatinine (test code = 5399) 0.93 mg/dL 0.51-0.95 MD [id number] 10:50:47 Test Item Value Reference Range Interpretation Comments BUN (test code = 5055) 16 mg/dL 6-23 MD OlsonElectrolyte [id number] 10:50:44 Test Item Value Reference Range Interpretation Comments Sodium Lvl (test code = 140 See_Comment [Au tomated message] The 2416) system which ge nerated this result tra nsmitted reference range : 136 - 145 mEq/L. The reference range was not u sed to interpret this result as normal/abnormal . Potassium Lvl (test 4.0 See_Comment [Automa prieto message] The code = 6854) system which ge nerated this result tra nsmitted reference range : 3.5 - 5.1 mEq/L. The reference range was not u sed to interpret this result as normal/abnormal . Chloride (test code = 103 See_Comment [Auto mated message] The 8334) system which ge nerated this result tra nsmitted reference range : 98 - 107 mEq/L. The refe rence range was not u sed to interpret this result as normal/abnormal . CO2 (test code = 5227) 26 See_Comment [Aut omated message] The system which ge nerated this result tra nsmitted reference range : 22 - 29 mEq/L. The refe rence range was not u sed to interpret this result as normal/abnormal . Anion Gap (test code = 11 See_Comment [Aut omated message] The 1446) system which ge nerated this result tra nsmitted reference range : 4 - 14 mEq/L. The refe rence range was not u sed to interpret this result as normal/abnormal . MD OlsonGlucose [id number] 10:50:43 Test Item Value Reference Range Interpretation Comments Glucose Level (test code 130 mg/dL 70-99 H Eff ective 01/30/16, = 5699) the glucose reference inter vals have been updat ed based on [place] an Diabetes Associ ation guidelines (Standards of Medical Care in Diabetes 2016. Diabetes Care 2 016; 39: S13-S22).Fa sting blood glucose:Normal: 70 99 mg/dLImpaire d fasting glucose (increased risk for diabetes or pre-diabetes): 100 125 mg/dLDiabet es mellitus: >/=1 26 mg/dL Random bl ood glucose:Normal: 70 199 mg/dLNote: Random glucose >100 mg/dL is associ ated with increased risk for diabetes Lab Interpretation (test Abnormal code = 54208-1) MD OlsonClostridium Difficile DNA [id number] 10:22:00 Test Item Value Reference Range Interpretation Comments C difficile DNA (test Negative Negative code = 5134) C difficle Toxin EIA Test Not Performed Negative (test code = 8961) C difficile C. difficile DNA Interpretation (test code detection was = 9923133) negative making C. difficile infection highly unlikely in this patient. EIA not performed. MD OlsonAbyipznsTucdxzrgoskb6686-69-97 10:12:42 Test Item Value Reference Range Interpretation Comments Neutrophil % (test code 57.1 % 42-66 = 93744-6) Lymphocyte % (test code 33.7 % 24-44 = 737-7) Monocyte % (test code = 6.9 % 2-7 744-3) Eosinophil % (test code 1.8 % 1-4 = 713-8) Basophil % (test code = 0.4 % 0-1 707-0) IGRE % (test code = 0.1 % 0-0.4 IGRE % c ount includes 64043-0) Metamyelocytes, Myelocytes, and Promyelocytes. Neutrophil Abs (test 4.07 K/uL 1.7-7.3 code = 753-4) Lymphocyte Abs (test 2.40 K/uL 1-4.8 code = 732-8) Monocyte Abs (test code 0.49 K/uL 0.08-0.7 = 743-5) Eosinophil Abs (test 0.13 K/uL 0.04-0.4 code = 712-0) Basophil Abs (test code 0.03 K/uL 0-0.1 = 705-4) IG Abs (test code = 0.01 K/uL 0-0.04 36484-8) MD Olson.[id number] 10:12:39 Test Item Value Reference Range Interpretation Comments WBC (test code = 7.1 K/uL 4-11 6690-2) RBC (test code = 4.28 See_Comment [Automated message] The 789-8) system which ge nerated this result tra nsmitted reference range : 4.00 - 5.50 M/uL. The reference range was not u sed to interpret this result as normal/abnormal . Hgb (test code = 12.2 See_Comment [Automated message] The 718-7) system which [employer] nerated this result tra nsmitted reference range : 12.0 - 16.0 gm/dL. The reference range was not u sed to interpret this result as normal/abnormal . Hct (test code = 37.2 % 37-47 4544-3) MPV (test code = 8.8 fL 4-10.4 787-2) MCH (test code = 28.5 pg 27-31 785-6) MCHC (test code = 32.8 See_Comment [Automate d message] The 786-4) system which [employer] nerated this result tra nsmitted reference range : 31.0 - 36.0 gm/dL. The reference range was not u sed to interpret this result as normal/abnormal . RDW-SD (test code = 41.2 fL 35.1-46.3 93857-7) RDW-CV (test code = 13.1 % 12-15.5 788-0) Platelet count (test 219 K/uL 140-440 code = 777-3) INRBC (test code = 0.0 % See_Comment The INRBC (instrument 5974) NRBC) value ref lects the enumerationof n ucleated red blood cells contained in a 200uL samp leof whole blood analyzed by the instrument. Thi s value maydiffer from the NRBC value reported in a manual differen tial,which is based on a 1 00 cell differential. [Automated message] The [employer] stem which generated this result transmitted ref erence range: <=0.0. T he reference range was not used to interpr et this result as normal/abnormal . MD OlsonUrinalysis with Hjshlbycpfv9426-73-97 22:57:49 Test Item Value Reference Interpretation Comments Range UA WBC (test code = 1 See_Comment [Automa prieto 7904) message] The system which generated this result transmitted reference range : 0 - 2 /HPF. The reference range was not used to interpret this result as normal/abnormal . UA RBC (test code = 2 See_Comment [Automa prieto 7891) message] The system which generated this result transmitted reference range : 0 - 2 /HPF. The reference range was not used to interpret this result as normal/abnormal . UA Mucous (test code NOT SEEN TRACE /HPF = 7887) UA Bacteria (test NOT SEEN NOT SEEN /HPF code = 7870) UA Squam Epi (test 1+ OCC /HPF A code = 7896) ALLISON (test code = Some reporting ALLISON) parameters within the Urinalysis test have changed due to the implementation of new instrumentation in the [facility], allowing greater sensitivity of measurement. Urinalysis results reported by the [facility] using existing instrumentation, as well as Urinalysis testing performed manually or by backup methodology at the [facility] will remain relatively unchanged. New reporting parameters and units will now be reported for all campuses. Lab Interpretation Abnormal (test code = 64148-3) MD OlsonFractionated [id number] 22:53:08 Test Item Value Reference Range Interpretation Comments Bili Total (test 0.3 mg/dL See_Comment Indocyanine Green (ICG) code = 5096) may cause false ly elevated biliru bin results. Total and direct bilirubin must not be measured from s amples containing indo cyanine green. False el evation of total bilirubin can be seen in patient s with IgG concentrations above 28 g/L. [Automate d message] The system whic h generated this result transmitted ref erence range: <=1.2. T he reference range was not used to interpr et this result as normal/abnormal . Bili Direct (test <0.2 See_Comment Indocyanin e Green (ICG) code = 5094) may cause false ly elevated biliru bin results. Total and direct bilirubin must not be measured from s amples containing indo cyanine green. [Automat ed message] The sy stem which generated this result transmitted ref erence range: <=0.3 mg /dL. The reference range was not used to interpr et this result as normal/abnormal . Bili Indirect (test See Note 0-0.9 Unable t o calculate code = 5095) Indirect Biliru bin result due to some par ameters are outside rep ortable range MD [id number] 22:53:06 Test Item Value Reference Range Interpretation Comments LDH (test code = 6111) 225 U/L 135-214 H Speci men is hemolyzed. Resu lts may be falsely elevated. Repea t test if needed.Resul ts greater than 16 51 U/L may not be reli able due to matrix e ffect with extended dilution as it exceeds the pattern molder s recommended l imit. Caution should be exercised when interpreting murrell ch values and done in conjunction wit h clinical contex t. Lab Interpretation (test Abnormal code = 70698-0) MD OlsonAspartate Ezwonukdtfuucrng5714-22-61 22:53:03 Test Item Value Reference Range Interpretation Comments AST (test code = 23 U/L See_Comment Specimen is hemolyzed. 8847) Results may be falsely elevated. Repea t test if needed. [Automa prieto message] The system [employer] generated this result tra nsmitted reference range : <=32. The reference range was not used to interpr et this result as talon l/abnormal. MD OlsonTotal [id number] 22:52:57 Test Item Value Reference Range Interpretation Comments Total Protein (test code = 7649) 7.8 g/dL 6.4-8.3 MD OlsonAlkaline Nhzzritzctj6419-11-19 22:52:56 Test Item Value Reference Range Interpretation Comments Alk Phos (test code = 4768) 83 U/L 35-104 MD OlsonSxfemkitTLS6495-09-14 22:52:55 Test Item Value Reference Range Interpretation Comments ALT (test code = 27 U/L See_Comment [Automated message] The 4705) system which ge nerated this result transmit prieto reference range : <=33. The reference range was not used to interpr et this result as talon l/abnormal. MD OlsonQrvxfrtsWgpoxg8830-54-10 22:51:23 Test Item Value Reference Range Interpretation Comments Lipase Lvl (test code = 6165) 22 U/L 13-60 MD OlsonFodqatknPxstpsg4153-17-54 22:51:22 Test Item Value Reference Range Interpretation Comments Amylase Lvl (test code = 4806) 35 U/L 28-100 MD OlsonUrinalysis w/Microscopic if Oulzytdkq9586-09-85 22:51:10 Test Item Value Reference Range Interpretation Comments UA Color (test code = 7877) Yellow Yellow UA Appear (test code = 7868) Hazy Clear A UA Glucose (test code = 7881) 50 mg/dL NEG A UA Bili (test code = 7871) NEG NEG UA Ketones (test code = 7884) NEG NEG mg/dL UA Spec Grav (test code = 7894) 1.026 1.002-1.035 UA Blood (test code = 7872) Small NEG A UA pH (test code = 7909) 5.0 4.5-8.0 UA Protein (test code = 7890) NEG NEG mg/dL UA Urobilinogen (test code = 7903) NEG NEG UA Nitrite (test code = 7888) NEG NEG UA Leuk Est (test code = 7886) NEG NEG Lab Interpretation (test code = Abnormal 97322-0) MD OlsonCT Abdomen Pelvis without IV Tmmdxftv9526-89-62 22:45:21Addendum by Manuel Mckeon MD on 08/17/2020 8:17 AMThis addendum is to correct typographical error in the impression of the report. The impression should read as follows: Impression : No acute abnormality in the abdomen or pelvis. Fluid collection/cystic lesion at the left margin of the vaginal cuffhas not significantly changed in size compared to 11/25/2019. Recommend ultrasound follow-up. Fatty infiltration of the liver. No acute abnormality in the abdomen or pelvis. Fluid collection/cystic lesion at the left margin of the vaginal cuff has not significantly changed in size during the interval.Recommend US followup. We will 11 he ER. Specifically, and past history evaluate for metastatic disease in the abdominal is a 1 abdominal distention.Thrombus in the liver commonly used Fatty infiltration of the liver. Interface, Radiology Results In - 08/16/2020 4:47 PM CSTFULL RESULT:Examination: CT ABDOMEN PELVIS WO CONTRAST, 08/16/2020 4:22 PMClinical History: Papillary thyroid carcinomaIndication: abd painComparison: Images from outside CT abdomen/pelvis 11/25/2019Technique: CT of the abdomen and pelvis was performed without intravenous contrast.Findings: The absence of IV contrast limits evaluation of the solid organs and vascular structures. Absence of enteric contrast limits evaluation of bowel. No recent CT I don't seMinimal atelectasis at the lung bases.Fatty infiltration of the liver. No suspicious liver lesions appreciated. Cholecystectomy change. Pancreas, spleen, and adrenals are unremarkable for technique. No hydronephrosis.No enlarged para-aortic or pelvic lymph nodes. Hysterectomy change. Abutting the left vaginal cuff there is a 3.4 x 3.3 cm fluid collection (174 series 3) which is not significantly changed in size during the interval. The bladder is decompressed. No ascites.Diverticulosis at the colon. Normal appendix. No dilated loops of bowel. Small fat-containing ventral hernia at the umbilicus. Degenerative changes in the spine.IMPRESSION:No acute abnormality in the abdomen or pelvis.Fluid collection/cystic lesion at the left margin of the vaginal cuff has not significantly changed in size during the interval. Recommend US followup. We will 11 he ER. Specifically, and past history evaluate for metastatic disease in the abdominal is a 1 abdominal distention.Thrombusin the liver commonly usedFatty infiltration of the liver.MD OlsonInfluenza A/B + COVID-19 Asymptomatic- [id number] 22:38:19 Test Item Value Reference Range Interpretation Comments Influenza A (test Not Detected Not Detected code = 36864-9) Influenza B (test Not Detected Not Detected code = 04853-0) COVID19 Not Detected Not Detected (SARS-CoV-2) (test code = 70026-6) COVID19 SARS Inpatient Indication (test Admission code = 62972) Inf AB+Cov19 See Note The laura SARS- CoV-2 Comment (test & Influenza A/ B code = 86131) nucleic acid t est for use on the rojas s V[employer] System is a [employer] real-time RT-PC R assay intended for the simultaneou s, qualitative det ection and differentia l of SARS-CoV-2 (COVID-19), inf luenza A, and influenz a B viral RNA in nasopharyngeal swabs in transport me elli from patients suspected of rice ving a respiratory inf ection with one of the se viruses or poss ibly exposure to COV ID-19 by a healthcare provider. Resul ts must be interpr eted within the cont ext of all relevant cl inical and laboratory findings and sh ould not form the so le basis for a elli gnosis or treatment decision. A fac t sheet for patie nts provided by the pattern molder ([employer]) can be rev iewed at: https://www.fda .gov/m edia/516258/kike nloadA fact sheet for Health Care providers is provided by the pattern molder ([employer]) and can be reviewed at: https://www.fda .gov/m edia/880676/kike nload Influenza A and Influenza B neg ative results should be considered presumptive in samples that rice ve a positive SARS-C oV-2 result. If co-infection wi th influenza A or influenza B vir us is suspected in sa mples with a positive SARS-CoV-2 resu lts, the sample shou ld be re-tested with another approve d influenza test. This assay has been authorized by t FDA for use only un kadie Emergency Use Authorization ( EUA) in laboratories that have been CLIA-certified to perform moderate-comple xity and high-comple xity tests. The [facility] at [facility], CLIA Accreditation #[id number] and CAP Accreditation #[id number], verif ied the performance characteristics of this assay. Int ernal controls are us ed to monitor all sta ges of the test proces sKolby JOHNSON [facility] VBG+[id number] 22:21:17 Test Item Value Reference Range Interpretation Comments POC VB pH (test code 7.41 7.31-7.41 = 6719) POC VB pCO2 (test 40 See_Comment L [Automate d message] code = 6718) The system [employer] h generated this result transmitted ref erence range: 41 - 51 mmHg. The reference r manju was not used to interpret this result as normal/abnor mal. POC VB pO2 (test 55 mmHg code = 6720) POC VB TCO2 (test 27 See_Comment [Automate d message] code = 2026-07) The system [facility] generated this result transmitted ref erence range: 24 - 29 mEq/L. The reference r manju was not used to interpret this result as normal/abnor mal. POC VB Bicarb (test 26 mmol/L 23-28 code = 06001-7) POC VB Base Ex (test 1 mmol/L -2-3 code = 1927-3) POC VB O2 Sat (test 88 % code = 6716) POC VB LAC (test 2.1 mmol/L 0.9-1.7 H Method desc ription: code = 2519-7) The i-STAT is an analyzer used f or in vitro quantific ation of various anal ytes in whole blood. The device uses a s stepan disposable cart ridge which contains microfabricated sensors, a calibration robbin ution, fluidics system , and a waste chamber . Each test cartridge contains chemic ally sensitive biose nsors on a [employer] ([employer]) ip that are config ured to perform spec ific tests. The microfabricated sensors measure analyte concent ration by an electroch emical assay. POC Sample Type Venous (test code = 6690) POC Clean Dev (test MD\\RN Notified code = 6672) Lab Interpretation Abnormal (test code = 60276-0) MD OlsonPiero Brain with and without Gxanszkk6725-57-12 13:52:361. No acute intracranial abnormality is seen.2. No findings to suggest intracranial metastasis.3.Apparent mild interval decrease in size of the suspicious left lateral retropharyngeal node. A dedicated CT of the neck with contrast is recommended for better evaluation if deemed clinically indicated. I personally reviewed these image(s) along with the resident's/fellow's interpretations, certify that if a procedure was performed I was physically present, and agree with the final report.Interface, Radiology Results In - 07/19/2020 7:54 AM CSTFULL RESULT:Examination: MRI BRAIN W WO CONTRAST on 07/18/2020 11:13 PMClinical History: 50-year-old female patient with history of a papillary thyroid carcinoma, presenting with dizziness and blurry vision. Clinical suspicion of cerebral metastatic disease.Indication: Not for stroke, trauma, headache, sinusitis, or syncope, Vision changes, DizzinessComparison: Noncontrast CT of the brain dated 07/17/2020Technique: Multiplanar MR images were obtained beforeand after administration of intravenous contrast.Findings: A slightly prominent left lateral retropharyngeal node is identified, measuring up to 11 mm in maximum diameter [series 9, image 1], which hasslightly decreased in size as compared with a CT of the neck dated 03/14/2019.There is no focus of abno rmal parenchymal, leptomeningeal or calvarial enhancement. There is no focus of restricted diffusion.The ventricles are within normal limits. Major intracranial flow voids are intact. A small mucosal retention cyst is identified within the alveolar recess of the right maxillary sinus. The visible regions of the orbits, skull base, and paranasal sinuses are otherwise unremarkable.IMPRESSION:1. No acute intracranial abnormality is seen.2. No findings to suggest intracranial metastasis.3. Apparent mild interval decrease in size of the suspicious left lateral retropharyngeal node. A dedicated CT of the neck with contrast is recommended for better evaluation if deemed clinically indicated.I personally reviewed these image(s) along with the resident's/fellow's interpretations, certify that if a procedure was performed I was physically present, and agree with the final report.MD OlsonGeneral Laboratory Add-On [id number] 13:08:40 Test Item Value Reference Range Interpretation Comments Ordered (test code = 6568) Test Added Test Needed (test code = 7604) serum calcium MD OlsonCalcium Ionized, [id number] 09:05:01 Test Item Value Reference Range Interpretation Comments V Ion Ca (test code = 32128-4) 0.99 mmol/L 1.15-1.29 L Lab Interpretation (test code = Abnormal 50467-1) [facility] Gl[facility] [id number] 00:20:37 Test Item Value Reference Range Interpretation Comments POC Glucose (test 131 mg/dL 70-99 H RN Notifie dCapillary code = 74306-3) blood sample s, e.g. obtained by fingerstick, ma y have inaccurate resu lts in patients with d ecreased peripheral bloo d flow. Method descript ion: All results are melanie sured using Electroch emistry test methodolog y. The glucose in the sample mixes with the reagents on the test str ip. The reaction produc es an electric curren t. The amount of curre nt produced is proportional to the glucose concent ration in the blood. PO Sample Type (test Capillary code = 9554) Lab Interpretation Abnormal (test code = 07105-6) MD OlsonProthrombin Time with [id number] 23:26:07 Test Item Value Reference Range Interpretation Comments PT (test code = 6746) 13.2 See_Comment [Auto mated message] The system which [employer] nerated this result transmit prieto reference range : 12.0 - 14.3 second(s). The reference range was not used to interpr et this result as talon l/abnormal. INR (test code = 1.06 0.90-1.10 5973) MD OlsonPartial Thromboplastin [id number] 22:54:09 Test Item Value Reference Range Interpretation Comments PTT (test code = 28.8 See_Comment [Automated message] The 6773) system which [employer] nerated this result transmit prieto reference range : 24.2 - 36.0 second(s). The reference range was not used to interpr et this result as talon l/abnormal. MD OlsonCT Head without Gycgrdnm3482-79-48 22:13:40No acute intracranial abnormality. I personally reviewed these image(s) along with the resident's/fel low's interpretations, certify that if a procedure was performed I was physically present, and agreewith the final report.Interface, Radiology Results In - 07/17/2020 4:15 PM CSTFULL RESULT:EXAMINATION: CT HEAD WO CONTRAST on 07/17/2020 3:27 PMCOMPARISON: 03/14/2019 CT soft tissue neck, 04/15/2013 CT headHISTORY: Patient with history of papillary thyroid cancer presenting with dizzinessINDICATION: Not for stroke, trauma, headache, sinusitis, or syncope, DizzinessTECHNIQUE: CT scan of the brain was performed without intravenous contrast as per departmental protocol. FINDINGS: INTRACRANIAL: The brain parenchyma is unremarkable. The roldan-white matter differentiation is maintained. There is no evidence for intra-axial or extra-axial hemorrhage. No pathologic extra-axial fluid collection. No midline shift or mass effect seen. There is no evidence for hydrocephalus. There is no large acute territorial infarction.CALVARIA: The calvaria and extracranial soft tissues are unremarkable. ORBITS: The orbital structures are unremarkable. SINUSES: The paranasal sinuses and mastoid air cells are clear.IMPRESSION:No acute intracranial abnormality.I personally reviewed these image(s) along with the resident's/fellow's interpretations, certify that if a procedure was performed I was physically present, and agree with the final report.MD OlsonCardiac Panel 2020-07-17 22:13:11 Test Item Value Reference Range Interpretation Comments CK (test code = 5206) 129 U/L 26-192 CK MB (test code = <2.0 See_Comment [Automat ed message] The 5209) system which ge nerated this result tra nsmitted reference range : <=5.3 ng/mL. The refe rence range was not u sed to interpret this result as normal/abnormal . Troponin T (test code <6 See_Comment < 19 ng/L = 9384) Sugge st retest at 3 to 6 hours later to rule out myocar dial infarction >= 1 9 to <=52 ng/L Possible myocardial inju ry. Suggest retest at 3 hours. - a change of < 20 ng/L, retest at 6 andres rs - a change of >= 20 ng/L, sug gestive of myocardial infarction > 5 2 ng/L Suggestive of m yocardial infarction Crit ical value will be reporte d when cTnT isf > 52 n g/L and only reported f or the first in a seri es. Hemolyzed speci mens with Hemolysis Index >100 (100 mg/dl or modera te hemolysis) may cause interferences a nd falsely low results. [ Automated message] The sy stem which generated this result transmitted ref erence range: <=18 ng/ L. The reference range was not used to interpr et this result as normal/abnormal . MD OlsonPathology Surgical Cddruyepjkbqhe8741-18-64 18:56:00 Test Item Value Reference Range Interpretation Comments Diagnosis (test code = f5nnaPVrZWWliGK6LtPtJQ 34) Jjg0nfn1XtiFDvcDRsEXej tAWqzyCngx41aBQ4bO89KR 0iUEDrCgG7NZHuknR0Qqw7 IDPaYZPfyXVcA567n0wvl7 aonjGmmGB7aDthIUFtVISb YWluXGZzMjAgQTogTHltcG qakq2tSHsuxEXozQMxFBXo zVIbA5jnOTd7CKQepgxgfG azTArhpV66RaTuWZSHEISE QVRJQyBQQVBJTExBUlkgVE vKAe5PJYEPBYABYL9CBYXx BV4rO83WCSoGCPMQAZ9UNO UuICgxLzEpXHBhclxsaTBc bGluMFxwYXIgQjogUGFyYX GvvJEfoDKdQRTnc8XdDqhu JPpfOnIidF7tZAWtv9MdpX JfYPLtnHGupTKpY9yljxD7 WUYjvzbngHrxHDvepR39Kg RrJCz0dCdiIFDof0P8CUih mu8rzYJsAKZnyQNalOVjeG ced2QvFGmcRB88aQLeBRBy XHBhclxsaTBcbGluMFxwYX KfOxkrVIl6lr9wKSiuhNSh eVLlv3VuNIDhRLLvk7DffY MfOJGnb2VxH5IbqTk0VZFu wcyqsCylRZlhcM32RsAruP VrbLTymOoaGvkthCI2QQwt VpkfsM3hdBTFLUYYAajWRn vtohGyNJ0UNYRXQxJYPE67 RqZ9ZMA7SMpajBfyMzvchj DiuAVqIrRvrI2JLWCTGHxF HgaoLPcJSl0OJHKCCDWGGW 2GCTLbURDZTsVIJvWRH33P GADLNISLo2oiiDPnDBwvKe kfbTMjyyX5ZRhPDNTIMFcH OoPlWO9aHHbCF5LQHtB2Um O9UQE5SDmaqMkgVlwfcpDs mRYtDwAtnH0ltYdcnY0cRu MyMFxwYXJcbGkxNDQwXGxp rfA9FHFtNJNsyWrfo0EmzR ogWWVzIChhbHNvIGluICBH FTyvRBEbP7k3WAmgLA06GP NtXHBhciBFeHRyYXRoeXJv iJDqzAAuqMJcifEbw404AL fnmy68ZLY5b5uhuMGsARjo YygglLUrwhY1OVfPWMZQJB lTCeZzHZ7wHGjBC8SQHQgP XkdxRJo1ZLlghXG9b7grtZ Lyp2c0DVhiCJJ0nHUij3Gv wBwsUkoyxIS8SEttFksqiZ 5zdCBIWVBFUkxJTksgbmFt FV0RLIMLPN6LkCF5ONn8kM V5Ke67JWArLFVoyIZgDGew U101ZRKyVUimQTZnDhRqsP HiAHc6gYSiy7Bhm2N0zOEz AHphcuQzeB3bYvIwjVIuqE DxqHvgLzxulGL3RDkhUsnq xN0lnJYUQOADCxdITjroco CyFM7KZXPWGdRGUI02AuQ6 Bqg3B9hmjHbcBwosflTshI RnYdRkcQ4ZQeJwmgL7FFPr KBrlz6llGTLiMZwas9QdOJ yEKLHVKB1HKG6bgXR5LRpU LZWQYTyyGHq4AIkrySV1f6 jzdSXls8g7ABgzIRZ4eXpv bGFpblxmczIwXHBhciBSZX IsT7Tah04djVUuJ9nnigyu IVOoi1DmK1E9RQSqVJmbo0 fzHHGgMIvdy1IoKXwLQMOY ZU8KBR4fiJZ2PAiOWNTJK3 lDtMD9RFlhkOU6OV31VMXz TDRwcYIlJLjvC985BvSgWB UcgrC8WRYcMAgir4ykXRNn LDmlz2McJFlNJIGEPP9MBM 7ruNY2KQuSTDAEAMyqTPo3 HJl0aTZ0r8rbhYSbr6f9NZ bqNRW0rVaplRNgciutzvWf JGOmlhDYjY6fePAdw6Masq rtMZXnj8AuQ7W1MUBzFNco z4tpFUBzNUhhp1CwHSaNZK PRIL9HKF7vrFC3VTbEXUUR M1yXaOB0MXn9rOP0CW73DR GgONCfuABgWJyqY229ETET OGJVUVRLLwHVFKIFFP5YCN ZrUW2nAJKsa8UvJ6Rwy0dg hHMgCDygDntcxTYfpuW9FN kNMORJMJhAYbHrUJ7pWGyE PBQKXNlIPll8yLgeLqbhry XlkLNoTfNakT0SEfJ2GWPi OAtdl9fzBWFmFQmyf4OcIX iYVTGACM8ZZV8xkFM4D4wT WTPYDPg4xXyxDfnfhhXwyP JyItOyxX1laFlxnA1zfMUv dGVjdFxmczIwICBPRiBccH UpeCEobNU5YAYxYJycb8ff BLLwADssb7EoHMaBWCZZEA 2BAN9ezVR5L6kPMYVEW1kH vRr4c4ngbXOre2g6JKsmSR G0vFWVFxNRj2jexQBjLQdr HhisnPBzneE3LHiAKVPSOB fNXvUdRM6sYDwUNOTEHwR3 M219ZKIbCCEwpTYpBGjnS7 70DCTuJQtlPKTkg0ZtB5Nj DoKzBWEsOMtYXNgrTf9KEW X7BSXmEJdjp2kvRGSeCGgc d5LuOYfTGZMNZY7HYR0ppD O4AFxCOCQWIYurBCa8UEr3 fDH8n6axhUYbt4a1WZkyIV V7hVkhxXKeyiwmizZaRJYk cGFyXGxpMFxmaTcyMFxsaW 6qOGFqtjH0dNhtk6vpWTJh SLP6tSvymQZfePxgc9NhCC ByZXNlbnQuXHBhclxwYXJc vQVnZYKZFbHUvF9qyVOfd9 UvIDRxPPR6SPOywgTpIVrd R45ewOKgpW4xevCyQA5vH9 vgPFhtj4TjrOygccchgTPq XGxpNzIwXGxpbjcyMCBNRV HNC3ZUEUzKUBPWZVgTEOZG FMTSEEpSJ8vJFGKIGfAUHt 3XWAQZXuCSG9IGNU1QIZ8Q CaYrVEfQXFaeWc6CPCKqKN t6EwzpMXCoqhuoLSNkXVNb wnOXRwKPVWJnfTz3mt7yFB kelD4mf9jdpEVklLPaoDBz asEraemtxwNhAEHinTh6jy 9pZCBnbGFuZCAjMjpccGFy XGxpNzIwXGxpbjcyMCBMeW 4bpJ9bGLA6cDNrwLJoZH5d QBNcqvM4mBcmc3sbXGIkk8 T5NCJwVNEvhPwtzXYvOgme YXJcbGkwXGxpbjBccGFyIE Z8BNGyvwO3wGwrm5ovNURi x80krIYkQZVfU5s9TXM3nF OhvO7qVBVmdlK5wCkfr7cl KFQyp7F2OZD2EXApqmmygW xsPWlzsS85NnTyWSajFNPx WMiirXuzeaWhURUkhQa4ru 0nUSR4sLNfhJWfVEebEIJo aVwySVylviCslTRdVJp3OF XjwPOxoSUdUTIxS9i2MLjn CnIyXKwdBiUegN5bmXaolC FyXGxpNzIwXGxpbjcyMFxw xd13AZF0w5lztZUePZdeLa yrdOZzitY0VSyUDTBINLoI WwQzTA5gFGfWO8YHDPoBFl hxYNe7TGm9aWs0w5mhfUJg u5s3TJakKOC5mZFTGHhNYQ XWBFDSGKfMJ6rRTXQTMzIF Nr2GHOssX31PFuVPAPbIDz NCFGFNSQJ1ODDmUOkdv7dd THQsJZgqz9NmYJpWBQGBTM 8PHK3auRR6WWzFICCWVLtv ZWk8ITq3rQq7k8yzxGUdn9 g8MScrOPD5eRrutQEalcjw igEzQOWovghikEI5AAZovD huAXK8XHHSzIc4oLYsR6Aa OiAgeWVzIChhbHNvIGluIH BhcnQgQylccGFyIFNpemU6 CBMnHJVxlOuuKXOcTDl6zu R1qOwts9rjDRlcUPh0YL6p xC6vSbCfwPOkeZEuqYqjSs jieIH0WMnmTdjojO3kjWOD RZXKKxxBWujnnwBpXA8USG CMEkYVNR50QiK1XEd5QNw2 fXtcZmxkcnNsdCBcJzFjfX 3DBpYxmmR3EFFjIKhem0fv MSLgJUtyr5IeKMcEICCHTP 8CXI6lkWR8QHsKOOZYIBxe HEz3FPv0pDc7s8lxdLMiy1 m1GZumANM4zGwgnPPgnlux fxYhAXFcgaPFlU6dmI38VL CipIpawhXxqrZvl2zjxybb MVTln2UkC1W9HLHeVWflj2 ysAPVvSLftu2EtHKuTKPMA JE4EGS8rcJN5LRfTUROCT7 kPoDO3KSQ6bTUddZYyjMst OnuntzPlwTKxGiHztB6OAg FuzjE5OPPxKVjer2nbXCYd VIqfd5LcIKoLNOLGJT6USP 5wkYD0MXiGSDPQTDjhDFb9 ZVrlXInaZU41TBDuPLOmgA SwOKscO312LWBjWXaeWRMz WnMcrYBuFUSee7KjvOdzgn UjHWZedD5aZdMbyKMdoNEt gRppMrvqbDV9GZvpZvyvfY 5zdCBIWVBFUkxJTksgbmFt JY4IYNYWFlXWJN07DeT4NA A3XUL2BTD1d4myyCAvn1x0 RArsLNL1oM9aK8H7fIYtx0 xmaWVsZHtcKlxmbGRpbnN0 QNwDRZVLMXmENcFaFU7mJX jRN2SVTpA5BqI0ZRU8BJM6 RPE9x1tihLVsz9g7LHdxIO V3hSmpeAKoitrheqRyUCUu nqavlWicORvemQ96XpXiBG OmUBMjdBZctEBcrLypc0St IHByZXNlbnRccGFyXHBhcm LghBMnRNu8EAl4ePLkFV2h MVNlZTFrZ1e4TGTdojWlSO mlS12njUJtnU5jmfWeQF8q T1hhOGhzz2FmeAbulbwkgO FyXGxpNzIwXGxpbjcyMCBN ONPYL6LYEGuPNGZSTOxLUJ YXFQWYMSoID6yAWYAZJtAD Os4BVWXTIjNPXW0SGB5IWG TKEK1AXQ6HW50pKWoSMVfk Pe8OZSBiVUl6HpCiVPeuCG JccGFyZFxwYXIgSTogTHlt fUawcy5kINiftCJayOPfPP 21yiTgWTHvxGUyivFlSP28 HKDgMMJbYXXez2MiX9Vnr1 3sEcD1OKMclozoiKtmCPoi zG87FhOxSOs1kSyfTYNpk0 V2VFnsky7oxIIku6EdcTGr m7MzrA4itNXhAPlrYInezL 4wXHBhciBNRFcvWVRccGFy PDUtohs5SLFOYEDYRZjFJS 2XINQABPAFAI9DNEmMDlMg RWi5BTypXSTiNcE5DTd2Cx 4iTkR5NUK5vDM0Ay7xBWc7 KQa0BLLuHuF1RAi5SV9hEa v9OExcEqC4QFG6HR3zFrJ7 BAu1jKa5Nk3ySEq4EKlmWE 5rDcE3VBxbwOYdVRStN19H NyQBZDJBD93MEEKBQTDWI9 MNBZFHNLlFR2VRET1JFJPH EODEAG2MYIwNIbB1CQgKAi XzkWbzv5IQLaLVF4fFRKZI SbShRXYGILNRYCBfEU6EQC EJWGBUNF7GDYBOK69KLKPY ZLFWO2VQC1uTTZTif30lyW ygquIdzQROhUCixe9viNN4 ZbV8VTV5FkmyWP0aEMnXfW UfojIvv880SwL7OPt6Dxsf QW4rJPqGNFYdvDgpqmCPht Jzk5vhrlicQHg3RVh9QaDq xXEdl81cybysligrVOq6MF w7FyMgsSPfx7l7fLBpHZ6z MFFnOtU9ZWa6Byg6BAd9NN z6YCVrxUhiLP50QTNjIXtd q3IwmcvrMIk3LPk4XnUrrJ lxx3K6yQAgh9rjmgmgLUo5 WXu2DjXsmTKrRLnXZVFgsQ bxkhPMyfNij4iwzgrdVQb4 YMp5FoFusAUxGCnEKDWfdJ 15BuE4HNX7VarbKH9yQEaE K6SLP2yBGYUzBLUYKUYFTS SpCU2RHQsAWT0QKZSfUECT TMRMZUXnAlVJEM7oYEyYXF 1NRLRnRQDZDNOLVPAoFY5K YJJOZO1DFHHNKNCGM01PIU PIHBBZM3VIN4aPLNGGWVRH LcOFSqSQRY2MOWTLVRIRAB 9FTkR9 Synoptic Checklist THYROID GLAND (test code = 9864) (THYROID GLAND: RESECTION - All Specimens) 8th Edition - Protocol posted: 08/31/2019 SPECIMEN Procedure: Total thyroidectomy TUMOR Tumor Focality: Multifocal Tumor Characteristics: Tumor Site: Right lobe Tumor Site: Left lobe Histologic Type: Papillary carcinoma, classic (usual, conventional) Tumor Size: Greatest Dimension (Centimeters): 1.4 cm Extrathyroidal Extension: Not identified Angioinvasion (vascular invasion): Not identified Lymphatic Invasion: Not identified Perineural Invasion: Not identified Margins: Uninvolved by carcinoma LYMPH NODES Number of Lymph Nodes Involved: 14 Sabas Levels Involved: Level Size of Largest Metastatic Deposit (Centimeters): 0.6 cm Extranodal Extension (ANN): Not identified Number of Lymph Nodes Examined: 32 Sabas Levels Examined: Level PATHOLOGIC STAGE CLASSIFICATION (pTNM, AJCC 8th Edition) TNM Descriptors: m (multiple primary tumors) Primary Tumor (pT): pT1b Regional Lymph Nodes (pN): pN1a Gross Description (test q0tvdZJsDAFulJWFUPZlDG code = [id number]) jfriXeVLAncJWlO0Zzutdh ISbvNK4uCP0noVgnoYHviB HuRY5DILKhOzLcTWYitZWx yzKeCvIwYFSudVYljYZ4QV UaNG4elarfNUplMPnsWADx loA3KIAhqOXnP9VyEBArED 9govxdITX6IPhwaI1jmoDH XxmuOv7jcUOcyVmnBmJtCy NoYXJzZXQwXGZuaWwgQXJp KAh8cE3ARyedRUV1ZMISUu auVVFcDZ9Xr9xvVBOwbUKe JAQ7MNykbRPaITIjJTMiFO h0TYWiEWrbsUByEC4rzImn BtvrdVvvm3TnqTRfDGwsRN ZbQMPrWRojWUFtZR1XQaVp HBJoGaK2HTQjVAp2ZYe9QP 9WUyAiICAgNDcyMTgzOSIg MHq3MKgvXA2KOUTqRhIuTO GvNLX8VWy3AWWtEMJyHtZw XGYgQXJpYWwgXFxmcyAxMC XzPMFrHNuyIbizSRntW44y mTrzkY8dKpetheIfRJU8KJ BhciANClxwbGFpblxlcGlj TmVzdERvYzEgDQpcbHRycG FyXGxpbjBccmluMCANClxs dHJjaFxiXGZzMjAgTHltcG ciao3vNAbmBAqieKWgQRMj SREoGLPfRFOkSHX9GQMbij P3mbBfgEFsaASywB9kmXOm m8PfCN5zNV1xBFU3QmzqNC LiH94fXZQuaSVcnOsgucCv k5WcoFEdMFUxfT0rhTSau1 RlICgwLjggeCAwLjcgeCAw AdDhD10yUAOqfBRmD0VqHN YtfgCzBT44nWXfeVlaw3Yq xXd9nDQtVcCvzHfwRVHnnL skKZNVWNAIUL4NDJORCMJ9 IEExLCBlbnRpcmVseSBzdW DtdKX8PBRcl6RtiJsnTTy4 gHBvJW6qXYDpTz0yGKVls8 zbptQiBMH5fR5jRDR2YFo2 GUXvd53wDR6qVTFpzg3aex HzsAGqdq8nJFTdNgumzO5j IEpYXGxpbmUgXHBhciANCl s0UDTdELnvmYdhaL2kBVPt F61xe5HFr1MqTGSfFNqox4 jwrArpg2AejGOxMUneTRKl zHAdNDapuD0vMjPef2lpgL g0QSzwblY4ETQuiz6KTxlx JpdlwGbsj2SqzAYoXPmtJF AeOPUuCXsoLQJkZN3HXqYe BQXfBxW2DWHsOPc4WXy4IF 5RZiYuJMDpSJflKSs1NFWp EJr9MQycOC9FUSMqKbO9YT t6TUZ6OEd1JJVoOQMuAaRg XGYgQXJpYWwgXFxmcyAxMC OoYERgRLnqOqfpDFahP83z HmxxrjMdTXU2TUPfruXRNi xwbGFpblxlcGljTmVzdERv YzEgDQpcbHRycGFyXGxpbj BccmluMCANClxsdHJjaFxi XGZzMjAgUGFyYXRoeXJvaW SyWBbwSwFdHIGre3WkEyzw AUjdIsAvnU9lDRFvl1RosL QyQUPyhXMyfVYqJ5ebpnEy UE1vy4PnKEviVooxZRPzAK 41AGovMD5jJYteEJ1nIKZp LPVhxmhqrQAnAIOhm6A9OS PazfMpsVUeuB0jVEM1d4Qm dBVijCRipH33RBxlKNProa Jmyt6rCS8qDSipZCPrLMEn lVBzYBezKSM8Hm9usSMbLH BlbnRpcmVseSBpbiBjYXNz QJR8VAGQJJFto9JgAzQdsv HxMTUbC7Fup40sXX7wFQPr az5cdiXsmCJaiuBflVY9gM 1iJrwbXOEwGRyuJEBvf7Dg E3F7YKVhCRsle4dsHLXaUF opg2GtUDwIRSZFJR9VDK0r wEK6YJfTZ6QYH6hYrJAzEG S2cTC6MPMZEjyelNM3mMX5 yX59HQHkTBNlaLJhDRyoA9 51Pvk6KVHgYIbwt1ggBGSm YKrhy1AxIRsMMQGQYM8VMB 4wuLQ3YGoZS2IBBKlfMIYx PvfmcDGBYYW5NRbziRhhgG c7s8notMQpf1z1EOmgAZS8 fVxwbGFpblxsdHJjaFxmcz UiLC5LISZhQDgeIRWpjHFB ZLX2AI5aTTskoVOavghnZA EeP9DgD3RrorZtdPGcDCCt jvEws3mhCXO5OCAgyDZnqK WoTcVvIvbtQSA7XCw4KYdf MBQzL6RlH5NaGZcnBWK5YS AwMiBcXGRiICBPVlIgIiBD BQDmXVUrHaF4BHc9TGRNLh ZnQcXuEIA2DtV3GhyuFSi6 RXk4DJlBCwN2ZjTsWyNjYq alVZX3NSumNDe0BIPfTWld IEFyaWFsIFxcZnMgMTAgXF iqFkZwWBAkQEizweR3LROg ZnMyMCBDOlxwYXIgDQpccG numH0hMRScF23ep4TZp7Fj YN4YPVr9arLcukyjvT0zXX WhypRkKVlvxWEvI4ycCdey czIwIFRoeXJvaWQsIGxlZn RfvB4rVIfxdOLotVX6rDlc c3rzMDnaGdJkVW6iLErmbN syxRKhQXN1mSAyyMThvbGr hlIyBXN7JGB6fVUklR7cRF ToaOXzQrcgJGKmP46cp4uu dCBvZiBhbiBvcmllbnRlZC TmDEY6NLXswXQggDVxzA2y PEYpIJ7rJSfpEr04KCkfTJ 21OCLcJS0tJXYlCBZmqUHs wT2okpMrifBjgkokriGePE PgnmAxrRc1C7bzu1WoVZBk f6FhvD3cPI3aMPKzSEYaWN BzdWxhciBzdXJmYWNlIGlz JJqiaOAyeP4zOZKkDHNtvP LqdB8ybqXcsmGwADEyUVvv tDPqDVU3iT3fLCOqEF4xQJ UvDFEfgDYwu3AwZmBhYLLf ZXZlYWxzIGluIHRoZSBtaW Lir0L6fZ7lSPMuk5EaUABo eI9uJVYqn1JwYIOoRHG7LY CpQJZuETT7VAEdLYI5PCPr MCBjbSkpIHdoaXRlIGZpcm 1bqa9zjAawQfKnEDsrBQHj kPLpxjTbssLvYvU0xWEhiC IjDC7xrVmjGPFvozXiVSHk AfSlj35bvP0wa8tndbZkxL MuICBBbHNvIGluIHRoZSBz CG0sICYameGxnM7hokGtBA SeE7OiHPJqcG8jvPyixfLz LjLoeKUef2OkVTUcbAVqu5 MirVmlu6QaWLuaMGLfUTXu umRoERBrXFN6QYQzVXJ7XJ LxZXSydNteFAJGqDCym8Tj B7soIL8vzWGqs1AnpQTvdZ tre5YpqTajbmVgTZYnUXS2 zIGhG6H8JJZ0dfQiV2Mhug J9WRFwyaY5QYXuh0WgIday HOj7rWLnEI5hUMOyBPInit wdswpxdF0nf2v5WPKqtd7j ZQndKwLawE4pLJ57TPDpCP 7yVYS7Pz1tfPFlLEXjmqZh e3jgp9udDruxKBWgLIwusN JzXYRVY5IXG04mH68AFXnl GvRcRgPpDQKjmDXpp4HyiQ V6wJZkOVTuD8Ivv99lIB8r SWY5hELxwX5jNSVswUG9DD ZfOXD6AOI0rKt5RUXyyNXo CD3rELAzTVOfmoLbccPekB EofBBdqBC3ICS9MJD0FXOc zxMwOUQxn0OqZbveTPx0oB EpNQ2xQOCgNhMQYVw7oUUj CDRxl9YcdPBxOOTogG4wmG Xxe2EpxzlcWqWdRWrzkdOl SLkrXKYkIE4vNXRkNSIdoN Rfg9OuLXUteXTmw5SlyPvb j0OsRpKaQCYeg2KdS1T5AS BvPLrwh8umWGYzEBcsl4Lt OGzVWMWXPQ8UGC6nnGR0IH sUL3QGK9cYkIDmCXU2pHN4 PFIIOudgrUT9oHF8kI61VS JrRJPfpCSuKUalB645PGv5 HJAjWBbbn0wpRYIhUHhdo4 XjGAzCSDOZPI9XWC1vsYA9 YEhBV7SMYXiaSTIuUhuxnO LJEXK8DRkkwVenpMp7i9fh sCCvn5f5RQodOUU1aFifoJ UkkmqfoFBuvFiwzzEpCS2T TJDmUWvsPZXuxKCBWPP9EV 2pCIxeaKXttowwUVAoG5Zt K6KfvyCqsHBxJRGtfuPsm3 bpQZX4FTNtqQShxAGbArVi IyxfNWD4DYv9ONsyUENqT7 QyQ5UmRYweEJV2LVAjMpDt XGRiICBPVlIgIiBDMDYzNT IqTtS6ZCo9DWKPGrRjVqMb LOR6BuV2FMUvEAa0VIh8VT qIUeU8GvWtROL1QjlgGQY6 RCyrQDp3WESvYCdgUNVmkP FsIFxcZnMgMTAgXFxmYiBc BILlCFlkbwI7CZVgIxDjCV LSFpjkTQBdAUlsnGivrK7u YJWpR27po4LQk2LgGG3TJP w4usTurpskiK3cJITqynGq VHpbtGCeX4xvCcuraeBjRS xjQpQbE0IgjQCyeQVhz90o CET4iVThuHFyXPRyFWOaz8 PpY0Fvo081JGRkFRTXi39a kLW3WW8yEUPbsfBfzWmwra Ywp2U0gN9xKW0nTIPcRlYz qYBnSMKrtU4jSCR4pKFtyX TeIOPeLCI5ZHJtPPR3ZCYh FBHugOaeYVIDzXGwv8RiA3 jzNX3djMZla9JqvBEjiQnc f5DeuSuytxVuDYQiPIG1nU EjA5D4PGT6iwCiD2KatvX0 VFHkizQ2WBm4kJKzAD4bVI HlVSYvsajhksfvmX1rs9h5 VIDjdj1zHVsfWuKzfI1hWE 98QKXfTY3rVFMrNOVqxDFu uZ1vohTnsaRnxsEsygSwmN EufETmqTF1EPIpMGHjFb4n aW53ms0cpQvnROGmNHLqMO LnI4DZYLjACjBOI7YNAoFC PTy5bTHwNRNweH9htRXwi5 RtsjvmPKIwFb47fqSumB5a hQGkd1NzdejyMLVcr59xZI a1tHHnAW0fOXWcXttiDTG3 MSG6WIT5QE2cUXXmsL4lzK Nef0KmUIOuf5JlvETmZpZG WMouhaYiDOgwGHZgVG3aPF SkBIRacSSjcR4dkh6jND6M XHBhciANClxwbGFpblxlcG xxEhQssSFjEcMlaQhieW95 TALbkNGlXKU7FL2oMIHbbs xzBRDbBTImQBV3ZYpnbW31 oNLcVURrAGGfqBItmZ8Ef0 ufJVFfaFQdXQX1LRxglUQt KQJqPICcSHqfOqJkG9TQBB WsSfV4LxEkPdOzJFk4DEow S9ICOGZhBDA8WtDoYHEgRf C4TDi2LIVMFh5jAvIgAUS3 JGAvUBW1Grr3XJbzyPSvSX xcZiBBcmlhbCBcXGZzIDEw EFjvWgEfFFpokIAeZT2caJ iyWUHhGiKuGZctoDSdSV8S WETcKJiwDYCmoFMQPIV8CF 9jMSANClxsdHJwYXJcbGlu ZYlfwW1hUI7CWFw1rwPdKQ JgIoAaPUEKPBVzrBm2id1z MKjpdVWagLftiV0vt6xmmQ UgbGVmdCBpbmZlcmlvciBw NPSnoEe5ug4eIXHgyORfPF ZyQtMiGTNfchMyFlO0OKVu YBBnRWUawcQft87mVC5yYT FwOuNbtVyvt7PlKAEjLSYa xDDqFFSfENBdvOnwOPs9LC ZfxqQpap57OB3zu7HnlSqf qwVsceXppXTyqQLgNM35QU E2VHt2MLBha52jxQ7zJTVu XHBhciANClxwbGFpblxlcG huYbYzfEJpQsQdlBaatM53 YBQrkIXaMXN7JC2eRQSzib ygRQUqLZQhQDL7FAjnhF73 wLQbLTDlRHRzuWFvjC7Dp3 vbHQOhxFDhTLH7HPmkuLKy DJIcGAQjKHrmIwIoA1CUTG PsBmJ9XfLtNmUuSMo7GYpq Q4FKTNDkHZP4QfTyHXB3Zb N1BOr8UJASZd4jIpMdADum RSauJHI5Ujs0TMcphHKuKK xcZiBBcmlhbCBcXGZzIDEw SDetQxHdKIzwhDPgKS2qeT foYOXhUgEzAxckiWGpJR0E DTYjBGlhRWSjhTNDMFT3JA 9jMSANClxsdHJwYXJcbGlu APdlbM4rQN1CNNr0ptLyCM KtYvJpZMKTLEMuvOi2tw6d ZCwgcmlnaHQsIGNvbmZpcm 7gghkyxONwk4OyPXNyt8Xd cGFyYXRoeXJvaWQgdGlzc3 GaGW5sMZ3iLXN1OQekCuNe YVTzIRC8XGYqSbY7OHXmLB BlzKIapU3fAYOtl9P6DQEg lbYcfRYeiZdlg8KsjNp7bM CcBLGcqGaiMTb3YNlbKCQn t5ZbsSKpTNOaNLUxwqNadx 53XK1zh6VapMsrguQddoId rZFvyDPsKW83QBE7WHe1VW Qln00yJUMgovHZBfTpzADg lQTohUgrAjfbtAU6CWuiPo rhvG3keEIWGUTANnnXLkab coUxLY8YYK2POyGQAN03Ty KsIIF5ZPgEI4PBkJL9Bnq7 QAk9qAzjFqtvpvXjqCZlWd YLsD1XDHdeToofuSK8MToi RyictO4mpHGRVJWQIxdSTs qjazGpKR9PDL3JGU2AoNKr PYF2oPP3YMVGNqlicDE6uV X3sA55ICYwWVYnfQCbFGfe P958EZQfSNdlLQs9ihJaRY AkHcCvTFwkeAxllO5pNKRk S25tl2ZYc0CnTFKaKCebc5 khpDomt4TpjISpVLngEQAi nCHqIIzhjZ7jMiRdz8mhuY a5PWbwjzE1IXRcim3ZRkjo ZlkdyEduh2RksAEoOCcsXX UnLWKkSSeqNXQwIQ3SNzQb NCFsOfQ0DTRuMMp2RMw5VH 9WUyAiICAgNDcyMTkxOSIg OTm7VZxvLV1MZGZuObZ0Yi ZgWWN9MUf8BfSaZUQbUcHf XGYgQXJpYWwgXFxmcyAxMC AlQHVaFVemFfojQWknZ92y TtavjzYbTOb6NESgfsBPFs xwbGFpblxlcGljTmVzdERv YzEgDQpcbHRycGFyXGxpbj BccmluMCANClxsdHJjaFxi TSZzSuTmULu7hh3mQEqvnf kgvWTsqZ4kQPkriagbzVCf yIg7wv8qOBNwn2VnMWH2yX RjaCBpcyBzdXBlcmlvciBw z4xjYV8rUH6tKYH2CLhiOp MpLHSuqrSye3JlEC2uMJWc PC0udKVxeZRyUVJeeLVfdT BqoK7vRNAfTJ1sHTiwTs6l ZOlvNR92LKQqXJmrm0fdW8 mydBQeTVGua7AfuETgNWPv HVFpdaBbLZZjnEpiMKD3iJ KgnX5fRLCjAVIvCeF2nUMv h5TeA6anHV5tDEYSgrSasZ Vbf6UvbLHskJJnW6faEGwm IHByZXNlbnQgYXQgdGhlIG ekGyAnqZ5pALLpgSIcaSHh QuZ8oRDbh3DtB2wqOQ0uZY drkxKkAPFnPqBZoZJwb6Wo O1pyFC5jtLAkl0RkgUlddt IaDANat86sg0ZoQJDvf2Gp xA6mlW2wSFGaa2KqlG0foi Y7BVInFCMmCmuacQhoaYAp MM78BW1aTV4lRLAeKNHyAA 33DEoxAF91XCrvJE87OWZc THvhz6edA4ycvDApmPSuh9 InsUE6wHEktR0coUlhGZ0u LWOcPFgtl07jHQ8bCNklTT TiPHUxJDVnpjUzqQ4cfWtc FB6aaakqka1iMUFlh7XjIR OrrHZjaDVnZZC8ZMr8EZ8q JNEqZAHrST65BHhlWM3cJK jkZP4rXRVxPZIpelPbuZRn RCGdHGIsqvCqw0l3hLizOM CgLZMrfUFdmfFqiM8uNG8y YHFsFIJfsATaw3e7NFAgdJ PwHFj8uF9mKBays8VcxQix oaUzDmZoF59dFcUynHK0sN FwkFAcP4rsGcwnqS5bRIe8 YWIgVGhlIHJlbWFpbmRlci ScIpX0pTHxjFs7oi1kSKSx WCXwzvKbpE2nFNjksiRhVQ Nqu7gyUFJgGJxeHygaPNd2 BUheBA23eZThSHKjbKOtap HiF6Dmc4l1bGErrhNgXWDl xOkdjtZoHLCuyj8elJBomF GtLTPrtNEpt3KuuB7ztLNu AM9WXMUzPcGYQSDMXB7JEE OSZLG4ELorZQQaFVEpeLAo z5NdmTU4aBXlTTIgX5Anx4 0rAONlW2j8DITwqTAxgORs dA5vKHFvca8gBXW9pRMdkM 3bISLvDKoxQcIekR9lIGma dGggYSBwYWxlLXRhbiBub2 W5mQPuyIQka9BbkSUqhaSJ IwXlffVfbXhoIYEqndR1NY p9WJ8xFSFyNTRmwlGSNz4t FRjqyl03DZG7m0rpyGMtQD elPuodbGPrlgL1OQzGIETX KCrQKyJsOB9vGOxZXroQEV dJTnwyMTAxNnwxfFVTRVJ8 CVivlBtdxDc7y4lwbRAln6 m1QHgwZNM5xIDHx6xriBMy NUbuDrhklMUukuX5FZrSVB FAMSuBWhRaJR9gEAxRTvyD JxK6CvFvKOV0QByWO8WJnR A5Oay4SFn7gPauJszlgjZi aVPbKsQQiR9enVzsaL4brQ NhS2zsUvTpZCVLKsnvyVBq blxlcGljTmVzdERvYzBccG wcoZ68PETcfKNvYUT0TS7m KHBlqumlLBKpWXChFRH4RG ljmP07rWMaYZXfREKnyLXk tC3Xc3gbTIMcrFYvWVO4KS xcaWQgNTEwMDIgXFxkYiAg L9ZXWHBoOnL8WrHeKgHmSH g6LUfmL9HDDCGwNSI4GkWl WQUzKnC4WBq5HIOQBv6pOr VkBes7UOE6URA5Tyg5XKkx dCAyIFxcZiBBcmlhbCBcXG ZzIDEwIFxcZmIgXFxmbCBc GW3bqJduGCTpEwKqVRlgtA XdAN6CSYAhOFgnSBWgvIBO LMA9OB0iLQIGRsrbrNNcQX GopJytICeaaD5zZL0TEDm7 dfKiLDYlMfPxBMDDbC3igQ Vaw8TrQLHwlPxafHGkPG85 keCqJBLqgIAoysUtLF50DK 4cG6xgYCecf4CbvXghhtCd UR1iLJH2RTywGpQoXDIdpu Yzh4SgER4yZIGjAYPwH7Ll Z5D0PAHdJmUgPZowr9ApPI Huc2W7SEOaFY4gZJdeAh23 HCmjUO8nZOVmRW7ztRoeOC DhnMMsGYAlJPTjxUYddS9t ofFdvfEwHXK7kY1dELYjpJ 5cncO9FGWxBBA4VVYbv2Xr UiphXSf2nJPaUY5mWSPiCJ zbAB4vjQ3bUWSse52gNL7i IHRvIDAuOCBjbSBpbiBncm ZzwUIteTQxhS1jacVjz41p LlxwYXIgDQpcdGFiIFNFQ1 YVR14bP44CQYgyCRDqFzdf WESau3DpeZZoCWFsgF2nmQ Skl3PmkvTwjbWwPJZdACYf e2RdnHDqHzTKVikxSQYgq7 LpaAXbDZJapX9uxGUvx7Kx znaiYEGlGMOmtI8nr1tncE XowNdzsNjeki5jBZW7ZJp7 WGWrONTbbP9lw3wxtVYdcN uvtHuipt6tLAWkfSHsW1St FZXlujFmPQGrGSAbz6NtmT ZkTqWwGXUgi9WmX2I2ACDx OBfsb1ovQKFqSHxln0QsTP cIUAYNJS6CHH4ccEG1BTxG W6NGZ7pOpYMdXVF1iNA0EM OBJnequJA9pTC3qM83UEUr XDMtvUBhUKxpZ629AQD7EK QaRAavr2rfBEWeCNufh2Zw ZYvBYZJCNX5QKT0noJL9ZE lWK7JMAZorERDyKxwymBWM RNF5BHidxJvzoOi7s1uugF Alj3j8ISyvNKT6nLccrDCf hkpjsJTmtKtdjsAhWJ3FDI LxIDmdVWRtxAJPPVB7YV1k ACvsjUHuaywvNEXjX7JgA6 SmerMelKQxBUDggrQhk5jy RVX4HRXbpMTpeMYzXyZdDq hhZXB8NCv7AGwiBZIjF5Gc N2XxUUleNCR6EPMjWuUzMO RiICBPVlIgIiBDMDYzNTEy MtW0XGk0ESETOqJvCnQhXT W8QhY1HtQqCZw9XOx2QRxJ GqM9LzF8AJE7KtOiGQS2OB iwHWr0WEOoYOufEPKhhEZc IFxcZnMgMTAgXFxmYiBcXG VfDEsjcpK3ZTNxScCgXDMS YzfxYYCrGZnmxJmjmN7fRQ JeB46vm8CBh8UnQU3ZJIr9 evOxexwbmW7jOQPthzCeBY sfjRSgS2enNcjxugKbJQu8 uFMvXL6hOCUcFCcdXjYrD4 RzpMEogKPmr58gURY0iKNj cTEtZCKaVHRtg6OaP3Wfc3 4rHgMuSIUhhdUeJvM7CKVz OLSDk75coXZ8ltEdNbPhAM Vjp7MdJmusODAdtrsvsnLw YTRxmzRshA6gbWWqk7InOI gwLjUgeCAwLjQgeCBzbGln iGSxeUFuAQHoUTDmLY1xQA 0lSLBxOB8iJLWyEHKxsO9q kQIas3UrDWhnNYCav7MwhK VkIGFuZCBlbnRpcmVseSBz jMSnpGC3WJTrqX2pYVAjRD ugbu68TKZ5l4dyeMRpCYks GrcnaHIhenB1YOgDYYXKQC tDVbYeJN7zAXiCJohWPLtQ QybaWZPlLnfdaVQJZWR8EJ dwdClbbIr0g9nhtETai4s1 TXymLWN7eOUFo7xkeZWkQA kcElofmKJzfqX1HJjTJQFW XIfNSfNdQX3lFGuIRcqTBt M5RrElMKZ5JFnLI1CHwWB7 Zzn6LRk7tDhaGistmiGonY YxEvJDzF2bpYarfQ9sfSFi B0fvFcXpPKFILnbwzXUhzr xlcGljTmVzdERvYzBccGxh xB63IVCseOMpSUA0WS0mUU BdmmxzHRSuBHWkETI3KDkb qS94zPJzWPHjADBomNHkaE 1KGUImDBV0DJvpcE73tIYk LC7DYRVqCCX0MPSaeUJtRI Z2NM5njS4SnN== Intraoperative n9nlyBJjPGSdhNSBGFZwXF Evaluation (test code = slglUlSYZjtBCkD4Jihllx [id number]) YCygNF0mZK1eaButxTUlrD OoXO5GFIPfUeKmVMZlyBCb iuBlHyYbGPFutSTuyUV2NK VzLJ6amuhgINadUVyaPDKf ciA1QKTpoEIgH6QyTHWhPO 7bqxcxXYO1ERrnoZ2ejqYK HficJb9bbTRgnDvgAiVmAi NoYXJzZXQwXGZuaWwgQXJp TLd3wP8ERbtyDJW3JKYGJt syAANpGX6Xq2xcAZPdjNNk QTP8FFfccRZiDYGdJVHrGG w5GGKyXXjbhZJdWL2qaNuj CzeonWjgj9RnvIRyHXpdHF GyXGGgOJyaOLZvQG2TFeGq PMNpNeB9WXHuZEl9KHd2CB 9WUyAiICAgNDcyMTgzOSIg BJz3YLwrDB7GIVJvTtQhGe z1TBL6XBv1ZKKmMNOsAxNn XGYgQXJpYWwgXFxmcyAxMC CeKCHfYSqgEpodIVuvS08d qMjheQ9uYvfpqmLaOPJ9KR BhciANClxwbGFpblxlcGlj TmVzdERvYzEgDQpcbHRycG FyXGxpbjBccmluMCANClxs dHJjaFxiXGZzMjAgTHltcG qigd8qHTmpFCarpUTfQGRd DJWxEBIoAHMrQOF0YOJnvr O0olYufHJnyXQjhL3cwXPa w1ApJR8jAC0vADA0ZxknMX ZtSZsrcNz1BwKgkPbnUtFy LA0RBCSxOF3BRMDGJJFTNC TgR9ZAS3hVP04XNPDGYsNQ S3HQOnYcE5mDZBRIKNqAN4 zREP2SLMlRRhMSZjJZMR8P HFIFX2VSMaQPAZ6hxWHrnL AwzUhzVtlhnFL1PSrwTsqp qG1wwEIXRGUQHbbCFmqbkm KmUY4ATD5KKbAOGQ32AaUo ABV0URoOI4JGfDH5Flb8NW n3sEwaLkdbdjLoxXQqHoZC iS6DIRydBwznqKT2LUcgDl qgfP1awCWGXZKULtuQUfje vvNxAM8ZRV2TGP6AhEGhJV J0zNI6CVFRJosfkXN5aGV2 jS43WYDtVICvvYRhDLvbZ1 22SLAdPWpmPVa3uoNwDZIw OtFwrXStCA0IECwgTVmgoS 6eKY1CHVMrXAhzWDMllANE KVZ6RZ2iIFvcqUYifcksQE DgD5ZyE1MjvwDdxYCiHUVi ryZri6kgDMN6FPQuvGCodS ZuJuDlLypbSCO4ZXtpePMl JMERBgayWvbnsLihx7TvaX BcXGlkIDUxMDAyIFxcZGIg WD6YXbXbVXUkLfE6ABRrCN l0JSk3UT6YGkKjSHWrFEmo GWs4QCJlCKq6RBruCJ3PLV LlXiE8JPd2FIW3KHw9FXUw XHQgMiBcXGYgQXJpYWwgXF xmcyAxMCBcXGZiIFxcZmwg GEhbV03eLkpkozVtYAK5XK BhciANClxwbGFpblxlcGlj TmVzdERvYzEgDQpcbHRycG FyXGxpbjBccmluMCANClxs dHJjaFxiXGZzMjAgUGFyYX RoeXJvaWQsIGxlZnQsIHBv n6ZyKhdcZWegBrYdhF6hFX Htk6ZlvMLbBZOxjMPsbTAp U6qdtoD2TBRadiIPNrykbF vkLSsfdZ07DeGuNKlpMnXy W88uaJS3nEyltPRogIyzo4 QqSsBSEC4dcGAehAMxeCdg TsobdKS7LEcyJekqtQ1dxA WDOMTAPsyBQmviknHhDC2S CY5FObFRWK31HiSgYSS4IR pFX5OScUW1Miq6FSk7tJox BdrfghQhiXMeMrDInL1NDT wxSlaiqAG1DBctGubwlQ0e dCBIWVBFUkxJTksgbmFtZT 7WLR0DEV4EhRNlYXQ5cXW3 TQPBGhqkgXC1bXM2mZ88CJ PrWKLscSNuIZlrQ544OSEj VVyyGDf1yuAtHLBjKyEtkQ IsKX3ALJlaJFetuQ3jTJ6X ZBIxSUkjIXUuvJOQFHU2ZX 5eHWoiuSVpmmegYSJlR4Kg M7AhwoZfrLNmBIJggyNhm0 adHMA4MTCahEEbyLJaBbVt WonyOWK0XAgihMRuPHCVLp whRocbvLaeh3JooWExRPjg NDUjACLuFQudRDXnYP0OGz SgUSEeKdH7CDLtBXr1OKw4 QS9FZqXgQSDbJGonJPsvOX JjNZn6VMvcOG0RZHLvNsH7 YvJ6SVK4RBk1QyEaSTInBq BcXGYgQXJpYWwgXFxmcyAx MCBcXGZiIFxcZmwgXFxuY3 0vNirnlbGxEBQ8WBQcmaQT ClxwbGFpblxlcGljTmVzdE RvYzEgDQpcbHRycGFyXGxp bjBccmluMCANClxsdHJjaF xiXGZzMjAgUGFyYXRoeXJv dJZpDNcvMzEgMTVgq2UpTp oiIDqfBqCxlR3kPAJph8Jf mYAuORHtqGChkYVjU8abvm VbEoQ4DTKgeoTWMrnnvGob WIdzeV92MqWlXNtxFvExBJ ervEmdnu1pDGodjd1hlGGq YXRoeXJvaWQuIEFFTlxwYX IgDQpcbGkwXGxpbjAgDQpc tReluA7pWIKmL90ci0GYh6 FyJSRmJPmus8obvIcqu3Bw dGVuZFxwYXJccGFyZFxzbC 7cCnQpm5dowLh2TTeunoD5 FMGkog3WUjgmXKHkGW9Tm8 bsUGPjbZIxFAO8OJaxzQRl TMOzROWpOTqaXtNhY2MFPJ LzZuS2XkSgTqVzGCd6SWik J4FXKETaMMI5DlUvWON4Cl Y3EEc8LVRRKv9rCvWqMnN2 VQEgLDD3Cpy5IUsfyJIuRR xcZiBBcmlhbCBcXGZzIDEw YZzmPtZyJKzrdSWgES1jaC nfBFQiMeCqJexofIYtFM0F NQUzXOalCFLfnMYIBME9AB 9jMSANClxsdHJwYXJcbGlu XEqxgC2tVL5OTFj4kaQmEP XqCyFvDBUOSMYtwQh5fs5v ZCwgcmlnaHQsIGNvbmZpcm 2wnhqoaAHhv8AvGFQkx4Bi cGFyYXRoeXJvaWQgdGlzc3 PlZedsYPJiNHoktKr1SfNk vHkgJxDtMV7PYTNfYJEmcz L6iYpgi9wfOkOCDD1viTFu VJ5NWXlqALhxiG1eAH7SSE FsSRtrTBFtzGIGVRF0TZ4i AQoapSJnxeqmFNYxQ8CyT6 PfojJpjUEaLJGvbqEuy3zb ONV8EEXyxGXqaHMbYhJuKt onMVD6TJlgkEPbIXxgtTSy AWIwv0yoKSC4QI7IJCNzVI B6JOTqfEJjAYL5BV1paJ8I fQ== Disclaimer (test code = s4tssKXrYDIigCVtZdMtNR 9844) JiYKWtt8rxVYRcoCUjWrVu MzNcZnRuYmpcdWMxXGRlZm Mzh6nym000eVEwp9coZXCh MdY9lVXcNXQhrOTuW365ZH YbQXywb1twz1QnQJHnyQGh o5Y0JGDMvzqnzLv4nUwoL6 3ct6W3JxxgK9idVSIoSAIz T1LtUM7mHNQpGeq5NDW4PC S1TRXyAUVfO1SaVO1xXZUc tBJhPDm0i6yxyIqaBHVyII O7a9gcXApwzaSkXQ8pci6s qSn8a0kogyWoKQLdAMRmwR YPSMIbM5YhuLbxIu1lxRy3 iNzvIwvcLCV8Wxv5TW3use 00qew7oYcdQNZtxyvhIaQ6 GRnsTSNzqoczUVx1OAdiCV EayLE7BGVdbMYwF5QuPYMg JH2wwsk2OXC9KFjdHJLeEx O3TQKpqPNtEOFojNmpGLqf o922ZVK2JsOjQH6yI5Mdo2 K9lW4ioDLtEYDokLFkEqFa OKJevt7hwPQoBMmeg3OoVI Q8rhO3gSHlbJYbJIMoUP33 Ummhw4WzFeasAPT9QETxly Bee7Hnj2oaOaQrirSaD2uu H7LeVTSlSCVlYHDrOnPrcn Hiv4Eqd2StjQCziZf2r1ux ECHiTBFcuTdmh4jxURK7JN XyU1L7qGSli1wkKYohIENn nNC9qxS2EGMlgJIlQ6KfhO 1xXXJzPF3ocqi2l2buWQQ4 CLnwAHQlHqO7piB1WNFjmY WbEPChnMzwBRzys188CFE0 PwLjQICyp5OwY6VdpBrzQ1 5mdXxbV94kCKGtsNcuwJ7k pEtncB7zViXrExWdFDtlhG pdhKQzhxmbPOvtlrL6SPlw flpeKCFiGUpfC8ygNmNaSJ XsoQhdECemi9GdZJVwEUId ZjnrabT4AVFCi50jRRNgw0 AvQJEnbI4xbJSuRImawpOo gXF0SWbkveBkOhWsltYcJR SiiZ9rFOBjPS8oIJIvmxFt zr6bncHkRNLsUFAlS4Xjjt xgyEqqeoNgLHLmwc5kneQx BXU8WZUYWB6SALUdCPYcv6 4cSJBtzIxuvJ0qbCLpjnNo XUHrj1LopD9rhLFVAMOeW5 zjLQ6lHKkie6CdsMFevPYf iLH6XHGpk5DxYbXexeNsqU IsiSAyE2NitYwnV4idDLPi BNFrfnXsqANbg1ZpHIRmtX D2lLOqNW3BXnVYr24iMPSf VZKJgcTlGAJtuVxzqKY6wq M6nI2sGnLUTwSxrGRabEHd OqckRSPxi688zk9hwqG8EE CdXNPlssnik5MjAXLiXNGn rX94KRIfARFish8rmkimfO TrmwWjJ2Mmtic6cS0iNARo YWluXGYxXGZzMjJcbGFuZz EwMzNcaGljaFxmMVxkYmNo PNYuBDdtK7oaUyEpHvTwDj xwYXJ9 MD [facility] Thyroid [id number] 11:15:50Study acquired at another institution. For comparison only. No [facility] originated interpretation requested or available.MD Ortega [place] [id number] 11:15:36Study acquired at another institution. For comparison only. No [facility] originated interpretationrequested or available.MD Ortega [place] [id number] 11:15:22 Study acquired at another institution. For comparison only. No [facility] originated interpretationrequested or available.MD Ortega CT Abdomen and [id number] 11:15:10Study acquired at another institution. For comparison only. No [facility] originated interpretationrequested or available.MD Olson COVID-19 (SARS-CoV-2) PCR-Asymptomatic [id number] 23:10:25 Test Item Value Reference Range Interpretation Comments COVID19 (SARS Not Detected Not Detected This test is a CoV-2) Result qualitative (test code = reverse-transcr iptase 91036-5) polymerase emmanuel n reaction (RT-PC R) developed for t he [employer] LAURA 680 0 system and inte nded for the detecti on of SARS CoV-2 RNA in human nasophary ngeal specimens from patients who me et COVID-19 clinic al and/or epidemiological criteria. This assay has been approv ed by the FDA for use only under Emergency Use Authorization ( EUA) in laboratories that have been CLIA-certified to perform moderate-comple xity and high-comple xity tests. The performance characteristics of this assay were verified by the [facility] at [facility], CLIA Accreditation # : [id number] and CAP Accreditation # : [id number]. Result s must be interpreted within the context of all relevant clinic al and laboratory find ings and should not form the sole basis for a diagnosis or treatment decis ion. "Presumptive Positive" resul ts are due to partial amplification o f SARS-CoV-2 targ ets and indicates l ow amounts of viru s present in the specimen at or near the limit of detection. Regardless, individuals wit h "Presumptive Positive" resul ts should be manag ed per institutional guidelines as individuals pos itive for SARS-CoV-2 virus, including use o f appropriate inf ection control protoco ls. Internal contro ls are included to ass ess for possible amplification inhibitors. If inhibition is detected, testi ng is repeated and if inhibition is confirmed the specimen is res ulted as "Invalid". W hen an "Invalid" resul t occur, it is recommended to wait 3 days before submitting a ne w specimen for te sting if clinically indicated. COVID19 SARS PIG CASTER Swab Source (test code = 93030) COVID19 SARS Pre-OR Procedure Indication (test code = 43587) MD Davidson Interpretation Exception PreOp [id number] 14:17:41 Test Item Value Reference Interpretation Comments Range TMP Exception Patient's pre-op Type ____ (test code = and Screen [place] no 7543) evidence of RBC FE RNANDO alloantibody(ies). 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 8:17 AM CSTElectronical ly Signed By: AMINA HOLLEY MD - 2005 on 06.27.2020 8 :17 AM C MD Davidson Interpretation Antibody Screen [id number] 20:34:13 Test Item Value Reference Range Interpretation Comments TMP Auto Neg At the present ABSC Interp time, patient (test code = plasma shows no ____OWEN HOLLEY MD 7535) evidence of RBC - [id number] prieto by: alloantibodies. OWEN ADDISON MD - [id number] D ate/Time: 06.26.2020 14:3 4 PM MICROSTRATEGY ARCHITECT DEVELOPER Transcribed Da te/Time: 06.26.2020 14:3 4 PM CSTElectronical ly Signed By: OWEN COURTNEY MD - on 14:34 PM MD OlsonX-ray Spine Cervical Complete 4 or 5 [id number] 17:30:511. No acute fracture or bone metastasis.2. Degenerative changes in cervical spine without ligamentous instability.3. No atlantoaxial subluxation.Interface, Radiology Results In - 06/26/2020 11:33 AMCSTFULL RESULT:Examination: Cervical Spine, 4 Views, 06/26/2020 11:21 AM.Clinical History: Papillarythyroid carcinoma. Rheumatoid arthritis.Indication: Assess for ligamentous instability.Comparison: None.Technique: AP, lateral, and flexion/extension lateral views of cervical spine, 06/26/2020.Findings:Reversal of normal cervical lordosis is seen. The vertebral body heights and alignment are maintained. 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 Spondylosis is noted at C4- C7 with disc spacenarrowing, eburnation and marginal osteophytes. No bony erosions are seen. The paraspinal soft tissues are intact.Flexion/extension lateral views of the cervical spine fail to demonstrate any ligamentous instability. Restricted hyperextension of the cervical spine is noted.IMPRESSION:1. No acute fracture or bone metastasis.2. Degenerative changes in cervical spine without ligamentous instability.3. No atlantoaxial subluxation.MD [id number] 15:50:58 Test Item Value Reference Range Interpretation Comments ABORh. (test code = 882-1) A POS MD OlsonClot Expiration [id number] 15:50:55 Test Item Value Reference Range Interpretation Comments T & S Expiration (test code = 06/29/2020 5318) MD OlsonAntibody [id number] 15:48:39 Test Item Value Reference Range Interpretation Comments ABSC. (test code = 890-4) Negative ABSC MD OlsonConfirm [id number] 14:32:56 Test Item Value Reference Range Interpretation Comments ABORh Confirm. (test code = 882-1) A POS MD OlsonGlucose, [id number] 13:43:36 Test Item Value Reference Range Interpretation Comments Glucose Random (test 174 mg/dL 70-199 Effecti ve 01/30/16, the code = 9360) glucose referen ce intervals have been updated based o n [employer] rena delines (Standards of M edical Care in Diabete s 2016. Diabetes Care 2 016; 39: S13-S22).Fastin g blood glucose:Normal: 70 99 mg/dLImpaire d fasting glucose (increa sed risk for diabetes or pre-diabetes): 100 125 mg/dLDiabet es mellitus: >/=1 26 mg/dL Random blood glucose:Normal: 70 199 mg/dLNote: Random glucose >100 mg /dL is associated with increased risk for diabetes MD Olson Hepatitis C Virus Ab Screen, Reflex HCV [id number] 17:46:29 Test Item Value Reference Range Interpretation Comments HCV Ab Screen-[place] Negative Negative Signal-to -cutoff ratio is (test code = <1.00. Test Per formed 00725-4) by:[facility] - [address], [place] [address]Lab Director: Paulo Lopez M.D. Ph. D.; CLIA# [id number] MD OlsonUS HEAD NECK SOFT [id number] 15:43:031. 1.1 cm biopsy-proven left inferior thyroid nodule, compatible with outside biopsy proven PTC.2. No adenopathy. Interface, Radiology Results In - 06/22/2020 9:45 AM CSTExamination: US HEAD NECK SOFTTISSUE on 06/22/2020 9:17 AMClinical History: Papillary thyroid carcinomaIndication: Thyroid CancerComparison: NoneTechnique: Sonographic images were obtained of the neck soft tissues.Findings: Right th yroid lobe: 2 x 5.1 x 1.4 cm Nodule 1: Right isthmus, 0.6 x 0.6 x 0.3 cm hypoechoic well-defined nodule.Left thyroid lobe: 2 x 6 x 1.2 cm.Nodule 2: Left inferior thyroid lobe, 1.1 x 1.1 x 1 cm hypoechoic solid nodule with lobular borders and a few internal echogenic foci, compatible with biopsy-proven PTC.Central neck: No adenopathy.Right lateral compartment: No adenopathy.Left lateral compartment: No adenopathyIMPRESSION:1. 1.1 cm biopsy-proven left inferior thyroid nodule, compatible with outside biopsy proven PTC.2. No adenopathy.MD OlsonVitamin D [id number] 20:53:44 Test Item Value Reference Range Interpretation Comments Vitamin D 25 OH (test 26 ng/mL 30-100 L Refere nce Range: code = 8018) Deficiency: <10 ng/mLInsufficie ncy: 10-29 ng/mLSufficienc y: 30-100 ng/mLPotential toxicity: >10 0 ng/mL Lab Interpretation (test Abnormal code = 41076-3) MD OlsonHepatitis C Virus [id number] 20:28:09 Test Item Value Reference Range Interpretation Comments HCVAb Received (test See Note HCVAb w as sent to a code = 29627) reference lab for testing. Expec t results on Hepa titis C Virus Ab Screen w/Reflex HCV PC R within 96 hours. MD OlsonHemoglobin [id number] 20:18:12 Test Item Value Reference Range Interpretation Comments A1C (test code = 4632) 6.7 % 4.3-5.6 H HbA1c values >=6.5% are diagnostic of diabetes mellitus.Diagno sis should be confi rmed by repeat testing.Therape utic Action suggeste d: >8.0% HbA1c; Go al oftherapy: <7.0 % HbA1c Lab Interpretation (test Abnormal code = 35927-5) MD OlsonUS Breast Complete [id number] 14:30:33Hm Interface, Radiology Results Incoming - 06/20/2020 2:33 PM CSTFormatting of this note might be di fferent from the original.PROCEDURE: MAMMO BREAST DIAGNOSTIC TOMOSYNTHESIS BILATERAL, US BREAST COMPLETE LEFT 06/20/2020 11:06 AM COMPARISON:Mammograms dated 03/2016 through 05/2019. Left breast ultrasound dated 05/09/2019.TECHNIQUE:Digital bilateral diagnostic mammography with tomosynthesis was performed and interpreted using computer-assisted detection.Hand-held high resolution sonographic images of the bilateral breast(s) including all 4 quadrants and the retroareolar regions were obtained with color Doppler imaging as needed.CLINICAL HISTORY:50-year-old asymptomatic female with history of bilateral reduction mammoplasty at age 38 presenting for short interval follow- up status post benign ultrasound-guided biopsy of the left breast yielding benign findings.FINDINGS: MAMMOGRAM: There are redemonstrated bilateral postsurgical changes of reduction mammoplasty. The breast parenchyma is predominantly fatty. There are no new suspicious masses, calcifications or distortions. There has been no significant interval change in the mammographic appearance of the bilateral breasts. A persistent equal density focal asymmetry with associated marker clip in the left 12 o'clock position 8 cm from the nipple corresponds to the site of benign ultrasound-guided biopsy which appears decreased in conspicuity compared to prior mammograms dating back to 2016 allowing for differences in imaging technique.ULTRASOUND:There are no new suspicious cystic or solid masses in the left breast. A persistent lobular anechoic mass with in situ clip is seen in the left 12 o'clock periareolar region at the site of benign ultrasound-guided biopsy measuring 1.3 x 0.9 x 0.4 cm, previously measuring 1.3 x 0.9 x 0.5 cm on ultrasound performed May 2019.IMPRESSION:1. No specific mammographic or sonographic features of left br east malignancy.2. No specific mammographic features of right breast malignancy.BI-RADS Category 2. Benign. RECOMMENDATION: Comparison with physical exam and annual screening mammography.Findings and recommendations were discussed with the patient at the time of the examination.This facility is accredited by [employer] for Mammography. A negative x- ray report should not delay biopsy if a dominant or clinically suspicious mass is present. Not all cancers are identified by x-ray. [id number] Tomos[facility] [id number] 14:30:33Hm Interface, Radiology Results - 06/20/2020 2:33 PM CST PROCEDURE: MAMMO BREAST DIAGNOSTIC TOMOSYNTHESIS BILATERAL, US BREAST COMPLETE LEFT 06/20/2020 11:06 AM COMPARISON:Mammograms dated 03/2016 through 05/2019. Left breast ultrasound dated 05/09/2019.TECHNIQUE:Digital bilateral diagnostic mammography with tomosynthesis was performed and interpreted using computer-assisted detection.Hand-held high resolution sonographic images of the bilateral breast(s) including all 4 quadrants and the retroareolar regions were obtained with color Doppler imaging as needed.CLINICAL HISTORY:50-year-old asymptomatic female with history of bilateral reduction mammoplasty at age 38 presenting for short interval follow- up status post benign ultrasound-guided biopsy of the left breast yielding benign findings.FINDINGS: MAMMOGRAM: There are redemonstrated bilateral postsurgical changes of reduction mammoplasty. The breast parenchyma is predominantly fatty. There are no new suspicious masses, calcifications or distortions. There has been no significant interval change in the mammographic appearance of the bilateral breasts. A persistent equal density focal asymmetry with associated marker clip in the left 12 o'clock position 8 cm from the nipple corresponds to the site of benign ultrasound-guided biopsy which appears decreased in conspicuity compared to prior mammograms dating back to 2016 allowing for differences in imaging technique.ULTRASOUND:There are no new suspicious cystic or solid masses in the left breast. A persistent lobular anechoic mass with in situ clip is seen in the left 12 o'clock periareolar region at the site of benign ultrasound-guided biopsy measuring 1.3 x 0.9 x 0.4 cm, previously measuring 1.3 x 0.9 x 0.5 cm on ultrasound performed May 2019.IMPRESSION:1. No specific mammographic or sonographic features of left br east malignancy.2. No specific mammographic features of right breast malignancy.BI-RADS Category 2. Benign. RECOMMENDATION: Comparison with physical exam and annual screening mammography.Findings and recommendations were discussed with the patient at the time of the examination.This facility is accredited by [employer] for Mammography. A negative x- ray report should not delay biopsy if a dominant or clinically suspicious mass is present. Not all cancers are identified by x-ray. [id number] COVID-19 (SHAMA-CoV-2) PCR [id number] 12:53:15 Test Item Value Reference Interpretation Comments Range COVID19 SARS Pre-Out of OR Procedure Indication (test code = 51242) COVID19 SARS Result Not Detected Not Detected (test code = 55017-2) COVID19 SARS SARS-CoV-2 NOT Detected. Interpretation (test Reference Range: Not code = 55807) Detected Methodology: The [employer] RealTime SARS-CoV-2 assay is a qualitative real-time reverse forestry professor polymerase chain reaction (corrections lieutenant-PCR) test to detect RNA from SARS-CoV-2 in nasal, nasopharyngeal and oropharyngeal swabs from patients with signs and symptoms of infection who are suspected of COVID-19 by their health care provider. The Wolfe RealTime SARS-CoV-2 performed on the [employer]000 System is a dual target assay with primers and probes for the RdRp and N genes. Results must be interpreted within the context of all relevant clinical and laboratory findings, and epidemiological risk factors. Positive results are indicative of the presence of SARS-CoV-2 RNA; clinical correlation with patient history and other diagnostic information is necessary to determine patient infection status. Positive results do not rule out bacterial infection or co-infection with other viruses. Negative results do not preclude SARS-CoV-2 infection and should not be used as the sole basis for patient management decisions. The [employer] RealTime SARS-CoV-2 assay is for in vitro diagnostic use under FDA Emergency Use Authorization only. Testing is limited to laboratories certified under the Clinical Laboratory Improvement Amendments of 1988 (CLIA), 42U.S.C. 263a, to perform high complexity tests. The Test was performed by the CLIA-certified, high-complexity Molecular Diagnostics Laboratory ([facility]) at [facility] under the Food and Drug Administration (FDA) s Emergency Use Authorization. Factsheet for patients: https://www.[employer]nderson.org/ AbbottFactSheetPatientsFact sheet for healthcare providers: https://www.mdanderson.org/ AbbottFactSheetHCP Test performed by:The [facility] [place] [address] [facility] [id number] 17:32:00 Test Item Value Reference Range Interpretation Comments Materials Received (test t1yuyGRwVDPltEPmEuHz code = 9973) WXVzYMIpz3nsXSHmjVGh ZzEwMzNcZnRuYmpcdWMx TFSbZiXzf1nui753rIXv n3jrXROjByI0nQUmMCEy jVDpL732ITDuMPrxs8am u7ZoZPJsxNMhf1I5PWEL adcwwKf4dQdoM07sq3W7 QtdgJ6qsAIWgXNEdX4Ea EF2vWBGqCmu6FCR5LHP7 VMXxKOBvA2TjJC0nZAJo tYXrSKp6l5acgXhqDXDj YYZ4b8rxQYdvujMuKW3z yg3cfTu1m7foarVsUCLa BIVvmNKSMPGyJ1GubWul Os1bmFu8xYbhUtesRPQ1 Xgy4AX0abr51zbm1tDma GNEuyedjBlE4VOftTHAw wgfbGQg4YVjtBQGloAfn MFxtYXJncjcyMFxtYXJn vDM1BSZxyJFgR6MgTPVe NCkeTTQvpvr1KrBzSf1q fKOscAqcGOynz6vhu9qj mTPeMlb3LJWxTgFtQavq TWwqj0Wbo8zyLMIgdr1q BYO2eSPfdYvyo5A4nSPk ADBttAWtfbAeCQBmwa78 gAAsaCCtsBEovp7fkyLf xQHenMWlOKF0pUHucwKs BIJdsDPxGFMbHX1scFVf WRQepE1hwcywUUApPdGr pudgWHWwgBzxcdEiPp3q yTfoINT7GVkyG6eyrI7b InJ1GAemR5qwhS2qAGo8 ZZdmqYY8HMRvcA1tHT4g waqfi3osSnUdNC6iqlhe y0vmTtJpDU0bmtq5b6rc LWC1GYzzLBJdUjK5gnO5 NDBcaGVhZGVyeTcyMFxm l591TXD8JnRwNFCxu8Xq Q2FpdWkgX57mlWevY03e CSDrgNglsZ8slGatoH1c MxZwPfYnGBg0wr53MRy2 rimibArsTKy6slJlVELg LUU5KAEriBLoITIcZ8d4 xlBiUOEeQHD9BKQxrUMk PKZqJ0n3naZmDNU7LYx0 cnBhZGRmdDNcdHJwYWRk YjBcdHJwYWRkZmIzXHRy fFIftANqtUQupY4plJah VPMovBWpkH7bLUV5DLHk cmgzMjBcdHJoZHJcbHRy yp12KOYqioVmeZDvuFzi wBOuPUL5YUUcQVJzLMKl RFC3VWBcSqMaevUyGVzd bGJyZHJiXGJyZHJzXGJy OZK1APCwGnTqriFfSIja bGJyZHJsXGJyZHJzXGJy LXX6UQNiUtGzepDbRCcg bGJyZHJyXGJyZHJzXGJy UJG4UVPtXeEpimXiMOwn bHBhZHQxMFxjbHBhZGZ0 G1ucwGWeVAPfVYlflLKc JGOvX9fzmSRdNXhzPFBu cGFkZmwzXGNscGFkYjBc N9axVORwDvHbK4MfiLz4 MDAwXGNsdmVydGFsdFxj nVQeAGS9XVKdSVGyAHXz YJC8GNLpTrGnkgDmYJuh bGJyZHJiXGJyZHJzXGJy KEL9GGByOfOfwbLqHFpb bGJyZHJsXGJyZHJzXGJy WWE9WSEzToSkobViKHvk bGJyZHJyXGJyZHJzXGJy CPV1IZAqBwLcafFkAAuy bHBhZHQxMFxjbHBhZGZ0 W7qqoRHlFJRbPWpyjLPy FZAtI7tqrMCkLPfsNUEd cGFkZmwzXGNscGFkYjBc X2sqEBJqVqQsM0OcqKx6 NjAwXGNsdmVydGFsdFxj jDKbDGD1VNPyIULvSGCy FJR3QYKaHuByejNbSAka bGJyZHJiXGJyZHJzXGJy YRN0USFjMeRtvcUfXWbf bGJyZHJsXGJyZHJzXGJy LTU0LJDwPrNhxeQzYYhy bGJyZHJyXGJyZHJzXGJy NPM4RQKeVzMzbzQeUDyu bHBhZHQxMFxjbHBhZGZ0 W8pgxNOnLQOjEYupfYBn SHOxW5hufTNzGWpyPGRj cGFkZmwzXGNscGFkYjBc Q2pmCSMhMtEbB0WbxOl4 YeHvZPWfvaKxzC73Yvvh w4AdXGSxUPE6RTfiMEea bFxwbGFpblxmMVxmczIw ULbzdvyrFMFrPZwsF3jo QrMcMDDxxXcoSYvlm6Ut XGYxXGNmMlxmczIwXGIg DJXyJDGfdB8fNbfmT9Pc iN4sCJvdHdweQ8kzJSGq r2FzsK0oUJlxvNYdumvf MVxmczIwXGxhbmcxMDMz PXrxR3mnCgKwYIFtaJoh EXaim6FzROFxYRTaVczf uhGnXFl0pdXxKPQavMvd nTBaXRjtsnEsyKwpg6Gf qqAliCriUJKhKDi9wpWu hocplSa2nNHcnHvzNXAy aPgryN3bLeJmLhOmNDdy bGFpblxmMVxmczIwXGxh sgxyTRLaECauS1ptGkEz UTQisMlaCEyvz6IgJYRd YLKfEczrxnUgEYYuF02h bGVjdGVkXHBsYWluXGYx XGZzMjBcbGFuZzEwMzNc aGljaFxmMVxkYmNoXGYx QUgdO9laEdFrG4UyGBKv ZaPcfMVsF2zcT1XwaBmm YXJkXGludGJsXHNzcGFy UWN1rVQlmlIghFUxkOJj LJHgHAjnMBV1zLCuzdnh pOAtxsiyBKjhtyA2LOJp YWluXGYxXGZzMjBcbGFu ZzEwMzNcaGljaFxmMVxk FfCnQXLfJAxjX2hrEfUg Q0IiAMVgFeAtIxQZIKUu aXZlZFxwbGFpblxmMVxm czIwXGxhbmcxMDMzXGhp W2fqNxJoLGSszEiuDJej i7EzBDYmDKZnHvldzjKr TYp7dbWkOCXawYtqbR37 Fdxtgp14KHEzx8mcBFVk B1PleHUlPVZggDQxOPbb MDhcdHJwYWRkZmwzXHRy cGFkZHIxMDhcdHJwYWRk ZnIzXHRycGFkZHQwXHRy zWRiNCC9D5r2iiPjJHTm AIv2svBnYOKwZzXycWTj DKG7LBm9IfiimaR1sPFh B0p2DgifrqWtMOfhfGDr nu41ZQBvgyNpzSFdmOwb gKJaAUV7EGIfRTCnOPJc GZI8JWPuQuPwioCyXUdh bGJyZHJiXGJyZHJzXGJy FQV1ZKNdYqQargXaWDzm bGJyZHJsXGJyZHJzXGJy ZOT2OIIsLqNithTmSYmm bGJyZHJyXGJyZHJzXGJy CAJ8ZIUlTcSgwyBlZYii bHBhZHQxMFxjbHBhZGZ0 Q8rhbVVaUBApPKvobFYz KTKjS7ffyCRdRWeuXLLz cGFkZmwzXGNscGFkYjBc O4ylRCXwZoFkZ1SbnQd7 MDAwXGNsdmVydGFsdFxj fRBbCIT9YVKfKLBhKNGr QSC0NGZyOrEwvbNyEGrk bGJyZHJiXGJyZHJzXGJy HKA8ZIGrMxNsgtRcXPxv bGJyZHJsXGJyZHJzXGJy DJX9WMNdYvXofgBfJTwy bGJyZHJyXGJyZHJzXGJy UGT7FFBxIwVgijNvXIdv bHBhZHQxMFxjbHBhZGZ0 V7hgnMMwAIMgDVbhrHOm YPEgN8nfjJFqYHdhTEKo cGFkZmwzXGNscGFkYjBc O0ymHFBpKaEuV0AosEw8 NjAwXGNsdmVydGFsdFxj qVTgPPC0LHOyBEKxPWNx RUX3HSBvCpChkwHtOQhq bGJyZHJiXGJyZHJzXGJy SBP9THPgGrWumlMxRYko bGJyZHJsXGJyZHJzXGJy GBC6SNSgFnVllmMnATrh bGJyZHJyXGJyZHJzXGJy NBI0PTPvGeGikpVbPRcb bHBhZHQxMFxjbHBhZGZ0 A9yiyHCgMCQqCXwpcCSc EOKyC1qcuPHeTDuyYJSb cGFkZmwzXGNscGFkYjBc E8ixOMLmBcUaS6KdaYk3 RxWqUYVerzUumH56Oqqm q5TgUQWhJAW3QEiuJYos bFxwbGFpblxmMFxmczI0 XHBsYWluXGYxXGZzMjBc bGFuZzEwMzNcaGljaFxm PVefKyQyQUEsGFpsR5nu GcWcY1RmDPGySsJeFE9y TwmWBRHvLGP2JIruFrBQ KqzyPKGJCO7LK9BaOZOi VVNTXHBsYWluXGYxXGZz MjBcbGFuZzEwMzNcaGlj aFxmMVxkYmNoXGYxXGxv Z2ovIqHwA5UeNVIaGbMv nWYaK5cwE5XvsNasEXZz XGludGJsXHNzcGFyYWF1 uQKlqrZtgKjheMtasC0w ZjBcZnMyNFxwbGFpblxm MVxmczIwXGxhbmcxMDMz GNkyY4nsZcLfMPHpqXrk XFhmw5MiMBWtVAFnOcdw czIwIDExLzMwLzIwMjBc wIecsI0bTfNlDcFiKSbt XM9lSTTmG4plxTMkNXDm YHAzN1tpLzSyfN7fdFog MVxjZjJcZnMyMFxsdHJj fXnxYMwnBJDojqElrC99 Aszza5ZaSSIeODV2OCqg MFxxbFxwbGFpblxmMFxm ubP2LJXeOUmaRZStBEHh MjBcbGFuZzEwMzNcaGlj aFxmMVxkYmNoXGYxXGxv D7fiVaIbA3ReYLFxBmMk MTIvMTEvMjAyMFxwbGFp blxmMVxmczIwXGxhbmcx IHPkHBpxS9hpWsVfVOLn vLuhKGjrg7NtHRWhJDHb ExcgsdUeEZz8hrQuONTn vDtxqR53Nugbmt93PECy yrTwl0RvNWAgZXO3LWzo MFxxbFxwbGFpblxmMFxm hnP7NAGsIMbqDYTySZSq MjBcbGFuZzEwMzNcaGlj aFxmMVxkYmNoXGYxXGxv C5ngRuVjOcHqAHptMYG1 Diagnosis (test code = z2davRRsXSXrwWK3EzRi 34) RZNtm0mlu6RveVUklKVg KEwueWPeemRqac54sSC4 aU60IQ4xIOVuZxG1XGRk fkP3Wrl8GHGdERVrnMAr F438k3ryo1pfimWwtOI1 fVxwYXJkXHBsYWluXGZz NmBeOpIsEXq3BPUsCrIy kOwxJLSuSBUFXC2iQR7l QpPzJGTuv1fuihD2MFKu GNMpyWq2zp8oYJIif1N4 bGUgKDEuMyBjbSksIGxl ZnQsIGZpbmUgbmVlZGxl ABNvyOizSCNvx383BAKh clxwYXJcdGFiIFBBUElM WUYETTIYWHjSJ5jHYOUR OqYBLj0OXLvfHJD7 Disclaimer (test code = t3phlHMzYCQbaZAaNfEt 9844) OFVeVUCsx6ndKYWlyCWz ZzEwMzNcZnRuYmpcdWMx YNVvEiUzv8mxs778eXDu w1cyCAEwHaM0wEBcUPLk fTYlG423VTXcLWozd6oe t1CtVZLzqSGwp4W5MIKN znmcgRd9iUwhL62iz1T8 DrifP3cjVRAvKYMxS6Hu XN6jBPXkMsg1MQR4DBG5 YDUoQJWlH1PfZH9iVWKj bUVrFBh4z8husDecOMAo DAW0v9poCKthraAdQN2f lx9ekQl8n3jmdfBaBAGo NNNesGPJHNNuE8GueAct Kh4wpLm9fYxiYeszPWZ7 Qnt8JJ0vlk04fcc1uWzn VEMfzuzcTkJ9FCegAUDw jfnxTWs7MHqjFBAhpOZ1 VBRfuQHjL6MjDDMdHO0t zoy7ODI4QDfrPQLuSfR0 NDBcaGVhZGVyeTcyMFxm e863WTX5ZqGhSH5nQ3Dq y5N6hI9rcOWvOCBweWRi SvEqAXKrga6zlQAuTXtw b0TaPZK7hgW5pZAleUVx PAMrNY24Dgggh8ByQlli CLN9KVSwblDgt3Ojr9fm YfTbeyMvI4yiN2YtCZAy ZRGoPHUeDpGvokXte5Cw y3RvjVQdcQr6f8ctIKGn INBtmUazb9jsNFH5DLZg R0R3rHXlo5mkZCrhYSIe tXH2vwE4QFWqwULzW1Rn tE2aOLEkUB0rdsb3s7rk ASS8GFroATOuKzP1syT8 NDBcaGVhZGVyeTcyMFxm c308XED4BxRjDJHww9Pt S0NlzVmzX71cbAxuZ20a HFIlnXhpnX0usKvohF8n ZjBcZnMyNFxxbFxwbGFp wjooQNuvreU5YVbzgqie AILjDDnoY0nkEsUhXZTx eZhqGPcvo8StBSCyANMi SmybqeF5WMUQr17nGONn y0EfKGMtjT2txYRgERvg reTgxOE7PWgiazXsZuKq ubBfSBGzlE7fKKNuSU9w JSZztcToyn0ppbErBFRj HTAoG9QwnhcltWepbwRm GUDywa0domNeUYJ2JGIQ NX1KIAMiSDYud33wSLHi nJxusD6tfYMmxkJjMSVb n0OtvT9euVTHZXJmX1ag YD6hIPxak8PflHKgdKRu pXO5HUTau4JlZiBvmsXq nXWvhLEhK2AwfHeuV4tx HMBaADLkzjXhvKNgh4Re BSSqeNX8xKFcEL9CGsQT u70uXIMaQLMWplFxMRTa qRgtaZH6ifB7sC1sLxNH ZiBhcHBsaWNhYmxlLCBj z459ar9itaB5FWFxXIBk cyver5XeJWTkLFGzmZ44 JTXkOPQmau4ujkmzqEMm ecJkR8Xluyt8yD3tTYZm YWluXGYxXGZzMjJcbGFu ZzEwMzNcaGljaFxmMVxk EhRbULMnUBvhG6mqHwGo ZnMyMlxwYXJ9 MD [facility] Pelvic Bgqcethvnewm6291-61-71 13:42:12Hm Interface, Radiology Results 06/14/2020 1:45 PM CSTFormatting of this note might be di fferent from the original.EXAMINATION: US PELVIC TRANSABDOMINAL, US PELVIC TRANSVAGINALCLINICAL HISTORY: R19.00 Intra-abdominal and pelvic swelling mass and lump unspecified site, R19.00; left adnexal mass/cyst.COMPARISON: December 16, 2019, CT dated 11/25/2019, July 20, 2018.TECHNIQUE:Transabdominal and endovaginal sonographic images of the pelvis were obtained. Grayscale, color Doppler, and spectral waveform analysis of the ovarian vessels was performed.FINDINGS:Status post hysterectomy and bilateral oophorectomy.The uterus is surgically absent. No fibroids identified.The ovaries are not visual ized.There is a 3 cm left adnexal anechoic simple cyst.. No free fluid is visualized.The bladder is unremarkable.Impression:1.Status post hysterectomy and bilateral oophorectomy with 3 cm left adnexal simple cyst unchanged from prior ultrasound and CT dated November 25, 2019, although new when compared with CT of July 20, 2018. Recommend continued surveillance.OPC-[id number] and approved by vice president of compliance/fellow: Dominga Castillo, Brando Alas MD, personally reviewed the images and resident's/fellow's findings and agree with the final report.[facility] Pelvic Rlcgzsrxfghflp2255-04-43 13:42:12Hm Interface, Radiology Results 06/14/2020 1:45 PM CST EXAMINATION: US PELVIC TRANSABDOMINAL, US PELVIC TRANSVAGINALCLINICAL HISTORY: R19.00 Intra-abdominal and pelvic swelling mass and lump unspecified site, R19.00; left adnexal mass/cyst.COMPARISON: December 16, 2019, CT dated 11/25/2019, July 20, 2018.TECHNIQUE:Transabdominal and endovaginal sonographic images of the pelvis were obtained. Grayscale, color Doppler, and spectral waveform analysis of the ovarian vessels was performed.FINDINGS:Status post hysterectomy and bilateral oophorectomy.The uterus is surgically absent. No fibroids identified.The ovaries are not visualized.There is a 3 cm left adnexal anechoic simple cyst.. No free fluid is visualized.The bladder is unremarkable.Impression:1.Status post hysterectomy and bilateral oophorectomy with 3 cm left adnexal simple cyst unchanged from prior ultrasound and CT dated November 25, 2019, although new when compared with CT of July 20, 2018. Recommend continued surveillance.OPC- [id number] and approved by vice president of compliance/fellow: Sanjay Chew M.D.I, Brando Alas MD, personally reviewed the images and resident's/fellow's findings and agree with the final report.[facility] Lumbar Spine Wo Phfelyig4510-58-29 07:58:49Hm Interface, Radiology Results 06/14/2020 8:01 AM CST EXAMINATION: MRI LUMBAR SPINE WO CONTRASTCLINICAL HISTORY: M54.5 Low back pain, M54.16 Radiculopathy lumbar region, M54.5 M54.16COMPARISON: MRI lumbar spine 02/01/2016TECHNIQUE: Multiplanar multisequence nonenhanced MRI examination was performed of the Lumbar spine.FINDINGS:5 lumbar type vertebrae with the last fully formed disc at L5-S1.Preservation of the normal lumbar lo rdosis. Vertebral body heights are maintained. No suspicious osseous lesion. Mild anterior osteophyte formation Modic type II endplate changes anteriorly. Few scattered small osseous hemangiomas. Conusmedullaris terminates at L1-L2. Mild posterior disc bulge at T12-L1 without spinal canal narrowing.L1-L2: No significant posterior disc disease or spinal canal stenosis. Patent bilateral neural foramina. Mild bilateral facet hypertrophy.L2-L3: No significant posterior disc disease or spinal canal stenosis. Patent bilateral neural foramina. Mild bilateral facet hypertrophy.L3-L4: Trace retrolisthesis. No significant posterior disc disease or spinal canal stenosis. Patent bilateral neural foramina.Mild bilateral facet hypertrophy.L4-L5: Grade 1 anterolisthesis measuring 3 mm, new compared with 02/01/2016. Alignment changes and moderate to severe left and moderate right facet arthrosis contribute to mild spinal canal and mild to moderate left lateral recess narrowing with suspected contact on the descending left L5 nerve root. Patent bilateral neural foramina.L5-S1: Shallow central posterior disc protrusion without spinal canal narrowing. Patent bilateral neural foramina.IMPRESSION: Grade 1 anterolisthesis at L4-L5 with moderate to severe left facet arthrosis contributing to mild to moderate left lateral recess narrowing with possible contact on the descending left L5 nerve root without evidence of impingement.[id number] MethodistCytology (non-gynecological) [id number] 11:19:33 Test Item Value Reference Range Interpretation Comments Case number (test code = [id number]) Cytology See link below for (non-gynecological) PDF Lab Report report (test code = 1178) Result status (test code This is Final Report = [id number]) for [id number] [facility]roid Bi[facility] [id number] 07:44:30Hm Interface, Radiology Results - 06/05/2020 7:47 AM CSTFormatting of this note might be di fferent from the original.Procedure:Ultrasound-guided fine-needle aspiration biopsy of a left-sided thyroid nodulePerforming RadiologistGerald Alfaro MD AssistantsNone Pre Procedure Diagnosis:Left-sidedthyroid nodulePost Procedure Diagnosis:Left-sided thyroid noduleIndication:Left-sided thyroid noduleC omplicationsNone IMPRESSION:1.Successful fine-needle aspiration biopsy of a left-sided thyroid nodule PROCEDURE SUMMARY:1.A limited preprocedure ultrasound of the left neck demonstrates a predominately hypoechoic 1.3 cm nodule within the leftlobe the thyroid. This has a lobular contour and corresponds to findings on preprocedure thyroid ultrasound from 05/11/2020.2.Multiple grayscale images obtained during the biopsy demonstrate positioningof the echogenic tip of the needle within the central portion of this nodule.3.Limited grayscale images following the procedure demonstrate no post procedure hematoma.PROCEDURE DETAILS:Pre-procedure:Com parison studies: Thyroid ultrasound from 05/11/2020Written and informed consent for the procedure (toinclude risks, benefits and alternative therapy) and monitored conscious sedation was obtained from the patient.Prophylactic antibiotics: NonePreparation: The left neck was prepared and draped using all elements of maximal sterile barrier technique including sterile gloves, sterile gown, catheter, mask, large sterile sheet, sterile ultrasound probe cover, hand hygiene and cutaneous antisepsis using chlorhexidine.Anesthesia/Sedation:Level of anesthesia: Local anesthesiaMedications used: 1% lidocaineProcedural Technique:A limited preprocedure ultrasound of the left neck was performed. Under ultrasound guidance, multiple 25-gauge needles were advanced into a solid nodule within the left lobe the thyroid using a fine-needle aspiration technique. The samples were then sent to pathology who confirmed adequacy.The patient tolerated the procedure well.Additional DetailsAdditional description of procedure: NoneEquipment details: NoneSpecimens removed: NoneEstimated blood loss (mL): Less than [id number] [facility] Soft Tissue Head Neck 2020-05-11 16:39:58Hm Interface, Radiology Results 05/11/2020 4:43 PM CST EXAMINATION: US SOFT TISSUE HEAD NECKCLINICAL HISTORY: E04.9 Nontoxic goiter unspecified, R13.12 Dysphagia oropharyngeal phase, E04.9 R13.12COMPARISON: None.TECHNIQUE: Transverse and longitudinal sonographic images of the thyroid gland were obtained. Grayscale and colorDoppler images were also obtained.FINDINGS: RIGHT THYROID LOBE:1.The right thyroid lobe measures 5.0x 1.9 x 1.9 cm. It is heterogeneous in echotexture. No suspicious thyroid nodules. . Small 5 mm nod ule anteriorly in the right thyroid lobe near the junction of the isthmus.2.There are no enlarged right neck lymph nodes.ISTHMUS:1.The isthmus thickness measures0.6 cm. No suspicious thyroid nodules. .LEFT THYROID LOBE:1.The left thyroid lobe measures4.9 x 1.7 x 1.6 cm. It isheterogeneous in echotexture. 1.0 x 1.5 cm nodule in the inferior left thyroid lobe. . 2.Left cervical lymph node measures 1.3 x 0.6 x 0.9 cm.NODULE 1 Location: Inferior pole Size: 1.1 x 1.2 x 1.5 cm, Composition: Solid, 2 Echogenicity: Hypoechoic, 2 Shape: Wider than tall, 0 Margin: Smooth, 0 Echogenic foci: None, 0TOTAL POINTS: 4IMPRESSION:1.Enlarged heterogeneous thyroid gland. 1.5 cm hypoechoic nodule in the inferior left thyroid lobe (ACR TR 4) for which ultrasound-guided FNA may be of benefit. Slightly prominent Left cervical lymph lymph nodes with the largest measuring 1.3 x 0.9 cm.2.No significantly enlarged submandibular lymph nodesACR TI-RADS0 points: TR1. Benign. No FNA.2 points: TR2 . Not suspicious. No FNA.3 points: TR3. Mildly suspicious. FNA if > or = 2.5 cm. Follow if > or = 1.5 cm.4-6 points: TR4. Moderately suspicious. FNA if > or = 1.5 cm. Follow if > or = 1 cm.7 or more points: TR5. Highly suspicious. FNA if > or = 1 cm. Follow if > or = 0.5 cm.[id number] [facility] Methodist[facility]G 12 [id number] 13:33:35 Test Item Value Reference Range Interpretation Comments Ventricular rate (test 85 code = 253) Atrial rate (test code = 85 255) NE interval (test code = 144 266) QRSD interval (test code 140 = 260) QT interval (test code = 392 264) QTC interval (test code 466 = 265) P axis 1 (test code = 65 267) QRS axis 1 (test code = 259 268) T wave axis (test code = 56 270) EKG impression (test Normal sinus code = 273) rhythm-Right bundle branch block-Cannot rule out Inferior infarct , age undetermined-Abnormal ECG-No change c/w November 2019- [facility] Methodist[facility] Renal Stone [id number] 19:52:02Hm Interface, Radiology Results Incoming - 11/25/2019 7:55 PM CDT EXAMINATION: CT RENAL STONE PROTOCOLCLINICAL HISTORY: rt flank painTECHNIQUE: Multiple axial images of the abdomen and pelvis were obtained without intravenous administration of iodinated contrast. Sagittal and coronal computerized reformatted images were also obtained. Thelack of intravenous contrast reduces the sensitivity of detecting solid organ disease.Automatic exposure control or iterative reconstruction techniques used to reduce dose.COMPARISON: 07/20/2018Impression:1.Without IV contrast evaluation of solid organs of upper abdomen is limited. 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
[2020-10-23] MEDS ORDERED: IBUPROFEN 400 MG TAB ONE (23:37)
--- NOTE | 2020-10-24 00:01 | EDPHYS ---
Physician Documentation [facility] Name: Digna Danii Age: 50 yrs Sex: Female : 1970 Arrival Date: 10/23/2020 Time: 22:23 Bed 13 Private MD: RAFA Physician Bharath Olson HPI: 10/23 23:58 This 50 yrs old Female presents to ER via Ambulatory with complaints of Foot kb Injury. 23:58 The patient presents with decreased range of motion, an injury, pain, swelling, kb tenderness. The complaints affect the left fifth toe. Context: The problem was sustained at home, resulted from stubbing toe on door. the patient can fully bear weight, the patient is able to ambulate. Onset: The symptoms/episode began/occurred today. Modifying factors: The symptoms are alleviated by nothing, the symptoms are aggravated by nothing. Associated signs and symptoms: Pertinent positives: swelling. Severity of symptoms: At their worst the symptoms were moderate, in the emergency department the symptoms are unchanged. The patient has not experienced similar symptoms in the past. The patient has not recently seen a physician. 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 - Social history:: Smoking status: Patient denies any tobacco usage or history of. ROS: 23:57 Constitutional: Negative for fever, chills, and weight loss, Skin: Negative for injury, kb rash, and discoloration, Neuro: Negative for headache, weakness, numbness, tingling, and seizure. 23:57 MS/extremity: Positive for injury or acute deformity, decreased range of motion, ecchymosis, pain, swelling, tenderness, of the left fifth toe. Exam: 23:57 Constitutional: This is a well developed, well nourished patient who is awake, alert, kb and in no acute distress. Head/Face: Normocephalic, atraumatic. Respiratory: Respirations even and unlabored. No increased work of breathing, no retractions or nasal flaring. Skin: Warm, dry with normal turgor. Normal color. Neuro: Awake and alert, GCS 15, oriented to person, place, time, and situation. Moves all extremities. Normal gait. 23:57 Musculoskeletal/extremity: Extremities: grossly normal except: noted in the left fifth toe: decreased ROM, ecchymosis, pain, swelling, tenderness, ROM: limited active range of motion, Circulation is intact in all extremities. Sensation intact. Weight bearing: able to fully bear weight. Vital Signs: 22:59 BP 153 / 87; Pulse 91; Resp 16 S; Temp 98(O); Pulse Ox 98% on R/A; Weight 131.09 kg bb (R); Height 5 ft. 7 in. (170.18 cm) (R); Pain 9/10; 10/24 00:14 BP 137 / 92; Pulse 87; Resp 16 S; Pulse Ox 99% on R/A; bb 10/23 22:59 Body Mass Index 45.26 (131.09 kg, 170.18 cm) bb MDM: 10/23 23:05 Patient medically screened. kb 23:56 Data reviewed: vital signs, nurses notes. Data interpreted: Pulse oximetry: on room air kb is 98 %. Interpretation: normal. Counseling: I had a detailed discussion with the patient and/or guardian regarding: the historical points, exam findings, and any diagnostic results supporting the discharge/admit diagnosis, radiology results, the need for outpatient follow up, a orthopedic surgeon, to return to the emergency department if symptoms worsen or persist or if there are any questions or concerns that arise at home. 10/23 23:04 Order name: XRAY Foot LEFT 3 View 10/23 23:56 Order name: Post-op shoe; Complete Time: 00:13 kb Administered Medications: 23:22 Drug: Ibuprofen 800 mg Route: PO; bb 10/24 00:13 Follow up: Response: No adverse reaction Disposition: 09:59 Co-signature as Attending Physician, Bharath Olson MD I agree with the assessment and murali plan of care. Disposition: 10/23/20 23:59 Discharged to Home. Impression: Displaced fracture of proximal phalanx of left lesser toe(s). - Condition is Stable. - Discharge Instructions: Toe Fracture, [id number]. - Prescriptions for Ibuprofen 800 mg Oral Tablet - take 1 tablet by ORAL route every 8 hours As needed take with food; 30 tablet. - Medication Reconciliation Form, Thank You Letter, Antibiotic Education, Prescription Opioid Use form. - Follow up: Emergency Department; When: As needed; Reason: Worsening of condition. Follow up: Private Physician; When: 2 - 3 days; Reason: Recheck today's complaints, Continuance of care, Re-evaluation by your physician. Signatures: Dispatcher [employer] EDSamaria Chew, MARY LOU-C SCRUM COACH-Bharath Peralta MD MD cha Ballard, Brenda, RN RN bb Corrections: (The following items were deleted from the chart) 00:16 10/23 23:59 10/23/2020 23:59 Discharged to Home. Impression: Displaced fracture of bb proximal phalanx of left lesser toe(s). Condition is Stable. Forms are Medication Reconciliation Form, Thank You Letter, Antibiotic Education, Prescription Opioid Use. Follow up: Emergency Department; When: As needed; Reason: Worsening of condition. Follow up: Private Physician; When: 2 - 3 days; Reason: Recheck today's complaints, Continuance of care, Re-evaluation by your physician. kb
--- NOTE | 2020-10-24 00:01 | ER ---
Nurse's Notes [facility] Name: Digna Foy Age: 50 yrs Sex: Female : 1970 Arrival Date: 10/23/2020 Time: 22:23 Bed 13 Private MD: Diagnosis: Displaced fracture of proximal phalanx of left lesser toe(s) Presentation: 10/23 22:59 Chief complaint: Patient states: she thinks she fractured her left pinky toe a couple bb of hours ago. Coronavirus screen: At this time, the client does not indicate any symptoms associated with coronavirus-19. Ebola Screen: No symptoms or risks identified at this time. Initial Sepsis Screen: Does the patient meet any 2 criteria? No. Patient's initial sepsis screen is negative. Does the patient have a suspected source of infection? No. Patient's initial sepsis screen is negative. Risk Assessment: Do you want to hurt yourself or someone else?. Onset of symptoms was October 23, 2020. 22:59 Method Of Arrival: Ambulatory bb 22:59 Acuity: JAIDEN 4 bb Triage Assessment: 10/24 00:15 General: Appears in no apparent distress. Behavior is calm. Injury Description: blunt bb force trauma. 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 - Social history:: Smoking status: Patient denies any tobacco usage or history of. Screenin:21 Abuse screen: Denies threats or abuse. Nutritional screening: No deficits noted. bb Tuberculosis screening: No symptoms or risk factors identified. Fall Risk None identified. Assessment: 23:21 Reassessment: No changes from previously documented assessment. see triage assessment. bb Pain: Complains of pain in left foot. Musculoskeletal: Reports pain in left pinky toe. 10/24 00:13 Reassessment: Patient is alert, oriented x 3, equal unlabored respirations, skin bb warm/dry/pink. post-op shoe in place pt verbalized understanding of and agrees to plan of care discharge instructions given pt ambulated with steady gait to exit. Vital Signs: 10/23 22:59 BP 153 / 87; Pulse 91; Resp 16 S; Temp 98(O); Pulse Ox 98% on R/A; Weight 131.09 kg bb (R); Height 5 ft. 7 in. (170.18 cm) (R); Pain 9/10; 10/24 00:14 BP 137 / 92; Pulse 87; Resp 16 S; Pulse Ox 99% on R/A; bb 10/23 22:59 Body Mass Index 45.26 (131.09 kg, 170.18 cm) bb ED Course: 10/23 22:23 Patient arrived in ED. cl3 23:02 Triage completed. bb 23:02 Arm band placed on Patient placed in an exam room, on a stretcher, on pulse oximetry. bb X-ray ordered. 23:05 Samaria Jackson FNP-C is [facility]. kb 23:05 Bharath Olson MD is Attending Physician. kb 23:21 Patient has correct armband on for positive identification. Bed in low position. Call bb light in reach. 23:22 ice bag placed on left foot. bb 10/24 00:00 Gaye Palencia, GLENN is Primary Nurse. bb 00:02 XRAY Foot LEFT 3 View In Process Unspecified. EDMS 00:15 No provider procedures requiring assistance completed. Patient did not have IV access bb during this emergency room visit. Administered Medications: 10/23 23:22 Drug: Ibuprofen 800 mg Route: PO; bb 10/24 00:13 Follow up: Response: No adverse reaction bb Outcome: 10/23 23:59 Discharge ordered by . kb 10/24 00:15 Discharged to home ambulatory. bb Condition: stable Discharge instructions given to patient, Instructed on discharge instructions, follow up and referral plans. medication usage, Demonstrated understanding of instructions, follow-up care, medications, Prescriptions given X 1. 00:16 Patient left the ED. bb Signatures: Dispatcher [employer] EDMS Samaria Jackson FNP-C FNP-Ckb Ballard, Brenda, RN RN Mike Altman cl3
[2020-10-24 00:36] VITALS: TEMP 98
[2020-10-24 00:41] VITALS: BP 137/92; O2SAT 99
--- NOTE | 2020-10-24 08:39 | RAD REPORT ---
EXAM DESCRIPTION: RAD - Foot Left 3 View - 10/24/2020 12:01 am CLINICAL HISTORY: PAIN COMPARISON: FOOT W OBLIQUES dated 07/25/2007 FINDINGS: Mild hallux valgus is noted. There is an oblique fracture involving proximal phalanx of th e fifth toe. Prominent posterior and plantar calcaneal spurs.
== END 2020-10-24 00:16 | disposition home or self-care (01) ==
LOC: ER 22:21
DX: S92.512A Displaced fracture of proximal phalanx of left lesser toe(s), initial encounter for closed fracture (principal); W22.8XXA Striking against or struck by other objects, initial encounter; Y93.01 Activity, walking, marching and hiking; Y92.009 Unspecified place in unspecified non-institutional (private) residence as the place of occurrence of the external cause; I10 Essential (primary) hypertension; Z88.1 Allergy status to other antibiotic agents; Z88.3 Allergy status to other anti-infective agents; Z85.850 Personal history of malignant neoplasm of thyroid
CPT/HCPCS: 99284

== ENCOUNTER 2021-01-21 12:48 | Emergency (ER) | payer OTHER ==
--- OUTSIDE RECORDS SUMMARY | 2021-01-21 12:55 | XMS REPORT | Continuity of Care Document ---
:1970 Author Organization [facility] t Address [address] [place] [address] Care Team Providers Name Role Phone [phone] Primary Care Physician Unavailable SYSTEM, NOT IN Attending Clinician Unavailable Jessie Pierce MD Attending Clinician TOMEKA Attending Clinician Unavailable Tomeka PRICE Attending Clinician Sathya JOHNSON, AKolby Attending Clinician Kalin Attending Clinician Unavailable Brandyn Ruiz RN Attending Clinician Unavailable Michelle Stark RN Attending Clinician Cassandra COYLE Attending Clinician Nestor ELIZABETH MSN, J Attending Clinician Unavailable Kenrick JOHNSON Attending Clinician Eboni JOHNSON Attending Clinician EBONI Attending Clinician Unavailable Boy ELIZABETH Attending Clinician Unavailable Faiza JOHNSON Attending Clinician Nolvia ELIZABETH, Eg Attending Clinician Unavailable Pastor ELIZABETH G Attending Clinician Unavailable Wei ELIZABETH Attending Clinician Unavailable Maximiliano ELIZABETH C Attending Clinician Unavailable JULIANA Attending Clinician Unavailable Juliana JOHNSON Attending Clinician Christian ROSENBERG Attending Clinician Nan MANCINI Attending Clinician Unavailable Fly JOHNSON Attending Clinician Mancini MD, A. Attending Clinician Melisa ELIZABETH G Attending Clinician Unavailable Ady ELIZABETH Attending Clinician Unavailable Paula JOHNSON Attending Clinician Mallory ELIZABETH, L Attending Clinician Unavailable Ari PRICE Attending Clinician Elizabeth Escobedo MD Attending Clinician Heena Austin MD Attending Clinician nAgelo RN MSN Attending Clinician Unavailable David BARRETO Attending Clinician SUSAN ELISE Attending Clinician Unavailable Erika JOHNSON Attending Clinician Celia JOHNSON Attending Clinician Susan Elise MD Attending Clinician Fanny ELIZABETH Attending Clinician Unavailable Elizabeth ESCOBEDO Attending Clinician Unavailable Gemini Montelonog MD. Attending Clinician Elizabeth Morgan MD Attending Clinician [phone] MADY Attending Clinician Unavailable Elizabeth Junior Attending Clinician Steve JOHNSON Attending Clinician Alma Baxter CRNA Attending Clinician Simon ELIZABETH G Attending Clinician Unavailable Sarah JOHNSON Attending Clinician Unavailable SARAH Attending Clinician Unavailable ARI Attending Clinician Unavailable Ari RN Attending Clinician Unavailable Damaris SHAIKH Attending Clinician Unavailable Diann DRAPER, A Attending Clinician Jonathan JOHNSON Attending Clinician Ed DRAPER Attending Clinician ED Attending Clinician Unavailable KENRICK Attending Clinician Unavailable Kenrick OCHOA Attending Clinician Unavailable Brandyn Chacon MD Attending Clinician Jacqueline Attending Clinician Nan Rocha MD Attending Clinician Damaris Rocha Attending Clinician Unavailable LISBET Attending Clinician Unavailable LIZETH LR Attending Clinician Unavailable MAHNAZ Attending Clinician Unavailable Nan MANCINI Admitting Clinician Unavailable CELIA Admitting Clinician Unavailable Elizabeth ESCOBEDO Admitting Clinician Unavailable LIZETH LR Admitting Clinician Unavailable Payers Payer Name Policy Type Policy Effective Date Expiration Date Sour ce Number MEDICAREMEDICARE PART [id number] 2009 Kai Ocampo AND 00:00:00 Shinto [id number] [facility] B [id number] 2009 00:00:00 Problems Condition Condition Condition Status Onset Resolution Last Treating Co mments Source Name Details Category Date Date Treatment Clinician Date Abdominal Abdominal Disease Active MD pain pain 2-11 Anderso 00:00: n 00 Vomiting Vomiting Disease Active 0 MD 2-11 Anderso 00:00: n 00 Diarrhea [...] 00:00: n 00 Dizziness Dizziness Disease Active 2020- MD 1-12 Anderso 00:00: n 00 Hypocalcem Hypocalcem Disease Active 2020-0 M D ia ia 1-12 Anderso 00:00: n 00 Postproced Postproced Disease Active 2020-0 M D ural ural 1-01 Anderso hypoparath hypoparath 00:00: n yroidism yroidism 00 Postoperat Postoperat Disease Active 2020-0 M D gray gray 1-01 Anderso hypothyroi hypothyroi 00:00: n dism dism 00 Other Other Disease Active 2019-07 MD specified specified 2-17 Juan M rso counseling counseling 00:00: n 00 Preop Preop Disease Active [facility] cardiovasc cardiovasc 3-04 Assessmen Methodi ular exam ular exam 00:00: t & Plan: s t 00 Formattin g of this note might be different from the original. Will obtain echo and ecg to risk stratify Right Right Disease Active [facility] ventricula ventricula 7-16 Assessmen Methodi r outflow r outflow 00:00: t & Plan: s t tract tract 00 Formattin premature premature g of this ventricula ventricula note r r might be contractio contractio different ns (PVCs) ns (PVCs) from the original. 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 On statin Palpitatio Palpitatio Disease Active 2016-07 Last [facility] ns ns 1-15 Assessmen Methodi 00:00: t & Plan: st 00 Formattin g of this note might be different from the original. Dizziness noted; will change metoprolo l XL to 50 mg bid Chest pain Chest pain Disease Active 2016-07 [place] 1-07 Methodi 00:00: st 00 Precordial Precordial Disease Active 2016-07 Last H [facility] chest pain chest pain 0-12 Assessmen Methodi [...] from the original. BPs good; on therapy Asthma Problem 2008-2014-10-07 Memor ia (disorder) 07-06 04:00:13 l Asthma 00:00: Baron (disorder) 00 07/06/2008 Problem 10/07/2014 1states allergy induced [facility] Sleep Problem 2008-2014-10-07 Memor ia apnea 07-06 04:00:13 l (finding) Sleep 00:00: [place] n apnea 00 (finding) 07/06/2008 Problem 10/07/2014 [facility] Hypertensi Problem 2014-10-07 M emoria ve 07-06 04:00:13 l disorder, 00:00: Baorn systemic Hypertensi 00 arterial ve (disorder) disorder, systemic arterial (disorder) 07/06/1994 Problem 10/07/2014 3presentl y not taking any meds [facility] Cannabis Problem 2014-10-07 Mem oria sativa 04:00:13 l (organism) Cannabis He rmann sativa (organism) Problem 10/07/2014 4states uses it for quaker reasons [facility] Anxiety Problem 2014-10-07 Fabián jasmyne (finding) 04:00:13 l Anxiety Baron (finding) Problem 10/07/2014 [facility] Backache Problem 2014-10-07 Mem oria (finding) 04:00:13 l Backache [place] n (finding) Problem 10/07/2014 2off and on [facility] Depressive Problem 2014-10-07 M emoria disorder 04:00:13 l (disorder) [place] n Depressive disorder (disorder) Problem 10/07/2014 [facility] Papillary Papillary Disease Active MD thyroid thyroid [...] Latex Propensi Active Other (See 2016-07 Blisters [place] ty to Comments) 0-12 and Methodi adverse 00:00: swelling st reaction 00 s to drug doxycycl doxycycl Active Memori a ine ine l [place] Social History Social Habit Start Date Stop Date Quantity Comments Source History of Cigarette Smoker Corley Shinto tobacco use Tobacco use and 2020-08-17 2020-08-17 Never used MD Acevedo on exposure 00:00:00 00:00:00 Alcohol intake 2020-08-17 2020-08-17 Ex-drinker MD Kavita garcia 00:00:00 00:00:00 (finding) Tobacco Comment 2018-01-18 2018-01-18 QUIT YEARS AGO AT [facility] 00:00:00 00:00:00 AGE 16 Alcohol Comment 2018-01-18 2018-01-18 occasional Barney Mora ethodist 00:00:00 00:00:00 [birth year] MD Acevedo on 00:00:00 00:00:00 Smoking Status Start Date Stop Date Source Former smoker 2020-12-12 00:00:00 2020-12-12 00:00:00 Corley Shinto Never smoker MD Olson Medications Ordered Filled Start Stop Current Ordering Indication Dosage Frequency Signature Comments Components Source Medication Medication Date Date Medication? Clinician (SIG) Name Name calcitriol Yes Papillary TAKE 1 (ROCALTROL) 6-17 thyroid CAPSULE(0. Anderso 0.5 mcg 00:00: carcinoma 5 MCG) BY n capsule 00 MOUTH TWICE DAILY levothyroxi 2021- No Postoperati 200ug Take 1 MD urbina 10-1513 ve tablet Anderso (Synthroid) 00:00: 04:59 hypothyroid (200 mcg) n 200 mcg 00 :00 ism by mouth tablet daily. calcium Yes Postprocedu 1200mg Take 2 carbonate 4-09 ral tablets Anderso (OS-HIRAM) 00:00: hypoparathy (1,200 mg) n 600 mg 00 roidism by mouth 3 calcium (three) (1,500 mg) times a tablet day. magnesium Yes Hypomagnese 1{tbl} Take 1 oxide-prote 4-01 zulema tablet by And erso in complex 00:00: mouth n (Mg-Plus-Pr 00 daily. otein Complex) 133 mg tablet cholecalcif Yes 2000U QD Take 2,000 Barney ximena, 3-24 Units by Michelle vitamin D3, 10:29: mouth st (VITAMIN 50 [...] st tablet 00 by mouth daily. calcitrioL Yes Q.5D 2 (two) [place] (ROCALTROL) [...] daily. D3) 2,000 units tab tablet albuterol Yes 2{puff} Inhale 2 M D (VENTOLIN 3-04 puffs by Curtis o HFA,PROAIR 15:59: mouth n HFA) 90 00 every 6 mcg/puff (six) inhaler hours as needed for wheezing or shortness of breath. calcium Yes 2.5 tablet [place] carbonate 2-22 in am , 3 Metho di oyster 00:00: tablet in st shell 00 noon, 2.5 (OS-HIRAM) tablet in 500 mg pm calcium (1,250 mg) tablet magnesium Yes 1{tbl} QD Take 1 [place] oxide-Mg AA 2-22 tablet by Met hodi chelate 00:00: mouth st (magnesium, 00 daily. amino acid chelate,) 133 mg tablet calcitriol 2020- No Papillary .5ug Take 1 MD (ROCALTROL) 08-27 06-17 thyroid capsule A nderso 0.5 mcg 00:00: 00:00 carcinoma (0.5 mcg) n capsule 00 :00 by mouth twice daily. calcium 2020- No Papillary Takes 3 M D carbonate 2-22 04-09 thyroid tablets 3 A nderso (OS-HIRAM) 00:00: 00:00 carcinoma times n 500 mg 00 :00 daily. (1,250 mg calcium carbonate per tablet) tablet magnesium 2020- No Hypomagnese 1{tbl} Take 1 MD oxide-prote 08-27- zulema tablet by An derso in complex [...] No Lumbosacral 1{patch Place 1 MD (Lidoderm) 08-24 spondylosis } patch on Anderso 5% (700 [...] Low back 1{tbl} Take 1 MD -acetaminop -06 07-04 pain tablet by An derso hen (NORCO) 00:00: 00:00 mouth n 10 mg-325 00 :00 every 4 mg per (four) tablet hours as needed for severe pain. methylPREDN 2020- No Low back Take as MD ISolone 08-17-04 pain directed Anderso (Medrol, 00:00: 00:00 (Direction n Guilherme,) 4 mg 00 :00 s on tablet blister pack) magnesium 2020- No Hypomagnese 1{tbl} Take 1 MD oxide-prote 08-17 zulema tablet by An kadieso in complex 00:00: 00:00 mouth n (Mg-Plus-Pr [...] mouth 3 (three) times a day. calcium 2020- No Papillary 2500mg Take 5 MD carbonate 07-20 thyroid tablets And erso (OS-HIRAM) 00:00: 00:00 carcinoma (2,500 mg) n 500 mg 00 :00 by mouth 3 (1,250 mg (three) calcium times a carbonate day for per tablet) 247 doses. tablet magnesium 2020- No Papillary 500mg Take 1 MD oxide 500 [...] for 90 per tablet) days. tablet amoxicillin No Papillary 875mg Take 1 MD -clavulanat 07-12 [...] for mild pain or moderate pain. acetaminoph No Postprocedu 1{tbl} Take 1 MD en-codeine [...] :00 by mouth capsule twice daily. magnesium No Postprocedu 1000mg Take 2 MD oxide 500 07-06 ral tablets Curtis o mg tablet 00:00: 00:00 hypoparathy (1,000 mg) n 00 :00 roidism by mouth daily for 30 days. calcitriol No Postprocedu .5ug Take 2 MD (ROCALTROL) 07-06 ral capsules And erso 0.25 mcg 00:00: 00:00 hypoparathy (0.5 mcg) n capsule 00 :00 roidism by mouth daily for 60 days. calcium No Postprocedu 1000mg Take 2 MD carbonate [...] 00 by mouth daily with breakfast. atorvastati No 20mg QD Take 20 mg Corley n (LIPITOR) 818 08-18 by mouth Met hodi 20 MG 11:34: 00:[address] tablet 47 :00 Default OP ins metoprolol No 25mg Q.5D Take 1 [place] tartrate 02-20 03-24 tablet (25 Meth jess (LOPRESSOR) 00:00: 00:00 mg total) st 25 mg 00 :00 by mouth 2 tablet (two) times a day. metoprolol 2020- No 25mg Take 25 mg MD tartrate 02-20 02-11 by mouth Curtis o (LOPRESSOR) 00:00: 00:00 [...] Take 20 mg Corley n (LIPITOR) 12-04 03-24 by mouth Met hodi 20 mg 00:00: 00:[address] tablet 00 :00 predniSONE 2018-07- No TK 2 TS PO [...] times a day for 360 days. orphenadrin 2019- No 100mg Q.5D Take 1 [place] e (NORFLEX) 07-2018 tablet Metho di 100 mg 12 00:00: 00:00 ([address] hr tablet 00 :00 total) by mouth 2 (two) times a day as needed for muscle spasms for up to 30 doses. Tylenol Yes See Memoria with 4-02 Instructio l Codeine #3 17:22: ns, PRN Herm lisandro oral tablet 00 for pain, 1 tabs Oral q4-6hours as needed for pain, 0 Refill(s)1 tabs Oral q4-6hours as needed for pain Tylenol Karen Hinson 2 tabs, Memori a with - [place] Tab, Oral, l Codeine #3 12:39: q4hr PRN Her isaac oral tablet 00 for pain severe (7-10), first dose 10/05/14 7:39:00 CDTMax 4gm acetaminop hen in 24 hours ceFAZolin No Sravan 2 gm, Memori a 4- [place] Soln-IV, l 21:30: IV [place] 00 Piggyback, q8hr, infuse over 30 minutes, order duration: 3 doses, first dose 10/04/14 16:30:00 CDT, stop date 10/05/14 16:29:00 CDT acetaminoph Karen Hinson 10 mL, Mem oria en-HYDROcod 10-04 [place] Soln, l one 325 17:00: Oral, q4hr Herm lisandro mg-7.5 00 PRN for mg/15 mL Pain oral Moderate solution (4-6), first dose 10/04/14 12:00:00 CDTMax 4gm acetaminop hen in 24 hours Saline Lock Karen Hinson 10 mL, Mem oria Flush - [place] Soln, IV l 17:00: Push, [place] 00 q8hr, first dose 10/04/14 12:00:00 CDT Benadryl Karen Hinson 25 mg = 1 Mem oria - [place] caps, Cap, l 16:35: Oral, q6hr [place] 00 PRN for itching, first dose 10/04/14 11:35:00 CDT ondansetron Karen Hinson 4 mg = 2 M emoria 4-01 [place] mL, l 16:35: Injection, [place] 00 IV Push, q4hr PRN for nausea/vom iting, first dose 10/04/14 11:35:00 CDT promethazin No Sravan 25 mg = 1 Memoria e 4- [place] mL, l 16:35: Injection, [place] 00 IM, q4hr PRN for severe nausea, first dose 10/04/14 11:35:00 CDT Demerol HCl No Sravan 50 mg = 1 Memoria - [place] mL, l 16:35: Injection, [place] 00 IM, q4hr PRN for breakthrou gh pain, first dose 10/04/14 11:35:00 CDT acetaminoph No Sravan 650 mg = 2 Memoria en - [place] tabs, Tab, l 16:35: Oral, q4hr [place] 00 PRN for headache, first dose 10/04/14 11:35:00 CDTMax 4gm acetaminop hen in 24 hours Saline Lock No Sravan 10 mL, Mem oria Flush 10-04 [place] Soln, IV l 16:35: Push, As [place] 00 Indicated PRN for flush, first dose [...] 3 mL, l mL 14:53: Soln, NEB, [place] inhalation 00 Once PRN solution for shortness [...] [place] Soln, IV l 14:53: Push, As Indicated PRN for flush, first dose 10/04/14 9:53:00 CDT morphine No Lakshmi 2 mg = 0.2 Me moria 10-04 [place] mL, l 14:53: Injection, [place] 00 IV Push, q5min PRN for Pain Moderate (4-6), first dose 10/04/14 9:53:00 CDT Dilaudid No Lakshmi 0.5 mg = Fabián jasmyne 10-04 [place] 0.25 mL, l 14:53: Injection, [place] 00 IV Push, q10min PRN for pain severe (7-10), first dose 10/04/14 9:53:00 CDT Misc No Cam 950 mL, Memoria Medication 10-04 Hari Soln-IV, l 14:50: IV, Once, first dose 10/04/14 9:50:00 CDT, stop date 10/04/14 9:50:00 CDT HYDROmorpho No Lakshmi 0.5 mg = M emoria ne 10-04 [place] 0.25 mL, l 14:47: Injection, Baron 00 IV, Once, first dose 10/04/14 9:47:00 CDT, stop date 10/04/14 9:47:00 CDT ondansetron No Lakshmi 4 mg = 2 M emoria - [place] mL, l 14:31: Injection, Baron 00 IV, Once, first dose 10/04/14 9:31:00 CDT, stop date 10/04/14 9:31:00 CDT HYDROmorpho No Lakshmi 0.5 mg = M emoria ne 10-04 [place] 0.25 mL, l 14:27: Injection, [place] 00 IV, Once, first dose 10/04/14 9:27:00 CDT, stop date 10/04/14 9:27:00 CDT acetaminoph No Lakshmi 1,000 mg, Memoria en 10-04 [place] Soln-IV, l 14:14: IV Baron 00 Piggyback, Once, first dose 10/04/14 9:14:00 CDT, stop date 10/04/14 9:14:00 CDT HYDROmorpho No Lakshmi 0.5 mg = Morgan pham ne 10-04 [place] 0.25 mL, l 14:13: Injection, [place] 00 IV, Once, first dose 10/04/14 9:13:00 CDT, stop date 10/04/14 9:13:00 CDT fentaNYL No Lakshmi 100 mcg = Mem oria 10-04 [place] 2 mL, l 13:56: Injection, Baron 00 IV, Once, first dose 10/04/14 8:56:00 CDT, stop date 10/04/14 8:56:00 CDT ceFAZolin No Lakshmi 2 gm, Memori a 10-04 [place] Soln-IV, l 13:54: IV Baron 00 Piggyback, Once, first dose 10/04/14 8:54:00 CDT, stop date 10/04/14 8:54:00 CDT ceFAZolin No Lakshmi 1 gm, Memori a 10-04 [place] Powder-Inj l 13:53: , IV, Baron 00 Once, first dose 10/04/14 8:53:00 CDT, stop date 10/04/14 8:53:00 CDT dexamethaso No Lakshmi 12 mg = 3 Memoria ne 10-04 [place] mL, l 13:53: Injection, [place] 00 IV, Once, first dose 10/04/14 8:53:00 [...] 10-04 [place] 14 mL, l 13:43: Emulsion, [place] 00 IV, Once, first dose 10/04/14 8:43:00 CDT, stop date 10/04/14 8:43:00 CDT fentaNYL No Lakshmi 50 mcg = 1 Me moria 10-04 [place] mL, l 13:43: Injection, [place] 00 IV, Once, first dose 10/04/14 8:43:00 CDT, stop date 10/04/14 8:43:00 CDT fentaNYL No Lakshmi 100 mcg = Mem oria 10-04 [place] 2 mL, l 13:40: Injection, IV, Once, first dose 10/04/14 8:40:00 CDT, stop date 10/04/14 8:40:00 CDT midazolam No Lakshmi 2 mg = 2 Mem oria 10-04 [place] mL, l 13:26: Injection, IV, Once, first dose 10/04/14 8:26:00 CDT, stop date 10/04/14 8:26:00 CDT ceFAZolin No Sravan 2 gm, Memori a 10-04 [place] Soln-IV, l 13:00: IV [place] 00 Piggyback, Once, infuse over 30 minutes, first dose 10/04/14 8:00:00 CDT, stop date 10/04/14 8:00:00 CDT Lidocaine No Joel K 0.2 mL, Mem oria 2% 0.2 mL 10-04 Jones Injection, l IV Start 12:29: Subcutaneo Her isaac [[facility]] 00 us, Once PRN for other (see comment), first dose 10/04/14 7:29:00 CDT LR 1,000 mL No Joel K 1,000 mL, Memoria 10-04 Jones IV, 30 l 12:29: mL/hr, [place] 00 start date 10/04/14 7:29:00 CDT clonazePAM 2015-0 Yes 1 mg = 1 Mem oria 1 mg oral 3-31 tabs, l tablet 16:00: Oral, TID, [place] nn 00 instructed may take morning of surgery, 0 Refill(s), anxietyins tructed may take morning of surgery Immunizations Ordered Immunization Filled Immunization Date Status Commen ts Source Name Name Zuujit COVID-19 MRNA 2020-09-12 Completed [place] VACCINATION 00:00:00 Shinto Emprego Ligado SARS-CoV-2 2020-09-11 Completed MD Mcgowan rson Vaccination 00:00:00 Vital Signs Vital Name Observation [...] 168 cm WEIGHT 2020-06-21 10:37:46 129.6 kg Body height 2020-12-12 11:02:00 170.2 cm Corley Shinto Body weight 2020-12-12 11:02:00 129.729 kg Corley Shinto BMI 2020-12-12 11:02:00 44.79 kg/m2 Corley Shinto Systolic blood 2020-09-30 01:01:00 144 mm[Hg] [place]into pressure Diastolic blood 2020-09-30 01:01:00 80 mm[Hg] [place] [facility]into pressure Heart rate 2020-09-29 23:06:54 98 /min Corley Shinto Body temperature 2020-09-29 23:06:54 36.89 Joanne [place] Respiratory rate 2020-09-29 23:06:54 19 /min [place] [facility] Oxygen saturation in 2020-09-29 23:06:54 94 /min Corley Shinto Arterial blood by Pulse oximetry Systolic blood 2020-09-06 15:37:45 105 mm[Hg] pressure Diastolic blood 2020-09-06 15:37:45 64 mm[Hg] MD Hannah engleson pressure Heart rate 2020-09-06 15:37:45 75 /min MD Price casey Body temperature 2020-09-06 15:37:45 36.5 Joanne MD Damaris wagneron Respiratory rate 2020-09-06 15:37:45 16 /min MD Damaris wagneron Body weight 2020-09-06 15:37:45 130.2 kg MD Thrasher son BMI 2020-09-06 15:37:45 45.05 kg/m2 MD Price casey Oxygen saturation in 2020-09-06 15:37:45 96 /min MD Olson Arterial blood by Pulse oximetry Body height 2020-08-17 01:44:00 170 cm MD Price casey Systolic (mm Hg) 2014-10-05 17:00:00 Fabián rial [place] Diastolic (mm Hg) 2014-10-05 17:00:00 Mem orial [place] Respitory Rate 2014-10-05 17:00:00 Memori al [place] Heart Rate 2014-10-05 17:00:00 [facility] Temperature Oral (F) 2014-10-05 17:00:00 36.5 Joanne [facility] [place] Temperature Oral (F) 2014-10-05 12:00:00 36.6 Joanne [facility] [place] Diastolic (mm Hg) 2014-10-05 12:00:00 Mem orial [place] Systolic (mm Hg) 2014-10-05 12:00:00 Fabián rial [place] Respitory Rate 2014-10-05 12:00:00 Memori al [place] Heart Rate 2014-10-05 12:00:00 [facility] [place] Temperature Oral (F) 2014-10-05 10:00:00 36.6 Joanne [facility] [place] Systolic (mm Hg) 2014-10-05 10:00:00 Fabián rial [place] Diastolic (mm Hg) 2014-10-05 10:00:00 Mem orial [place] Respitory Rate 2014-10-05 10:00:00 Memori al [place] Heart Rate 2014-10-05 10:00:00 [facility] [place] Temperature Oral (F) 2014-10-04 14:40:00 37.2 Joanne [facility] [place] Weight 2014-10-04 12:22:00 [facility] [place] Height 2014-10-04 12:22:00 174 cm Memorial [place] Weight 2014-09-26 22:06:00 [facility] [place] Height 2014-09-26 22:06:00 175.26 cm [facility] [place] Procedures Procedure Date / Time Performing Source Performed Clinician CALCIUM LEVEL TOTAL 2021-01-11 Stefan Eckert MD 17:55:00 MAGNESIUM LEVEL 2021-01-11 Stefan Eckert MD 17:55:00 PHOSPHORUS LEVEL 2021-01-11 Stefan Eckert MD 17:55:00 ALBUMIN LEVEL 2021-01-11 Stefan Eckert MD 17:55:00 CALCIUM LEVEL TOTAL 2020-12-12 Stefan Eckert MD 15:09:00 MAGNESIUM LEVEL 2020-12-12 Stefan Eckert MD 15:09:00 PHOSPHORUS LEVEL 2020-12-12 Stefan Eckert MD 15:09:00 ALBUMIN LEVEL 2020-12-12 Stefan Eckert MD 15:09:00 PTH INTACT 2020-12-12 Stefan Eckert MD 15:09:00 XR FOOT 3+ VW LEFT 2020-12-12 Souleymane Mcdonnell Metho dist 11:08:37 CALCIUM LEVEL TOTAL 2020-11-12 Stefan Eckert MD 15:15:38 MAGNESIUM LEVEL 2020-11-12 Tomeka, Stefan Olson 15:15:38 PHOSPHORUS LEVEL 2020-11-12 Stefan Eckert MD 15:15:38 ALBUMIN LEVEL 2020-11-12 Stefan Eckert MD 15:15:38 PTH INTACT 2020-11-12 Stefan Eckert MD 15:15:38 XR FOOT 3+ VW LEFT 2020-10-24 Souleymane Mcdonnell Metho dist 14:25:59 CALCIUM LEVEL TOTAL 2020-10-11 Stefan Eckert MD 15:21:00 MAGNESIUM LEVEL 2020-10-11 Stefan Eckert MD 15:21:00 PHOSPHORUS LEVEL 2020-10-11 Stefan Eckert MD 15:21:00 ALBUMIN LEVEL 2020-10-11 TomekaStefan mane MD 15:21:00 US THYROID 2020-10-09 Magalys Pierce Metho dist 12:53:16 CT SOFT TISSUE NECK W CONTRAST 2020-09-29 [place] [facility] 23:53:47 HC COMPLETE BLD COUNT W/AUTO 2020-09-29 [place] [facility] DIFF 23:21:00 COMPREHENSIVE METABOLIC PANEL 2020-09-29 [place] [facility] 23:21:00 ESTIMATED GFR 2020-09-29 [place] t 23:21:00 CALCIUM LEVEL TOTAL 2020-09-12 Stefan Eckert MD 15:41:20 MAGNESIUM LEVEL 2020-09-12 Stefan Eckert MD 15:41:20 PHOSPHORUS LEVEL 2020-09-12 Stefan Eckert MD 15:41:20 ALBUMIN LEVEL 2020-09-12 Stefan Eckert MD 15:41:20 PTH INTACT 2020-09-12 Stefan Eckert MD 15:41:20 NM THYROID WB DIAGNOSTIC 2020-09-06 Stefan Eckert MD rson 14:35:53 THYROID STIMULATING HORMONE 2020-09-06 Stefan Eckert MD nderson 12:39:00 THYROGLOBULIN ANTIBODY 2020-09-06 Stefan Eckert MD on 12:39:00 CALCIUM LEVEL TOTAL 2020-09-06 Stefan Eckert MD 12:39:00 MAGNESIUM LEVEL 2020-09-06 Stefan Eckert MD 12:39:00 PHOSPHORUS LEVEL 2020-09-06 Stefan Eckert MD 12:39:00 ALBUMIN LEVEL 2020-09-06 Stefan Eckert MD 12:39:00 BHCG 2020-09-04 Stefan Eckert MD 12:12:00 THYROID STIMULATING HORMONE 2020-09-04 Stefan Eckert MD nderson 12:12:00 FREE THYROXINE 2020-09-04 Stefan Eckert MD 12:12:00 THYROGLOBULIN ANTIBODY 2020-09-04 Stefan Eckert MD on 12:12:00 CALCIUM LEVEL TOTAL 2020-08-31 Stefan Eckert MD 16:59:00 MAGNESIUM LEVEL 2020-08-31 Stefan Eckert MD 16:59:00 PHOSPHORUS LEVEL 2020-08-31 Stefan Eckert MD 16:59:00 PTH INTACT 2020-08-31 Stefan Eckert MD 16:59:00 ALBUMIN LEVEL 2020-08-31 Stefan Eckert MD 16:59:00 LACTIC ACID, VENOUS 2020-08-17 Maria Eugenia Duran MD 13:03:00 MAGNESIUM LEVEL 2020-08-17 Odell Higuera MD 09:50:00 [place] PHOSPHORUS LEVEL 2020-08-17 Odell Higuera MD 09:50:00 [place] COMPLETE BLOOD COUNT W/ 2020-08-17 Odell Higuera MD And erson DIFFERENTIAL 09:50:00 [place] BASIC METABOLIC PANEL, CALCIUM 2020-08-17 Odell Higuera MD TOTAL 09:50:00 [place] GLUCOSE LEVEL 2020-08-17 Odell Higuera MD 09:50:00 [place] BLOOD UREA NITROGEN 2020-08-17 Odell Higuera MD Anderso n 09:50:00 [place] ELECTROLYTE PANEL 2020-08-17 Odell Higuera MD 09:50:00 [place] SERUM CREATININE 2020-08-17 Odell Higuera MD 09:50:00 [place] .GLOMERULAR FILTRATION RATE 2020-08-17 Odell Higuera MD 09:50:00 [place] CALCIUM LEVEL TOTAL 2020-08-17 Odell Higuera MD Anderso n 09:50:00 [place] Results CBC 2020-08-17 Odell Higuera MD 09:50:00 [place] MANUAL DIFFERENTIAL 2020-08-17 Odell Higuera MD Anderso n 09:50:00 [place] MRI CERVICAL THORACIC LUMBAR 2020-08-17 Drew Mancini SPINE W WO CONTRAST 09:26:27 A. STOOL CULTURE 2020-08-17 Sharmin Moura MD 00:05:00 C DIFFICILE DNA ASSAY 2020-08-17 Sharmin Moura MD Curtis on 00:05:00 C DIFFICILE DNA ASSAY PATH 2020-08-17 Vahid Bill MD An derson REVIEW 00:05:00 BLOODCULTURE 2020-08-16 Sharmin Moura MD 23:01:00 CT ABDOMEN PELVIS WO CONTRAST 2020-08-16 Sharmin Moura 22:22:08 POC VENOUS BLOOD GAS + LACTATE 2020-08-16 Vahid Bill 22:18:00 URINE CULTURE 2020-08-16 Sharmin Moura MD 22:17:00 URINALYSIS WITH MICROSCOPIC IF 2020-08-16 Sharmin Moura MD INDICATED 22:17:00 URINALYSIS MICROSCOPIC 2020-08-16 Vahid Bill MD on 22:17:00 COMPLETE BLOOD COUNT W/ 2020-08-16 Sharmin Moura MD Juan M rson DIFFERENTIAL 22:13:00 COMPREHENSIVE METABOLIC PANEL 2020-08-16 Sharmin Moura 22:13:00 MAGNESIUM LEVEL 2020-08-16 Sharmin Moura MD 22:13:00 PHOSPHORUS LEVEL 2020-08-16 Sharmin Moura MD 22:13:00 LACTATE DEHYDROGENASE 2020-08-16 Sharmin Moura MD on 22:13:00 AMYLASE LEVEL 2020-08-16 Sharmin Moura MD 22:13:00 LIPASE LEVEL 2020-08-16 Sharmin Moura MD 22:13:00 LACTIC ACID, VENOUS 2020-08-16 Sharmin Moura MD 22:13:00 Results CBC 2020-08-16 Vahid Bill MD 22:13:00 MANUAL DIFFERENTIAL 2020-08-16 Vahid Bill MD 22:13:00 GLUCOSE LEVEL 2020-08-16 Vahid Bill MD 22:13:00 BLOOD UREA NITROGEN 2020-08-16 Vahid Bill MD 22:13:00 ELECTROLYTE PANEL 2020-08-16 Vahid Bill MD 22:13:00 SERUM CREATININE 2020-08-16 Vahid Bill MD 22:13:00 .GLOMERULAR FILTRATION RATE 2020-08-16 Vahid Bill MD nderson 22:13:00 CALCIUM LEVEL TOTAL 2020-08-16 Vahid Bill MD 22:13:00 ALBUMIN LEVEL 2020-08-16 Vahid Bill MD 22:13:00 ALKALINE PHOSPHATASE 2020-08-16 Vahid Bill MD 22:13:00 ALANINE AMINOTRANSFERASE 2020-08-16 Vahid Bill MD rson 22:13:00 ASPARTATE AMINOTRANSFERASE 2020-08-16 Vahid Bill MD 22:13:00 TOTAL PROTEIN 2020-08-16 Vahid Bill MD 22:13:00 FRACTIONATED BILIRUBIN 2020-08-16 Vahid Bill MD on 22:13:00 INFLUENZA A/B + COVID-19 2020-08-16 Vahid Bill MD Juan M rson ASYMPTOMATIC-L 21:37:00 CALCIUM LEVEL TOTAL 2020-08-09 Stefan Eckert MD 15:53:00 MAGNESIUM LEVEL 2020-08-09 Stefan Eckert MD 15:53:00 PHOSPHORUS LEVEL 2020-08-09 Tomeka, Stefan Olson 15:53:00 ALBUMIN LEVEL 2020-08-09 Stefan Eckert MD 15:53:00 PTH INTACT 2020-08-09 Stefan Eckert MD 15:53:00 CALCIUM LEVEL TOTAL 2020-08-02 Stefan Eckert MD 17:13:00 MAGNESIUM LEVEL 2020-08-02 Stefan Eckert MD 17:13:00 PHOSPHORUS LEVEL 2020-08-02 TomekaStefan goddard MD 17:13:00 ALBUMIN LEVEL 2020-08-02 Stefan Eckert MD 17:13:00 PTH INTACT 2020-08-02 Stefan Eckert MD 17:13:00 NOTIFY PHYSICIAN (SPECIFY) 2020-08-02 ProviderSueist 00:00:00 Historical CALCIUM LEVEL TOTAL 2020-07-26 Chloé Austin MD 16:13:00 MAGNESIUM LEVEL 2020-07-26 Chloé Austin MD 16:13:00 PHOSPHORUS LEVEL 2020-07-26 Chloé Austin MD 16:13:00 PTH INTACT 2020-07-26 Chloé Austin MD 16:13:00 ALBUMIN LEVEL 2020-07-26 Chloé Austin MD 16:13:00 PTH INTACT 2020-07-22 Chloé Austin MD 16:56:00 CALCIUM LEVEL TOTAL 2020-07-22 Chloé Austin MD 16:56:00 ALBUMIN LEVEL 2020-07-22 Chloé Austin MD 16:56:00 MAGNESIUM LEVEL 2020-07-22 Chloé Austin MD 16:56:00 PHOSPHORUS LEVEL 2020-07-22 Chloé Austin MD 16:56:00 ALBUMIN LEVEL 2020-07-20 Chris Peña MD 08:33:00 MAGNESIUM LEVEL 2020-07-20 Marisa Higuera MD 08:33:00 PHOSPHORUS LEVEL 2020-07-20 Marisa Higuera MD 08:33:00 CALCIUM LEVEL TOTAL 2020-07-20 Chloé Austin MD Andzach garcia 08:33:00 CALCIUM LEVEL TOTAL 2020-07-19 Chloé Austin MD Andzach garcia 23:50:00 CALCIUM LEVEL TOTAL 2020-07-19 Chloé Austin MD 17:28:00 MAGNESIUM LEVEL 2020-07-19 Chloé Austin MD 17:28:00 PHOSPHORUS LEVEL 2020-07-19 Chloé Austin MD 17:28:00 GENERAL LABORATORY ADD ON TEST 2020-07-19 Chloé Austin MD 12:36:00 COMPLETE BLOOD COUNT W/ 2020-07-19 Chris Peña MD son DIFFERENTIAL 08:47:00 BASIC METABOLIC PANEL, CALCIUM 2020-07-19 Chris Peña IONIZED 08:47:00 ALBUMIN LEVEL 2020-07-19 Chris Peña MD 08:47:00 MAGNESIUM LEVEL 2020-07-19 Marisa Higuera MD 08:47:00 PHOSPHORUS LEVEL 2020-07-19 Marisa Higuera MD 08:47:00 PTH INTACT 2020-07-19 Chloé Austin MD 08:47:00 Results CBC 2020-07-19 Yuli Bradshaw MD 08:47:00 MANUAL DIFFERENTIAL 2020-07-19 Yuli Bradshaw MD 08:47:00 GLUCOSE LEVEL 2020-07-19 Yuli Bradshaw MD 08:47:00 BLOOD UREA NITROGEN 2020-07-19 Yuli Bradshaw MD 08:47:00 ELECTROLYTE PANEL 2020-07-19 Yuli Bradshaw MD 08:47:00 SERUM CREATININE 2020-07-19 Yuli Bradshaw MD 08:47:00 .GLOMERULAR FILTRATION RATE 2020-07-19 Yuli Bradshaw MD nderson 08:47:00 CALCIUM IONIZED, VENOUS 2020-07-19 Yuli Bradshaw MD Price son 08:47:00 CALCIUM LEVEL TOTAL 2020-07-19 Yuli Bradshaw MD 08:47:00 MRI BRAIN W WO CONTRAST 2020-07-19 Gordon Faye MD Price son 05:13:00 POC GLUCOSE SCREEN 2020-07-19 Gordon Faye MD 00:04:00 CALCIUM LEVEL TOTAL 2020-07-18 Chloé Austin MD n 22:29:00 MAGNESIUM LEVEL 2020-07-18 Chloé Austin MD 22:29:00 PHOSPHORUS LEVEL 2020-07-18 Chloé Austin MD 22:29:00 CALCIUM LEVEL TOTAL 2020-07-18 Marisa Higuera MD 13:55:00 CALCIUM IONIZED, VENOUS 2020-07-18 Marisa Higuera MD Price son 13:55:00 HEPATIC FUNCTION PANEL 2020-07-18 Marisa Higuera MD on 13:55:00 MAGNESIUM LEVEL 2020-07-18 Marisa Higuera MD 13:55:00 PHOSPHORUS LEVEL 2020-07-18 Marisa Higuera MD 13:55:00 ALBUMIN LEVEL 2020-07-18 Marisa Higuera MD 13:55:00 ALKALINE PHOSPHATASE 2020-07-18 Marisa Higuera MD 13:55:00 ALANINE AMINOTRANSFERASE 2020-07-18 Marisa Higuera MD rson 13:55:00 ASPARTATE AMINOTRANSFERASE 2020-07-18 Marisa Higuera MD 13:55:00 TOTAL PROTEIN 2020-07-18 Marisa Higuera MD 13:55:00 FRACTIONATED BILIRUBIN 2020-07-18 Marisa Higuera MD on 13:55:00 POC GLUCOSE SCREEN 2020-07-18 Gordon Faye MD 13:53:00 BLOOD UREA NITROGEN 2020-07-18 Celia, Yuli Olson 10:12:00 ELECTROLYTE PANEL 2020-07-18 Celia, Yuli Olson 10:12:00 SERUM CREATININE 2020-07-18 Celia, Yuli Olson 10:12:00 .GLOMERULAR FILTRATION RATE 2020-07-18 Yuli Bradshaw MD nderson 10:12:00 CALCIUM IONIZED, VENOUS 2020-07-18 Celia, Yuli JOHNSON Price son 10:12:00 COMPLETE BLOOD COUNT W/ 2020-07-18 Casey, Chris JOHNSON Price son DIFFERENTIAL 10:12:00 BASIC METABOLIC PANEL, CALCIUM 2020-07-18 Casey, Chris Olson IONIZED 10:12:00 ALBUMIN LEVEL 2020-07-18 Chris Peña MD 10:12:00 Results CBC 2020-07-18 Celia, Yuli Olson 10:12:00 MANUAL DIFFERENTIAL 2020-07-18 Celia, Yuli Olson 10:12:00 GLUCOSE LEVEL 2020-07-18 Celia, Yuli Olson 10:12:00 URINE CULTURE 2020-07-17 Sharmin Moura MD 22:11:00 URINALYSIS WITH MICROSCOPIC IF 2020-07-17 Sharmin Moura MD INDICATED 22:11:00 URINALYSIS MICROSCOPIC 2020-07-17 Salas James MD Juan M rson 22:11:00 INFLUENZA A/B + COVID-19 2020-07-17 Salas James MD An derson ASYMPTOMATIC-L 21:52:00 COMPLETE BLOOD COUNT W/ 2020-07-17 Sharmin Moura MD Juan M rson DIFFERENTIAL 21:42:00 COMPREHENSIVE METABOLIC PANEL 2020-07-17 Sharmin Moura 21:42:00 MAGNESIUM LEVEL 2020-07-17 Sharmin Moura MD 21:42:00 PHOSPHORUS LEVEL 2020-07-17 Sharmin Moura MD 21:42:00 PROTHROMBIN TIME 2020-07-17 Sharmin Moura MD 21:42:00 PARTIAL THROMBOPLASTIN TIME 2020-07-17 Sharmin Moura MD 21:42:00 CARDIAC PANEL 2020-07-17 Sharmin Moura MD 21:42:00 Results CBC 2020-07-17 Salas James MD 21:42:00 MANUAL DIFFERENTIAL 2020-07-17 Salas James MD n 21:42:00 GLUCOSE LEVEL 2020-07-17 Salas James MD 21:42:00 BLOOD UREA NITROGEN 2020-07-17 Salas James MDo n 21:42:00 ELECTROLYTE PANEL 2020-07-17 Salas James MD 21:42:00 SERUM CREATININE 2020-07-17 Salas James MD 21:42:00 .GLOMERULAR FILTRATION RATE 2020-07-17 Salas James MD 21:42:00 CALCIUM LEVEL TOTAL 2020-07-17 Salas James MD 21:42:00 ALBUMIN LEVEL 2020-07-17 Salas James MD 21:42:00 ALKALINE PHOSPHATASE 2020-07-17 Salas James MD Curtis on 21:42:00 ALANINE AMINOTRANSFERASE 2020-07-17 Salas James MDson 21:42:00 ASPARTATE AMINOTRANSFERASE 2020-07-17 Salas James MD 21:42:00 TOTAL PROTEIN 2020-07-17 Salas James MD 21:42:00 FRACTIONATED BILIRUBIN 2020-07-17 Salas aJmes MD Juan M rson 21:42:00 CT HEAD WO CONTRAST 2020-07-17 Sharmin Moura MD 21:27:21 EKG, 12-LEAD (PORTABLE) 2020-07-17 Sharmin Moura MD Juan M rson 00:00:00 CALCIUM LEVEL TOTAL 2020-07-16 Howie Salgado MD Price son 15:45:00 Joyce E MAGNESIUM LEVEL 2020-07-16 MD Wesley Morgan 15:45:00 Joyce E PHOSPHORUS LEVEL 2020-07-16 MD Wesley Morgan 15:45:00 Joyce E ALBUMIN LEVEL 2020-07-16 MD Wesley Morgan 15:45:00 Joyce E PTH INTACT 2020-07-16 MD Wesley Morgan 15:45:00 Joyce E CALCIUM LEVEL TOTAL 2020-07-13 Howie Salgado MD Price son 16:53:49 Joyce E MAGNESIUM LEVEL 2020-07-13 MD Wesley Morgan 16:53:49 Joyce E PHOSPHORUS LEVEL 2020-07-13 MD Wesley Morgan 16:53:49 Joyce E ALBUMIN LEVEL 2020-07-13 MD Wesley Morgan 16:53:49 Joyce E ALBUMIN LEVEL 2020-07-12 Galdino Nixon MD 09:10:00 MAGNESIUM LEVEL 2020-07-12 Filiberto Olson MD 09:10:00 PHOSPHORUS LEVEL 2020-07-12 Filiberto Olson MD 09:10:00 PTH INTACT 2020-07-12 Filiberto Olson MD 09:10:00 CALCIUM LEVEL TOTAL 2020-07-12 Galdino Nixon MD 09:10:00 CALCIUM LEVEL TOTAL 2020-07-11 Galdino Nixon MD 21:29:00 CALCIUM LEVEL TOTAL 2020-07-11 Galdino Nixon MD 13:58:00 ALBUMIN LEVEL 2020-07-11 Galdino Nixon MD 10:52:00 MAGNESIUM LEVEL 2020-07-11 Filiberto Olson MD 10:52:00 PHOSPHORUS LEVEL 2020-07-11 Filiberto Olson MD 10:52:00 PTH INTACT 2020-07-11 Filiberto Olson MD 10:52:00 CALCIUM LEVEL TOTAL 2020-07-11 Souleymane Escobedo MD 10:52:00 CALCIUM LEVEL TOTAL 2020-07-10 Edward Stephens MD 19:58:00 COMPLETE BLOOD COUNT W/ 2020-07-10 Galdino Nixon MD Price son DIFFERENTIAL 11:07:00 PTH INTACT 2020-07-10 Filiberto Olson MD 11:07:00 Results CBC 2020-07-10 Souleymane Escobedo MD 11:07:00 MANUAL DIFFERENTIAL 2020-07-10 Souleymane Escobedo MD 11:07:00 ALBUMIN LEVEL 2020-07-10 Galdino Nixon MD 10:38:00 BASIC METABOLIC PANEL, CALCIUM 2020-07-10 Galdino Nixon TOTAL 10:38:00 MAGNESIUM LEVEL 2020-07-10 Filiberto Olson MD 10:38:00 PHOSPHORUS LEVEL 2020-07-10 Filiberto Olson MD 10:38:00 GLUCOSE LEVEL 2020-07-10 Souleymane Escobedo MD 10:38:00 BLOOD UREA NITROGEN 2020-07-10 Souleymane Escobedo MD 10:38:00 ELECTROLYTE PANEL 2020-07-10 Souleymane Escobedo MD 10:38:00 SERUM CREATININE 2020-07-10 Souleymane Escobedo MD 10:38:00 .GLOMERULAR FILTRATION RATE 2020-07-10 Souleymane Escobedo MD nderson 10:38:00 CALCIUM LEVEL TOTAL 2020-07-10 Souleymane Escobedo MD 10:38:00 CALCIUM LEVEL TOTAL 2020-07-09 Howie Salgado MD Price son 21:33:00 Joyce E COMPLETE BLOOD COUNT W/ 2020-07-09 Galdino Nixon MD Price son DIFFERENTIAL 10:19:00 ALBUMIN LEVEL 2020-07-09 Galdino Nixon MD 10:19:00 BASIC METABOLIC PANEL, CALCIUM 2020-07-09 Galdino Nixon TOTAL 10:19:00 MAGNESIUM LEVEL 2020-07-09 Filiberto Olson MD 10:19:00 PHOSPHORUS LEVEL 2020-07-09 Filiberto Olson MD 10:19:00 PTH INTACT 2020-07-09 Filiberto Olson MD 10:19:00 Results CBC 2020-07-09 Souleymane Escobedo MD 10:19:00 MANUAL DIFFERENTIAL 2020-07-09 Souleymane Escobedo MD 10:19:00 GLUCOSE LEVEL 2020-07-09 Souleymane Escobedo MD 10:19:00 BLOOD UREA NITROGEN 2020-07-09 Souleymane Escobedo MD 10:19:00 ELECTROLYTE PANEL 2020-07-09 Souleymane Escobedo MD 10:19:00 SERUM CREATININE 2020-07-09 Souleymane Escobedo MD 10:19:00 .GLOMERULAR FILTRATION RATE 2020-07-09 Souleymane Escobedo MD nderson 10:19:00 CALCIUM LEVEL TOTAL 2020-07-09 Souleymane Escobedo MD 10:19:00 CALCIUM LEVEL TOTAL 2020-07-09 Filiberto Olson MD 02:07:00 CALCIUM LEVEL TOTAL 2020-07-08 Filiberto Olson MD 19:00:00 COMPLETE BLOOD COUNT W/ 2020-07-08 Galdino Nixon MD Price son DIFFERENTIAL 09:35:00 ALBUMIN LEVEL 2020-07-08 Galdino Nixon MD 09:35:00 BASIC METABOLIC PANEL, CALCIUM 2020-07-08 Galdino Nixon TOTAL 09:35:00 MAGNESIUM LEVEL 2020-07-08 Filiberto Olson MD 09:35:00 PHOSPHORUS LEVEL 2020-07-08 Filiberto Olson MD 09:35:00 PTH INTACT 2020-07-08 Filiberto Olson MD 09:35:00 Results CBC 2020-07-08 Flores Kulkarni MD 09:35:00 MANUAL DIFFERENTIAL 2020-07-08 Flores Kulkarni MD 09:35:00 GLUCOSE LEVEL 2020-07-08 Flores Kulkarni MD 09:35:00 BLOOD UREA NITROGEN 2020-07-08 Flores Kulkarni MD 09:35:00 ELECTROLYTE PANEL 2020-07-08 Flores Kulkarni MD 09:35:00 SERUM CREATININE 2020-07-08 Flores Kulkarni MD 09:35:00 .GLOMERULAR FILTRATION RATE 2020-07-08 Flores Kulkarni MD nderson 09:35:00 CALCIUM LEVEL TOTAL 2020-07-08 Flores Kulkarni MD 09:35:00 CALCIUM LEVEL TOTAL 2020-07-08 Filiberto Olson MD 02:28:00 PHOSPHORUS LEVEL 2020-07-07 Galdino Nixon MD 23:29:00 MAGNESIUM LEVEL 2020-07-07 Galdino Nixon MD 23:29:00 PTH INTACT 2020-07-07 Salas James MD 19:04:00 CALCIUM LEVEL TOTAL 2020-07-07 Filiberto Olson MD 19:04:00 INFLUENZA A/B + COVID-19 2020-07-07 Dane Montelongo MD A nderson ASYMPTOMATIC-L 17:08:00 COMPLETE BLOOD COUNT W/ 2020-07-07 Salas James MD And erson DIFFERENTIAL 14:26:00 COMPREHENSIVE METABOLIC PANEL 2020-07-07 Salas James MD 14:26:00 PHOSPHORUS LEVEL 2020-07-07 Salas James MD 14:26:00 MAGNESIUM LEVEL 2020-07-07 Salas James MD 14:26:00 PROTHROMBIN TIME 2020-07-07 Salas James MD 14:26:00 PARTIAL THROMBOPLASTIN TIME 2020-07-07 Salas James MD 14:26:00 CALCIUM IONIZED, VENOUS 2020-07-07 Salas James MD And erson 14:26:00 Results CBC 2020-07-07 Salas James MD 14:26:00 MANUAL DIFFERENTIAL 2020-07-07 Salas James MD n 14:26:00 GLUCOSE LEVEL 2020-07-07 Salas James MD 14:26:00 BLOOD UREA NITROGEN 2020-07-07 Salas James MD n 14:26:00 ELECTROLYTE PANEL 2020-07-07 Salas James MD 14:26:00 SERUM CREATININE 2020-07-07 Salas James MD 14:26:00 .GLOMERULAR FILTRATION RATE 2020-07-07 Salas James MD 14:26:00 CALCIUM LEVEL TOTAL 2020-07-07 Salas James MD n 14:26:00 ALBUMIN LEVEL 2020-07-07 Salas James MD 14:26:00 ALKALINE PHOSPHATASE 2020-07-07 Salas James MD on 14:26:00 ALANINE AMINOTRANSFERASE 2020-07-07 Salas James MDson 14:26:00 ASPARTATE AMINOTRANSFERASE 2020-07-07 Salas James MD 14:26:00 TOTAL PROTEIN 2020-07-07 Salas James MD 14:26:00 FRACTIONATED BILIRUBIN 2020-07-07 Salas James MD Juan M rson 14:26:00 EKG, 12-LEAD (PORTABLE) 2020-07-07 Salas James MD And erson 00:00:00 MAGNESIUM LEVEL 2020-07-06 Diersing, Chelsea Olson 08:41:00 CALCIUM LEVEL TOTAL 2020-07-06 Diersing, Chelsea Olson 08:41:00 PHOSPHORUS LEVEL 2020-07-06 Diersing, Chelsea Olson 08:41:00 PTH INTACT 2020-07-06 Diersing, Chelsea Olson 08:41:00 ALBUMIN LEVEL 2020-07-06 Diersing, Chelsea Olson 08:41:00 CALCIUM LEVEL TOTAL 2020-07-05 Deal, Filiberto Olson 23:23:00 CALCIUM LEVEL TOTAL 2020-07-05 Deal, Filiberto Olson 18:37:00 MAGNESIUM LEVEL 2020-07-05 Diersing, Chelsea Olson 08:26:00 CALCIUM LEVEL TOTAL 2020-07-05 Diersing, Chelsea Olson 08:26:00 PHOSPHORUS LEVEL 2020-07-05 Diersing, Chelsea Olson 08:26:00 PTH INTACT 2020-07-05 Diersing, Chelsea Olson 08:26:00 ALBUMIN LEVEL 2020-07-05 Diersing, Chelsea Olson 08:26:00 POC GLUCOSE SCREEN 2020-07-05 Souleymane Escobedo MD 02:01:00 ALBUMIN LEVEL 2020-07-05 Diersing, Chelsea Olson 01:14:00 PTH INTACT 2020-07-05 Diersing, Chelsea Olson 01:14:00 CALCIUM LEVEL TOTAL 2020-07-05 Diersing, Chelsea Olson 01:14:00 MAGNESIUM LEVEL 2020-07-05 Diersing, Chelsea Olson 01:14:00 PHOSPHORUS LEVEL 2020-07-05 Diersing, Chelsea Olson 01:14:00 PATHOLOGY SURGICAL 2020-07-04 Souleymane Escobedo MD INTERPRETATION 21:46:19 TOTAL OR COMPLETE 2020-07-04 Soulyemane Escobedo MD THYROIDECTOMY 19:57:00 POC GLUCOSE SCREEN 2020-07-04 Souleymane Escobedo MD 19:21:00 COVID-19 (SARS-COV-2) 2020-07-02 Marnie Knox MD PCR-ASYMPTOMATIC [facility] 13:05:00 XR SPINE CERVICAL COMPLETE 4 2020-06-26 Arabella Smith MD OR 5 VW 17:21:02 SERUM CREATININE 2020-06-26 Arabella Smith MD 13:05:00 ELECTROLYTE PANEL 2020-06-26 AndArabella taylor MD 13:05:00 GLUCOSE, RANDOM 2020-06-26 Arabella Smith MD 13:05:00 TYPE AND SCREEN 2020-06-26 Arabella Smith MD 13:05:00 BLOOD UREA NITROGEN 2020-06-26 AndArabella taylor MD 13:05:00 SERUM CREATININE 2020-06-26 Arabella Smith MD 13:05:00 .GLOMERULAR FILTRATION RATE 2020-06-26 Arabella Smith MD nderson 13:05:00 ABORH 2020-06-26 AndArabella taylor MD 13:05:00 ANTIBODY SCREEN 2020-06-26 Arabella Smith MD 13:05:00 CLOT EXPIRATION DATE 2020-06-26 Arabella Smith MD 13:05:00 TMP INTERPRETATION EXCEPTION 2020-06-26 Arabella Smith MD PREOP EXPIRATION 13:05:00 CONFIRM ABORH TYPE 2020-06-26 Arabella Smith MD 13:04:00 EKG, 12-LEAD (SCHEDULED) 2020-06-26 Arabella Smith MD Juan M rson 00:00:00 IP CONSULT TO CARDIOLOGY 2020-06-26 Provider, Barney Hidalgo 00:00:00 Historical US HEAD NECK SOFT TISSUE 2020-06-22 Rosanna Ward MD Juan M rson 15:17:00 HEMOGLOBIN A1C 2020-06-21 Rosanna Ward MD 19:25:00 ALBUMIN LEVEL 2020-06-21 Rosanna Ward MD 19:25:00 CALCIUM LEVEL TOTAL 2020-06-21 Rosanna Ward MD 19:25:00 COMPLETE BLOOD COUNT W/ 2020-06-21 Rosanna Ward MD Price son DIFFERENTIAL 19:25:00 FREE THYROXINE 2020-06-21 Rosanna Ward MD 19:25:00 THYROGLOBULIN ANTIBODY 2020-06-21 Rosanna Ward MD Curtis on 19:25:00 THYROID STIMULATING HORMONE 2020-06-21 Rosanna Ward MD nderson 19:25:00 VITAMIN D 25 HYDROXY LEVEL 2020-06-21 Rosanna Ward MD derson 19:25:00 HEPATITIS C VIRUS ANTIBODY 2020-06-21 Rosanna Ward MDson 19:25:00 Results CBC 2020-06-21 Rosanna Ward MD 19:25:00 MANUAL DIFFERENTIAL 2020-06-21 Rosanna Ward MD 19:25:00 HEPATITIS C VIRUS AB SCREEN 2020-06-21 Rosanna Ward MD nderson W/REFLEX HCV PCR 19:25:00 US BREAST COMPLETE LEFT 2020-06-20 [facility] 12:28:51 MAMMO BREAST DIAGNOSTIC 2020-06-20 Magalys [facility] TOMOSYNTHESIS BILATERAL 12:02:02 2019-NCOV COVID-19 2020-06-19 eMry Lyn MDo n 15:56:00 US PELVIC TRANSABDOMINAL 2020-06-14 Francesca Rocha 09:02:11 US PELVIC TRANSVAGINAL 2020-06-14 Francesca Rocha ethodist 09:02:11 MRI LUMBAR SPINE WO CONTRAST 2020-06-14 Magalys Pierce 07:46:21 US THYROID BIOPSY FNA 2020-06-04 Magalys Pierce 16:56:07 CYTOLOGY (NON-GYNECOLOGICAL) 2020-06-04 Magalys Pierceist REQUEST 15:11:00 OSI US THYROID BIOPSY 2020-06-04 Arabella Smith MD 11:15:47 PATHOLOGY OUTSIDE 2020-06-04 Sharon Phillips MD INTERPRETATION 00:00:00 US SOFT TISSUE HEAD NECK 2020-05-11 Magalys [facility] 15:33:03 OSI US THYROID 2020-05-11 Arabella Smith MD 11:15:29 ECG 12-LEAD 2020-02-[address] 11:37:47 PALATOPHARYNGOPLASTY [id number] 2014-10-04 Sravan Swain (Other)<sup>1</sup> 13:55:00 TONSILLECTOMY AND 2014-10-04 Sravan Swain ADENOIDECTOMY AGE 12 O (Other, 13:55:00 Bilateral)<sup>2</sup> Colonoscopy 2013[facility]07-06 [facility] 00:00:00 egd 2013[facility]07-06 [facility] 00:00:00 [facility] lump removed-benign 2011[facility]07-06 [facility] [place] 00:[facility]:00 breast reduction 2011-07-06 Sugey Lowell n 00:00:00 Hysterectomy 2009-07-06 [facility] 00:00:00 Ectopic 1999-07-06 Sugey Rhoades nn 00:00:00 Plan of Care Planned Activity Planned Date Details Comments Source Future Scheduled 2023-06-04 Screening for [facility] Test 00:00:00 malignant neoplasm of cervix (procedure) [code = 515997275] Future Scheduled 2022-06-20 [facility] [code = BREAST CANCER SCREENING] Future Scheduled 2021-02-03 INFLUENZA VACCINE [place] [facility] 00:00:00 [code = INFLUENZA VACCINE] Future Scheduled 2020-10-03 COVID-19 VACCINE (2 - [place] [facility] 00:00:00 Pfizer 2-dose series) [code = COVID-19 VACCINE (2 - Pfizer 2-dose series)] Future Scheduled 2020-10-02 COVID-19 Vaccination MD Olson Test 00:00:00 (2 - Pfizer 2-dose series) [code = COVID-19 Vaccination (2 - Pfizer 2-dose series)] Future Scheduled 2020 COLONOSCOPY SCREENING [place] [facility] 00:00:00 [code = COLONOSCOPY SCREENING] Future Scheduled 2020 SHINGLES VACCINES [place] [facility] 00:00:00 (#1) [code = SHINGLES VACCINES (#1)] Future Scheduled 1988 Hepatitis C screening [place] [facility] 00:00:00 (procedure) [code = 996110411] Future Scheduled 1980 DIABETES: RETINAL EYE [place] [facility] 00:00:00 EXAM [code = DIABETES: RETINAL EYE EXAM] Future Scheduled 1980 DIABETIC FOOT EXAM [place] [facility] 00:00:00 [code = DIABETIC FOOT EXAM] Encounters Start End Encounter Admission Attending Care Care Encounter Source Date/Time Date/Time Type Type Clinicians Facility Department ID 2020-09-11 Outpatient [facility] [id number] 07:31:48 PROVIDER Curtis garcia 2020-06-11 Outpatient [facility] [id number] 14:41:35 PROVIDER Curtis garcia 2019-09-16 Outpatient [id number] 08:13:50 2021-01-11 2021-01-11 Outpatient TYLER ECKERT [facility] [id number] 12:31:38 12:55:42 STEFAN garcia 2020-12-12 2020-12-12 Outpatient TYLER ECKERT [facility] [id number] 09:41:14 09:50:39 STEFAN garcia 2020-12-12 2020-12-12 Outpatient SOULEYMANE MCDONNELL [facility] [id number] [place] 00:00:00 00:00:[address] 2020-12-12 2020-12-12 Outpatient SOULEYMANE MCDONNELL [facility] [id number] [place] 00:00:00 00:00:[address] 2020-11-12 2020-11-12 Outpatient TYLER ECKERT [facility] [id number] 09:49:40 10:09:42 STEFAN garcia 2020-10-24 2020-10-24 Outpatient SOULEYMANE MCDONNELL [facility] [id number] [place] 00:00:00 00:00:[address] 2020-10-24 2020-10-24 Outpatient SOULEYMANE MCDONNELL [facility] [id number] [place] 00:00:00 00:00:[address] 2020-10-11 2020-10-11 Outpatient TYLER ECKERT MARTA LOZANO [id number] 10:10:25 10:23:17 STEFAN garcia 2020-10-09 2020-10-09 Outpatient JASON [facility] [id number] [place] 00:00:00 00:00:00 MAGALYS [address] 2020-09-29 2020-09-30 Emergency CASSANDRA, [facility] [id number] [place] 00:00:00 00:00:00 LOS 053 [facility] 2020-09-26 2020-09-26 Outpatient KENRICK, [facility] [id number] [place] 00:00:00 00:00:00 JAYY [address] 2020-09-12 2020-09-12 Outpatient EL TOMEKA, MDA MDA [id number] 09:31:25 09:35:48 STEFAN garcia 2020-09-12 2020-09-12 Outpatient [facility] [id number] [place] 00:00:00 00:00:00 432 [facility] 2020-09-06 2020-09-06 Outpatient EL TOMEKA, MDA MDA [id number] MD 06:23:03 23:59:00 STEFAN garcia 2020-09-06 2020-09-06 Outpatient EL DADU, MDA MDA [id number] 09:31:59 11:22:01 MERY garcia 2020-09-06 2020-09-06 Outpatient EL TOMEKA, MDA MDA [id number] 07:00:27 07:00:27 STEFAN garcia 2020-09-05 2020-09-05 Outpatient EL TOMEKA, MDA MDA [id number] 08:03:08 08:03:08 STEFAN garcia 2020-09-05 2020-09-05 Outpatient EL TOMEKA, MDA MDA [id number] 06:52:16 07:52:25 STEFAN garcia 2020-09-04 2020-09-04 Outpatient EL TOMEKA, MDA MDA [id number] 06:03:34 23:59:00 STEFAN garcia 2020-09-04 2020-09-04 Outpatient EL TOMEKA, MDA MDA [id number] MD 06:51:12 11:15:54 STEFAN garcia 2020-08-31 2020-08-31 Outpatient EL TOMEKA, MDA MDA [id number] MD 10:43:49 10:55:33 STEFAN garcia 2020-08-24 2020-08-24 Outpatient EL JULIANA, JESÚS MDA MDA [id number] 13:08:47 23:59:00 Curtis garcia 2020-08-16 2020-08-17 Outpatient UR LIVE, MDA Emergency [id number] MD 15:24:00 13:56:00 DREWYoana garcia 2020-08-09 2020-08-09 Outpatient EL TOMEKA, MDA MDA [id number] MD 09:45:27 09:50:41 STEFAN garcia 2020-08-02 2020-08-02 Outpatient EL TOMEKA, MDA MDA [id number] 11:05:10 11:14:06 STEFAN garcia 2020-07-26 2020-07-26 Outpatient EL DADU, MDA MDA [id number] MD 09:30:00 23:59:00 MERY garcia 2020-07-22 2020-07-22 Outpatient EL DADU, MDA MDA [id number] MD 10:50:59 23:59:00 MERY garcia 2020-07-17 2020-07-20 Inpatient ER AL AMERI, MDA GIM [id number] 15:05:00 12:50:00 [facility] Jorge garcia 2020-07-16 2020-07-16 Outpatient EL DADU, MDA MDA [id number] MD 09:32:29 09:39:06 MERY garcia 2020-07-13 2020-07-13 Outpatient EL DADU, MDA MDA [id number] MD 10:39:59 10:53:58 MERY garcia 2020-07-07 2020-07-12 Inpatient UR ZAFEREO, MDA HN Surgery [id number] 07:40:00 11:24:00 SOULEYMANE garcia 2020-07-09 2020-07-09 Inpatient ZAFEREO, MDA MDA [id number] 08:11:22 08:11:27 SOULEYMANE garcia 2020-07-07 2020-07-07 Inpatient MADY, MDA MDA [id number] MD 18:38:40 18:59:11 FLORES garcia 2020-07-04 2020-07-06 Inpatient EL DEANN, MDA HN Surgery [id number] 11:43:00 14:36:00 SOULEYMANE Curtis o n 2020-07-03 2020-07-03 Outpatient ANDRABI, MDA MDA [id number] MD 04:45:29 04:45:29 [facility] ER Curtis o n 2020-07-03 2020-07-03 Outpatient ANDRABI, MDA MDA [id number] MD 04:45:28 04:45:28 [facility] ER Curtis o n 2020-07-03 2020-07-03 Outpatient ANDRABI, MDA MDA [id number] MD 04:45:25 04:45:25 [facility] ER Curtis o n 2020-07-03 2020-07-03 Outpatient ANDRABI, MDA MDA [id number] MD 04:45:24 04:45:24 [facility] ER Curtis o n 2020-07-03 2020-07-03 Outpatient ANDRABI, MDA MDA [id number] MD 04:45:22 04:45:22 [facility] ER Curtis o n 2020-07-03 2020-07-03 Outpatient ANDRABI, MDA MDA [id number] MD 04:45:20 04:45:20 [facility] ER Curtis o n 2020-07-03 2020-07-03 Outpatient ANDRABI, MDA MDA [id number] MD 04:45:19 04:45:19 [facility] Curtis o n 2020-07-03 2020-07-03 Outpatient ANDRABI, MDA MDA [id number] MD 04:45:18 04:45:18 [facility] Curtis o n 2020-07-02 2020-07-02 Outpatient ANDRABI, MDA MDA [id number] MD 23:11:07 23:11:07 [facility] Curtis o n 2020-07-02 2020-07-02 Outpatient ANDRABI, MDA MDA [id number] MD 23:11:05 [facility]11:05 [facility] 2020-07-02 2020-07-02 Outpatient ANDRABI, MDA MDA [id number] MD 23:11:03 23:11:03 [facility] Curtis o n 2020-07-02 2020-07-02 Outpatient ANDRABI, MDA MDA [id number] MD 23:11:02 23:11:02 [facility] Curtis o n 2020-07-02 2020-07-02 Outpatient ANDRABI, MDA MDA [id number] 23:11:01 23:11:01 ARABELLA Curtis o n 2020-07-02 2020-07-02 Outpatient ANDRABI, MDA MDA [id number] 23:11:00 23:11:00 BERNY Curtis o n 2020-07-02 2020-07-02 Outpatient ANDRABI, MDA MDA [id number] MD 23:10:59 23:10:59 BERNY Curtis o n 2020-07-02 2020-07-02 Outpatient ANDRABI, MDA MDA [id number] MD 23:10:57 23:10:57 BERNY Curtis o n 2020-07-02 2020-07-02 Outpatient ANDRABI, MDA MDA [id number] 23:10:56 23:10:56 ARABELLA Curtis o n 2020-07-02 2020-07-02 Outpatient ANDRABI, MDA MDA [id number] 23:10:54 23:10:54 BERNY Curtis o n 2020-07-02 2020-07-02 Outpatient ANDRABI, MDA MDA [id number] 23:10:52 23:10:52 [facility] Curtis o n 2020-07-02 2020-07-02 Outpatient ANDRABI, MDA MDA [id number] 23:10:51 23:10:51 [facility] Curtis o n 2020-07-02 2020-07-02 Outpatient EL ARI, MDA MDA [id number] MD 06:48:44 07:16:09 MERCEDES Wattsers o n 2020-06-26 2020-06-26 Outpatient EL ANDRABI, MDA MDA [id number] 10:38:08 23:59:00 ARABELLA Curtis o n 2020-06-26 2020-06-26 Outpatient EL DIANN, MDA MDA [id number] MD 09:53:35 11:49:46 BRIA Wattsers o n 2020-06-26 2020-06-26 Outpatient EL ARI, MDA MDA [id number] 07:33:15 11:47:27 MERCEDES Curtis o n 2020-06-26 2020-06-26 Outpatient EL ANDRABI, MDA MDA [id number] 06:55:56 10:37:00 TAYAB Curtis o n 2020-06-26 2020-06-26 Outpatient EL SARAH, MDA MDA [id number] 06:55:00 06:55:00 ARABELLA Curtis o n 2020-06-22 2020-06-22 Outpatient EL DEANN, MDA MDA [id number] MD 09:22:26 11:28:31 SOULEYMANE garcia 2020-06-22 2020-06-22 Outpatient EL ED, MDA MDA [id number] MD 07:05:02 07:05:02 RSOANNA Curtis o n 2020-06-21 2020-06-21 Outpatient EL ED, MDA MDA [id number] MD 13:15:00 23:59:00 ROSANNA Curtis o n 2020-06-21 2020-06-21 Outpatient EL EBONI, MDA MDA [id number] MD 10:26:55 13:08:52 MERY Acevedo o n 2020-06-21 2020-06-21 Outpatient EL MDA MDA [id number] MD 10:24:41 10:24:54 Curtis yoana garcia 2020-06-20 2020-06-20 Outpatient JASON [facility] [id number] [place] 00:00:00 00:00:00 MAGALYS [address] 2020-06-20 2020-06-20 Outpatient JASON [facility] [id number] [place] 00:00:00 00:00:00 MAGALYS [address] 2020-06-19 2020-06-19 Outpatient GLENNA ESPINOZA MDA MDA [id number] 09:43:29 09:57:22 Curtis yoana garcia 2020-06-14 2020-06-14 Outpatient [facility] [id number] [place] 00:00:00 00:00:00 MAGALYS [address] 2020-06-14 2020-06-14 Outpatient ROCHAFRANCESCA [facility] [id number] [place] 00:00:00 00:00:[address] 2020-06-04 2020-06-04 Outpatient [facility] [id number] [place] 00:00:00 00:00:00 MAGALYS [address] 2020-05-11 2020-05-11 Outpatient [facility] [id number] [place] 00:00:00 00:00:00 MAGALYS [address] 2020-02-21 2020-02-21 Outpatient KENRICK, [facility] [id number] [place] 00:00:00 00:00:00 JAYY [address] 2019-12-16 2019-12-16 Outpatient FRANCESCA ROCHA [facility] [id number] [place] 00:00:00 00:00:[address] 2019-12-09 2019-12-09 Outpatient RochaFrancesca black PETER GREEN [id number] [facility] 10:45:00 10:45:00 st OBGYN 2019-11-25 2019-11-25 Emergency FRAUSTO, [facility] [id number] [place] 00:00:00 00:00:00 NATALYA [address] 2019-09-12 2019-09-12 Outpatient KENRICK, [facility] [id number] [place] 00:00:00 00:00:00 JAYY [address] 2019-09-07 2019-09-07 Outpatient KENRICK, [facility] [id number] [place] 00:00:00 00:00:00 JAYY [address] 2019-05-18 2019-05-18 Outpatient JASON, [facility] [id number] [place] 00:00:00 00:00:00 MAGALYS [address] 2019-05-18 2019-05-18 Outpatient JASON, [facility] [id number] [place] 00:00:00 00:00:00 MAGALYS [address] 2019-05-13 2019-05-13 Outpatient RochaShaun blackelizabeth GREEN [id number] [facility] 08:38:00 08:38:00 st OBGYN 2019-05-09 2019-05-09 Outpatient JASON, [facility] [id number] [place] 00:00:00 00:00:00 MAGALYS [address] 2019-05-09 2019-05-09 Outpatient JASON, [facility] [id number] [place] 00:00:00 00:00:00 MAGALYS [address] 2019-04-25 2019-04-25 Outpatient FLORENCE [facility] [id number] [place] 00:00:00 00:00:00 Maggie LR4 Lashae Baldwin 2019-03-14 2019-03-14 Outpatient MAHNAZ, [facility] [id number] [place] 00:00:00 00:00:00 LEVI 489 [facility] i 2019-03-14 2019-03-14 Outpatient MAHNAZ, [facility] [id number] [place] 00:00:00 00:00:00 LEVI Le Method i 2014-10-04 2014-10-[address] 06:53:07 13:15:00 [facility] Surgical [facility] [place] [facility] [place] Results Test Description Test Time Test Results Result Source Comments Comments US Thyroid Hm Interface, Radiology jennifer 6 Results Incoming - Method ist 14:12:39 [...] finding in the thyroidectomy bed.2.No suspicious cervical lymphadenopathy.[facility] [id number] CT Soft Tissue 2020-09-04 Interface, Radiology [place] Neck W Contrast 8 Results Incoming - [...] MORALES Testing Day 3 LabsDraw prior to MD Thyroid Cancer Study.Schedule in (preferred) or Main Lab. Lab Interpretation (test Abnormal code = 82337-9) MD OlsonMD Thyroid Wb Lngdytxqhk3274-28-01 14:54:36No definite residual iodine-avid tissue at the thyroidectomy bed or evidence of iodine-avid metastase s. I personally reviewed these image(s) along with the resident's/fellow's interpretations, certifythat if a procedure was performed I was physically present, and agree with the final report.Interface, Radiology Results In - 09/06/2020 8:56 AM CSTFormatting of this note might be different from the o riginal.FULL RESULT:Examination: MD THYROID WB DIAGNOSTIC, 09/06/2020 8:35 AMClinical History: 50-year-old female with papillary thyroid cancer, status post total thyroidectomy on 07/04/2020Indication: Assess for iodine-avid tissue, treatment planningComparison: Outside institution neck CT from 03/14/2019 Technique: Anterior and posterior whole-body planar images were obtained one day following the ingestion of 1.99 mCi of I-123 sodium iodide. Spot views of the neck were obtained. The percent uptake in the neck was calculated at 20:20 hours.Findings: There is physiologic distribution of radiotracer with activity seen in the salivary glands, stomach, bowel, and bladder. No definite focal uptake is seenin the region of the thyroidectomy bed.Uptake in the neck at 20:20 hours is calculated to be 0.05%.IMPRESSION:No definite residual iodine-avid tissue at the thyroidectomy bed or evidence of iodine-avidmetastases.I personally reviewed these image(s) along with the resident's/fellow's interpretations, certify that if a procedure was performed I was physically present, and agree with the final report.MD OlsonDjqmbjnvQIJ8866-13-28 13:59:56 Test Item Value Reference Range Interpretation Comments TSH (test code = 110.10 See_Comment H Note: New 7578) Methodology and Reference Range change effectiv e 10/22/2017 at 14 00 Testing Perform ed at [facility], [address], [address], [place] [address] [Automated message] The system which generated this result transmit prieto reference range : 0.27 - 4.20 mcunit/mL. The reference range was not used to interpret this result as normal/abnormal . ALLISON (test code = ALLISON) MORALES Testing Day 3 LabsDraw prior to [place] Thyroid Cancer Study.Schedule in (preferred) or Main Lab. Lab Interpretation Abnormal (test code = 14173-4) MD OlsonBHCG [id number] 14:07:21 Test Item Value Reference Range Interpretation [...] first 6 weeks. Testin g Performed at [facility], [address], [address], [place] [address] [Automat ed message] The system [employer] h generated this result tra nsmitted reference range : <=4.9 mIU/mL. The ref erence range was not u sed to interpret this result as normal/abnormal . MD Ayala4, [id number] 13:07:10 Test Item Value Reference Range Interpretation Comments T4 Free (test code = 1.79 ng/dL 0.93-1.70 H Testing 7502) Performed at [facility], [address], [address], [place] [address] ALLISON (test code = ALLISON) MORALES Testing Day 1 LabsMust be drawn prior to 8am Thyrotropin Mario injection.Schedule in same location as Thyrogen injection. Lab Interpretation Abnormal (test code = 62174-9) MD Namjose manuel Lazsxak1331-46-92 00:51:02 Test Item Value Reference Range Interpretation Comments Final Report (test No growth code = 8488) Path Review - Immunity and antibiotic Bottle/Isolator use may render culture (test code = 8499) negative. Ongoing infection requires repeat culture.The results have been reviewed and electronically signed by Pathologist:MEGA CRAIG MD #[id number] [facility] Icqicyf3714-30-84 23:54:43 Test Item Value Reference Range Interpretation Comments Final Report (test No growth code = 8488) Path Review - Urine The results have been (test code = 8483) reviewed and electronically signed by Pathologist:MEGA CRAIG MD #[id number] [facility] Khephln2627-08-28 23:53:51Final ReportNo Salmonella or Shigella isolated.No Aeromonas/Plesiomonas/Edwardsiella isolatedNo Vibrio species isolatedNo Campylobacter isolated.No Yersinia enterocolitica isolated [facility] - StoolThe results have been reviewed and electronically signed by Pathologist:MEGA CRAIG MD #[id number] [facility]ITALMD AndersonClostridium Difficile DNA Path [id number] 13:41:44 C diff DNA PRC. difficile DNA detection was negative making C. difficile infection highly unlikely in this patient. EIA not performed....Reviewed and Electronically signed by Pathologist:Casimiro Ferrera MD, PhD #[id number] Comment: C. difficile Toxin DNA (Primary Method) [...] repeat testing. CASIMIRO FERRERA MD, PhD - [id number] by: CASIMIRO FERRERA MD, PhD - [id number] Date/Time: 08.18.2020 7:41 AM KNOBBER Transcribed Date/Time: 08.18.2020 7:41 AM CSTElectronically Signed By: CASIMIRO FERRERA MD, PhD - [id number] on 17:[address] [facility] CERVICAL THORACIC LUMBAR SPINE W WO CPTVAFCS0788-44-00 13:53:581. No evidence of cord compression.2. Multilevel [...] Radiology Results In - 08/17/2020 7:56 AM CST FULL RESULT: Examination: MRI CERVICAL THORACIC LUMBAR SPINE W WO CONTRAST, 08/17/2020 3:26 AM.Clinical History: 50-year-old woman with history of papillary thyroid carcinoma, presenting with abdominal and lower back painIndication: low back pain, thyroid cancerComparison: CT abdomen pelvis dated 08/16/2020Technique: Multiplanar, multisequence magnetic resonance imaging of the cervical, thoracic and lumbosacral spine was performed without and withintravenous contrast. Findings: Cervical spine: Vertebral body alignment is within normal limits. Marrow signal is homogenous. Posterior disc bulge at C4-C5, C5-C6 results in effacement of the thecalsac without cord compression. There is no cord signal abnormality. Thoracic spine: Vertebral body alignment is within normal limits. Marrow signal is homogenous. Posterior disc bulge at T6-T7 causing effacement of the thecal sac and abuts the spinal cord without compression. There is no cord signal ab normality. Lumbosacral spine: Vertebral body alignment is within [...] of series 16 and on sagittal image 15and 5 of series 17.There is no cord signal abnormality or cord compression. No neural foraminal stenosis is identified.IMPRESSION:1. No evidence of cord compression.2. Multilevel posterior disc bulgeresulting in effacement of the thecal sac3. Acute inflammatory changes on a background of chronic degeneration in the bilateral L4-5 facet joints. This could be a source of pain.I personally reviewed these image(s) along with the resident's/fellow's interpretations, certify that if a procedure was performed I was physically present, and agree with the final report.MD OlsonLactic Acid, Venous 2020-08-17 13:08:36 Test Item Value Reference Range Interpretation Comments V Lactate (test code = 2519-7) 1.3 mmol/L 0.5-1.6 MD OlsonGlomerular Filtration [id number] 10:50:50 Test Item Value Reference Range Interpretation Comments eGFR-AA (test code 83 See_Comment Normal eG FR: >= 60 = 8062) mL/min/1.73 m2N ote: The eGFR is calculated u sing the CKD-EPI equatio n. The eGFR declines with a ge. eGFR <60 mL/min/1.73 m2 is considered as "decreased". This equation should only be used for patients 18 and older. According to e National Kid[employer] on's Kidney Disease [...] failure <15 [Automa prieto message] The system [employer] generated this result tra nsmitted reference range [...] is result as normal/abnormal . MD Olson.Serum Eshgjdndwx8431-93-96 10:50:48 Test Item Value Reference Range Interpretation Comments Creatinine (test code = 5399) 0.93 mg/dL 0.51-0.95 MD OlsonOagkvtdbDBP4979-84-00 10:50:47 Test Item Value Reference Range Interpretation Comments BUN (test code = 5055) 16 mg/dL 6-23 MD OlsonElectrolyte [id number] 10:50:44 Test Item Value Reference Range Interpretation Comments Sodium Lvl (test code = 140 See_Comment [Au tomated message] The 0111) system which ge nerated this result tra [...] = 103 See_Comment [Auto mated message] The 5279) system which ge nerated this result tra [...] = 11 See_Comment [Aut omated message] The 9320) system which ge nerated this result tra nsmitted reference range : 4 - 14 mEq/L. The refe rence range was not u sed to interpret this result as normal/abnormal . MD OlsonGlucose Mhxcz6974-02-45 10:50:43 Test Item Value Reference Range Interpretation [...] diabetes Lab Interpretation (test Abnormal code = 96236-0) MD OlsonClostridium Difficile DNA [id number] 10:22:00 Test Item Value Reference Range Interpretation Comments C difficile DNA (test Negative Negative code = 5134) C difficle Toxin EIA Test Not Performed Negative (test code = 8961) C difficile C. difficile DNA Interpretation (test code detection was = 9274724) negative making C. difficile infection highly unlikely in this patient. EIA not performed. MD OlsonSxmpxofrSfpsijhjltlu6906-19-78 10:12:42 Test Item Value Reference Range Interpretation Comments Neutrophil % (test code 57.1 % 42.0-66.0 = 91378-5) Lymphocyte % (test code 33.7 % 24.0-44.0 = 737-7) Monocyte % (test code = 6.9 % 2.0-7.0 744-3) Eosinophil % (test code 1.8 % 1.0-4.0 = 713-8) Basophil % (test code = 0.4 % 0.0-1.0 707-0) IGRE % (test code = 0.1 % 0.0-0.4 IGRE % c ount includes 47908-6) Metamyelocytes, Myelocytes, and Promyelocytes. Neutrophil Abs (test 4.07 K/uL 1.70-7.30 code = 753-4) Lymphocyte Abs (test 2.40 K/uL 1.00-4.80 code = 732-8) Monocyte Abs (test code 0.49 K/uL 0.08-0.70 = 743-5) Eosinophil Abs (test 0.13 K/uL 0.04-0.40 code = 712-0) Basophil Abs (test code 0.03 K/uL 0.00-0.10 = 705-4) IG Abs (test code = 0.01 K/uL 0.00-0.04 56556-3) MD lOson.WRS8671-09-10 10:12:39 Test Item Value Reference Range Interpretation Comments WBC (test code = 7.1 K/uL 4.0-11.0 6690-2) RBC (test code = 4.28 See_Comment [Automated message] The 789-8) system which nerated this result tra nsmitted reference range : 4.00 - 5.50 M/uL. The reference range was not u sed to interpret this result as normal/abnormal . Hgb (test code = 12.2 See_Comment [Automated message] The 718-7) system which nerated this result tra nsmitted reference range : 12.0 - 16.0 gm/dL. The reference range was not u sed to interpret this result as normal/abnormal . Hct (test code = 37.2 % 37.0-47.0 4544-3) MPV (test code = 8.8 fL 4.0-10.4 787-2) MCH (test code = 28.5 pg 27.0-31.0 785-6) MCHC (test code = 32.8 See_Comment [Automate d message] The 786-4) system which ge nerated this result tra nsmitted reference range : 31.0 - 36.0 gm/dL. The reference range was not u sed to interpret this result as normal/abnormal . RDW-SD (test code = 41.2 fL 35.1-46.3 89754-2) RDW-CV (test code = 13.1 % 12.0-15.5 788-0) Platelet count (test 219 K/uL 140-440 [...] 1 00 cell differential. [Automated message] The sy stem which generated this result transmitted ref erence range: <=0.0. T he reference range was not used to interpr et this result as normal/abnormal . MD OlsonUrinalysis with Zrdxvkjiuxd7043-63-84 22:57:49 Test Item Value Reference Interpretation Comments [...] the implementation of new instrumentation in the [facility], allowing greater sensitivity of measurement. Urinalysis results reported by the [facility] using existing instrumentation, as well as Urinalysis testing performed manually or by backup methodology at the [facility] will remain relatively unchanged. New reporting parameters and units will now be reported for all campuses. Lab Interpretation Abnormal (test code = 32659-1) MD OlsonFractionated Qsxtqyjvh0745-93-38 22:53:08 Test Item Value Reference Range Interpretation [...] 28 g/L. [Automate d message] The system [employer] generated this result transmitted ref erence range: [...] normal/abnormal . Bili Indirect (test See Note 0.0-0.9 Unable t o calculate code = 5095) Indirect Biliru bin result due to some par ameters are outside rep ortable range MD [id number] 22:53:06 Test Item Value Reference Range Interpretation Comments LDH (test code = 6111) 225 U/L 135-214 H Speci men is hemolyzed. Resu lts may be falsely elevated. Repea t test if needed.Resul ts greater than 16 51 U/L may not be reli able due to matrix e ffect with extended dilution as it exceeds the office executive s recommended l imit. Caution should be exercised when interpreting murrell ch values and done in conjunction wit h clinical contex t. Lab Interpretation (test Abnormal code = 54954-1) MD OlsonAspartate Deftakokmiupkxhp3404-37-11 22:53:03 Test Item Value Reference Range Interpretation Comments AST (test code = 23 U/L See_Comment Specimen is hemolyzed. 4731) Results may be falsely elevated. Repea t test if needed. [Automa prieto message] The system [employer] h generated this result tra nsmitted reference range : <=32. The reference range was not used to interpr et this result as talon l/abnormal. MD OlsonTotal Cutitoo9249-21-51 22:52:57 Test Item Value Reference Range Interpretation Comments Total Protein (test code = 7649) 7.8 g/dL 6.4-8.3 MD OlsonAlkaline Zjzecqjvboe8223-12-96 22:52:56 Test Item Value Reference Range Interpretation Comments Alk Phos (test code = 4768) 83 U/L 35-104 MD OlsonEdglxvnzSHT2342-79-47 22:52:55 Test Item Value Reference Range Interpretation Comments ALT (test code = 27 U/L See_Comment [Automated message] The 4705) system which ge nerated this result transmit prieto reference range : <=33. The reference range was not used to interpr et this result as talon l/abnormal. MD OlsonTqejizukYamxjs8309-86-84 22:51:23 Test Item Value Reference Range Interpretation Comments Lipase Lvl (test code = 6165) 22 U/L 13-60 MD OlosnEaaeosarHrfrhbu8374-48-60 22:51:22 Test Item Value Reference Range Interpretation Comments Amylase Lvl (test code = 4806) 35 U/L 28-100 MD OlsonUrinalysis w/Microscopic if Izdlwyjdt7634-85-90 22:51:10 Test Item Value Reference Range Interpretation [...] NEG Lab Interpretation (test code = Abnormal 87683-1) MD AndersonCT Abdomen Pelvis without IV Vxklcyiz4168-02-62 22:45:21Addendum by Manuel Mckeon MD on 08/17/2020 [...] Radiology Results In - 08/16/2020 4:47 PM CST FULL RESULT:Examination: CT ABDOMEN PELVIS WO CONTRAST, 08/16/2020 4:22 PMClinical History: Papillary thyroid carcinomaIndication: abd painComparison: Images from outside CT abdomen/pelvis 11/25/2019Technique: CT of the abdomen and pelvis was performed without intravenous contrast.Findings: The absence of IV contrast limits evaluation of the solid organs and vascular structures. Absence of enteric contrast limits evaluation of bowel. No recent CT I don't seMinimal atel ectasis at the lung bases.Fatty infiltration of the [...] the interval. The bladder is decompressed. No ascites. Diverticulosis at the colon. Normal appendix. No dilated loops of bowel. Small fat-containing ventral hernia at the umbilicus. Degenerative changes in the spine.IMPRESSION:No acute abnormality in the abdomen or pelvis.Fluid collection/cysticlesion at the left margin of the vaginal cuff has not significantly changed in size during the interval. Recommend US followup. We will 11 he ER. Specifically, and past history evaluate for metastatic disease in the abdominal is a 1 abdominal distention.Thrombus in the liver commonly usedFatty infiltration of the liver.MD OlsonInfluenza A/B + COVID-19 Asymptomatic- [id number] 22:38:19 Test Item Value Reference Range Interpretation Comments Influenza A (test Not Detected Not Detected code = 40128-6) Influenza B (test Not Detected Not Detected code = 57919-0) COVID19 Not Detected Not Detected (SARS-CoV-2) (test code = 97025-6) COVID19 SARS Inpatient Indication (test Admission code = 59003) Inf AB+Cov19 See Note The laura SARS- CoV-2 Comment (test & Influenza A/ B code = 95641) nucleic acid t est for use on the rojas s [employer] System is a jellyfishlex real-time RT-PC R assay intended for the [...] sheet for patie nts provided by the office executive ([employer]) can be rev iewed at: https://www.fda .gov/m edia/706105/kike nloadA fact sheet for Health Care providers is provided by the office executive ([employer]) and can be reviewed at: https://www.fda .gov/m edia/726753/kike nload Influenza A and Influenza B neg [...] high-comple xity tests. The Microbiology Laboratory at [facility], CLIA Accreditation #[id number] and CAP Accreditation #[id number], verif ied the performance characteristics of this assay. Int ernal controls are us ed to monitor all sta ges of the test proces s. MD [facility] VBG+Klq7616-14-32 22:21:17 Test Item Value Reference Range Interpretation Comments POC VB pH (test code 7.41 7.31-7.41 = 6719) POC VB pCO2 (test 40 See_Comment L [Automate d message] code = 6718) The system whic h generated this result transmitted ref erence range: 41 - 51 mmHg. The reference r manju was not used to interpret this result as normal/abnor mal. POC VB pO2 (test 55 mmHg code = 6720) POC VB TCO2 (test 27 See_Comment [Automate d message] code = 2026-) The system wh ich generated this result transmitted ref erence range: 24 - 29 mEq/L. The reference r manju was not used to interpret this result as normal/abnor mal. POC VB Bicarb (test 26 mmol/L 23-28 code = 37608-5) POC VB Base Ex (test 1 mmol/L [...] which contains microfabricated sensors, a calibration robbin [employer], fluidics system , and a waste chamber . Each test cartridge contains chemic ally sensitive biose nsors on a [employer] ip that are config ured to perform spec ific tests. The microfabricated sensors measure analyte concent ration by an electroch emical assay. POC Sample Type Venous (test code = 6690) POC Clean Dev (test \\RN Notified code = 6672) Lab Interpretation Abnormal (test code = 81750-9) MD Can Brain with and without Mlbetszk6612-96-22 13:52:361. No acute intracranial abnormality is seen.2. [...] Radiology Results In - 07/19/2020 7:54 AM CST FULL RESULT:Examination: MRI BRAIN W WO CONTRAST on 07/18/2020 11:13 PMClinical History: 50-year-old female patient with history of a papillary thyroid carcinoma, presenting with dizziness and blurry vision. Clinical suspicion of cerebral metastatic disease.Indication: Not for stroke, trauma, headache, sinusitis, or syncope, Vision changes, DizzinessComparison: Noncontrast CT of the brain dated 07/17/2020Technique: Multiplanar MR images were obtained before and after administration of intravenouscontrast.Findings: A slightly prominent left lateral retropharyngeal node is identified, measuring up to 11 mm in maximum diameter [series 9, image 1], which has slightly decreased in size as compared with a CT of the neck dated 03/14/2019.There is no focus of abnormal parenchymal, leptomeningeal or calvarial enhancement. There is [...] present, and agree with the final report.[facility] Add-On Fzne5212-11-13 13:08:40 Test Item Value Reference Range Interpretation Comments Ordered (test code = 6568) Test Added Test Needed (test code = 7604) serum calcium MD OlsonCalcium Ionized, Eplekw3126-77-54 09:05:01 Test Item Value Reference Range Interpretation Comments V Ion Ca (test code = 27678-9) 0.99 mmol/L 1.15-1.29 L Lab Interpretation (test code = Abnormal 43008-8) [facility] Glucose Bxxgxj5964-71-04 00:20:37 Test Item Value Reference Range Interpretation Comments POC Glucose (test 131 mg/dL 70-99 H RN Notifie dCapillary code = 59818-1) blood sample s, e.g. obtained by fingerstick, [...] 9554) Lab Interpretation Abnormal (test code = 81360-9) MD OlsonProthrombin Time with [id number] 23:26:07 Test Item Value Reference Range Interpretation Comments PT (test code = 6746) 13.2 See_Comment [Auto mated message] The system which [employer] nerated this result transmit prieto reference range : 12.0 - 14.3 second(s). The reference range was not used to interpr et this result as talon l/abnormal. INR (test code = 1.06 0.90-1.10 5973) MD OlsonPartial Thromboplastin [id number] 22:54:09 Test Item Value Reference Range Interpretation Comments PTT (test code = 28.8 See_Comment [Automated message] The 6773) system which [employer] nerated this result transmit prieto reference range : 24.2 - 36.0 second(s). The reference range was not used to interpr et this result as talon l/abnormal. MD OlsonCT Head without Smdwwype3416-03-11 22:13:40No acute intracranial abnormality. I personally reviewed these image(s) along with the resident's/fel low's interpretations, certify that if a procedure was performed I was physically present, and agreewith the final report.Interface, Radiology Results In - 07/17/2020 4:15 PM CST FULL RESULT:EXAMINATION: CT HEAD WO CONTRAST on 07/17/2020 [...] is maintained. There is no evidence for intra- axial or extra-axial hemorrhage. No pathologic extra-axial fluid collection. No midline shift or mass effect seen. There is no evidence for hydrocephalus. There is no large acute territorial infarction.CALVARIA: The calvaria and extracranial soft tissues are unremarkable. ORBITS: The orbital structures are unremarkable. SINUSES:The paranasal sinuses and mastoid air cells are clear.IMPRESSION:No acute intracranial abnormality.Ipersonally reviewed these image(s) along with the resident's/fellow's interpretations, certify that if a procedure was performed I was physically present, and agree with the final report.MD Olson Cardiac [id number] 22:13:11 Test Item Value Reference Range Interpretation Comments CK (test code = 5206) 129 U/L 26-192 CK MB (test code = <2.0 See_Comment [Automat ed message] The 5209) system which [employer] nerated this result tra nsmitted reference range [...] result as normal/abnormal . MD OlsonPathology Surgical Kffolmrhhzeuci1258-87-66 18:56:00 Test Item Value Reference Range Interpretation Comments Diagnosis (test code = c0cbrBMbGYOkoCF5StXgXB 34) Afw9qth2QceHQdeRBaCEts lCVcddMrvp39gHA6cX82YF 0kNEWsCuJ5MVXhfbJ6Kyf6 TMXkSYKwqAWcF526s1dka4 yvqjZzyEA2oFazCXYqOWMw YWluXGZzMjAgQTogTHltcG bfhe1xEXxaxZKfbLJzLZEm jMFoJ3rcCIl8YESigoqggH qmOFhqmI82ZoJfVDWFYKRG QVRJQyBQQVBJTExBUlkgVE wOUz1LUNMBXKHDSF5CAIYz YR6jX18YHHdMHLISLG8MDM UuICgxLzEpXHBhclxsaTBc bGluMFxwYXIgQjogUGFyYX NseBRcxBGbIQDsi1QpMfgv RGohJbJulL4bHMLfu0IjmB UaPKDqdLRfjUDjO7qaomF1 LRVtbkknaMqsAVdrzI42Lp WoFLn3wYreLYDhl5M1HFrs ul1mjZOjFXPruHVuzAKscN clu9QgPPbwBD44pDTaOGTw XHBhclxsaTBcbGluMFxwYX SoXxgyUCa1ck8kBBfghGIg zUBsb9XaYEKaCIKjq7AawZ DkOQTmp6NnY5AexMh4MWMn zcuaaTcjZIhjpV10NhPdyU CoqATbrIyoXenfnAO5TEoy BlqsxC0hrKRQWPGKRtrGSv julsLtXC5YFKUZIhJNFS10 FcY6JCG4NIzizPhiXaclhb MraEUoHlAulF5GJUPCGWyW OsytLRbJOx6PFZMTCNUIXY 6XBWYrIZDAJeUYAjUQX94H XUJSVFTZz3zllCYfUIgoCf pkpFVouhA2MCkAKPPEWQbX XgIlHM7cZStPT1HDNpA9Md J5GJV8VLptbKbhPdafiuPg fRDvPvGhpW5wqFgyuL2zQm MyMFxwYXJcbGkxNDQwXGxp zsG1PYVaWWVqvUmcy2RllB ogWWVzIChhbHNvIGluICBH XDirQJByF7b5KPenNW47BO NtXHBhciBFeHRyYXRoeXJv eUHtlBXivYUpqcPza998WW uugt66MYN6d8shlSEhTWtl IotidJLmxzY5MKzFDQMFBQ tMCuGuEG3fCBePH6VQTYeI TzuoDMp6CNbubAQ6e1fthX Bqd3v3XRegDPK6uLPmd6Tu qRjtSxjnoII4FMorQdmvmV 5zdCBIWVBFUkxJTksgbmFt LB0AYDBXKX6LtHM8LJi3iZ E7Du39YCEjVQCwqFSqOMjj V795NUEaUPmtOEWoSyYtvT IvZVj3fGBuj0Jvp7F3nVQh MTzuffZoeU2cUrZiyLEttT HiqKuqDmbdcCE0KHepUpgf zH3gfUBAJMSTCyfRWmtcyc JxCL6HHCSJByYGKM30ZvH0 Kdf0E5sigEwdTwuxroTzyL TcMrNacJ6CRxYbrzO6TLUx IKrob5xoPJAjEMezn3MpQT fIOIUBHB2COP5utKE8ZMvF YAJLOAxeQSp7WBrqeHO5h7 zbjEEds3w2SOdsKBQ2rIum bGFpblxmczIwXHBhciBSZX AqZ0Qwc61tgUPgD0otruny BUAko9PrP7P1KITkKQnzr4 iaPBDzOQfvc5LtSMhHLIWY GP3NEL7phVK8LMgUHKCIN8 yAiHD5HFyvpHZ6HC95GCQz ZVGarGFxJNrbY020MqYhWR WfcfN7EWXjDZsmh9wpOTDj JJsjn2WxTKoGXMLTWC5XLY 1lmTZ9KZcRJIMJPCqcXTh6 EZw8nAQ6i4kszNPmq8z9KK wuNZA9hQmumBWvjqtbevNx ATOlnsWWxL9srSRaw6Tips jgHGOld2NaE1U6ASRaARxo o6flVYWyFDrbw0OtRMaYRJ NOES4UUG5rzGG0SCmOGYMU R2pXqHV7JBs4xHQ6JF91IX OqZOVbcNIcBZsiI419QNXD PZZDPYNOEaXROTQEXD2UYS KmEM9gTNSok7QtC1Ufa6ni tFHcAUldHcedaUIlqdL6HY dMDNLQECkACxDiGP6iTCyN RDHQKTiLFpl6wPfwYmrtdy YrkNGcJmDasU2HAbX6ZOIv RNusz4geMSUfTPspr9QzKD cWGXDNZR0OAS7jyEB4Z6lE LQELBJu5uEtgJulrtpOrqA BsPuCurA2leGsotB4cvHCg dGVjdFxmczIwICBPRiBccH DavLWutJW1XOEzJTndp1sx STOhGArkl9QzLUzMRWTAWJ 6DQJ3ltKJ3A7eTABWYS0gA qRn7w4ohyPQpb3l3EGloRN E5xQSIMzYNr5lscKHbEKls DrnstRWhmyE9QCqQLVEUAY uSXwGzPD7wRAyFYNEQPdI3 A622PYTfOPUdfINnMJhjN2 43YTEwDLrrYGElf1BnY5If IhIdRBHeNFfVCWhwOy5XUK I3PSPmKMlzn2yrABNuILlw v6KnHAaOBUIIGD3FYG9itI D8YGaMWZDIMGjcHYx6EFc9 yBE5e7wrnHJsu2y3WImsBK R7fCvptXJwkmbepoDwDEWx cGFyXGxpMFxmaTcyMFxsaW 0fTCXabuA5jCowg5mmPWCp SKS3oKlliEYxxYsdj9WzTV ByZXNlbnQuXHBhclxwYXJc uLFaHFIMUtEJoY6kaISyb2 HsJNXiRCK1STKrbvKtFEwp S95cgIGzmS2alfVlID5eR5 ygKFsue0VxsNqceswxrNEs XGxpNzIwXGxpbjcyMCBNRV UUV6KFARaSZXHSHLsWWNWX QULATTzOE0pUQPCWFvYAAf 0HLEASSrUNL2LHSO7OEJ2Q XxNoKDzPCMgvEp2SRZZhOC a8FgivJCWgjicfRHQkYFWh oqQSCkQMXRSxqYv2we7dHS bgxF3lk7tvhQMmhIVhmCMu fmXrdfroveRoAQBtqRo4fu 9pZCBnbGFuZCAjMjpccGFy XGxpNzIwXGxpbjcyMCBMeW 6khO2rHDH6uUXrpJEeIE2y EEUseeP2qSphm7dpMGEpn5 K4VWXcMILgxGdpzDPpXmur YXJcbGkwXGxpbjBccGFyIE E6BBAqdqM0jJgrh8jyJUId w15vyDAuAGZcB8m0UBN7mW WgbC3qPCAvauQ0pLhlm5ra QKKbq5V1AFN6JSKbzwbgrA jlOMpkwM33PrBmTLqfCYYk GBgkdWyrorSnKHIqkBz9mp 6jFVL4rSXyoJLnZGftDZPx yHacPGncqeQxrYXcEBt4DG MvgHFscBUhNZXwN5l5YEkw OxLsWXuzCfQugY6kaKokuX FyXGxpNzIwXGxpbjcyMFxw eh99FTS8a3qhiGKjKBtnWs bgmUGmceU6NEoKUGYAZIfG NjFxFW3pWOaOS3ZDQFbNGx fiYLr7DIj0dCl2j8jbqBUg k1g4QTreQHH7vVALFZrSEN WJBJCEAMaLY4tJNPSQObKT Hn0KYOmcR57TFnWHJElPEo PVJDOLKID0ERPiUGtux9pm ITVoBBgjw6XhHKpUHUNAHA 7CCD2idMV2NOlICJZXXDmy VWx9USy7lXu5e8ebvREjd3 j4ZBjfRNX3fRsdmQOgkvaf khGzJPApuicwyHH0DWJlyN bvXIF7YTQPfYw2xIUmP6Ne OiAgeWVzIChhbHNvIGluIH BhcnQgQylccGFyIFNpemU6 SNHjMKMmeLooYTFdCKy3sf V8lZmpj7qbTRibBAz1FP2r uR9pMrHtcOHetGDuhGkcBg xyvBV7XHilLnfhaE6amJMX YNHFCvbALgybzhZjFH8ISA HQKwIHSR79RdA9VYl4GAe3 fXtcZmxkcnNsdCBcJzFjfX 7KDhOasvX7VHHuJWwar8ij GUMxMLdvx1EuKKzWWFCWRW 6CCT1alHM8NMnEPVAJGIpi SMb9MYq5iRp7v1ijyGHfz2 b2JEzuEFJ4pPrbjCJqaexd vpBmHWYrfbWJtT8ubM91BW QpkYhqdaDiqcRnr3rfnaxy NFQjv7ScU1R0SAYfLGjqw5 soJGZtJTotz7WcBIyCWLXJ SI7AGM6ctYK9HWlXTPOSG2 iTxOV0RXF4lRGshKQpmPik PuqiqsFvlBEyOmQitN7KYo NwvzR3WJXhKEpsp7epSDHu ZMzhc4GcVGsOCRVKEV0STA 6deWT8GWjXONDYMOylYWr6 YIfnVXdwAK77NVVtVEKlbX RaCFacM025NEHiLFhoPAEj OkSgvBCqJQXqa3XxyDbush UbPTRciI2qKcUzzRYqfKDb eEunOgefqCX8LOtxFbduiJ 5zdCBIWVBFUkxJTksgbmFt KX0HANBYXhOFGF24UfO8FC P5OJD1MMX9k2icgSHss0l3 LOzzOYW5oE5pE9Q8iTCbo1 xmaWVsZHtcKlxmbGRpbnN0 DTiWGFZDOAvXCgMwAP8mPF hTT1XDXhB6SoE9SXB5FIX0 VQK7i6wcjMZdb0i5ZJkiGQ S0jTcchDUwyocevsIjAOJc bhhikXtgLKsviA27RiSyLZ YgTIEouMRuuBTfqRkhc0Tp IHByZXNlbnRccGFyXHBhcm TfmIRgJYr0SZl4tHSlUJ2i FVPvBSCwG8g6IAUbbaJdCI enH41cpUUebV6yklOsIL7n K5qnLGgtn2QzyGnyrvxmrA FyXGxpNzIwXGxpbjcyMCBN DZHWS0SNBOdUWQZHQGwCZN NXJAYWOKfAR5vAWKQBFaRH Dm9UZWPGBlGUIG7PUW4KAX CALQ1ILL5NW00eAXyJRXcz Un0LBBDxIVj0FzXcKHbdQR JccGFyZFxwYXIgSTogTHlt jBfqgb0vQUfqfXQbrHFnEO 99uaDxCOEcdKMrcrHjIK19 VKHvIEQzRMMgw8FxW8Pkr5 6zBdA0ERDirxbdeFzoSQfg sE97YbOdKUw7uSsjKTMfn3 U5FEcisf3ldWVge9YegWEc a3SxuJ8raAKsJJcrXNvkuW 4wXHBhciBNRFcvWVRccGFy WHNytog8VQQNMEAVZAiHIN 1XWSKQNMCLYJ1PYYxFKrYi ATk5YNpbBHZfQgL2QUl7Zt 7eHyO2HLQ3qSF4Wq2oWZn6 FUv5MEGgNlI6IIe2GZ8fDs z4SDqlVkH7IUA7JG2hFiG8 HDw5aQn7Om9uGMt2EZmeHY 6gTlG1WRnjsIHpEXQxQ05T DoNVQDAPY21SIJJNSIUGA7 SDHTHECDxON1KEWW3CWKNV KRWAKA9VYZfAAnK9BVmJTi WndAewn4WRLoOLH3jEYDVL AqZeYQBEWNCOEQKcRA2QKS LWPKQLEO8ELPKJM91BYAQK PGQUI0NXW5jVKURhl36paX xappCdyYUGzNJlpb4fhXF1 LoA5MYC7SvnkMU4bFMbKrH GhksHzc239JnJ7BEa1Fket PC4hFVtMTCBoxGjnohOUft Gwg1juqcvzYEs7BAl3JuIt xSDrk51iwxihswdkOPb0DF x5OsXsnURjk1c5jYZbIR5f XVLeWfP4MTb7Pak1VOk8SY r6SHBuvVnmAP80NZIvJWpj i3TeijpaQFx2DAu8XbHtsO okz3W9oRPrj8brutssCEv1 TIl2JeQrxDMyUSwKTFMciU oawrAIvzPkj9ckngxrIPz0 WBa6RxLyqKAwDUiVBQHyaY 45BaM7ODB6YpitTO4jOFsO C3DGM3rOJYJyHNMYMPGLLO LkED8EKWrVPW8VLPRkADIL FXRXYILqLrOVJU6lVUkZYH 5FNJDfMKWFRRBAYLNfZW4J KKAUCN1IQUEYLULEI21RSE JJFLWCX3AIT3bXNRNUKFUL BhBTGoECPI1NZIUEHMEYQR 9FTkR9 Synoptic Checklist THYROID GLAND (test code [...] Lymph Nodes (pN): pN1a Gross Description (test h8aagYTzJQQsrRFDWDKzOO code = [id number]) htaaFbVIUyaBGyU7Lohplq EYuaCO9lJO9vpUwexMUubP ScRK3ZHJJbQqIuXTNcsEYb jtZnHsDdSYBsqEBsqNP9WM NxLQ5raeemWThvVLlsOMMf geJ1MMMevVRgO9GyEXZfMB 0aajwuGQL0BOampS1uhtYN DffxAo6wwBCrrLerDkCpQj NoYXJzZXQwXGZuaWwgQXJp BRj5mP6MCrspHPO8GJKIEg ffAHLcCX7Om5pgQIYjuMKd ODY1MCjdbEJhLWCfNEMaGJ q6DYSaSGdhhGQrWI4kzEdj DyiwvSgeh8ItrTBhSImpYU ZpEUHgWZryMFRtZZ6XYpGp NZXcAiJ7LHErACj1RAj3VL 9WUyAiICAgNDcyMTgzOSIg YZl7XZpgCR9GXAXzNvPdIM MzZJM7PEn0HFNlCYOcJrBz XGYgQXJpYWwgXFxmcyAxMC OxWTAjKNyuFhkfKGnyF94a mXtotO4iXjbfxtEjLKI7UA BhciANClxwbGFpblxlcGlj TmVzdERvYzEgDQpcbHRycG FyXGxpbjBccmluMCANClxs dHJjaFxiXGZzMjAgTHltcG kibi2uWRzbUUoakRLuJOWd IPCqNQJxPEDpOBT1NABhfc E9ijGzaXJacENqxR1zuIXe v2ZzOH2oBO5fNGK0XwciTT MzW76gXKFvxZGdlOevltYh y6GuyGQiGEAvoR2duCFoj7 RlICgwLjggeCAwLjcgeCAw RgSfT12xNGPvzSMtN9QuBW TcliDvMZ65tNTdiHswk1Gf gYt0aNKbEjHeqIgtWEZgcV amBHXWIRXWHI0HPZODLHC2 IEExLCBlbnRpcmVseSBzdW LknOG1EIPvz0UujJhuRIg7 bEXaQC8zCJAxVy6fJRIkz7 nshhZbSCN4tB4iFRK9JTh7 QLNqy31lLK8aUPRoyq1vhe TjkYHthu5kLVTtAbldvH4h IEpYXGxpbmUgXHBhciANCl x3LODfWEgliJshpC8aNNTl N85do7OXk5XiMWLwFJley7 fouJvzm8LofBWfJZfwFNHk bRUoQClclN8zNrHyp2wteP u6NEgxcdF4SMWlkt3ZCbbs AhkktRwov9IvcCWzLJoeEN OnDYMrAFwbTVPvHM9SQhQv MLOfUyC3OSSmRQo5TNf3SQ 8ZUrXuFPLxBMnpHAn1ZETg OKq9QAekTO1AERTnAoS9XK j3FEG1RLj1HYGyGNTnMfOp XGYgQXJpYWwgXFxmcyAxMC WnZPCvSDsrPneqROjzF18e LcofrsOrYXP0SWLxngRNBi xwbGFpblxlcGljTmVzdERv YzEgDQpcbHRycGFyXGxpbj BccmluMCANClxsdHJjaFxi XGZzMjAgUGFyYXRoeXJvaW WbOAlkGtMfXUSfu4MgHtyw RJmnZoYmtX7iQFJjb1QqgW ViDEDvfOQaqCQnE2stfqQn QM6bq1IcZZduOlelUVBsKK 59NTjoZB5jEKvaSU4bFPGi NUDdarrbkVPmAWGdm8N1NN TdtkNnyUFnqP0eGER8p8Uk qSFscCIygO36QTurIRRkmt Pgzr1jGS0hNIsfORBhXBTb bMBxNJvqWLV3Lv1fyLFcKI BlbnRpcmVseSBpbiBjYXNz DZL9DKRTRAJbc4BnTeDrhh HsCKFlP2Iru20pPI4mFRWp en7qjiPxxEDuzbNasXP6wQ 5bRxdwZSKuQRgoHRZlx2Tg G8L9XZMdZHons8ocEAWaJL xtn5UyGEzAKMFQEW2IQN0n kHZ1ZDcEV7HGR8lCrJFfPE L3hGL2NADTNjgxaQB7fSF0 fR86RNFxOJGdlXEtOFlfO7 83Off8EQHpBRoss1rqKDAr BOkji0VsLIaUEJTWRE6DQL 9ncPX2OXzBY6ACDMdvZUAj DogktGZBYIO0CPuweUrgcP x0t5izkPGof6j3GWphYLF8 fVxwbGFpblxsdHJjaFxmcz YyYD1WSMLjPNuhZYMkvINC YLF1NR8pTEvfkKPlhuxaHR TcU3JoG2XzmmYvnTAuKXVr pyHca7abWLU1DFXthBJjsP YdChTpOxkaMWG6LJd2WQdl DYUjH5EjN4XzMPelYHC0BL AwMiBcXGRiICBPVlIgIiBD SSJeVGAePgT5YGq6CNMVHw HvOnGuMBV8PlT5TyooTZs1 DMa3MVyPFgH4QxKqAjFbNj idGXB6VCeyNXy0GLNyJRdt IEFyaWFsIFxcZnMgMTAgXF odKmYfTMGeZHqafsN3DGTs ZnMyMCBDOlxwYXIgDQpccG ecdO4pHNVwY29ur4IHr5Tz TI0TSLf7ltEllstotT8fOK YdegXtRTgbfEAcF2hqBvrs czIwIFRoeXJvaWQsIGxlZn MjyT7xWQnihNXgpNT5zCdm u2kiDRkeLqUsTC2bXOjirA jrdFAaIFN3lPVpwISbvzYn zkEwQZF4YRE0mTZyiR5cTB OyoDNiGfhrHBHuN57ln9vn dCBvZiBhbiBvcmllbnRlZC YoCDG1ZUXjvLTgiHMheV8p IPJpGN8zLUwpQd67KXqiWX 95RRJeZU4fIKItCCUnoFKt rP0ntaEaqpUhxjvqobGwJV KiouZtrPc5F8elq5YcSUHp x5CzpR7cSI6cJGWzKNDbCL BzdWxhciBzdXJmYWNlIGlz JQshaDZrfF0nJXHeBOXjiF LkaJ9jknRtctPuJZUgROrf nEIoLFY3eA6zPXXfDW4yLT OhEWLzcQMqx7DzYpUrGQBn ZXZlYWxzIGluIHRoZSBtaW Okc0M8qZ4kHLRch4XuEHVi cV2cRNQpt0EnUTLkKQK5IG CoKOCsUFH9PPPdIMU1UCSd MCBjbSkpIHdoaXRlIGZpcm 7pgi0exNxhSbVuKAaoENAe kIRynfMqflJySiD0jYCbcQ EaBC8skXztUOHfgjPyZWOv RoYtd91dmM3nq7kyjuEueK MuICBBbHNvIGluIHRoZSBz AS1eFIRcmuTdvL2ummUhVK PzI2XgJEElrD9zrVjtclFw RyMfqQHmt4JiVDYiqNEfq7 ZclFxrb1PgUZyxPAYmTXYn etBaPNMlZSZ1OTSyUGW3JP NpHADkqZprFDTQwGGpu0Yk A1djQF4ckRSvz6RyvUVgxX gnd2RtsKhshyIeZZKeOQS5 cYNdO3S2JLH1zpKvG5Nsfj G4ZYDcteR6CAFnw4UtZgpx YTc2rUQlSR7fNVJbOEBlsu xuczvnpS7xs2h5ODMgrw7n ESzqRkNeuM1mNR04KEEvRU 8vDVQ3Gk8idECkWTBskhRb v1eir5myUxmsWRXkQPnauZ EvCMMCO5JKQ03yB00HKBeh GaLkHlZwZXGvmBWxh7RttN S0lPKdUBQcO6Nnq73wTO9n MNH0eYTuhR0rRSKghAK7AG ZlYJV7IRY6gPh1XKHatQFs KI6yBXZmWKHfozRkqwNrwU AqjVKryUQ1MSK5IWM8GVQa whAtKAOug8VmOnfgSBm0gB MoVO4vQDNjAqSSDPg2lEZv NFFme5XmvGToYYPilV8baE Sqe4QuwhtgRuNqRHofcmTc PQljJMHePN9cOTZpXYGnwA Nzc4AwOARpfSBlc7JxsMii r3MzEuHyXUXee7YhU0K6SJ DwVZnlh3smLFZpKIesg7Ds NEgNYFSLUS6HKQ0wtQH2BU zME4FNY0qZzSDcJWT3yWJ3 ZFMWOfuelCJ9bLE5bH63HQ MpOFWvhWLsXIlkC313FHm4 HMOsPVptm8xvPCPyJJndp4 BkRLwAPZWBEQ1ZFN3uxJC9 UCnLA5KZBXziPASvHmnmyP QLPIA7ELyzlXbewFk9j7yx bAQau9m2IOzmMIP0mEqdrA MqxcacpGDwkQhuzpCkCX9X KOUfCPvmCDRxyGYBOGW5NM 9gFObocNPwtekmXBHkD9Fp Q5YywfFcnPWlOAAxnaYlo7 etQWN4JIYmiKIpvEQjRqRu SqjwMYZ1AXj4EYtwKNJlK6 TmS2XbCDwlBWC6SVKiXxTq XGRiICBPVlIgIiBDMDYzNT XfQwR9UIb4HPCRUuTpLuPq HAX5TaH7LXTwBLq8WGt3VZ jNBvS8OiJjCRR0GensGLW5 JNtdLOr6OUWjUAsmAIVhhQ FsIFxcZnMgMTAgXFxmYiBc SQDdQWhuwjC2KRUcHlAjMD WMLwbmFFPoKAwraFsmlY8a ATLeN53gl4SJf4CxQO5ZUY a6jrSyhfmdjT5mFEGbejLr YVuxhGOmV1xdOsiwuyWvBM uiUtZoD3QimHJkcNWuv40s BDU6pBGlqMYwLVJhTFEfo2 BzX0Nss960ADUmAXJUo42e xYH7MT5aMJMkrqPtjNnfua Ckl4G5gJ1sNM7gCDDjMuGy yXJmPPBqdL1qLNE3xXXcnY ZxGTEgDYL4JAYzLXB3UORj XLAvkLvoIYMHrVCcq4YbL6 cdJX4adTUpb6FtjKGftOdy y6VysSjzuhBzTEKkXEZ5tQ UeV3A3IGI4zhCiA2TdlpS4 JYQvpeG2MUu1zFFuBA7uEE HjXWVynbmauzeduG1qw9u7 GTWvju3zTXuvZqDtaV6uKK 77BIMpXV0jLBScDKZfbBAh kL8okiLyrmGcomUhbmWjeJ KoeHXsoOB1YEWiRCZoWg8p dE95ns8kiRpcFCSuSZNlSM ZaV7NOYRpRJwLGX6XNVzFY VRh6mFHsLVUviX9woSKli2 NytcsiZHAhVt46odSvjY5f gQRpg7TnfimaOGGwi54xSO x5hJBcCK0xTBQsUhjgZMC7 GKD8BMD7EX2xOKVyeP2phM Nna0MoQVMvu7BgnIEdJnPI RQwphgWbQYnrYRFvYS5nGI LsJQGejTSgsH9vuy7sJS1Y XHBhciANClxwbGFpblxlcG adItBulRYqYgXngXpyaD13 QQQffLFpKDS3SM7mEAWats bhIAVaDNYhODX3OAssaS12 cLZbNIExPQMquYScsV2Lm4 dyWQYhzJWdGTM3KUwsgXGp LWYuKJYmLXrrLrJwM9RMXG ZyBoZ5TaXvQsMtWTg9SKod G3WPUEGhGTP0PiYcWQJeWs S1GPz8PPNRHt2vIsElYFX9 BYRiMVK8Ubs0NPjxuZZzJQ xcZiBBcmlhbCBcXGZzIDEw TJktIhVqQXnluHLfMP6tcF ixHXBcZuHdVTbajGMpXR3R HXZwGTxeEXZrdFSMQHY0GD 9jMSANClxsdHJwYXJcbGlu NFockO7dDG5ITLs3fxXjNX YjGbTbLFRAXZDfoKg5ki9e RAelpTQihHejaL0qj4eurO UgbGVmdCBpbmZlcmlvciBw FGAmzGa0mg2dFKGfyWKiGM AzLzOlZQXusmWmHdN0QTGz LSZyQIMdbfJfv38wDH6fPW EwCeTzwIxkt4PnQATyIYUu mMTjYCGvLKSjyEamIIp3WT AcwcJlhe73EX3qx2GjtHvb ujIetlVctMQwqBYqHK91CU R8LYi9MHJnb70ymF0uKZIx XHBhciANClxwbGFpblxlcG mnXdRzpBWgJnWodOhcfL79 JKQexEQqKBW2EP7tMLEtws csAXEsDHUkGTB1LZpsmW31 gXDjPMFsEZIxiJLhiI3Yi7 gdFJWrrFOpPJO5ZZdpdHYe XVYbWQSuYXmeMpYhO9BUSK RaUqZ2PkVyUzSxHVf2FMwq H6PANESaSAC5LyDbUAN4Ga N5QOj4DMPVTr8tJvOjSNxp YFlmSFS0Xhv1VOfatEGuHB xcZiBBcmlhbCBcXGZzIDEw BGrxZvPcRHsjyTCePY7cwD alMZJyJvDxZodnlJErVI8V IOUsBEyjKNGciWFPMZQ5DL 9jMSANClxsdHJwYXJcbGlu FVybiT0tJS5YIKo5qoLhHW AgZlFwBODTKMIuoLr1ib1h ZCwgcmlnaHQsIGNvbmZpcm 1bccviaGTdt3TkWQBre0By cGFyYXRoeXJvaWQgdGlzc3 CmQW9dXP2mRAH2JUskUmSg JKZgHRW4DEJrUwN5YQEjRL BrsEQesC8oRWHuk3Y6TEHc nfEgyCQvvXpkq5WbgBr8bI XyGEAaxCzhDLe0TBvvFZRh o7VmmPKoCCSjSTLahzOwuc 13SE8gr6QklVusnsUpnqWp cEOfiNPyCG43MRX4YTz6WR Hxr78jHQWvibGUGcOfpMEs uNVsnGkuCoryyIP7GIhxXd maiM8jaJNNEAPIRswXQwsp rgFiNU5HIX0AFlNGRA76Vb RkFMP1LOmFT4TTvZZ8Uni8 DVm9iNkqSgbpwcPktXWgCr JRiS3TMJdiMtougSX8IWyk WjdlaM1drJTWZITPUytEFd hmoyAkGF1UMK3VZP9VxWOa WXI3cPI6HHUGCfepfTW7yI C6vF90LJRbFQUzgOWgEEcf V357LYIkNZlcHVg1hkLjQR TlBaHbKNnaeYtweD6hQLGk X24qy4VVo4OxYXEaKZihp1 ozoXdqs9YcaRZnADpbYQHu uYFyFRaynT5dFkLux2hwvP a2KUlatlQ7AYWprv4ZYdqr RvbufBkqz5HrzWLnUTukXU ZrKCXqEFciSINtEJ3SQdBk SWBeZdH3PIQnNIs2KTc9SZ 9WUyAiICAgNDcyMTkxOSIg QQe5TBkiSP3NWMJcJqI3Un WlKKP0REa6CxYmEACkOoQe XGYgQXJpYWwgXFxmcyAxMC HgZAPcWVvnBxioTYrnE46g BrbutuXbXCo8DAChrhWVNh xwbGFpblxlcGljTmVzdERv YzEgDQpcbHRycGFyXGxpbj BccmluMCANClxsdHJjaFxi YQSrFdHvUKr5gy6zEIcrwk ithWSwcB8gYEkmejxpsWTb wDi9kx2sTVQej8AjCWP0kT RjaCBpcyBzdXBlcmlvciBw b5niUN2vOK8qIDJ8BTzkRd JmVZKvhbEhg3SvCT5iVMAi GH9gbSKtkCMsKELjlPZoiG HigH1kYYIhIV6fQSnhAr2p WKxlFW64TCBfMAtmg7ncM5 sweCUhECCko0IrlYQpEFSv LOVoioPlBUHmzDpxZUU1oP CjoJ2zHTAoFALgYoN3lKZn e0HdF8oaTX4yYYFHzsNbiZ Hzy3GojZNksCYzG3hoVEks IHByZXNlbnQgYXQgdGhlIG qzHdRcyA6uZCBybDBlsIOt VjQ6wQFtb1KfE3nsRN1fWU gjwxOhJNFzZhLFiMSfv5Es Y6niMN5waIIql4RmnErsic DhOEPjz38ns3UvWSArs6Ri sA0iiF9tWJHgg4RaeQ3xdw L6JAGaWFSdRopndGcbaKFl BY37AQ9iZH0lUNIqRBVzUH 79EKjhJV66ZLhjKW31NMDj XNzxe1ffQ6njqCRwsSHaf9 DgcQP3yMVjcC9qrJruPE1c GAXfXItrx97zLJ1kNNdtHD UlJYMwAQHkcxGyrX4zxYsv IQ9zkxqkuw0hEGHua4LlUD QinPHsfSVoLFV9XKs4SX2s AVQbKDOlUK35SDvcQG4oAU tpJM8zKNTiYLPxutOhsWRe PUJkXSJpxsJfd5w0nMclLW CsQSBplIGmkoTneY9oEM8z FLXzDHKklEAtg2l9UPVxeN WeYAt4vX0bXLwzh5XuuExx nfRaErTuO05xJeQhnAZ1hR TbzQOvP9fiZyeogL8dRYo0 YWIgVGhlIHJlbWFpbmRlci DtYiK4dAFsrJb0zc2jRROk WLYxroIhhS0xIEwwtqFfBL Hov3ymGSFgLLysJhcbLKi7 GHlyTJ43xITgAWDugWLfro UuU9Kyq1q3vAHnriKoTAWp oVpdgoTeHZWxty0yyMSsrB OkFPVyrKClf3GxpM1iyWMg AV1OOZGwZcCSTWYVRH3TBU SXTQD5ZLcvEACkHRVneWVc u6YncFS5qHQcGLDsW1Dzv7 8cPJLcC9y5DRJorSZwzTLf oL2kLOWjkk5sCHR1mHJmwR 6pNGHnUKnaAeGzlS4fKMau dGggYSBwYWxlLXRhbiBub2 U7uAIldVUxs4SmpIZtlgNM YqLxrxDykGwfEBGtueE9UF n3SX2rUTOdBIFkibNOGz5t UEazqd48DXT6a7dstQIpFG nvUdvvjWYajeR9UPsKRGJV NRoQEhMoFM0vLEyUReiHCF dJTnwyMTAxNnwxfFVTRVJ8 CVzvaMjppFp6o5cplCAtj8 l0TPwwZZK6lTXTn3cgvADa SFirNnvcyXYlgsG7PQjFHF DYZXhDTlNxYQ1pJNmHPzxJ AkO3BkTgHCQ8GPuDK3YWsC E3Kxc8WAx4dRguQubovjVa jPBkIrNKsB3gnDwldF0hnC VwK5dnBfJoWXLFCxzodPQd blxlcGljTmVzdERvYzBccG aabX07UQQifDIgVDA6MZ6t REUpwqyxXDQcMKZcZAT3UM myuI69aNTfTIGtOBGyrQWi nB1Ag8zwWSAicLWpBJB3SE xcaWQgNTEwMDIgXFxkYiAg S7QRGZPhFgP0FlCxRdLqTS f2QXcgT8XXMAOuTJF7UpWc LMSpOiH7MKm7HAOHUx6vZw NlQqn6XDW2ZWH7Zfy4RFqr dCAyIFxcZiBBcmlhbCBcXG ZzIDEwIFxcZmIgXFxmbCBc MO6nzRpoZRRtYcIoVWnsnC BoXN2CMPCnYRrfPMJcwIMD RSX4KJ4hJWAUUhqeyDVjGB ThuCkiXCataT1uXE5GKNc2 qjUxRYYoZzGrRXGSsR7drN Iif2JjDXDufRywnWEuRI46 clPcKDArdFZzavAwGR30ZG 4hF6ftWLhzq2CuuQmeihLv JD3xNBE2LJnkEbRcYBAoyr Ddq9IuDS6iGQBtZSTtE9Ni I7P2SJYiXvWbULssc2SsRS Epn6B7XTUpSX4fUZeoBf69 ETduSU8bCGDhZZ1uaOehNV FcgHItPZEeJTFxyMJmdS2a oaNbykGiCBM4cS4zKEHzqP 5qixX7ORGcRLS4CRXmt9Sw LcjhGOr3tZNgPC7tFKLfJW vsQI9tqL8tPKYaa34rEN5f IHRvIDAuOCBjbSBpbiBncm OvsOBsiNLeaX9endTfi35e LlxwYXIgDQpcdGFiIFNFQ1 XXX67nU22JVCueHXUnPowl LOEnm3IiwENaNGYxvP3meJ Rlh1BhhbOljgFzNJGcSXQg j2NdiUHkZnKKFjxcFGIsj4 FctLBrTVPciD3idTCbb2As hjaeMEMdJAVluJ6gr6pidD XntUmypCtxgq5qLWX7KFg7 KGJkIYCriZ4tp0pzaBInvO umzHlgmz7uGSRmiORpW5Wp ZOAewqThWOMvHNDxm8UqxD TiYnYaPJWqb1SaA0Q1DOBf TUmrb9kbPONlEObgq6DqHQ kIOHARUE9CKB1fhQL5QYyW O2VHV3zBnHUyELV8vIH9SI ZHRffjiQB2cQF9jX45XWUo ODOfmYPmEFdwI615CMD6RO YvYWmds7wwERHaNChlq5Wk OMnAEYURNZ7CNP1rnOA1UR eTL0QXARxtQLRgUijzpVLU ILF9XUbolHsycXc3y8owzP Ymw6p9RTbuZLE8qZbsbPWp vnlsqDFytMxtchZnFT5ZYQ PzDLxkNXBmdYQRIZV5IF9a FRljyLGssvraSARuF1SlV0 GkaoPxiXByJSKwtdRgw4ai GPP1TTUdwBWrzPCcEzYoUq pePOV3JYz2OOpeWQJtW0Ta G5AjHNuxGAQ1APDyJgLvED RiICBPVlIgIiBDMDYzNTEy YzQ1PIu1OXCLFiRsDvNhDD I8XxV7FySxYPd0KBp6PHbZ SqP8EnS7SNS9SjFrEWO8VG xsPOm5QORtEOjxXSJjhSHv IFxcZnMgMTAgXFxmYiBcXG FsLZeuepA7ANIyKsHhFMSD CfxpROZvIAyikYrhgK2kHT HaS68xl9COl8HjVP9JGPa8 ikVcndnywT9lNLGpofYnWF ecdNZaH5viJcxpuuCpNMl5 jNCdWW0kTLDyIYboWeUjJ9 BbkVBisGWaf31nCAJ4zNUb pUYvQVNsIWWla7UtZ6Dog8 9iHhTtZCOyccTnKqH9GDHr XDCDw05obZO7jmQzZyVvRE Cfc5QfJnnwHJMfjtpwvmVu VPMatgGqdR1afVDsd4FrKM gwLjUgeCAwLjQgeCBzbGln jCWfhFYiQUYiTWZvHQ6cLV 9jWMBaRL6mLNHxJYHxaB4c jESrh6BlWSarTUFdy4EevI VkIGFuZCBlbnRpcmVseSBz gXLbvJW4JLKdzB0yWCHiMA brki69ZJX1g3bspAWyYIfd JtxnlDUzawV4MGxNUCYNEN qNJmZeGG8lGBlDBrgNGMrD ZzdnUTQjVanmyBMHLVT2SJ kdrJnxcLp0y5hhmZGgl6k3 WKrmTWJ9iYHTo1bktWQnMM sgXwltxDSqahB4QJjVFVAG NShNXoQdDU6kTFsTJntPHi L9GpBeBUJ9NDaSF2DWnRT0 Nwe7TWs1pBugRtouzeMndB XbJiEMkN9bbHgpjY5tuNUc V8rgSjEnPMSBZfbskPLmut xlcGljTmVzdERvYzBccGxh yY36PAGftUHdECR7OV6rIH DmbtsbGEDdUCHnOMB6BIdp wH86tCOzEZBjITWnzCBwgB 4NVWDyKBP4VXykvB27cZFf LM4UZRGgOLX8NGPemBQpXK S6DM2fuK1NkF== Intraoperative c2ukjGZsEQFbcUSADSOzGZ Evaluation (test code = waqmOwNJHrmCWhB1Ppopcb [id number]) ROgkZS0tMY6uxOshfTKfwN HqMY6ALYKkNfRxISEqoZFg rmMeSyZnSMEniUDerNQ4QZ JmCM9fihryRRlnAYqzMFWx pnI3ONYarMGvZ0DqXWLnTN 5dghzlUWX8MWijkY0wymUL SyrgYy7hnFPnrQfkFcDmTj NoYXJzZXQwXGZuaWwgQXJp MRg7pM0DMslpRDX7SRNEFs xqISJiQI4Qv5cbOMYxoJIw LTJ3YCoeaABvXUZkYMRmWI h0MXEwMOnazNXwVJ5kvKdj MpcefXzmk6PuaCDqWHigYV KyYBZdKFhiYUMaKH6UPbKp KFFaDmV1NBMrLDc8ZOp8BR 9WUyAiICAgNDcyMTgzOSIg GVu4GGddBF4UZBTkJmTzWg p9ESB9EDk2HPLgARWvAeNl XGYgQXJpYWwgXFxmcyAxMC WrEGCqYNolKdofYNmqA55g qDwuvU6aTjxffdBfIWG5JI BhciANClxwbGFpblxlcGlj TmVzdERvYzEgDQpcbHRycG FyXGxpbjBccmluMCANClxs dHJjaFxiXGZzMjAgTHltcG dlur9yMNenHBqiaESyYWPf UNZlBKEgKZOaEAT7MFRjoe U5dvUidBFxfQYqcR1rhGTk n8XcXG9eFT9yCOD9LtqqOU CmJHbloQh8ZrUimQwuAlKx SC4KJUHhBJ8IHBIBRUHKVE McL7VEB0nAD77DNAMVMzPI A7QZBdEtH5eKTDHJIZkQY3 sHSS5JGVtGPaYUEpXWFP2Q KWPBV9LOSpUIKF3drIDmbF SuiXivZlsdqAD0AMreLjsj tA6xuBNCQATRTymQAsmcni BxWB9DHI0FVuYNZH69SdYq NLV6LEoVU4NXiYS9Wwt8PQ o7kMbuEjdubtOjpZEqErCD oY1KIFeoScilhXA6XDgoXf pljD4cvGNEIGDFBkvHQqua gpUyWK8TSZ0ZRD0KkDUkIC O9iWO9XRLURkgrhGA9vYZ0 gN23ADSzUYYtmTTqBVwtH4 14XZPpHBreZYh2toSbDCBz ZgUihPZmOO8AAGyfVQtqiV 2mHZ8QTZXzITkxMSSnhFKT DWB3QV2zGHggjOWnwrrmZX VuZ4PeV7JgamCzfDDkLKFb ndJmh9uhQGS1TAKaoYTsbR BsOgOtPmtfRZW5OAwmfOCw WONYIpyrYayryWuzz4FgiF BcXGlkIDUxMDAyIFxcZGIg HJ4XPdYjGDXrFcT1WVScCX z9OYh6XR2DHlPpFVKeXPsr VCi9YRIgZKf2PNurCD9TUF IxVxC3SZk2JLT5LNy6PJAp XHQgMiBcXGYgQXJpYWwgXF xmcyAxMCBcXGZiIFxcZmwg EBdcC12jGunipaCpALD0UI BhciANClxwbGFpblxlcGlj TmVzdERvYzEgDQpcbHRycG FyXGxpbjBccmluMCANClxs dHJjaFxiXGZzMjAgUGFyYX RoeXJvaWQsIGxlZnQsIHBv t7QlCtkeXIclDtIwrG2rIP Axm8PtfUDhOPScgVJohFHc X7dsaaD8BYSnsgKXBkxqkR llDLlhpU63ZbEeZCtqTpEr L54mkGO4vPjynGGrjXyge5 VuQjULLA0feXZgpWEkhBfq NwrnwLK8DEanJlcqkB4xyZ AFQBVECknNQedzbpCtMG3N BD6HUeMCQH80VdZdOFN8HD kAT4TNfJI7Nmn8IKz5vFii XiuhvcNbkJEcLhIXkX2PRH amWgfeiBU9AZubDmtjoS2t dCBIWVBFUkxJTksgbmFtZT 4IKS2GPY5GqQVfPCP6wOL4 YNGETqtwkXX3sYM2xE26AL JaIFEcpQZbQQbgJ561TQOs JRdqWEz1qkQfHDCrViRicL HlZG7OZRsyGMxfhJ9kCN6Y UEJxBQopJMUsxAQPZFN3MY 2wRBwysKQwfjfuMEPjN1Lx J6OwbrCsrEBsLYVeeaNqz5 iiUNP7CVRsrJGfeBYkNqZj ByauTJY2IIoviDBtWLBAYa hgQcptbPlzq8ZscLWkXJti TGOtSWDhRVwnQMKiOO6DCs UhROBiIvW5AORzLAq7DMu6 HL6IFuDcZQUsWEitZIrrEG JxSLf5XLklXX0KYHXbVbG7 ImX6ZUA9OPv9NnMnXTXcMo BcXGYgQXJpYWwgXFxmcyAx MCBcXGZiIFxcZmwgXFxuY3 6iQqvctnXtIRX3NGNygqFM ClxwbGFpblxlcGljTmVzdE RvYzEgDQpcbHRycGFyXGxp bjBccmluMCANClxsdHJjaF xiXGZzMjAgUGFyYXRoeXJv kMHxSQptLjXwECUgx2CdEs hkCYljWyGqwJ2iNYEef3Ai yAStBQKbzXGhyKJcX0imtn JcGvR7YRIvfqIIAmhunJrv ZAwkmH15TmKsUVvzSlPoPU nvqEacmp2gVExdme8jkNUh YXRoeXJvaWQuIEFFTlxwYX IgDQpcbGkwXGxpbjAgDQpc ePrbbK3aZVMnF22ga1NBn4 UaTJQaVVzcv7vwmCwgp5Vw dGVuZFxwYXJccGFyZFxzbC 9dBqNxa1wamJy7FXtnjpF7 RCPxqe8EYsmyXBYmCZ1Mu7 vvJXNukPGzADQ6LZacvXAh HDHcVLKpXUqdYwLtQ2MHRF ZjNzV6TnOsDmVpFEy1YYhn V4ILDHHdPYD2RaMwOJZ4Qt W2QDy6NILEEv4uFzOqEwJ0 YSJnHEZ1Qrl3JAtjrTUdYB xcZiBBcmlhbCBcXGZzIDEw NZufMuHmQQwhhHCiBL1tlG wuVLDjEkLpNsatjALhYR3V XEFnVWoeRFWfaPOZIGZ4LB 9jMSANClxsdHJwYXJcbGlu UZsbxY0vBL7BYXw3upLhET VnIxGjFJEXVKEsdMn5ys1h ZCwgcmlnaHQsIGNvbmZpcm 5vsvdstDHxa2UvHOKal4Cm cGFyYXRoeXJvaWQgdGlzc3 CoIwpbWVDmSFqwzKk8GrNa yEwgLaAwGU7XONWhUDXxls R1sIckq0pxGdETGH4foQJg CW3OYKzfSAkdfU1lRS7YVP ZwCRefMVNnnVKQZZI4YM1s WBuhhKZmosflLXHzV1MeT0 DxgfKgyZElZCMlnbSon8sj TND8KLOpaTTunWYkAiOzVg gvWSD8UKlmiQXhYEgffNTv KNHlx0ynWMU9PE9RUWQfYA S2WONxdPGjQMJ1KJ5lbN3U fQ== Disclaimer (test code = z1mbgFGmDPKslMXlNiAsGA 9844) FhNAQmb3tiUGMghQCfFzDw MzNcZnRuYmpcdWMxXGRlZm Foz2nuu187yGOba5ofMSXe SeN5zEHeRVQdcBPoO741LD DrIDhaq3krp9VwZFQfjKYe h9C2IAKJagxhoYq2bWmpL2 9qk2W2OmywY3gaMIMcGVHv U3BjVG3oPRTlLwf5KHJ3VB O1DLUqDDKoV0UiKV9oOEVv eRDuAXd0u9aglHryIHNrKY Z1n8rpHGquccKtBK8ful7e jTr9i7jxgnDeITOrNLGxbK UFVDHtA3ZkhQzhLh1wbHh7 jHmtAwweENF7Dtj2QI4cbc 07gem7aTueUCAemthaIrC2 BHtrFSYpyrtoTBy0FQdgUI TcrEQ0JJWwqXJgI5QuZLWr NM5igqf2BLY1GGnxVMOkNv J4SCWefMNyIGJgtXhlCVsw c602MPD8HfXtNW1sQ1Sri1 D4pE6owHRjDRIsnZKwZnRv INDyfs9fuISyHDvtn1PvET E6jrQ8qQGguXIsXEUzHQ66 Radmp5CpBljdVXP1NYFotw Adv4Eze6cbPuGptvDaQ4fn D9YrTTWtEDMiKNSyRaVcsj Eyw1Qvb7GfhZDatCa4j2xb TYYpNGIwwGdap2kxZRL5XO BrH8U6nCTty2ghLIchQKTp sVO9liZ7FOWkzXBeY4JaqM 9qYOPrNL6sbfk7o9sfZAC8 FZfwCBHgWaZ3fjN9BUUzgC AdGAFemWriTQcfp937NXO0 XpLpVGTtk7ZpB0ZnaYrpE7 1zgXliV69eXMXzhPnydA0k gGmozE5uEcGfPxUbLDemsQ sevKVhslbvIBdcjnQ6PIkj mtdfECGdNFuhF7pwSzSlFN RudYxzJFdkp8DvCXKhCUTg KahxszJ2EIZUj51xJPOcr1 FaZRAisZ9ncFNkTYfgoeMr xGL8AAbgdmUzKtWeldEqOY EvlB0lBQQfUL4tYUVlayCk rv3urwQtSZZfUAFyP1Yrkm vhyDddrdVoGKJceo4fdqLw CST9NCBXMR0DXTBnQEDwc2 1qOZGtvCngmT6auOQfjiFw PZMqj6YovG5pqYZTQBByG5 bvVH9ePKghz1GmoVWxsYJc xCJ0QHQjd2KeXpDnebQtnW JrnNKrH2JqjZazX7yqDNXq SCEqosOaiIRql4LxZVWusH Y6mAPyHJ8HUiIJa04fVNBw PDPSkeOrRMMxjSbfwUE1pq R6qF1fPbBMIeWrqKQddKTr KggtLEEew833sm5dmqN8MQ BdIVEnvqeoe7CfNYPeUWTe nC70TNDpVFEetk1tqacvfL TwusHuV1Mvmso3cG1rCSPy YWluXGYxXGZzMjJcbGFuZz EwMzNcaGljaFxmMVxkYmNo UGJqJZhtO9tlNxOuMrCaCp xwYXJ9 MD Ortega Thyroid [id number] 11:15:50Study acquired at another institution. For comparison only. No [facility] originated interpretation requested or available.[facility] [id number] 11:15:36Study acquired at another institution. For comparison only. No [facility] originated interpretationrequested or available.MD OlsonCOVID-19 (SARS-CoV-2) PCR- Asymptomatic [id number] 23:10:25 Test Item Value Reference Range Interpretation Comments COVID19 (SARS Not Detected Not Detected This test is a CoV-2) Result qualitative (test code = reverse-transcr iptase 18026-3) polymerase emmanuel n reaction (RT-PC R) developed for t Ema LAURA 680 0 system and inte nded [...] were verified by the Microbiology Laboratory at [facility], CLIA Accreditation # : [id number] and CAP Accreditation # : [id number]. Result s must be interpreted within the [...] te sting if clinically indicated. COVID19 SARS CEMENT CAR DUMPER Swab Source (test code = 74639) COVID19 SARS Pre-OR Procedure Indication (test code = 53515) MD Davidson Interpretation Exception PreOp [id number] 14:17:41 Test Item Value Reference Interpretation Comments Range TMP Exception Patient's pre-op Type ____ (test code = and Screen shows no 7543) evidence of RBC FE RNANDO alloantibody(ies). MD LEYDI - CLINICAL INFORMATION [id number] ctated by: PROVIDED BY THE OWEN ADDISON MD ANESTHESIOLOGISTS AND - 1200 6Dictated PATIENT WOULD ALLOW Date/Franki e: 06.27.2020 FOR THIS SAMPLE TO BE 8:17 A M KNOBBER USED UP TO 30 DAYS FOR Trans cribed TYPE AND SCREEN FOR Date/Franki e: 06.27.2020 SURGERY ONLY. 8:17 AM CSTElectronical ly Signed By: AMINA OHLLEY MD - 1 2005 on 06.27.2020 8 :17 AM C MD Davidson Interpretation Antibody Screen [id number] 20:34:13 Test Item Value Reference Range Interpretation Comments TMP Auto Neg At the present ABSC Interp time, patient (test code = plasma shows no ____OWEN HOLLEY MD 7535) evidence of RBC - 41179Bggic prieto by: alloantibodies. OWEN ADDISON MD - [id number] D ate/Time: 06.26.2020 14:3 4 PM KNOBBER Transcribed Da te/Time: 06.26.2020 14:3 4 PM CSTElectronical ly Signed By: [place] [id number] on 14:34 PM MD OlsonX-ray Spine Cervical Complete 4 or 5 [id number] 17:30:511. No acute fracture or bone metastasis.2. Degenerative changes in cervical spine without ligamentous instability.3. No atlantoaxial subluxation.Interface, Radiology Results In - 06/26/2020 11:33 AMCST FULL RESULT:Examination: Cervical Spine, 4 Views, 06/26/2020 11:21 AM.Clinical History: Papillary thyroid carcinoma. Rheumatoid arthritis.Indication: Assess for ligamentous instability.Comparison: None.Technique: AP, lateral, and flexion/extension lateral views of cervical spine, 06/26/2020.Findings:Reversal of normal cervical lordosis is seen. The vertebral body heights and alignment are maintained. 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 Spondylosis is noted at C4-C7 with disc space narrowing, eburnation and marginal osteophytes. No bony erosions are seen. The paraspinal soft tissues are intact.Flexion/extension lateral views of the cervical spine fail to demonstrate any ligamentous instability. Restricted hyperextension of the cervical spine is noted.IMPRESSION:1. No acute fracture or bone metastasis.2. Degenerativechanges in cervical spine without ligamentous instability.3. No atlantoaxial subluxation.MD [id number] 15:50:58 Test Item Value Reference Range Interpretation Comments ABORh. (test code = 882-1) A POS MD Colon Expiration [id number] 15:50:55 Test Item Value Reference Range Interpretation Comments T & S Expiration (test code = 06/29/2020 5318) MD OlsonAntibody [id number] 15:48:39 Test Item Value Reference Range Interpretation Comments ABSC. (test code = 890-4) Negative ABSC MD OlsonConfirm [id number] 14:32:56 Test Item Value Reference Range Interpretation Comments ABORh Confirm. (test code = 882-1) A POS MD OlsonGlucose, [id number] 13:43:36 Test Item Value Reference Range Interpretation Comments Glucose Random (test 174 mg/dL 70-199 Effecti ve 01/30/16, the code = 9360) glucose referen ce intervals have been updated based o n [employer] rena delines (Standards of [...] Hepatitis C Virus Ab Screen, Reflex HCV [id number] 17:46:29 Test Item Value Reference Range Interpretation Comments HCV Ab Screen-Cisco Negative Negative Signal-to -cutoff ratio is (test code = <1.00. Test Per formed 41066-4) by:[place] [id number] Director: Paulo Lopez M.D. Ph. D.; CLIA# [id number] MD OlsonUS HEAD NECK SOFT [id number] 15:43:031. 1.1 cm biopsy-proven left inferior thyroid nodule, compatible with outside biopsy proven PTC.2. No adenopathy. Interface, Radiology Results In - 06/22/2020 9:45 AM CST Examination: US HEAD NECK SOFT TISSUE on 06/22/2020 9:17 AMClinical History: Papillary thyroid carcinomaIndication: Thyroid CancerComparison: NoneTechnique: Sonographic images were obtained of the neck soft tissues.Findings: Right thyroid lobe: 2 x 5.1 x 1.4 cm Nodule 1: Right isthmus, 0.6 x 0.6 x 0.3 cm hypoechoic well-defined nodule.Left thyroid lobe: 2 x 6 x 1.2 cm.Nodule 2: Left inferior thyroid lobe, 1.1 x 1.1 x 1 cm hypoechoic solid nodule with lobular borders louis few internal echogenic foci, compatible with biopsy-proven PTC.Central neck: No adenopathy.Right lateral compartment: No adenopathy.Left lateral compartment: No adenopathyIMPRESSION:1. 1.1 cm biopsy-proven left inferior thyroid nodule, compatible with outside biopsy proven PTC.2. No adenopathy.MD OlsonVitamin D [id number] 20:53:44 Test Item Value Reference Range Interpretation Comments Vitamin D 25 OH (test 26 ng/mL 30-100 L Refere nce Range: code = 8018) Deficiency: <10 ng/mLInsufficie ncy: 10-29 ng/mLSufficienc y: 30-100 ng/mLPotential toxicity: >10 0 ng/mL Lab Interpretation (test Abnormal code = 70832-2) MD OlsonHepatitis C Virus [id number] 20:28:09 Test Item Value Reference Range Interpretation Comments HCVAb Received (test See Note HCVAb w as sent to a code = 72535) reference lab for testing. Expec t results on Hepa titis C Virus Ab Screen w/Reflex HCV PC R within 96 hours. MD OlsonHemoglobin [id number] 20:18:12 Test Item Value Reference Range Interpretation Comments A1C (test code = 4632) 6.7 % 4.3-5.6 H HbA1c values >=6.5% are diagnostic of diabetes mellitus.Diagno sis should be confi rmed by repeat testing.Therape utic Action suggeste d: >8.0% HbA1c; Go al oftherapy: <7.0 % HbA1c Lab Interpretation (test Abnormal code = 68300-3) MD OlsonUS Breast Complete [id number] 14:30:33Hm Interface, Radiology Results 06/20/2020 2:33 PM CSTFormatting of this note [...] the examination.This facility is accredited by [employer]. A negative x- ray report should not delay biopsy if a dominant or clinically suspicious mass is present. Not all cancers are identified by x-ray. [id number]_DT12[facility] Tomos[facility] [id number] 14:30:33Hm Interface, Radiology Results 06/20/2020 2:33 PM CST PROCEDURE: MAMMO BREAST [...] the examination.This facility is accredited by [employer]. A negative x- ray report should not delay biopsy if a dominant or clinically suspicious mass is present. Not all cancers are identified by x-ray. [id number][facility]DT12[facility] COVID-19 (SHAMA-CoV-2) PCR [id number] 12:53:15 Test Item Value Reference Interpretation Comments Range COVID19 SARS Pre-Out of OR Procedure Indication (test code = 55703) COVID19 SARS Result Not Detected Not Detected (test code = 37371-1) COVID19 SARS SARS-CoV-2 NOT Detected. Interpretation (test Reference Range: Not code = 48689) Detected Methodology: The [employer] RealTime SARS-CoV-2 assay is a qualitative real-time reverse smocking machine operator polymerase chain reaction (client relationship executive-PCR) test to detect RNA from SARS-CoV-2 in nasal, nasopharyngeal and oropharyngeal swabs from patients with signs and symptoms of infection who are suspected of COVID-19 by their health care provider. The [employer] RealTime SARS-CoV-2 performed on the O[employer] Media000 System is a dual target assay with [...] CLIA-certified, high-complexity Molecular Diagnostics Laboratory (MDL) at [facility] [place] under the Food and Drug Administration (FDA) s Emergency Use Authorization. Factsheet for patients: https://www.mdanderson.org/ AbbottFactSheetPatientsFact sheet for healthcare providers: https://www.mdanderson.org/ AbbottFactSheetHCP Test performed by:[facility] Molecular Diagnostic [address] [place] [address] [facility] [id number] 17:32:00 Test Item Value Reference Range Interpretation Comments Materials Received (test f2nfwLLfEXTvcVDwMvFd code = 9973) YMFuVSZtj8xbRWJkrKSo ZzEwMzNcZnRuYmpcdWMx AGBnNhFkk8xlu393mDBs l7fsRDKaZqL1hIApJETl rQGuS004KNOmVIayo1rq y7AmUOCohIOpo5Z0JOLD rnawiGx7yYdpM45kt6C6 NbbsH4erCJBvYHLxB7Oa VH6yPGYcVyk6IKV1CWJ1 DABzILNhZ2JzRB3bAQZg gQCoHBr6k6brvUytUMYt GWX6q4qoIHukhdEhAL0j hm8ddPk9o6tieyAmBDNz QDFxqPGNTOHhC6LdsXgg Hl3esYk8aKtiWunuKSA6 Odf4NE5mhv51jgo7qQwx OEUauxjoCjO2SQtcCSWf uluvXKx9EIloYSRxbJgs MFxtYXJncjcyMFxtYXJn bIW6LGCkdDZrT1GyAILr HUamNVQloqg6KwRuMy1q rQUtsEpoJLmyc7kqh3nm lVNdAcf0HUZhEcXtJotq GCwkz5Eyg2apYRAorx3k VKS3kQXxrRvtw6J5oWJi OGJwcYHtyxLgMBAcve97 eDYdkRCehKWdzp4qpwXd yGWvxDYlJKP0cPJwybXc XHOexHFzIYNtND5yoJKo EUNkmH6kharvGHUvOuWv gctpYFGubEylahLiEm3l qZffAOM0JFjeC7onwN4t IqM8SYacC3yohJ3hGEt2 UZtyeKC6BEDmgQ0wCP2p vaeik9ehNoRaIN5cklez d8afAxMzQV0jvbc6h7iy IDI5DUimISYmAiY5slI0 NDBcaGVhZGVyeTcyMFxm q085ZTZ2UsTsLEZts5Dr E7MxyRcgE71kcKfoN16b ZKLhtSsceA8fiGcabR8o XsNuHoYvPSa7ns70KLh2 lfqvrZjhTRe8vyUlIPGx NCT7PTLpiDPtLRWhX7l0 daFiGALjUMA7OCWoeGKu QTZdR9k4etIqERG4PQh3 cnBhZGRmdDNcdHJwYWRk YjBcdHJwYWRkZmIzXHRy jKZllKBxsCMoxT2qaMzo ZOCikPLsaW7qESO5XMVl cmgzMjBcdHJoZHJcbHRy ig81JVBbfbHuaSDbuZwo bVGnZJM4PHOeXHHiKCRd RSJ5HOQhAvXylyUzXTdw bGJyZHJiXGJyZHJzXGJy NEG2GPMbViElmeCvYAbk bGJyZHJsXGJyZHJzXGJy FCL1UNEyZtQvsaZkLRmc bGJyZHJyXGJyZHJzXGJy HIA5WLGeUcGwutGfJZok bHBhZHQxMFxjbHBhZGZ0 M0dgiIKxZHDhXIdxvKXo YIYaQ1rwwXEsDHqcZMHr cGFkZmwzXGNscGFkYjBc T8feFLYjUsOoB8XnyJu6 MDAwXGNsdmVydGFsdFxj vEHiSIX5BFNyVVGnJBDj IBB9OCJrPnUktzYsSDyn bGJyZHJiXGJyZHJzXGJy LFA9XIBlSnQxblCdROfk bGJyZHJsXGJyZHJzXGJy WQA5SJLdMtCbgsXlSMhs bGJyZHJyXGJyZHJzXGJy TTW2YBFlOdXyxkFuYYrx bHBhZHQxMFxjbHBhZGZ0 V8ejlUMnEJOePAjesIAa ECNcN4pvcWOsADjvOQGo cGFkZmwzXGNscGFkYjBc T3drNQBuOtFlV8MmyVx8 NjAwXGNsdmVydGFsdFxj gGAxBSE2PZTzUGRrIFQr VMJ5XHLgMjZoegWeLVdb bGJyZHJiXGJyZHJzXGJy RPJ5VWXpNcEiuwBlBGgw bGJyZHJsXGJyZHJzXGJy PQW7HPDgYmKbbsMhKVyx bGJyZHJyXGJyZHJzXGJy JOX0WMDkYkZgmoFgFOwv bHBhZHQxMFxjbHBhZGZ0 F4veiMHoJHFoULfkbHZi WZAoW0ddwBZzYHkwIOAr cGFkZmwzXGNscGFkYjBc D8wmOQKbPzDoY9NxkXw7 NwXrUXHptzVjdZ55Seog a6IrUEPhWPV2JTynXOxj bFxwbGFpblxmMVxmczIw RHglagtjHJQiKOkyX6dz ZiKeDBCosOyqLBmxn1Uk XGYxXGNmMlxmczIwXGIg PFRkNGWdtP2rKodhC8Cg qG4aBNfeLvmiS9zpFXMd l1KsvJ5wUNibsOGuisvx MVxmczIwXGxhbmcxMDMz XPxjV6zmSsJsZRHmnMbt HHpts4FiGGToRSVrNioe jfZyTEj0vwKnBCMttYdj tKGvGBqcovUdlAolz7Xd uiIubFspOOXjDGm7akJg fxjspXq2yZLidZtqELBh jWspmX6bLsWaAiZcDLen bGFpblxmMVxmczIwXGxh lqklGNQpPHyqR4mlHaJm RAPlcMmkJVopb0YnJDMn RINfNafgbvDtQLCxP48a bGVjdGVkXHBsYWluXGYx XGZzMjBcbGFuZzEwMzNc aGljaFxmMVxkYmNoXGYx LTdgV9atOrTsD2EzEPNp WgIdxCYcZ4zdO1FkdPoz YXJkXGludGJsXHNzcGFy XOY3sCYvatFioBPezFAk MUDdHVzcTBA3hQNuyvia cORgqumoNEmtclB1GKHf YWluXGYxXGZzMjBcbGFu ZzEwMzNcaGljaFxmMVxk KuTsZALdZLnqR6ckRaAp V1YvZIEtSaXpBqCFZUIp aXZlZFxwbGFpblxmMVxm czIwXGxhbmcxMDMzXGhp P9ywRmOcEKIwtQzlEXvt n0UfRFAtXZOlHkqhfzCq TNf7jlTuCKLufSnhhB27 Vxjuty27XCRin9lwZBLa L1JtgWEaGHLnmXHuTBzk MDhcdHJwYWRkZmwzXHRy cGFkZHIxMDhcdHJwYWRk ZnIzXHRycGFkZHQwXHRy wYTkYKP1Q2m1zbTnPHTu RBi9siYzOYQeAkKcgUSp KNE4TUv4DidqbeU1mUKq M0e9XomowyDmCOlxnLLs cm85DOJkyoVtaYLllKny nDGwGWK1MSKgRCBkTKBi IEN3WKLpGhWvkjXrJLcb bGJyZHJiXGJyZHJzXGJy TTC6LZOtVdBhdhGkUKly bGJyZHJsXGJyZHJzXGJy OWN1BDAgOwIuciXfPObr bGJyZHJyXGJyZHJzXGJy VGF8WJYnZxHbtrEuSXgv bHBhZHQxMFxjbHBhZGZ0 N4emjJMpWIEtOJvclJTd TCRvY2sgeSIxAVacLXEv cGFkZmwzXGNscGFkYjBc L9xyHKOnPyHeX4KsuKo5 MDAwXGNsdmVydGFsdFxj pJNpHKU2XZVkIHYeICAl XSD0ZILkElFvjpSfANcp bGJyZHJiXGJyZHJzXGJy RJD3EJInSgLzylEfCIkd bGJyZHJsXGJyZHJzXGJy IQL0HCMrElWamsPfSOqe bGJyZHJyXGJyZHJzXGJy MIS4CLIvXoRzrfCpDFxa bHBhZHQxMFxjbHBhZGZ0 Y6tewQYxHCXqSWzjvEAw MZYeU2lieURvQAxyMLRs cGFkZmwzXGNscGFkYjBc B2smMGDpFkIbM2BydKo8 NjAwXGNsdmVydGFsdFxj wXNaZGW0QXOiGVJyOSFu LPX6NJSuSjXcaeHhFZid bGJyZHJiXGJyZHJzXGJy ETR3UPXrTwDlhaPmHSam bGJyZHJsXGJyZHJzXGJy BJZ8MTLfErRjcqAlDZth bGJyZHJyXGJyZHJzXGJy PQB7MYCfIaLlbxOcRLes bHBhZHQxMFxjbHBhZGZ0 Y7wbbPHzRUUkWQznrQTn CLUbO3yreWSrGNovEGAl cGFkZmwzXGNscGFkYjBc H1wnGYTtMpEhZ1QryVw6 VfIuZCXombHgxN49Brmi b3BqGULnWAT1OKkhKOiz bFxwbGFpblxmMFxmczI0 XHBsYWluXGYxXGZzMjBc bGFuZzEwMzNcaGljaFxm UHddIpPuVRKmBIrgM9gd LkSvH1WtNUTjTaWqUT3u LxlAYPOfKXX1GHlrFmHE DmttCZWVZV0II3JxTPEj VVNTXHBsYWluXGYxXGZz MjBcbGFuZzEwMzNcaGlj aFxmMVxkYmNoXGYxXGxv X5uiEuPhS8YuFIZwGqTd aCJiJ0vjE6FbsLdqFOKy XGludGJsXHNzcGFyYWF1 uDSsvbHrjMnedMknmD2b ZjBcZnMyNFxwbGFpblxm MVxmczIwXGxhbmcxMDMz POkqY2cyFzDgUJRsjQem QUdkg6LfUIUvPFWrHhws czIwIDExLzMwLzIwMjBc xRglxX4wFxNjYaKeKMxe QJ5xFZEqA8rcjQQbIMJx QWZsH3jeEfYeoW6hgQip MVxjZjJcZnMyMFxsdHJj lAnlZNawRMBmlyMzdN07 Czslh8SfSORqMQA0MRnv MFxxbFxwbGFpblxmMFxm qnD2QOQiTLsgYWTmFVLf MjBcbGFuZzEwMzNcaGlj aFxmMVxkYmNoXGYxXGxv A8ebJuNqM4YhSRRgFsIk MTIvMTEvMjAyMFxwbGFp blxmMVxmczIwXGxhbmcx LQKjTErgW8goTbYtENWa jNgjTKpqv6OdDPLuELNf LaaadeNaVSw2twCpZQOb hWscuM71Sukjdc66UWPa kxMgo4CoGWSgTSF4BEsy MFxxbFxwbGFpblxmMFxm qzN7ZAMpSFdyAPZaBSZu MjBcbGFuZzEwMzNcaGlj aFxmMVxkYmNoXGYxXGxv J1abEgHzEpOqKZueEOL4 Diagnosis (test code = x3cirGMfWHZqaSW7IzNw 34) PXFkl1rvb1BamUQuaOYh EHezlUCsefOgdh03fHB0 hP93UN8cFQMgFeL6NNZt swL1Ycn4OUAhLULozUWk A900f4aog4yhnwAowQM4 fVxwYXJkXHBsYWluXGZz SfTsCsHvFWv0ULGfHpCx hBqhCOLqUJXGRZ4vZL5v IyOfFZOyq5eejxX3VCKh LGPkyEy5kn9oUPOzf8L1 bGUgKDEuMyBjbSksIGxl ZnQsIGZpbmUgbmVlZGxl OOGnqKosAQRtv062BXCq clxwYXJcdGFiIFBBUElM QCAKSOEWNWoPK1mGTSNM GrFIZr3XMDdhCDC0 Disclaimer (test code = j1sryQUiPVGpoXOmWwAj 9844) UFMmZQDfq1sfFXLfaHCd ZzEwMzNcZnRuYmpcdWMx UCHlXfOjx6hlh017gSMh t0tzGGCdCuZ0bADoLPSq xLKtC225TYTfORwpj3ya n6NrDINutSOsz9J7KNEZ ftdwlWf2rCcoG04as7Y9 WzgyK9grGKYuLEWgJ8Li NV6gORSnCya8LVC9IRP7 YMVdKCJqE2VmFN4kUWSg eYJnVXg6l2xiuOesLHPt OLA3h7qbYEvyceApSH8l mk7geEp5y5vzlrIgDNFd NAPhlMDWFPCuJ2WqhHps Ju1iyPu9gKqsFnedLKP8 Vin0PD0qbx50swh9yWkn RWIhddfcMaR0XAtgAWIx wlooZSh2EZisUKBoiHM8 TZYhmAKwM5FmQINeIQ0i nwl1FRF9PYubZSDmReL5 NDBcaGVhZGVyeTcyMFxm f345ZPG3VaKhSO3tX9Nx q8L4wY5weHJkZHBviUQw UcHdEUEfvx9nwDNtLHup t4JoNUV8fvS7qDIqcTVp YEWeHN80Ajvnx3LqTnlk UDO1URZvxoDxf9Gii7vo ZzFtiwKoE1xkR3AsMHWe AULeMDCfIsMayaBwq6Ca b1SabUYtgGi0v5reESEy DLRcpBrnn7mcIIP4JLId V6S7gONih0ftQHkiVOOx rAO4jhD6FZYcmNLvV3Op wW9lRSDyOB5bdsb5c7xj KOD1NVqfYUSfZvT8wdX5 NDBcaGVhZGVyeTcyMFxm a144OCZ2UdDbHWCss7Tt A3GomPahN77zhLgkM19k UQZwdRxuyV0beEstdX7i ZjBcZnMyNFxxbFxwbGFp tazuKYcgeeM2SXtripxe AKHvXQghM0hpNfPeXWGg sAenWXekr0AqTGAnMCTk XtorcrX6GISJi67xFTPc b3UuJVRwsG8dmDPyHPbg wmKosLP1WLdtciCkZxJj pvHlRREwwA0tQNJvNT7l ICPdhsUnan1ivpZmYUTx LYBfI7IslleenQfqrhPc VILbkw2ysoRaFMG1CIZK DF6FNQCdKUFdx51wBIHv mLprbV9ihALscaNgROMj c2BxpA7sxSOVZISzC3ai HI5hDMxsx6TwhNXxaXPx vUX1TFQoy9VqTeKhpjWl uNEpaUXeO3MtqLryZ3jo VXGeBLRrcfEvqMDsd9Bc XWDvhEZ0zNXgOJ4SCrVH o00tTDGgXSQLssDeXNYe kVgpyZG0tqW2yJ6mBjRL ZiBhcHBsaWNhYmxlLCBj x989vn9xmcM3JCAsKMZb ldccz5HfRXSkAKHckR11 UMFlPEKrfl8obmuizOKa ejBzM0Ffmds3jA0fMBKq YWluXGYxXGZzMjJcbGFu ZzEwMzNcaGljaFxmMVxk PoEgIMLyAUffO1rsYrIe ZnMyMlxwYXJ9 MD [place] Pelvic [id number] 13:42:12Hm Interface, Radiology Results 06/14/2020 1:45 PM [...] CT of July 20, 2018. Recommend continued surveillance.OPC-[id number] and approved by executive vice president of sales/fellow: Sanjay Chew M.D.I, Brando Alas MD, personally reviewed the images and resident's/fellow's findings and agree with the final report.Barney Sanders Pelvic Mhwghzxdlpbggs0341-94-16 13:42:12Hm Interface, Radiology Results 06/14/2020 1:45 PM [...] of July 20, 2018. Recommend continued surveillance.OPC- [id number] and approved by executive vice president of sales/fellow: Sanjay Chew M.D.I, Brando Alas MD, personally reviewed the images and resident's/fellow's findings and agree with the final report.[facility] Lumbar Spine Wo [id number] 07:58:49Hm Interface, Radiology Results 06/14/2020 8:01 AM [...] left L5 nerve root without evidence of impingement.[id number] [facility] ([facility]-gy[facility]) [id number] 11:19:33 Test Item Value Reference Range Interpretation Comments Case number (test code = [id number]) Cytology See link below for (non-gynecological) PDF Lab Report report (test code = 1178) Result status (test code This is Final Report = [id number]) for [id number] [place] [facility] [id number] 07:44:30Hm Interface, Radiology Results - 06/05/2020 7:47 [...] the procedure demonstrate no post procedure hematoma.PROCEDURE DETAILS:Pre-procedure:[facility] studies: Thyroid ultrasound from 05/11/2020Written and informed [...] removed: NoneEstimated blood loss (mL): Less than 10HMH-3EK3489LLRXweaeevEdson Sanders Soft Tissue Head Neck 2020-05-11 16:39:58Hm Interface, [...] cm. Follow if > or = 0.[address]-[id number] [place] [facility] [place] 12 [id number] 13:33:35 Test Item Value Reference Range Interpretation Comments Ventricular rate (test 85 code = 253) Atrial rate (test code = 85 255) PA interval (test code = 144 266) QRSD interval (test code 140 = 260) QT interval (test code = 392 264) QTC interval (test code 466 = 265) P axis 1 (test code = 65 267) QRS axis 1 (test code = 362 332) T wave axis (test code = 56 579) EKG impression (test Normal sinus code = 273) rhythm-Right bundle branch block-Cannot rule out Inferior infarct , age undetermined-Abnormal ECG-No change c/w November 2019- Barney Hidalgo
--- NOTE | 2021-01-21 15:12 | ER ---
Nurse's Notes [facility]ass Name: Digna Foy Age: 50 yrs Sex: Female : 1970 Arrival Date: 01/21/2021 Time: 12:52 Bed Waiting Private MD: Diagnosis: Presentation: 01/21 13:01 Chief complaint: Patient states: headache more of pressure from Sinus congestion, with ca1 greenish discharge now. Been taking allergy meds, no relief. Started on Thursday. Now am coughing a little bit now. I have thyroid cancer, undergoing treatment. Coronavirus screen: Client denies travel out of the [place] in the last 14 days. congestion, cough unrelated to allergies, runny nose. Ebola Screen: Patient negative for fever greater than or equal to 101.5 degrees Fahrenheit, and additional compatible Ebola Virus Disease symptoms Patient denies exposure to infectious person. Patient denies travel to an Ebola-affected area in the 21 days before illness onset. No symptoms or risks identified at this time. Initial Sepsis Screen: Does the patient meet any 2 criteria? No. Patient's initial sepsis screen is negative. Does the patient have a suspected source of infection? No. Patient's initial sepsis screen is negative. Risk Assessment: Do you want to hurt yourself or someone else? Patient reports no desire to harm self or others. Onset of symptoms was January 21, 2021. 13:01 Method Of Arrival: Ambulatory ca1 13:01 Acuity: JAIDEN 3 ca1 PL[employer] SCIENTIST: 13:04 LMP N/A - Hysterectomy ca1 Historical: - Allergies: 13:04 Clindamycin; ca1 13:04 Doxycycline; ca1 13:04 TETRACYCLINES; ca1 - PMHx: 13:04 6 mm nodule in lung; Asthma; Bipolar disorder; Cirrhosis; Hypertension; PTSD; ca1 Rheumatoid Arthritis; thyroid papillary carcinoma; - Immunization history:: Client reports receiving the 1st dose of the Covid vaccine, Flu vaccine is up to date. - Social history:: Smoking status: Patient denies any tobacco usage or history of. Assessment: 15:10 Reassessment: Rosemary registration states, "pt left and said she is going to the urgent ca1 care". Vital Signs: 13:01 BP 114 / 84; Pulse 85; Resp 18 S; Temp 98.2(TE); Pulse Ox 97% on R/A; Weight 85.73 kg ca1 (R); Height 5 ft. 7 in. (170.18 cm) (R); Pain 11/12; 13:01 Body Mass Index 29.60 (85.73 kg, 170.18 cm) ca1 ED Course: 12:52 Patient arrived in ED. am2 13:03 Triage completed. ca1 13:04 Arm band placed on right wrist. ca1 Administered Medications: No medications were administered Outcome: 15:11 Patient left the ED. ca1 Signatures: Rosemary Juarez am2 Brooke Dickey RN RN ca1 Corrections: (The following items were deleted from the chart) 13:05 13:01 Chief complaint: Patient states: Sinus infection, with greenish discharge now. ca1 Been taking allergy meds, no relief. Started on Thursday. Now am coughing a little bit now. I have thyroid cancer, undergoing treatment ca1 13:05 13:04 LMP N/A - Post-menopause ca1 ca1
[2021-01-21 15:16] VITALS: BP 114/84; TEMP 98.2; O2SAT 97
== END 2021-01-21 15:11 | disposition left against medical advice (07) ==
LOC: ER 12:48
DX: Z53.21 Procedure and treatment not carried out due to patient leaving prior to being seen by health care provider (principal)
CPT/HCPCS: 99281